=== PATIENT | male | born 1945 | race Caucasian/White ===

== ENCOUNTER 2019-11-27 10:44 | Inpatient (IN) | payer MEDICARE, OTHER, SELFPAY ==
[2019-11-27] VITALS (22 sets, daily range): BP systolic 117–153; BP diastolic 56–114; PULSE 76–102; RESP 12–23; TEMP 36.7–37.3; O2SAT 93–97; BMI 40.4; BMI 39.8
--- NOTE | 2019-11-27 11:03 | EKG12_ITS ---
Test Reason : CP Blood Pressure : / mmHG Vent. Rate : 091 BPM Atrial Rate : 300 BPM P-R Int : 000 ms QRS Dur : 100 ms QT Int : 382 ms P-R-T Axes : 000 023 031 degrees QTc Int : 469 ms Atrial fibrillation Abnormal ECG Confirmed by ORLY LUJAN ([id number]), greeting card editor ANGEL BECK ([id number] on 12/01/2019 3:42:16 PM Referred By: NAHUM Confirmed By:ORLY LUJAN
--- NOTE | 2019-11-27 11:07 | RAD_ITS ---
STUDY: X-RAY CHEST REASON FOR EXAM: Male, 74 years old. Chest pain, pressure to left side for last 3 weeks, worse at night. Increasing in SOB at rest so came to ER TECHNIQUE: Single AP portable view of the chest. COMPARISON: None. FINDINGS: EKG electrodes are seen. Mild increased linear markings at the left lung base suggestive of linear atelectasis and/or scarring. There is no demonstrated pleural abnormality. There is mild cardiac enlargement. Normal mediastinum and manuela. Normal visualized pulmonary arteries. Normal visualized aortic arch and descending thoracic aorta. There are diffuse degenerative changes of the visualized thoracic spine. Normal visualized ribs, clavicles, and shoulders. There is no demonstrated abnormality of the visualized soft tissue structures of the upper abdomen. RAD/Chest 1 View (Portable) IMPRESSION: Mild cardiomegaly. Mild increased linear markings at the left lung base suggestive of linear atelectasis and/or scarring. Electronically Signed: Haroldo Arana, at 12:16 EDT , Service support ,
--- NOTE | 2019-11-27 11:23 | ED.DCSUM_ITS ---
History of Present Illness Chief Complaint: Chest Pain Informant: Patient Onset: Days Context: Gradual Onset Timing: Continuous Current Severity: Moderate Maximum Severity: Moderate Narrative: Patient is a 74-year-old male with medical history significant for hypertension, hyperlipidemia, and atrial fibrillation that presents to the emergency department with heart racing, chest pain, and shortness of breath. Patient states that he does have a history of A. fib. He is not on anticoagulants. He does get all of his care through the [facility]. He states his been compliant with his medications and just takes baby aspirin. He states for the past few days, he is noticed that his heart rate has been as high as 140. If he tries to exert himself, he states that he feels very short of breath and will have tightness in his chest. It does not radiate. He denies any fever. He denies chills or sweats. He denies any history of coronary vascular disease. Prior similar symptoms: No Recent Illness/Hospitalization: No Past Medical History - Allergies and Home Meds Allergies/Adverse Reactions: Allergies No Known Allergies Allergy (Verified 11/27/19 10:44) Primary Care Physician: [facility] [Primary Care Provider] - Prior records reviewed: Yes Past Medical History: - - Hypertension, hyperlipidemia, atrial fibrillation Smoking Status: Former smoker Review of Systems General: Denies: Chills, Fever, Sweats Eyes: Denies: Visual changes - bilaterally, Diplopia ENT: Denies: Rhinorrhea, Sore throat Cardiovascular: Reports: Chest pain, Palpitations Respiratory: Reports: Dyspnea on exertion, Orthopnea. Denies: Dyspnea, Cough Gastrointestinal: Denies: Abdominal pain, Nausea, Vomiting, Diarrhea, Melena, Hematochezia Genitourinary: Denies: Dysuria, Hematuria, Frequency Musculoskeletal: Denies: Back pain, Extremity Pain Skin: Denies: Rash, Wounds Neurological: Denies: Headache, Weakness, Numbness Physical Exam Vital Signs/Narrative: Vital Signs Temp Pulse Resp BP Pulse Ox 11/27/19 10:47 99.2 F H 102 H 23 H 153/82 H 97 Inital Vital Signs reviewed: Yes General: Well nourished, Well developed, No Acute Distress Head: Normocephalic, Atraumatic Eyes: Perrl, EOMI ENT: Moist mucous membranes, No rhinorrhea Neck: Supple, Nontender Cardiovascular: No murmurs, Irregular, Tachycardia Respiratory: No distress, Chest nontender, Decreased Air Movement Abdomen: Soft, Nontender, Nondistended, Normal bowel sounds Back: Nontender, Normal Inspection Extremities: Nontender, No edema Skin: Normal color, No rash Neurological: Alert, Oriented x3, Cranial nerves II-XII grossly intact, Normal Strength, Normal Sensation Psychological: Normal affect, Normal Mood Diagnostic/Tx/Re-eval Chest X-Ray - ED: 1 View, Normal, Cardiomegaly, CHF Clinical Impression(s) from Imaging Studies Chest X-Ray 11/27/19 11:07 IMPRESSION: Mild cardiomegaly. Mild increased linear markings at the left lung base suggestive of linear atelectasis and/or scarring. Electronically Signed: Haroldo Arana, at 12:16 EDT , Service support , Abnormal Lab Results 11/27/19 11/27/19 11/27/19 11:05 11:05 11:05 WBC 5.7 RBC 4.67 Hgb 14.8 Hct 43.8 MCV 93.8 MCH 31.7 MCHC 33.8 RDW Std Deviation 49.9 H RDW Coeff of Eduard 14.4 Plt Count 160 MPV 9.3 Immature Gran % (Auto) 0.400 Neut % (Auto) 64.0 Lymph % (Auto) 11.5 L [place] % (Auto) 22.5 H Eos % (Auto) 1.4 Baso % (Auto) 0.2 Absolute Neuts (auto) 3.6 Absolute Lymphs (auto) 0.65 L Nucleated RBC % 0 PT 13.7 INR 1.1 APTT 34.6 Sodium 136 Potassium 3.8 Chloride 103 Carbon Dioxide 27.0 Anion Gap 6 BUN 9 Creatinine 1.03 Estim Creat Clear Calc 66.94 Est GFR (MDRD) Af Amer 91 Est GFR (MDRD) Non-Af 75 BUN/Creatinine Ratio 8.7 L Glucose 148 H Calcium 8.3 L Total Bilirubin 1.50 H AST 77 H ALT 114 H Alkaline Phosphatase 138 H Troponin I < 0.015 B-Natriuretic Peptide Total Protein 6.6 Albumin 3.0 L Globulin 3.6 Albumin/Globulin Ratio 0.8 L 11/27/19 11:05 WBC RBC Hgb Hct MCV MCH MCHC RDW Std Deviation RDW Coeff of Eduard Plt Count MPV Immature Gran % (Auto) Neut % (Auto) Lymph % (Auto) [place] % (Auto) Eos % (Auto) Baso % (Auto) Absolute Neuts (auto) Absolute Lymphs (auto) Nucleated RBC % PT INR APTT Sodium Potassium Chloride Carbon Dioxide Anion Gap BUN Creatinine Estim Creat Clear Calc Est GFR (MDRD) Af Amer Est GFR (MDRD) Non-Af BUN/Creatinine Ratio Glucose Calcium Total Bilirubin AST ALT Alkaline Phosphatase Troponin I B-Natriuretic Peptide 304.3 H Total Protein Albumin Globulin Albumin/Globulin Ratio - Rhythm Strip Rhythm Strip: A-fib Rate: 120 Ectopy: None - EKG Initial EKG Interpretation: Atrial Fibrillation, Non-Specific ST Changes Prior: No Prior - Medical Decision Making The patient is a 74-year-old male with history of atrial fibrillation and hypertension that presents to the emergency department with intermittent palpitations and left-sided chest pain. EKG was obtained on patient arrival which demonstrated atrial fibrillation at a rate of 91. The patient's rate would fluctuate into the 120s. This was consistent with RVR. He was started on the low-dose diltiazem drip with better control of his heart rate. Chest x-ray does not show significant volume overload, but there is cardiomegaly. Cardiac enzymes were negative. The patient is not anticoagulated, but is 74 years old with history of hypertension and seems to be in chronic atrial fibrillation. With his exertional dyspnea and chest tightness I do feel that he would benefit from cardiac work-up. Patient was discussed with the hospitalist. Impression 1. A. fib with RVR 2. Exertional dyspnea ED Disposition - Plan for ED Patient: [facility] [[facility]] -
[2019-11-27 11:27] LABS: Absolute Lymphocyte Count 0.65 X10^3/uL (0.83-4.51); Absolute Neutrophil Count 3.6 X10^3/uL (2.0-7.7); Basophil# 0.01 X10^3/uL; Basophil% 0.2 % (0-1); Eosinophil# 0.08 X10^3/uL; Eosinophils% 1.4 % (0-5); Hematocrit 43.8 % (40-54); Hemoglobin 14.8 g/dL (13.0-16.5); Lymphocyte # 0.65 X10^3/ul (4.0); Lymphocyte % 11.5 % (19-41); Mean Corp Hgb Conc 33.8 g/dL (32-36); Mean Corpuscular Hgb 31.7 pg (27.0-32.0); Mean Corpuscular Volume 93.8 fL (80-94); Mean Platelet Vol. 9.3 fl (6.2-12.0); Monocyte# 1.27 X10^3/uL; Monocyte% 22.5 % (0-10); NRBC Flagged by Analyzer 0 % (0-5); Neutrophil # 3.62 X10^3/uL (2.7-7.7); Platelet Count 160 K/mm3 (150-450); RBC Distribution Width CV 14.4 % (11.6-14.6); RBC Distribution Width SD 49.9 fl (35.1-43.9); Red Blood Count 4.67 M/mm3 (4.6-6.2); White Blood Count 5.7 K/mm3 (4.4-11.0)
[2019-11-27 11:39] LABS: International Normalized Ratio 1.1; Partial Thromboplast Time 34.6 Seconds (24.1-36.2); Prothrombin Time (Protime)PT. 13.7 SECONDS (11.7-14.9)
[2019-11-27 11:40] LABS: ALB/GLOB Ratio 0.8 RATIO (0.9-2.4); AST(SGOT) 77 U/L (15-37); Alanine Aminotransfer ALT/SGPT 114 U/L (16-61); Alkaline Phosphatase 138 U/L (45-117); Anion Gap 6 (5-15); BUN 9 mg/dL (7-18); BUN/Creat Ratio 8.7 RATIO (10-20); Calcium,Total 8.3 mg/dL (8.5-10.1); Chloride 103 mmol/L (98-107); Creatinine, Serum 1.03 mg/dL (0.70-1.30); EST Glomerular Filtration Rate 75 mL/min (>60); Est Glom Filt Rate - Afr Amer 91 mL/min (>60); Estimated Creatinine Clearance 66.94 ml/min; Globulin 3.6 g/dL (2.2-4.2); Glucose 148 mg/dL (74-106); Potassium 3.8 mmol/L (3.5-5.1); Protein, Total 6.6 g/dL (6.4-8.2); Sodium Level 136 mmol/L (136-145)
[2019-11-27 11:47] LABS: BNP,B-Type NATRIURETIC PEPTIDE 304.3 pg/mL (0-100)
--- NOTE | 2019-11-27 12:52 | HP.PCM_ITS ---
Problem List (1) Elevated LFTs Status: Acute (2) Atrial fibrillation with RVR Status: Acute (3) Atypical chest pain Status: Acute (4) Chronic atrial fibrillation Status: Chronic (5) GERD (gastroesophageal reflux disease) Status: Chronic (6) Depression Status: Chronic (7) Hypertension Status: Chronic History of Present Illness Date of Admission: 11/27/19 Chief Complaint: Palpitation, throat pain, shortness of breath. The patient is a 74 year old M with past medical history as mentioned above presented to the emergency room because of hypertension, throat pain and shortness of breath. His symptoms has been going on for almost 4 weeks, his main symptom is palpitation with heart rate ranging from 70s up to 120s, intermittent, associated with exertional shortness of breath and throat pain and without aggravating or relieving factors. Throat pain described as burning pain, intermittent, comes on when he has the palpitation, mild, not radiating and no associated symptoms. He reported chronic dry cough which is usual for him. He denied sore throat, fever or chills. He mentioned that the shortness of breath is more prominent during nighttime. He denied orthopnea, PND or leg edema. In the emergency department, he was found to be in A. fib with RVR, started on IV Cardizem drip and heart rate went down to 90s. He does have history of chronic atrial fibrillation. He was afebrile, blood pressure stable, pulse ox was 95% on room air. His routine blood work was unremarkable. LFT revealed elevated bilirubin and slightly elevated liver transaminases as well as alkaline phosphatase. EKG revealed atrial fibrillation, no acute acute changes. Troponin was negative. BNP was 304. Chest x-ray revealed cardiomegaly, no acute findings. He is being admitted for A. fib with RVR, atypical chest pain and elevated LFT. Past Medical History Past Medical History (Chronic Problems): Chronic Problems Chronic atrial fibrillation (Chronic) GERD (gastroesophageal reflux disease) (Chronic) Depression (Chronic) Hypertension (Chronic) Allergies No Known Allergies Allergy (Verified 11/27/19 10:44) Home Medications: Ambulatory Orders Medication Instructions Recorded Arginine 500 mg PO DAILY 05/04/13 Bupropion HCl [Bupropion HCl Sr] 100 mg PO BID 05/04/13 Co Q10 200 [Co Q-10] 50 mg PO DAILY 05/04/13 Fluticasone 0.05% [Flonase Nasal 1 spray NASAL DAILY 05/04/13 [place]] Guaifenesin [Mucinex] 400 mg PO BID 05/04/13 Lisinopril [Zestril] 40 mg PO BID 05/04/13 Multivitamins,Therapeutic 1 tab PO DAILY 05/04/13 Omeprazole [Prilosec] 40 mg PO DAILY 05/04/13 Saw Capron 80 mg PO BID 05/04/13 Sildenafil Citrate 100 gm MC PRN 05/04/13 Testosterone [Androgel] 75 gm TD 05/04/13 hydrOXYzine pamoate capsule 25 mg PO QHS 05/04/13 [Vistaril] ALPRAZolam [Xanax] 0.25 mg PO BID PRN PRN 11/27/19 Amlodipine Besylate 10 mg PO DAILY 11/27/19 Cholecalciferol (VIT D3) [Vitamin 5,000 unit PO QODAY 11/27/19 D] Sennosides/Docusate Sodium 1 ea PO BID PRN PRN 11/27/19 [Docusate Sodium-Sennosides Tab] Vitamin E 400 unit PO DAILY 11/27/19 Surgical History: - - History of left foot surgery. Psychiatric History: Depression Lives: Spouse/ Significant Other Smoking Status: Former smoker Alcohol: Occasional Drugs: None - *Family History Maternal History Items: No pertinent history Paternal History Items: No pertinent history Review of Systems Constitutional: Denies: Anorexia, Chills, Fever, Weakness Eyes: Denies: Blurred vision, Double vision, Drainage, Redness HEENT: Denies: Difficulty Hearing, Ear Pain, Eye Pain, Nasal Congestion, Sore Throat Cardiovascular: Reports: Palpitations. Denies: Chest Pain, Chest Pressure, Chest Tightness, Heaviness, Light Headedness, Syncope Respiratory: Reports: Cough, Shortness of Breath, Shortness of breath at rest, Shortness of breath upon exertion. Denies: Sputum production, Wheezing Gastrointestinal: Denies: Abdominal Pain, Constipation, Diarrhea, Nausea, Vomiting Genitourinary: Reports: Retention. Denies: Dysuria, Frequency, Hematuria Musculoskeletal: Denies: Arm Pain, Back Pain, Foot Pain Skin: Denies: Dryness, Rash Neurological: Denies: Balance problems, Double vision, Confusion, I ncoordination, Tingling Psychiatric: Reports: Depression. Denies: Anxiety Endocrine: Denies: Change in Body Habitus, Polydipsia, Polyuria VTE Information - Inpt Only VTE Present on Admission: No VTE Mechan Device Prophylaxis: None VTE Pharm Prophylaxis ordered?: No Patient Problems: Active and Suspected Problems Elevated LFTs (Acute) Atrial fibrillation with RVR (Acute) Atypical chest pain (Acute) - Physical Exam Vitals/I&O's: Vital Signs Temp Pulse Resp BP Pulse Ox 99.2 F H 90 23 H 117/70 95 11/27/19 10:47 11/27/19 12:37 11/27/19 12:37 11/27/19 12:37 11/27/19 12:37 Oxygen Delivery Method Room Air Weight: 281 lb 15.539 oz Body Mass Index (BMI) 40.4 Intake and Output for Last 24 Hours 11/25/19 11/26/19 11/27/19 23:59 23:59 23:59 Intake Total 2.5 / 2.5 Balance 2.5 / 2.5 General: Alert, Oriented x3, Cooperative, - - Mildly short of breath. HEENT: Atraumatic, PERRLA, EOMI, Normocephalic Oral: Moist Mucosa, No Gingival or Mucosal Lesions/ Ulcerations Neck: Supple, No JVD, Negative Carotid Bruits, Trachea Midline, Thyroid Normal Size and Texture Lungs: Clear to auscultation, Normal air movement, No rhonchi, No wheeze, No rales, Diminished Cardiovascular: Normal S1, Normal S2, No murmurs, PMI Normal, Irregular Rate, Tachycardic Abdomen: Bowel Sounds Present, Soft, Non Tender, Non-Distended, No Hepato- splenomegaly, Obese, - - Ventral hernia. Extremities: No clubbing, No cyanosis, No edema Skin: No rashes, No breakdown Musculoskeletal: No Tenderness to Palpation of Joints or Extremities Lymphatic: No Cervical, Supraclavicular, or Inguinal Adenopathy Neurological: Cranial nerves II-XII grossly intact, Motor Exam 5/5 strength throughout Psych/Mental Status: Normal Affect, Appropriate, Alert and oriented to time, place, person, mood and affect Laboratory Results 11/27/19 11:05: WBC 5.7, RBC 4.67, Hgb 14.8, Hct 43.8, MCV 93.8, MCH 31.7, MCHC 33.8, RDW Std Deviation 49.9 H, RDW Coeff of Eduard 14.4, Plt Count 160, MPV 9.3, Immature Gran % (Auto) 0.400, Neut % (Auto) 64.0, Lymph % (Auto) 11.5 L, [place] % (Auto) 22.5 H, Eos % (Auto) 1.4, Baso % (Auto) 0.2, Absolute Neuts (auto) 3.6, Absolute Lymphs (auto) 0.65 L, Nucleated RBC % 0 11/27/19 11:05: PT 13.7, INR 1.1, APTT 34.6 11/27/19 11:05: Sodium 136, Potassium 3.8, Chloride 103, Carbon Dioxide 27.0, Anion Gap 6, BUN 9, Creatinine 1.03, Estim Creat Clear Calc 66.94, Est GFR (MDRD) Af Amer 91, Est GFR (MDRD) Non-Af 75, BUN/Creatinine Ratio 8.7 L, Glucose 148 H, Calcium 8.3 L, Total Bilirubin 1.50 H, AST 77 H, ALT 114 H, Alkaline [place] sphatase 138 H, Troponin I < 0.015, Total Protein 6.6, Albumin 3.0 L, Globulin 3.6, Albumin/Globulin Ratio 0.8 L 11/27/19 11:05: B-Natriuretic Peptide 304.3 H Clinical Impression(s) from Imaging Studies Chest X-Ray 11/27/19 11:07 IMPRESSION: Mild cardiomegaly. Mild increased linear markings at the left lung base suggestive of linear atelectasis and/or scarring. Electronically Signed: Haroldo Arana, at 12:16 EDT , Service support , Current Medications Diltiazem HCl 125 mg/ Dextrose 125 mls @ 5 mls/hr IV .Q25H [facility]; Protocol Last Titration: 11/27/19 12:37 Dose: 5 mg/hr, 5 mls/hr Documented by: Assessment/Plan All Active Problems Elevated LFTs (Acute) Atrial fibrillation with RVR (Acute) Atypical chest pain (Acute) This is a 74 years old male patient presented to the emergency room because of palpitation, atypical chest pain with shortness of breath and he is being admitted for evaluation and treatment and also found to have elevated LFT. #1 A. fib with RVR: Started on IV Cardizem drip, heart rate is down to 90s, blood pressure stable. EKG reviewed, troponin is negative. Chest x-ray without evidence of obvious CHF. Patient does have a history of chronic atrial fibrillation, not on anticoagulation. Plan: Admit to PCU, cardiac monitoring, serial cardiac enzymes, repeat EKG tomorrow morning, check serum magnesium and TSH, continue IV Cardizem drip, 2D echocardiogram because patient will need to be started on anticoagulation, start therapeutic Lovenox twice daily, repeat CBC and BMP tomorrow morning, PT OT evaluation and treatment. #2 atypical chest pain: Mainly throat pain, intermittent. EKG without tach ischemic changes. Troponin is negative. Plan: Cardiac monitoring, serial cardiac enzymes, repeat EKG tomorrow morning, nuclear stress test tomorrow morning, nitroglycerin PRN. #3 elevated LFT: Could be due to chronic alcohol drinking. He complained of intermittent right upper quadrant abdominal pain, no tenderness, negative Abdalla sign. #4 hypertension: Blood pressure stable, continue lisinopril and Norvasc. #5 chronic atrial fibrillation: He is not on any rate controlling medicine and not on anticoagulation. His [id number] score is 2. Patient is a candidate for anticoagulation. Plan to start him on therapeutic Lovenox twice daily, continue Cardizem drip for now. #6 GERD: Continue PPI. #7 anxiety/depression: Continue Xanax and bupropion. #8 DVT prophylaxis: He will be on Lovenox twice daily for anticoagulation. This note was generated with [email or web address] dictation software. It may contain incorrect words, spelling, and punctuation that were not noted in checking the note before signing. Inpatient E&M: 69606 Init Hosp L3
--- NOTE | 2019-11-27 14:01 | US_ITS ---
STUDY: ABDOMINAL ULTRASOUND - RIGHT UPPER QUADRANT REASON FOR VISIT: Male, 74 years old ELEV LFT TECHNIQUE: Ultrasound evaluation of the right upper quadrant was performed with real-time and static antoine-scale imaging. TECHNICAL QUALITY: Limited. Examination limited by bowel gas. COMPARISON: None. FINDINGS: Liver: The liver measures 18.4 cm. There is increased echogenicity consistent with fatty infiltration. The bile ducts are within normal limits. There is hepatic color flow. The direction of portal flow is hepatopetal. There is no demonstrated mass lesion. Gallbladder: Normal distended gallbladder. The gallbladder wall measures 3 mm. There is a negative sonographic Abdalla''s sign. There is no pericholecystic fluid. There are no gallstones. Common Bile Duct (C.B.D.): The common bile duct measures 4 mm. Pancreas: The pancreas was obscured by bowel gas. Right Kidney: Normal size of the right kidney. The right kidney measures 11.2 x 4.7 x 6.0 cm. Normal renal cortex. The right cortex measures 1.6 cm. There is no demonstrated renal mass or cyst. There is no right hydronephrosis. US/Liver IMPRESSION: The pancreas was obscured by bowel gas. There is increased hepatic echogenicity suggestive of steatosis. Electronically Signed: Jovani Conner MD at 16:57 EDT , Service support ,
--- NOTE | 2019-11-27 14:01 | ECHOCS_ITS ---
Reason For Study: AFIB Procedure This was a 2D Doppler, Color Flow transthoracic echocardiogram. The study was technically difficult. Contrast injection was performed. Exam performed portable in patient room. Left Ventricle Normal LV size. Left ventricular systolic function is normal. The estimated ejection fraction is 65 %. Unable to assess diastolic dysfunction. No regional wall motion abnormalities noted. Right Ventricle Normal RV size. Normal systolic function. Atria The left atrium is moderately enlarged. Normal right atrium. No doppler evidence for ASD. Mitral Valve There is moderate mitral annular calcification. Extension of the mitral annular calcification onto the base of the posterior mitral valve leaflet. Trivial mitral valve insufficiency. Tricuspid Valve Normal tricuspid valve. Trivial tricuspid valve insufficiency. Right ventricular systolic pressure estimated to be 25 mmHg. Aortic Valve Trisinus/trileaflet aortic valve. Moderate focal aortic valve calcification. Mild aortic stenosis. Mild (1+) aortic valve insufficiency. Pulmonic Valve The pulmonic valve is not well visualized. Great Vessels Normal sized aortic root. Pericardium/Pleural No pericardial effusion. Medication Diluted definity 4.0ml given slow IV push to enhance endocardial definition. MMode/2D Measurements & Calculations LVIDd: 4.2 cm IVSd: 1.2 cm LVOT diam: 2.1 cm LVIDs: 2.4 cm LVPWd: 1.2 cm RVDd: 3.4 cm FS: 43.8 % LVOT area: 3.5 cm2 Ao root diam: 3.5 cm LAV(MOD-bp): 84.4 ml LVAd ap4: 29.6 cm2 LAV(MOD-bp) Indexed: 35.0 ml/m2 EDV(MOD-sp4): 88.3 ml LAV(MOD-sp2): 76.4 ml EDV(sp4-el): 93.2 ml LAV(MOD-sp4): 88.6 ml LVAs ap4: 16.0 cm2 ESV(MOD-sp4): 31.4 ml ESV(sp4-el): 32.3 ml EF(MOD-sp4): 64.4 % EF(sp4-el): 65.3 % SV(MOD-sp4): 56.9 ml SV(sp4-el): 60.9 ml LA A4 area: 27.2 cm2 LA dimension(2D): 5.4 cm RA A4 area: 12.3 cm2 Doppler Measurements & Calculations Ao V2 max: 242.7 cm/sec AI max cecilia: 352.6 cm/sec LV V1 max: 121.3 cm/sec Ao max P.6 mmHg AI max P.9 mmHg LV V1 max P.9 mmHg Ao V2 mean: 181.7 cm/sec AI dec slope: 181.8 cm/sec2 LV V1 mean P.9 mmHg Ao mean P.3 mmHg AI P1/2t: 568.1 msec LV V1 mean: 94.1 cm/sec Ao V2 VTI: 40.9 cm LV V1 VTI: 24.2 cm MICHEAL(I,D): 2.1 cm2 MICHEAL(V,D): 1.7 cm2 SV(LVOT): 84.1 ml TR max cecilia: 235.8 cm/sec TR max P.2 mmHg Interpretation Summary The study was technically difficult. Contrast injection was performed. Left ventricular systolic function is normal. The estimated ejection fraction is 65 %. The left atrium is moderately enlarged. There is moderate mitral annular calcification. Extension of the mitral annular calcification onto the base of the posterior mitral valve leaflet. Trivial mitral valve insufficiency. Trivial tricuspid valve insufficiency. Mild aortic stenosis. Mild (1+) aortic valve insufficiency. Right ventricular systolic pressure estimated to be 25 mmHg. Unable to assess diastolic dysfunction. Ordering Physician: Francisco Espinoza Referring Physician: [facility] Performed By: Ayde Palacios, SHIVA, RVT
--- NOTE | 2019-11-27 14:33 | EKG12_ITS ---
Test Reason : CP Blood Pressure : / mmHG Vent. Rate : 091 BPM Atrial Rate : 115 BPM P-R Int : 000 ms QRS Dur : 104 ms QT Int : 410 ms P-R-T Axes : 000 036 042 degrees QTc Int : 504 ms Atrial fibrillation Prolonged QT Abnormal ECG When compared with ECG of 27-NOV-2019 14:09, MANUAL COMPARISON REQUIRED, DATA IS UNCONFIRMED Confirmed by MARTITA ESCUDERO, EMILY ([id number]), index editor ANGEL BECK ([id number]) on 11/28/2019 11:37:23 AM Referred By: MILLIE Confirmed By:EMILY ANDERS MD
[2019-11-27 14:52] LABS: Hemoglobin A1c 5.7 % (4.2-6.3)
[2019-11-27 15:01] LABS: Magnesium 2.2 mg/dL (1.6-2.6); Thyroid Stim Hormone (TSH) 1.82 uIU/mL (0.358-3.74)
--- NOTE | 2019-11-27 15:05 | EKG12_ITS ---
Test Reason : AFIB W/RVR, CP ADMIT Blood Pressure : / mmHG Vent. Rate : 086 BPM Atrial Rate : 277 BPM P-R Int : 000 ms QRS Dur : 106 ms QT Int : 410 ms P-R-T Axes : 000 027 030 degrees QTc Int : 490 ms Atrial fibrillation Prolonged QT Abnormal ECG No previous ECGs available Confirmed by MARTITA ESCUDERO, EMILY ([id number]), restaurant expeditor ANGEL BECK ([id number]) on 11/28/2019 11:37:48 AM Referred By: MILLIE Confirmed By:EMILY ANDERS MD
[2019-11-27] MEDS: Enoxaparin 120 MG/0.8 ML Syringe SC (16:55)
[2019-11-27] MEDS: Acetaminophen 325 MG Tablet 650 MG PO (16:55)
[2019-11-27] MEDS: Pantoprazole Sodium 40 MG Tablet PO (21:00)
[2019-11-27] MEDS: guaiFENesin 600 MG Tablet PO (21:00)
[2019-11-27] MEDS: hydrOXYzine PAM 25 MG Capsule PO (21:00)
[2019-11-28] VITALS (26 sets, daily range): BP systolic 110–158; BP diastolic 54–98; PULSE 62–96; RESP 15–27; TEMP 36.8–36.9; O2SAT 93–98
--- NOTE | 2019-11-28 05:55 | EKG12_ITS ---
Test Reason : AM EKG Blood Pressure : / mmHG Vent. Rate : 073 BPM Atrial Rate : 214 BPM P-R Int : 000 ms QRS Dur : 106 ms QT Int : 438 ms P-R-T Axes : 000 028 044 degrees QTc Int : 482 ms Atrial fibrillation Prolonged QT Abnormal ECG When compared with ECG of 27-NOV-2019 15:08, MANUAL COMPARISON REQUIRED, DATA IS UNCONFIRMED Confirmed by ORLY LUJAN ([id number]), editor managing director HALLIE HOFF ([id number]) on 11/30/2019 3:22:03 PM Referred By: MILLIE Confirmed By:ORLY LUJAN
[2019-11-28 06:23] LABS: Absolute Lymphocyte Count 0.75 X10^3/uL (0.83-4.51); Absolute Neutrophil Count 2.6 X10^3/uL (2.0-7.7); Basophil# 0.02 X10^3/uL; Basophil% 0.4 % (0-1); Eosinophil# 0.17 X10^3/uL; Eosinophils% 3.7 % (0-5); Hematocrit 42.5 % (40-54); Hemoglobin 14.2 g/dL (13.0-16.5); Lymphocyte # 0.75 X10^3/ul (4.0); Lymphocyte % 16.4 % (19-41); Mean Corp Hgb Conc 33.4 g/dL (32-36); Mean Corpuscular Hgb 31.8 pg (27.0-32.0); Mean Corpuscular Volume 95.3 fL (80-94); Mean Platelet Vol. 9.2 fl (6.2-12.0); Monocyte# 1.02 X10^3/uL; Monocyte% 22.3 % (0-10); NRBC Flagged by Analyzer 0 % (0-5); Neutrophil # 2.59 X10^3/uL (2.7-7.7); Neutrophil % 56.8 % (47-70); Platelet Count 147 K/mm3 (150-450); RBC Distribution Width CV 14.4 % (11.6-14.6); RBC Distribution Width SD 50.7 fl (35.1-43.9); Red Blood Count 4.46 M/mm3 (4.6-6.2); White Blood Count 4.6 K/mm3 (4.4-11.0)
[2019-11-28 06:41] LABS: ALB/GLOB Ratio 0.8 RATIO (0.9-2.4); AST(SGOT) 71 U/L (15-37); Alanine Aminotransfer ALT/SGPT 101 U/L (16-61); Albumin, Serum 2.7 g/dL (3.2-5.0); Alkaline Phosphatase 124 U/L (45-117); Anion Gap 6 (5-15); BUN 11 mg/dL (7-18); BUN/Creat Ratio 10.9 RATIO (10-20); Calcium,Total 8.2 mg/dL (8.5-10.1); Chloride 105 mmol/L (98-107); Cholesterol 156 mg/dL (200); Creatinine, Serum 1.01 mg/dL (0.70-1.30); EST Glomerular Filtration Rate 77 mL/min (>60); Est Glom Filt Rate - Afr Amer 93 mL/min (>60); Estimated Creatinine Clearance 68.26 ml/min; Globulin 3.6 g/dL (2.2-4.2); Glucose 128 mg/dL (74-106); High Density Lipoprotein 77 mg/dL; Potassium 3.6 mmol/L (3.5-5.1); Protein, Total 6.3 g/dL (6.4-8.2); Sodium Level 137 mmol/L (136-145); Triglycerides 124 mg/dL; Very Low Density Lipoprotein 25 mg/dL (5-40)
--- NOTE | 2019-11-28 09:23 | CON.PCM_ITS ---
<Torito Galdamez - Last Filed: 11/28/19 11:45> Problem List (1) Atrial fibrillation with RVR Status: Acute (2) Atypical chest pain Status: Acute (3) Hypertension Status: Chronic Reason for Consult Date of Consultation: 11/28/19 Reason for Consultation: Atrial fibrillation, chest pain History of Present Illness: The patient is a 74 year old M who presented to the emergency department on 11/27/2019 with chest pain, heart racing, and shortness of breath. He has a past medical history of atrial fibrillation, hypertension, and hyperlipidemia. [facility] E[facility] in the emerge department showed atrial fibrillation and elevated rate of 140 bpm without any acute ST or T wave changes. His blood pressure was noted be 153/82. His chest x-ray revealed mild cardiomegaly. His WBC, hemoglobin, platelet count, sodium, potassium, BUN, creatinine, and troponin were negative. His liver function tests were noted to be elevated. His BNP was noted be 309. He was started on IV Cardizem for his atrial fibrillation with RVR and admitted for further evaluation. His cardiac enzymes were trended, echocardiogram was ordered, and stress test was ordered. He underwent further laboratory evaluation with magnesium and TSH, which were within normal limits. Cardiology was consulted for further input. Past Medical History Allergies/Adverse Reactions: Allergies No Known Allergies Allergy (Verified 11/27/19 10:44) Home Medications: Ambulatory Orders Medication Instructions Recorded Arginine 500 mg PO DAILY 05/04/13 Bupropion HCl [Bupropion HCl Sr] 300 mg PO DAILY 05/04/13 Co Q10 200 [Co Q-10] 50 mg PO DAILY 05/04/13 Fluticasone 0.05% [Flonase Nasal 1 spray NASAL DAILY 05/04/13 [place]] Guaifenesin [Mucinex] 400 mg PO BID 05/04/13 Lisinopril [Zestril] 40 mg PO BID 05/04/13 Multivitamins,Therapeutic 1 tab PO DAILY 05/04/13 Omeprazole [Prilosec] 40 mg PO BID 05/04/13 [place] 80 mg PO BID 05/04/13 Sildenafil Citrate 100 gm MC PRN 05/04/13 Testosterone [Androgel] 75 gm TD 05/04/13 hydrOXYzine pamoate capsule 25 mg PO QHS 05/04/13 [Vistaril] ALPRAZolam [Xanax] 0.25 mg PO BID PRN PRN 11/27/19 Amlodipine Besylate 10 mg PO DAILY 11/27/19 Cholecalciferol (VIT D3) [Vitamin 5,000 unit PO QODAY 11/27/19 D] Sennosides/Docusate Sodium 1 ea PO BID PRN PRN 11/27/19 [Docusate Sodium-Sennosides Tab] Vitamin E 400 unit PO DAILY 11/27/19 Past Medical History (Chronic Problems): Chronic Problems Chronic atrial fibrillation (Chronic) GERD (gastroesophageal reflux disease) (Chronic) Depression (Chronic) Hypertension (Chronic) Surgical History: - - History of left foot surgery. Psychiatric History: Depression - *Family History Maternal History Items: No pertinent history Paternal History Items: No pertinent history Lives: Spouse/ Significant Other Smoking Status: Former smoker Alcohol: Occasional Drugs: None Subjectve: Patient states over the last 3 weeks he has not felt well. Over the last 4-5 days he noticed change in symptoms that include palpitations, chest/throat discomfort, and shortness of breath. He also noted intermittent orthopnea and PND. He denied any lower extremity edema at home. Due to worsening symptoms, he [facility] was asked to present to the [facility] Department. Objective: Vital Signs Temp Pulse Resp BP Pulse Ox 98.2 F 62 18 154/63 H 93 11/28/19 04:00 11/28/19 09:00 11/28/19 09:00 11/28/19 09:00 11/28/19 09:00 Oxygen Delivery Method Room Air Weight: 277 lb 5.464 oz Body Mass Index (BMI) 39.8 Intake and Output for Last 24 Hours 11/26/19 11/27/19 11/28/19 23:59 23:59 23:59 Intake Total 274.42 / 519.42 350.0 / 350.0 Balance 274.42 / 519.42 350.0 / 350.0 General: Healthy Appearing, Awake, Alert, Oriented x 3, Cooperative, No Acute Distress Oral: Moist Mucosa Neck: Supple, No JVD Lungs: Clear to auscultation Cardiovascular: Irregular Rhythm, Normal S1, Normal S2, No Murmurs, No Rubs, No Gallops Vascular: No Carotid Bruits Abdomen: Bowel Sounds Present, Soft Extremities: No Cyanosis, No Clubbing, No edema, Normal Capillary Refill Skin: No Rashes Neurological: No Focal Motor or Sensory Deficit Psych/Mental Status: Appropriate, Normal Affect 11/27/19 11:05: WBC 5.7, RBC 4.67, Hgb 14.8, Hct 43.8, MCV 93.8, MCH 31.7, MCHC 33.8, Plt Count 160, MPV 9.3, Immature Gran % (Auto) 0.400, Neut % (Auto) 64.0, Lymph % (Auto) 11.5 L, Jerome % (Auto) 22.5 H, Eos % (Auto) 1.4, Baso % (Auto) 0.2, Absolute Neuts (auto) 3.6, Nucleated RBC % 0 11/27/19 11:05: PT 13.7, INR 1.1, APTT 34.6 11/27/19 11:05: Sodium 136, Potassium 3.8, Chloride 103, Carbon Dioxide 27.0, Anion Gap 6, BUN 9, Creatinine 1.03, Est GFR (MDRD) Af Amer 91, Est GFR (MDRD) Non-Af 75, BUN/Creatinine Ratio 8.7 L, Glucose 148 H, Calcium 8.3 L, Total Bilirubin 1.50 H, Troponin I < 0.015 11/27/19 11:05: B-Natriuretic Peptide 304.3 H 11/27/19 14:15: Magnesium 2.2 11/27/19 14:15: Hemoglobin A1c 5.7 11/27/19 14:15: Troponin I < 0.015 11/27/19 17:03: Troponin I < 0.015 11/28/19 06:04: WBC 4.6, RBC 4.46 L, Hgb 14.2, Hct 42.5, MCV 95.3 H, MCH 31.8, MCHC 33.4, Plt Count 147 L, MPV 9.2, Immature Gran % (Auto) 0.400, Neut % (Auto) 56.8, Lymph % (Auto) 16.4 L, Jerome % (Auto) 22.3 H, Eos % (Auto) 3.7, Baso % (Auto) 0.4, Absolute Neuts (auto) 2.6, Nucleated RBC % 0 05/05/20 06:04: Sodium 137, Potassium 3.6, Chloride 105, Carbon Dioxide 26.0, Anion Gap 6, BUN 11, Creatinine 1.01, Est GFR (MDRD) Af Amer 93, Est GFR (MDRD) Non-Af 77, BUN/Creatinine Ratio 10.9, Glucose 128 H, Calcium 8.2 L, Total Bilirubin 1.50 H, Triglycerides 124, Cholesterol 156, LDL Cholesterol 54, VLDL Cholesterol 25, HDL Cholesterol 77 Rhythm: EKG: ECHO: Stress Test: Cardiac Cath: PCI: CT Surgery: Holter monitor: EPS: PPM: CXR: Chest CT Scan: Assessment/Plan 1. Atrial fibrillation with RVR * Patient states that this is he has a history of atrial fibrillation; however, he states this is the first time that he had an elevated heart rate. He is not on rate limiting medications or oral anticoagulation on an outpatient basis. He states typically taking aspirin. His outpatient records from the [facility] do not appear to make mention of chronic atrial fibrillation and thus this appears to be a new diagnosis. * His TSH was within normal limits. His troponin has been negative x3. His electrolytes were also noted to be stable. Patient's WBC, hemoglobin, and platelet count are within normal limits. The exact etiology of his atrial fibrillation with RVR is unclear at this time. * He will proceed with echocardiogram and stress test to evaluate structural changes and ischemic component. Based on results, further recommendation be made. * With IV Cardizem, his rate is improved, but appears to be in atrial fibrillation. He will be transitioned to rate limiting medication based on results of his echocardiogram and stress test. * One such option is to discontinue amlodipine and transition to p.o. Cardizem. A second option is to continue with amlodipine and add beta-alice therapy. * Anticoagulation will be discussed with him further after stress test and further consider based on results. His QNA2IE3-FUDp score is 2 (age, hypertension). His liver function will challenge such decision. * Assuming, his rate remains controlled and can safely begin anticoagulation, on an outpatient basis, he can be considered for antiarrhythmic medication, cardioversion, or EPS evaluation. 2. Chest pain * Patient's troponin has been negative x3. He will proceed with stress test to further rule out coronary artery disease component. Based on results, further recommendation will be made. 3. Hypertension * His blood pressure has fluctuated throughout his hospital stay. Hopefully, with additional heart rate medications for atrial fibrillation, there will also control his blood pressure. This will need to be followed on an outpatient basis. 4. Elevated liver function tests * Because of this, we will avoid amiodarone therapy at this time and as noted above, this challenges anticoagulation therapy. This will need to be addressed with primary care team or on an outpatient basis. 5. Outside Records Cardiology consult sheet with the [facility] was received. It appears that patient was undergoing hernia surgery and need to be evaluated by cardiology department. Per report, it was noted that patient has diastolic dysfunction and aortic stenosis regurgitation. Further detail report signed on 07/27/2013 makes mention of thickened aortic valve cuffs but that opened fairly well (MICHEAL around 1.6). Due to the calcification of the cusps they do not close well either, and as such he has mild to moderate AI, with a P1/2T around 530 (severe AI is less than 200) and a slope around 240. He also has estimated PASP of 45-50 consistent with moderate pulmonary hypertension. EKG dated 07/21/2013 showed sinus bradycardia at a rate 53 bpm QTC of 433. EKG dated 11/15/2012 showed sinus bradycardia at a rate of 52 bpm and a QTC of 429. Virtual office visit from 11/07/2019 was also reviewed. It appears that main diagnosis reviewed included hypertension, hyperlipidemia, COPD, BPH, and chronic stress disorder. No changes or testing was recommended. Office visit dated 05/09/2019 was also reviewed. Pertinent cardiac medications include amlodipine 10 mg p.o. daily and lisinopril 40 mg p.o. twice daily. The main diagnosis reviewed at that time included hypertension, sleep apnea, hyp erlipidemia, obesity, and . There is no mention of regularity in regards to heart rhythm during physical exam. There is mention of abnormal LFTs with recommend repeat laboratory testing. Echocardiogram from 05/19/2013: Interpretation summary Left ventricular size and systolic function is normal. Ejection fraction estimated is 60-65%. The right ventricle is mildly dilated. The right ventricular systolic function is normal. There is mild mitral regurgitation. There is moderate tricuspid regurgitation. There is moderate pulmonary hypertension. There is moderate aortic stenosis. The mean pressure gradient is 31 mmHg. Moderate aortic regurgitation. The aortic valve area is calculated at approximately 1.6 cm? by planimetry by the continuity equation. Mild aortic root dilation. Technically difficult study. Patient's case was reviewed with Dr. Lord, who will also personally evaluate patient. Please see his dictation for further input and details. Thank you for allowing us to participate in the patients plan of care, if you have any questions please do not hesitate to call. This note was generated using a voice recognition system and there may be incorrect words, spelling or punctuation that were not noted when reviewing the office note prior to saving. <Solomon Lord - Last Filed: 11/28/19 15:55> Reason for Consult History of Present Illness: The patient is a 74 year old M [] Objective: Vital Signs Temp Pulse Resp BP Pulse Ox 98.3 F 80 21 H 110/60 94 11/28/19 15:00 11/28/19 15:00 11/28/19 15:00 11/28/19 15:00 11/28/19 15:00 Oxygen Delivery Method Room Air Weight: 277 lb 5.464 oz Body Mass Index (BMI) 39.8 Intake and Output for Last 24 Hours 11/26/19 11/27/19 11/28/19 23:59 23:59 23:59 Intake Total 274.42 / 519.42 600.00 / 600.00 Output Total Balance 274.42 / 519.42 599.00 / 599.00 11/27/19 17:03: Troponin I < 0.015 11/28/19 06:04: WBC 4.6, RBC 4.46 L, Hgb 14.2, Hct 42.5, MCV 95.3 H, MCH 31.8, MCHC 33.4, Plt Count 147 L, MPV 9.2, Immature Gran % (Auto) 0.400, Neut % (Auto) 56.8, Lymph % (Auto) 16.4 L, Jerome % (Auto) 22.3 H, Eos % (Auto) 3.7, Baso % (Auto) 0.4, Absolute Neuts (auto) 2.6, Nucleated RBC % 0 11/28/19 06:04: Sodium 137, Potassium 3.6, Chloride 105, Carbon Dioxide 26.0, Anion Gap 6, BUN 11, Creatinine 1.01, Est GFR (MDRD) Af Amer 93, Est GFR (MDRD) Non-Af 77, BUN/Creatinine Ratio 10.9, Glucose 128 H, Calcium 8.2 L, Total Bilirubin 1.50 H, Triglycerides 124, Cholesterol 156, LDL Cholesterol 54, VLDL Cholesterol 25, HDL Cholesterol 77 Rhythm: EKG: ECHO: Stress Test: Cardiac Cath: PCI: CT Surgery: Holter monitor: EPS: PPM: CXR: Chest CT Scan: Assessment/Plan Addendum: Date: 11-28-2019 The patient was independently evaluated/examined The patient appears to have a longstanding history of aortic valve disorder with aortic valve stenosis/insufficiency superimposed upon hypertension and chronically elevated hepatic transaminase levels. He is now been found to have concerns of atrial fibrillation. On examination his lungs are clear at this time. His cardiovascular exam demonstrates an irregularly irregular rhythm with a normal S1 and S2 with a grade 2/6 to 3/6 harsh systolic murmur at the lower left sternal border radiating toward the LV outflow tract and sternal notch area. His ECG demonstrated atrial fibrillation with no acute ECG changes. His transthoracic echocardiogram is as noted: Interpretation Summary The study was technically difficult. Contrast injection was performed. Left ventricular systolic function is normal. The estimated ejection fraction is 65 %. The left atrium is moderately enlarged. There is moderate mitral annular calcification. Extension of the mitral annular calcification onto the base of the posterior mitral valve leaflet. Trivial mitral valve insufficiency. Trivial tricuspid valve insufficiency. Mild aortic stenosis. Mild (1+) aortic valve insufficiency. Right ventricular systolic pressure estimated to be 25 mmHg. Unable to assess diastolic dysfunction. His stress test is as noted: Stress Test Report Date: 11-28-2019 Procedure: Pharmacologic stress nuclear imaging study Indications: Atrial fibrillation Consent: Per the patient Procedure: The patient underwent pharmacologic (Regadenoson) evaluation with a peak heart rate of 110 beats per minute (74 %predicted maximal heart rate) and a peak blood pressure of 128/70 mmHg. The baseline ECG demonstrated atrial fibrillation. The peak pharmacologic ECG demonstrated no obvious ECG changes. There were no cardiac dysrhythmias pretest, during pharmacologic infusion, or recovery. There was no complaint of chest discomfort during pharmacologic infusion or recovery. The examination was discontinued secondary to completion of protocol. Impression: 1. Pharmacologic (Regadenoson) evaluation 2. Peak pharmacologic ECG with no obvious ECG changes. 3. There were no cardiac dysrhythmias pretest, during pharmacologic infusion, or recovery. 4. Nuclear images pending Myocardial perfusion imaging study: Technique: The patient was injected with 13.9 millicuries of technetium 99m Cardiolite and subsequently rest SPECT Cardiolite nuclear imaging was obtained in the horizontal long, vertical long, and short axis views. The patient underwent pharmacologic (Regadenoson) evaluation with a peak heart rate of 110 beats per minute (74 % percent predicted maximal heart rate) and a peak blood pressure of 128/70 mmHg. The patient was injected with 44.8 millicuries of technetium 99m Cardiolite and subsequently stress SPECT Cardiolite nuclear imaging was obtained in the horizontal long, vertical long, and short axis views. A gated Cardiolite study at peak stress was obtained. Interpretation: Rest and stress SPECT Cardiolite nuclear imaging status post realignment, normalization, and attenuation correction demonstrate relative uniform tracer uptake and myocardial perfusion appearing within normal limits. There is end systolic thickening and brightening. The gated Cardiolite study demonstrates myocardial thickening and inward wall motion. The reported LVEF is 73 %. Impression: 1. Rest and stress SPECT Cardiolite nuclear imaging demonstrate relative uniform tracer uptake and myocardial perfusion appearing within normal limits. 2. The gated Cardiolite study reports an LVEF of 73 %. At the present time he does have an underlying atrial fibrillation superimposed upon an element of aortic valve stenosis/insufficiency and hypertension as well as his chronically elevated hepatic transaminase levels. He has been treated medically. An attempt will be made to alter his IV diltiazem to an oral beta-alice for rate control. Ideally he should also be on long-term oral systemic anticoagulant therapy. He states he is willing to do so as long as it is not warfarin/Coumadin. However he wants to know that anticoagulation therapy is acceptable with his chronically elevated hepatic studies. Thus a request has been placed to clinical pharmacology regarding this issue of anticoagulation with agent such as Eliquis and his chronically elevated hepatic transaminase levels. If there is no contraindication then he would be willing to take such an agent. He would then need continued outpatient follow-up, which he has had through the [facility], for period of time with the hopes of future attempt at synchronized biphasic DC cardioversion to regain sinus rhythm. The patient's case has been discussed and reviewed with the patient as well as Torito Galdamez CNP. This note was generated using a voice recognition system and there may be incorrect words, spelling or punctuation that were not noted when reviewing the office note prior to saving.
[2019-11-28] MEDS: guaiFENesin 600 MG Tablet PO ×2 (11:45→21:31)
[2019-11-28] MEDS: amLODIPine 10 MG Tablet PO (11:45)
[2019-11-28] MEDS: Pantoprazole Sodium 40 MG Tablet PO ×2 (11:45→21:31)
[2019-11-28] MEDS: buPROPion (SR) 100 MG TABLET.SA 300 MG PO (11:50)
--- NOTE | 2019-11-28 12:33 | PN_ITS ---
Patient Problems: Active and Suspected Problems Elevated LFTs (Acute) Atrial fibrillation with RVR (Acute) Atypical chest pain (Acute) Subjective: Patient seen and examined. He was admitted with a complaint of palpitations and found to be in A. fib with RVR. He was started on Cardizem drip. Patient does not have a history of A. fib from what he told me though H&P, he does have a history of chronic A. fib. He tells me he has never seen a potato loader before. He had no complaints this morning. Palpitations and throat pain had resolved and he had no chest pain, fever or chills, nausea vomiting or diarrhea. Review of symptoms otherwise negative. Labs and vitals reviewed. Home medication reviewed and reconciled. Vitals/I&O's: Vital Signs Temp Pulse Resp BP Pulse Ox 98.3 F 89 27 H 137/83 H 96 11/28/19 09:00 11/28/19 12:00 11/28/19 12:00 11/28/19 12:00 11/28/19 12:00 Oxygen Delivery Method Room Air Weight: 277 lb 5.464 oz Body Mass Index (BMI) 39.8 Intake and Output for Last 24 Hours 11/26/19 11/27/19 11/28/19 23:59 23:59 23:59 Intake Total 274.42 / 519.42 585.00 / 585.00 Output Total Balance 274.42 / 519.42 584.00 / 584.00 General: Alert, Oriented x3, Cooperative, No apparent distress HEENT: Atraumatic, PERRLA, EOMI, Normocephalic Oral: Moist Mucosa Neck: Supple, No JVD, Negative Carotid Bruits, Negative Hepatojugular Reflux, No Nodes Lungs: Clear to auscultation, Normal air movement, No rhonchi, No wheeze, No rales Cardiovascular: Regular rate, Regular Rhythm, Normal S1, Normal S2, No murmurs Abdomen: Bowel Sounds Present, Soft, Non Tender, Non-Distended, No Hepato- splenomegaly Extremities: No clubbing, No cyanosis, No edema, Capillary Refill Less than 3 Seconds Skin: No rashes, No breakdown Musculoskeletal: No Tenderness to Palpation of Joints or Extremities Lymphatic: No Cervical, Supraclavicular, or Inguinal Adenopathy Neurological: Cranial nerves II-XII grossly intact, Neuro grossly intact, Motor Exam 5/5 strength throughout Psych/Mental Status: Normal Affect, Appropriate, Alert and oriented to time, place, person, mood and affect Laboratory Results 11/27/19 14:15: Magnesium 2.2, TSH 1.82 11/27/19 14:15: Hemoglobin A1c 5.7 11/27/19 14:15: Troponin I < 0.015 11/27/19 17:03: Troponin I < 0.015 11/28/19 06:04: WBC 4.6, RBC 4.46 L, Hgb 14.2, Hct 42.5, MCV 95.3 H, MCH 31.8, MCHC 33.4, RDW Std Deviation 50.7 H, RDW Coeff of Eduard 14.4, Plt Count 147 L, MPV 9.2, Immature Gran % (Auto) 0.400, Neut % (Auto) 56.8, Lymph % (Auto) 16.4 L, [place] % (Auto) 22.3 H, Eos % (Auto) 3.7, Baso % (Auto) 0.4, Absolute Neuts (auto) 2.6, Absolute Lymphs (auto) 0.75 L, Nucleated RBC % 0 11/28/19 06:04: Sodium 137, Potassium 3.6, Chloride 105, Carbon Dioxide 26.0, Anion Gap 6, BUN 11, Creatinine 1.01, Estim Creat Clear Calc 68.26, Est GFR (MDRD) Af Amer 93, Est GFR (MDRD) Non-Af 77, BUN/Creatinine Ratio 10.9, Glucose 128 H, Calcium 8.2 L, Total Bilirubin 1.50 H, AST 71 H, ALT 101 H, Alkaline Phosphatase 124 H, Total Protein 6.3 L, Albumin 2.7 L, Globulin 3.6, Albumin/Globulin Ratio 0.8 L, Triglycerides 124, Cholesterol 156, LDL Cholesterol 54, VLDL Cholesterol 25, HDL Cholesterol 77 Diagnostic Data Chest X-Ray 11/27/19 11:07 IMPRESSION: Mild cardiomegaly. Mild increased linear markings at the left lung base suggestive of linear atelectasis and/or scarring. Electronically Signed: Haroldo Arana, at 12:16 EDT , Service support , Liver Ultrasound 11/27/19 14:01 IMPRESSION: The pancreas was obscured by bowel gas. There is increased hepatic echogenicity suggestive of steatosis. Electronically Signed: Jovani Conner MD at 16:57 EDT , Service support , Current Medications Acetaminophen (Tylenol) 650 mg PO Q6H PRN PRN PRN Reason: Pain Score 1-10/Temp > 100.7 F Last Admin: 11/27/19 16:55 Dose: 650 mg Documented by: Alprazolam (Xanax) 0.25 mg PO BID PRN PRN PRN Reason: ANXIETY Amlodipine Besylate (Norvasc) 10 mg PO DAILY [facility] Last Admin: 11/28/19 11:45 Dose: 10 mg Documented by: Bupropion HCl (Wellbutrin Sr (100mg Tablets)) 300 mg PO DAILY [facility] Last Admin: 11/28/19 11:50 Dose: 300 mg Documented by: Enoxaparin Sodium (Lovenox) 120 mg SC Q12@0600,1800 [facility] Last Admin: 11/28/19 01:09 Dose: Not Given Documented by: Fluticasone Propionate (Flonase Nasal [place]) 1 spray NASAL DAILY@2200 [facility] Guaifenesin (Mucinex) 600 mg PO BID [facility] Last Admin: 11/28/19 11:45 Dose: 600 mg Documented by: Hydroxyzine Pamoate (Vistaril Pamoate Capsule) 25 mg PO QHS [facility] Last Admin: 11/27/19 21:00 Dose: 25 mg Documented by: Diltiazem HCl 125 mg/ Dextrose 125 mls @ 5 mls/hr IV .Q25H [facility]; Protocol Last Titration: 11/28/19 12:00 Dose: 5 mg/hr, 5 mls/hr Documented by: Sodium Chloride () 500 mls @ 15 mls/hr IV PRN PRN PRN Reason: Blood Transfusion Sodium Chloride () 250 mls @ 15 mls/hr IV .[id number] PRN PRN Reason: Saline Flush Sodium Chloride () 250 mls @ 15 mls/hr IV .[id number] PRN PRN Reason: Additional IVPB Infusion Nitroglycerin (Nitrostat) 0.4 mg SUBLINGUAL Q5M PRN PRN Reason: CHEST PAIN Nutritional Formula (Lactose Free) (Ensure Enlive) 120 ml PO 4X/DAY [facility] Last Admin: 11/28/19 11:30 Dose: Not Given Documented by: Ondansetron HCl (Zofran) 4 mg IV Q8H PRN PRN PRN Reason: NAUSEA/VOMITING Pantoprazole Sodium (Protonix) 40 mg PO BID [facility] Last Admin: 11/28/19 11:45 Dose: 40 mg Documented by: Sodium Chloride () 10 - 40 ml IV UD PRN PRN Reason: SALINE FLUSH STROKE Vital Signs/Narrative: Vital Signs Temp Pulse Resp BP Pulse Ox 11/28/19 12:00 89 27 H 137/83 H 96 11/28/19 11:00 90 20 H 130/66 H 94 11/28/19 09:40 74 11/28/19 09:00 98.3 F 62 18 154/63 H 93 Medical Necessity - Tobacco Use Smoking Status: Former smoker Assessment/Plan All Active Problems Elevated LFTs (Acute) Atrial fibrillation with RVR (Acute) Atypical chest pain (Acute) 1. Afib with RVR * He appears to have converted to sinus rhythm. On Cardizem drip. * patient tells me he has never been told he has Afib, though H&P documents history of chronic afib, but not on anticoagulation * 2D echo pending * on therapeutic lovenox. CHADVASC score is 2. * will consult cardiology, in light this being a new onset afib * TSH, K and magnesium were WNL * 2. Atypical chest pain * He complained of throat pain which was considered to be a possible angina equivalent. * Troponins x3 were negative. * Cardiology on board. * 3. Elevated LFTs * Thought to be due to chronic alcohol abuse. Total bilirubin was 1.5 with AST of 71 and ALT of 101 with ALP of 124. They seem to have trended down a bit from the numbers on admission. * Liver ultrasound done showed increased hepatic echogenicity suggestive of steatosis with liver being 18.4 cm. * Blood panel was within normal limits. To follow-up with primary care doctor and deputy director of nursing as deemed appropriate. * 3. Hypertension: Stable. On lisinopril and amlodipine. * 4. GERD: On PPI 5. anxiety and depression: On Xanax and bupropion DVT prophylaxis: Currently therapeutic anticoagulation with Lovenox. Inpatient E&M: 13313 Subs Hosp L2
--- NOTE | 2019-11-28 12:52 | CASEMGMT ---
SAUL VARGAS assessment: Phone interview with patient for initial transition planning/care coordination assessment. SAUL VARGAS introduced self and role at [facility], pt voices understanding and consents to assessment at this time. Pt is A/Ox4 at this time and answers all questions appropriately at this time. Care providers, pharmacy, and demographics verified at this time. Presentation: Chest pain/pressure to left side for last 3 weeks, worse at night. increased SOB at rest Admitting dx: Afib RVR, Atypical CP PCP[facility] Specialists: [facility] Insurance: [facility] A/B Prescription Benefit: [place] only Living Will/HPOA: Pt states has LW/HPOA and is aware that they are not on file at [facility] at this time. Pt states his son, Zeyad Coles, is current HPOA. LNOK: Zeyad Coles, son/HPOA Living Arrangements: Pt states lives alone in 1 story home and states no concerns at home at this time. Pt states is independent with ADL's. Transportation: Pt states drives self and states no transportation concerns at this time. DME/HHC: Pt states has the following DME but does not use: grab bars, cane, and walker. Pt states no need for any further DME at this time. Pt states no hx of HHC or SNF in the past for himself. Pt states no concerns with going home at time of discharge. Pt states is retired. Pt states quit smoking cigarettes 17yrs ago and states drinks ETOH occasionally. Pt states no further concerns/needs at this time. CM to follow for any further discharge planning/needs. Advised pt to ask for CM if any further questions/concerns/needs arise, voices understanding. Pt Goal: Home Plan: [place] SAUL VARGAS
--- NOTE | 2019-11-28 12:58 | STRESSREP_ITS ---
Stress Test Report Date: 11-28-2019 Procedure: Pharmacologic stress nuclear imaging study Indications: Atrial fibrillation Consent: Per the patient Procedure: The patient underwent pharmacologic (Regadenoson) evaluation with a peak heart rate of 110 beats per minute (74 %predicted maximal heart rate) and a peak blood pressure of 128/70 mmHg. The baseline ECG demonstrated atrial fibrillation. The peak pharmacologic ECG demonstrated no obvious ECG changes. There were no cardiac dysrhythmias pretest, during pharmacologic infusion, or recovery. There was no complaint of chest discomfort during pharmacologic infusion or recovery. The examination was discontinued secondary to completion of protocol. Impression: 1. Pharmacologic (Regadenoson) evaluation 2. Peak pharmacologic ECG with no obvious ECG changes. 3. There were no cardiac dysrhythmias pretest, during pharmacologic infusion, or recovery. 4. Nuclear images pending Myocardial perfusion imaging study: Technique: The patient was injected with 13.9 millicuries of technetium 99m Cardiolite and subsequently rest SPECT Cardiolite nuclear imaging was obtained in the horizontal long, vertical long, and short axis views. The patient underwent pharmacologic (Regadenoson) evaluation with a peak heart rate of 110 beats per minute (74 % percent predicted maximal heart rate) and a peak blood pressure of 128/70 mmHg. The patient was injected with 44.8 millicuries of technetium 99m Cardiolite and subsequently stress SPECT Cardiolite nuclear imaging was obtained in the horizontal long, vertical long, and short axis views. A gated Cardiolite study at peak stress was obtained. Interpretation: Rest and stress SPECT Cardiolite nuclear imaging status post realignment, normalization, and attenuation correction demonstrate relative uniform tracer uptake and myocardial perfusion appearing within normal limits. There is end systolic thickening and brightening. The gated Cardiolite study demonstrates myocardial thickening and inward wall motion. The reported LVEF is 73 %. Impression: 1. Rest and stress SPECT Cardiolite nuclear imaging demonstrate relative uniform tracer uptake and myocardial perfusion appearing within normal limits. 2. The gated Cardiolite study reports an LVEF of 73 %. This note was generated with [employer] software. It may contain incorrect words, spelling, and punctuation that were not noted in checking the note before signing.
[2019-11-28] MEDS: Metoprolol Tartrate 25 MG Tablet PO ×2 (16:09→21:31)
[2019-11-28] MEDS: Enoxaparin 120 MG/0.8 ML Syringe SC (16:11)
[2019-11-28] MEDS: Fluticasone 0.05% 1 SPRAY NASAL.SRY NASAL (21:32)
[2019-11-28] MEDS: Temazepam 15 MG Capsule PO (21:34)
[2019-11-29] VITALS (9 sets, daily range): BP systolic 118–142; BP diastolic 61–76; PULSE 65–77; RESP 16–18; TEMP 36.6–37.3; O2SAT 93–96
[2019-11-29] MEDS: APIXABAN 5 MG TABLET PO (06:02)
[2019-11-29 06:56] LABS: Absolute Lymphocyte Count 0.75 X10^3/uL (0.83-4.51); Absolute Neutrophil Count 2.5 X10^3/uL (2.0-7.7); Basophil# 0.03 X10^3/uL; Basophil% 0.7 % (0-1); Eosinophil# 0.22 X10^3/uL; Eosinophils% 4.8 % (0-5); Hematocrit 42.5 % (40-54); Lymphocyte # 0.75 X10^3/ul (4.0); Lymphocyte % 16.4 % (19-41); Mean Corp Hgb Conc 32.9 g/dL (32-36); Mean Corpuscular Hgb 32.4 pg (27.0-32.0); Mean Corpuscular Volume 98.4 fL (80-94); Monocyte# 1.02 X10^3/uL; Monocyte% 22.3 % (0-10); NRBC Flagged by Analyzer 0 % (0-5); Neutrophil # 2.52 X10^3/uL (2.7-7.7); Neutrophil % 55.1 % (47-70); Platelet Count 164 K/mm3 (150-450); RBC Distribution Width CV 14.3 % (11.6-14.6); RBC Distribution Width SD 51.8 fl (35.1-43.9); Red Blood Count 4.32 M/mm3 (4.6-6.2); White Blood Count 4.6 K/mm3 (4.4-11.0)
[2019-11-29 07:13] LABS: Anion Gap 8 (5-15); BUN 13 mg/dL (7-18); BUN/Creat Ratio 12.3 RATIO (10-20); Calcium,Total 8.2 mg/dL (8.5-10.1); Chloride 108 mmol/L (98-107); Creatinine, Serum 1.06 mg/dL (0.70-1.30); EST Glomerular Filtration Rate 73 mL/min (>60); Est Glom Filt Rate - Afr Amer 88 mL/min (>60); Estimated Creatinine Clearance 65.04 ml/min; Glucose 125 mg/dL (74-106); Potassium 4.2 mmol/L (3.5-5.1); Sodium Level 141 mmol/L (136-145)
--- NOTE | 2019-11-29 09:09 | PN.CARD_ITS ---
Subjectve: The patient is awake and alert. He states he feels well overall. He denies any ongoing issues of chest discomfort, difficulty breathing, or palpitations/rapid heart rate. Objective: Vital Signs Temp Pulse Resp BP Pulse Ox 98.2 F 70 16 142/76 H 93 11/29/19 03:25 11/29/19 03:25 11/29/19 03:25 11/29/19 03:25 11/29/19 07:30 Oxygen Delivery Method Room Air Weight: 277 lb 5.464 oz Body Mass Index (BMI) 39.8 Intake and Output for Last 24 Hours 11/27/19 11/28/19 11/29/19 23:59 23:59 23:59 Intake Total 274.42 / 519.42 1132.50 / 1132.50 120 / 120 Output Total Balance 274.42 / 519.42 1131.50 / 1131.50 120 / 120 General: Awake, Alert, Oriented x 3, Cooperative, No Acute Distress HEENT: Atraumatic, Normocephalic, PERRL, EOMI, Sclera Non Icteric Oral: Moist Mucosa Neck: Supple, Good ROM, No JVD Lungs: Clear to auscultation Cardiovascular: Irregular Rhythm, Normal S1, Normal S2 Abdomen: Bowel Sounds Present, Soft, Non Tender Extremities: No edema Neurological: No Focal Motor or Sensory Deficit Psych/Mental Status: Appropriate 11/29/19 06:40: Sodium 141, Potassium 4.2, Chloride 108 H, Carbon Dioxide 25.0, Anion Gap 8, BUN 13, Creatinine 1.06, Est GFR (MDRD) Af Amer 88, Est GFR (MDRD) Non-Af 73, BUN/Creatinine Ratio 12.3, Glucose 125 H, Calcium 8.2 L 11/29/19 06:40: WBC 4.6, RBC 4.32 L, Hgb 14.0, Hct 42.5, MCV 98.4 H, MCH 32.4 H, MCHC 32.9, Plt Count 164, MPV 9.0, Immature Gran % (Auto) 0.700, Neut % (Auto) 55.1, Lymph % (Auto) 16.4 L, [place] % (Auto) 22.3 H, Eos % (Auto) 4.8, Baso % (Auto) 0.7, Absolute Neuts (auto) 2.5, Nucleated RBC % 0 Rhythm: Atrial fibrillation Medical Necessity - Tobacco Use Smoking Status: Former smoker Assessment/Plan 1. Atrial fibrillation The patient does have atrial fibrillation. He has been on rate control therapy. He is now on oral anticoagulant therapy. His oral anticoagulant agents were discussed with [facility] clinical pharmacology. There did not appear to be any definitive contraindication to using the chosen oral anticoagulant in this patient based upon his history of abnormal hepatic studies. He will need to follow as an outpatient. He states at this time he is going to follow with the [facility]. He states he has been evaluated by cardiology through the [facility] in the past. He can be established for future outpatient follow-up which may include synchronized biphasic DC cardioversion. 2. Aortic valve disorder/stenosis/insufficiency He has been evaluated by the [facility] for this in the past. He is undergone echocardiogram here with the results as previously noted. He should continue outpatient follow-up as deemed appropriate. 3. Hypertension He will continue antihypertensive therapy with adjustment as deemed appropriate. 4. Abnormal hepatic studies He does have a history of abnormal hepatic studies. He will continue to follow with his [facility] physicians for this. The patient's case has been discussed and reviewed with the patient as well as Dr. Vila. This note was generated using a voice recognition system and there may be incorrect words, spelling or punctuation that were not noted when reviewing the office note prior to saving.
[2019-11-29] MEDS: Metoprolol Tartrate 25 MG Tablet PO (11:01)
[2019-11-29] MEDS: guaiFENesin 600 MG Tablet PO (11:01)
[2019-11-29] MEDS: amLODIPine 10 MG Tablet PO (11:01)
[2019-11-29] MEDS: Pantoprazole Sodium 40 MG Tablet PO (11:02)
[2019-11-29] MEDS: buPROPion (SR) 100 MG TABLET.SA 300 MG PO (11:02)
--- NOTE | 2019-11-29 11:14 | PCM.DC ---
- Discharge Diagnoses Current Active Problems: Current Active and Chronic Problems Elevated LFTs (Acute) Atrial fibrillation with RVR (Acute) Atypical chest pain (Acute) Chronic atrial fibrillation (Chronic) GERD (gastroesophageal reflux disease) (Chronic) Depression (Chronic) Hypertension (Chronic) You will use the following diet at home:: Cardiac Your food should be the consistency of: Regular Your liquids should be the consistency of: Regular/Thin Discharge Activity: Return to Normal Activity Weight Bearing Status: Weight bearing as tolerated Call your doctor if you observe: Shortness of breath, Dizziness, Increased palpitations (irregular heartbeat) Instructions: ED Heart Disease Risk Factors, What Is Atrial Flutter/Atrial Fibrillation?, Atrial Fibrillation Additional Instructions: Amlodipine stopped To be on lisinopril and metoprolol Allergies/Adverse Reactions: Allergies No Known Allergies Allergy (Verified 11/27/19 10:44) Medications to take at Discharge Arginine 500 mg PO DAILY 05/04/13 Bupropion HCl [Bupropion HCl Sr] 300 mg PO DAILY 05/04/13 Co Q10 200 [Co Q-10] 50 mg PO DAILY 05/04/13 Fluticasone 0.05% [Flonase Nasal [place]] 1 spray NASAL DAILY 05/04/13 Guaifenesin [Mucinex] 400 mg PO BID 05/04/13 Lisinopril [Zestril] 40 mg PO BID 05/04/13 Multivitamins,Therapeutic 1 tab PO DAILY 05/04/13 Omeprazole [Prilosec] 40 mg PO BID 05/04/13 [place] 80 mg PO BID 05/04/13 Testosterone [Androgel] 75 gm TD 05/04/13 hydrOXYzine pamoate capsule [Vistaril pamoate capsule] 25 mg PO QHS 05/04/13 ALPRAZolam [Xanax] 0.25 mg PO BID PRN PRN 11/27/19 Cholecalciferol (VIT D3) [Vitamin D3] 5,000 unit PO QODAY 11/27/19 Sennosides/Docusate Sodium [Docusate Sodium-Sennosides Tab] 1 ea PO BID PRN PRN 11/27/19 Vitamin E 400 unit PO DAILY 11/27/19 Apixaban [Eliquis] 5 mg PO BID #60 tablet 11/29/19 Metoprolol Tartrate [Lopressor (beta alice)] 25 mg PO BID #60 tablet 11/29/19 The following prescriptions were given: Apixaban [Eliquis] 5 mg PO BID #60 tablet Metoprolol Tartrate [Lopressor (beta alice)] 25 mg PO BID #60 tablet Primary Care Physician: [facility] [Primary Care Provider] - Please follow up with your Primary Care Physician in: 1-2 weeks Test Results: Test results from this visit will be discussed in further detail at your follow-up appointment, if applicable. Please Follow Up With: Solomon Lord MD When: 1-2 weeks Proposed Discharge Date: 11/29/19
--- NOTE | 2019-11-29 11:19 | DS.PCM_ITS ---
Discharge Date and Diagnosis Date of Admission: 11/27/19 Date of Discharge: 11/29/19 - Primary Discharge Diagnosis Active and Suspected Problems Elevated LFTs (Acute) Atrial fibrillation with RVR (Acute) Atypical chest pain (Acute) - Secondary Discharge Diagnosis Chronic Problems Chronic atrial fibrillation (Chronic) GERD (gastroesophageal reflux disease) (Chronic) Depression (Chronic) Hypertension (Chronic) Hospital Course and Treatment Imaging Results: Diagnostic Data Chest X-Ray 11/27/19 11:07 IMPRESSION: Mild cardiomegaly. Mild increased linear markings at the left lung base suggestive of linear atelectasis and/or scarring. Electronically Signed: Haroldo Arana, at 12:16 EDT , Service support , Liver Ultrasound 11/27/19 14:01 IMPRESSION: The pancreas was obscured by bowel gas. There is increased hepatic echogenicity suggestive of steatosis. Electronically Signed: Jovani Conner MD at 16:57 EDT , Service support , cardiology- Dr Lord Operations: None Procedures: 2-D Echocardiogram, Nuclear stress test Summary of Care Provided: The patient is a 74 year old M admitted through the ED on 11/27/2019 with a complaint of shortness of breath, palpitations and throat pain. Symptoms have been going on for about 4 weeks with palpitations with an elevation in his heart rate with heart rate between 70s to 120 and assisted with shortness of breath and the throat pain. Will no aggravating or relieving factors. He denied any history of orthopnea PND or leg edema. In the ED, he was found to be in A. fib with RVR and was started on Cardizem drip. Heart rate slowed down and he converted to sinus rhythm. Cardiology was consulted and he was started on therapeutic Lovenox. LFTs showed elevated bilirubin which he said was chronic. There was noted on his charts that he had chronic A. fib, patient denied ever being told that he had A. fib. TSH was normal and troponins x3 were negative. EKG showed no acute ST changes and BNP was 304. Chest x-ray revealed cardiomegaly. He was admitted and managed for A. fib with RVR in his car chest pain. Cardiology was consulted. He was started on metoprolol and wean off of Cardizem drip successfully. Lovenox was also transitioned to Eliquis. 2D echo showed EF of 65% with normal left ventricular systolic function and unable to assess diastolic function. RVSP was 25 mmHg. He had moderate mitral annular calcification and left atrium was moderately enlarged and he also had mild aortic stenosis. He had a stress test which showed no evidence of ischemia and showed myocardial thickening and EF of the left ventricle. Stress test was 73%. Patient remained stable and shortness of breath resolved. He was discharged home on 11/29/2019 with a prescription for p.o. metoprolol 25 mg twice daily as well as Eliquis 5 mg twice daily. Of note liver ultrasound was also done which was also suggestive of steatosis. He is to follow-up with his primary care doctor within 1 to 2 weeks. Primary care doctor to refer him on to gastroenterology as needed for his elevated liver enzymes. He is also to follow-up with cardiology in 1 to 2 weeks. Patient seen and examined prior to discharge. He had no complaints. He was eager to be discharged. Review of systems otherwise negative. Labs and vitals reviewed. Home medication reviewed and reconciled. o/e: Vital Signs Temp Pulse Resp BP Pulse Ox 98.1 F 74 18 121/61 H 96 11/29/19 13:53 11/29/19 13:53 11/29/19 13:53 11/29/19 13:53 11/29/19 13:53 [] General: Alert, Oriented x3, Cooperative, No apparent distress HEENT: Atraumatic, PERRLA, EOMI, Normocephalic Oral: Moist Mucosa Neck: Supple, No JVD, Negative Carotid Bruits, Negative Hepatojugular Reflux, No Nodes Lungs: Clear to auscultation, Normal air movement, No rhonchi, No wheeze, No rales Cardiovascular: Regular rate, Regular Rhythm, Normal S1, Normal S2, No murmurs Abdomen: Bowel Sounds Present, Soft, Non Tender, Non-Distended, No Hepato- splenomegaly Extremities: No clubbing, No cyanosis, No edema, Capillary Refill Less than 3 Seconds Skin: No rashes, No breakdown Musculoskeletal: No Tenderness to Palpation of Joints or Extremities Lymphatic: No Cervical, Supraclavicular, or Inguinal Adenopathy Neurological: Cranial nerves II-XII grossly intact, Neuro grossly intact, Motor Exam 5/5 strength throughout Psych/Mental Status: Normal Affect, Appropriate, Alert and oriented to time, place, person, mood and affect Plan as above. - Physical Exam Vitals/I&O's: Vital Signs Temp Pulse Resp BP Pulse Ox 99.1 F 77 16 118/76 96 11/29/19 09:22 11/29/19 11:01 11/29/19 09:22 11/29/19 11:01 11/29/19 09:22 Oxygen Delivery Method Room Air Weight: 277 lb 5.464 oz Body Mass Index (BMI) 39.8 Intake and Output for Last 24 Hours 11/27/19 11/28/19 11/29/19 23:59 23:59 23:59 Intake Total 274.42 / 519.42 1132.50 / 1132.50 120 / 120 Output Total Balance 274.42 / 519.42 1131.50 / 1131.50 120 / 120 Laboratory Results 11/29/19 06:40: Sodium 141, Potassium 4.2, Chloride 108 H, Carbon Dioxide 25.0, Anion Gap 8, BUN 13, Creatinine 1.06, Estim Creat Clear Calc 65.04, Est GFR (MDRD) Af Amer 88, Est GFR (MDRD) Non-Af 73, BUN/Creatinine Ratio 12.3, Glucose 125 H, Calcium 8.2 L 11/29/19 06:40: WBC 4.6, RBC 4.32 L, Hgb 14.0, Hct 42.5, MCV 98.4 H, MCH 32.4 H, MCHC 32.9, RDW Std Deviation 51.8 H, RDW Coeff of Eduard 14.3, Plt Count 164, MPV 9.0, Immature Gran % (Auto) 0.700, Neut % (Auto) 55.1, Lymph % (Auto) 16.4 L, [place] % (Auto) 22.3 H, Eos % (Auto) 4.8, Baso % (Auto) 0.7, Absolute Neuts (auto) 2.5, Absolute Lymphs (auto) 0.75 L, Nucleated RBC % 0 Current Medications Acetaminophen (Tylenol) 650 mg PO Q6H PRN PRN PRN Reason: Pain Score 1-10/Temp > 100.7 F Last Admin: 11/27/19 16:55 Dose: 650 mg Documented by: Alprazolam (Xanax) 0.25 mg PO BID PRN PRN PRN Reason: ANXIETY Amlodipine Besylate (Norvasc) 10 mg PO DAILY [facility] Last Admin: 11/29/19 11:01 Dose: 10 mg Documented by: Apixaban (Eliquis) 5 mg PO BID [facility] Last Admin: 11/29/19 06:02 Dose: 5 mg Documented by: Bupropion HCl (Wellbutrin Sr (100mg Tablets)) 300 mg PO DAILY [facility] Last Admin: 11/29/19 11:02 Dose: 300 mg Documented by: Fluticasone Propionate (Flonase Nasal [place]) 1 spray NASAL DAILY@2200 [facility] Last Admin: 11/28/19 21:32 Dose: 1 spray Documented by: Guaifenesin (Mucinex) 600 mg PO BID [facility] Last Admin: 11/29/19 11:01 Dose: 600 mg Documented by: Sodium Chloride () 500 mls @ 15 mls/hr IV PRN PRN PRN Reason: Blood Transfusion Sodium Chloride () 250 mls @ 15 mls/hr IV .[id number] PRN PRN Reason: Saline Flush Sodium Chloride () 250 mls @ 15 mls/hr IV .[id number] PRN PRN Reason: Additional IVPB Infusion Metoprolol Tartrate (Lopressor (Beta Deidre)) 25 mg PO BID [facility] Last Admin: 11/29/19 11:01 Dose: 25 mg Documented by: Nitroglycerin (Nitrostat) 0.4 mg SUBLINGUAL Q5M PRN PRN Reason: CHEST PAIN Ondansetron HCl (Zofran) 4 mg IV Q8H PRN PRN PRN Reason: NAUSEA/VOMITING Pantoprazole Sodium (Protonix) 40 mg PO BID [facility] Last Admin: 11/29/19 11:02 Dose: 40 mg Documented by: Sodium Chloride () 10 - 40 ml IV UD PRN PRN Reason: SALINE FLUSH Temazepam (Restoril) 15 mg PO QHS [facility] Last Admin: 11/28/19 21:34 Dose: 15 mg Documented by: Discharge Diet: Low fat/ Low Cholesterol Discharge Activity: Return to Normal Activity Weight Bearing Status: Weight bearing as tolerated Call your doctor if you observe: Shortness of breath, Dizziness, Increased palpitations (irregular heartbeat) Home Medications: Medications to take at Discharge Arginine 500 mg PO DAILY 05/04/13 Bupropion HCl [Bupropion HCl Sr] 300 mg PO DAILY 05/04/13 Co Q10 200 [Co Q-10] 50 mg PO DAILY 05/04/13 Fluticasone 0.05% [Flonase Nasal [place]] 1 spray NASAL DAILY 05/04/13 Guaifenesin [Mucinex] 400 mg PO BID 05/04/13 Lisinopril [Zestril] 40 mg PO BID 05/04/13 Multivitamins,Therapeutic 1 tab PO DAILY 05/04/13 Omeprazole [Prilosec] 40 mg PO BID 05/04/13 [place] 80 mg PO BID 05/04/13 Testosterone [Androgel] 75 gm TD 05/04/13 hydrOXYzine pamoate capsule [Vistaril pamoate capsule] 25 mg PO QHS 05/04/13 ALPRAZolam [Xanax] 0.25 mg PO BID PRN PRN 11/27/19 Cholecalciferol (VIT D3) [Vitamin D3] 5,000 unit PO QODAY 11/27/19 Sennosides/Docusate Sodium [Docusate Sodium-Sennosides Tab] 1 ea PO BID PRN PRN 11/27/19 Vitamin E 400 unit PO DAILY 11/27/19 Apixaban [Eliquis] 5 mg PO BID #60 tab 11/29/19 Metoprolol Tartrate [Lopressor (beta deidre)] 25 mg PO BID #60 tab 11/29/19 Following Prescrptions Were Given to Patient: Apixaban [Eliquis] 5 mg PO BID #60 tab Transmission Status: Received by [facility] Metoprolol Tartrate [Lopressor (beta deidre)] 25 mg PO BID #60 tab Transmission Status: Received by [facility] [[facility]] - Please follow up with your Primary Care Physician in: 1-2 weeks Please Follow Up With: Solomon Lord MD When: 1-2 weeks Patient Instructions: What Is Atrial Flutter/Atrial Fibrillation?, Atrial Fibrillation, ED Heart Disease Risk Factors Disposition: Home Minutes spent on discharge:: 45 Patient Condition:: Stable Medical Necessity - Tobacco Use Smoking Status: Former smoker Meaningful Use Info Meaningful Use Diagnoses (Choose all that apply): None applicable Inpatient E&M: 65997 Disch Hosp
--- NOTE | 2019-11-29 11:56 | CASEMGMT ---
Patient has a Healthcare POA and Healthcare LW. He is aware they are not on file at [facility]. His son Zeyad is his POA. Kia CLAIRE MSW
--- NOTE | 2019-11-29 13:34 | CASEMGMT ---
Pt to be sent home on Eliquis at discharge and med e-scribed to [facility] pharmacy as [place] only has [place]. Eliquis 30day free trial card to be applied. This RN CM to room to update pt and make sure that pt gets f/u at [facility]. Pt voices understanding but states concerns regarding PCP at [facility] getting all information. After ok from pt, this RN CM left a message with Dr. West's nurse at [facility] to call this RN CM back d/t pt concerns and new Eliquis and Metoprolol scripts. This RN CM then recieved a call back from Court, nurse with Dr. West, and she requests that clinicals be faxed to her at [phone] at this time and she is updated on the new Eliquis and Metoprolol at this time, voices understanding. Clinicals faxed to [facility] at this time. Call back from Court stating that Dr. West will review all and then they will give pt a call to discuss and set up appt. Pt updated on all at this time, voices understanding. Pt voices no further questions/concerns/needs at this time. SStosvaldo HUGHES CM
== END 2019-11-29 14:10 | disposition home or self-care (01) | DRG 310 ==
LOC: ED 12:48 → PCU 13:27
PROVIDERS: Internal Medicine Cardiovascular Disease; Admitting Provider Hospitalist; Emergency Provider Emergency Medicine; Visit Provider Student in an Organized Health Care Education/Training Program
DX: I48.20 Chronic atrial fibrillation, unspecified (principal); R79.89 Other specified abnormal findings of blood chemistry; R07.89 Other chest pain; I10 Essential (primary) hypertension; I35.1 Nonrheumatic aortic (valve) insufficiency; I35.0 Nonrheumatic aortic (valve) stenosis; K21.9 Gastro-esophageal reflux disease without esophagitis; F32.9 Major depressive disorder, single episode, unspecified; F41.9 Anxiety disorder, unspecified; Z79.01 Long term (current) use of anticoagulants; Z79.899 Other long term (current) drug therapy; Z87.891 Personal history of nicotine dependence
CPT/HCPCS: 36415; 71045; 76705; 78452; 80048; 80053; 80061; 83036; 83735; 83880; 84443; 84484; 85025; 85610; 85730; 93005; 93017; 93306; 97161; 97166; 97535; 97802; 99251; 99285; A9500; Q9957; A4216; C8929; G0463; J2785

== ENCOUNTER 2020-01-24 11:41 | Inpatient (IN) | payer OTHER, MEDICARE, SELFPAY ==
[2019-11-27 14:20] VITALS: BMI 39.8
[2020-01-24] VITALS (13 sets, daily range): BP systolic 133–173; BP diastolic 76–110; PULSE 70–137; RESP 16–21; TEMP 36.3–37; O2SAT 96–98; BMI 41.1; BMI 40.2
--- NOTE | 2020-01-24 11:55 | RAD_ITS ---
STUDY: X-RAY CHEST REASON FOR EXAM: Male, 74 years old. CHEST PAIN TECHNIQUE: Single AP portable view of the chest. COMPARISON: Comparison is made with prior study dated November 27, 2019. FINDINGS: EKG electrodes are seen. Minimal increased markings are seen at the lung bases with blunting of the right costophrenic angle. Minimal increased markings are also seen in the right upper lobe. Follow-up is recommended. Calcification of the mitral valve annulus. Normal mediastinum and manuela. Normal visualized pulmonary arteries. There is atherosclerotic tortuosity of the aortic arch and descending thoracic aorta. Normal visualized thoracic spine. Normal visualized ribs, clavicles, and shoulders. There is no demonstrated abnormality of the visualized soft tissue structures of the upper abdomen. RAD/Chest 1 View (Portable) IMPRESSION: Mild increased markings at the lung bases as well as in the right upper lobe. There has been progression as compared to prior study. Follow-up is recommended. Electronically Signed: Haroldo Arana, at 12:36 EDT , Service support ,
--- NOTE | 2020-01-24 11:55 | EKG12_ITS ---
Test Reason : CP Blood Pressure : / mmHG Vent. Rate : 084 BPM Atrial Rate : 076 BPM P-R Int : 000 ms QRS Dur : 094 ms QT Int : 404 ms P-R-T Axes : 000 046 040 degrees QTc Int : 477 ms Atrial fibrillation Abnormal ECG Confirmed by ORLY LUJAN [id number]), state editor HALLIE HOFF ([id number]) on 01/29/2020 2:14:28 PM Referred By: JENNIFER Confirmed By:ORLY LUJAN
[2020-01-24 12:07] LABS: Absolute Lymphocyte Count 0.57 X10^3/uL (0.83-4.51); Absolute Neutrophil Count 3.8 X10^3/uL (2.0-7.7); Basophil# 0.02 X10^3/uL; Basophil% 0.4 % (0-1); Eosinophil# 0.07 X10^3/uL; Eosinophils% 1.3 % (0-5); Hematocrit 45.1 % (40-54); Hemoglobin 14.7 g/dL (13.0-16.5); Lymphocyte # 0.57 X10^3/ul (4.0); Lymphocyte % 10.9 % (19-41); Mean Corp Hgb Conc 32.6 g/dL (32-36); Mean Corpuscular Hgb 32.2 pg (27.0-32.0); Mean Corpuscular Volume 98.9 fL (80-94); Mean Platelet Vol. 9.4 fl (6.2-12.0); Monocyte# 0.74 X10^3/uL; Monocyte% 14.1 % (0-10); NRBC Flagged by Analyzer 0 % (0-5); Neutrophil # 3.81 X10^3/uL (2.7-7.7); Neutrophil % 72.7 % (47-70); POSITIVE DIFFERENTIAL YES; Platelet Count 142 K/mm3 (150-450); RBC Distribution Width CV 15.4 % (11.6-14.6); RBC Distribution Width SD 55.4 fl (35.1-43.9); Red Blood Count 4.56 M/mm3 (4.6-6.2); White Blood Count 5.2 K/mm3 (4.4-11.0)
[2020-01-24 12:11] LABS: Differential Indicated SCAN CRITERIA MET
[2020-01-24 12:21] LABS: Anion Gap 5 (5-15); BUN 9 mg/dL (7-18); BUN/Creat Ratio 8.9 RATIO (10-20); Calcium,Total 8.4 mg/dL (8.5-10.1); Chloride 103 mmol/L (98-107); Creatinine, Serum 1.01 mg/dL (0.70-1.30); EST Glomerular Filtration Rate 77 mL/min (>60); Est Glom Filt Rate - Afr Amer 93 mL/min (>60); Estimated Creatinine Clearance 68.26 ml/min; Glucose 138 mg/dL (74-106); Potassium 3.9 mmol/L (3.5-5.1); Sodium Level 137 mmol/L (136-145)
[2020-01-24 12:35] LABS: Differential Comment SCANNED
--- NOTE | 2020-01-24 12:38 | NURSING ---
[facility] CALLED. A FOLLOW UP
--- NOTE | 2020-01-24 13:17 | ED.VISSUMM ---
- ER Visit Summary Date of Service: 01/24/20 Chief Complaint: Shortness of breath and chest pain History of Present Illness: The patient is a 74 M who presents with shortness of breath and chest pain that is been getting worse over the past 10 days. Patient states his breathing is worse whenever he tries to lay flat. Patient states he has not slept well in the past 2 days. Patient states his chest pain is over the substernal area. Patient describes as a tightness. Patient admits to some nausea but denies any vomiting. Patient admits to some diaphoresis. Patient also admits to a cough but denies any sputum production. Patient denies any fevers or chills. Patient does admit to some lightheadedness and dizziness. Physical Examination: Vital signs are stable. Patient is afebrile. Patient is in no acute distress. Oral mucosa is pink and moist. Neck is supple. Trachea is midline. There is no JVD. Heart was irregularly irregular. Lungs are diminished in the bases bilaterally. There is good respiratory effort noted. Abdomen is soft. Bowel sounds are normal. There is no tenderness. Cranial nerves II through XII are intact. There are no focal motor or sensory deficits noted. Extremities are intact. There is 1+ edema of the lower extremities bilaterally. There is no calf tenderness. Test Results: EKG shows atrial fibrillation with a rate of 84. There are no acute ST or T wave changes. CBC and basic metabolic profile were within normal limits. Troponin was normal. Chest x-ray shows mild increased markings at the lung bases as well as in the right upper lobe. This was interpreted by the radiologist and reviewed by myself. CBC and basic metabolic profile were within normal limits. Troponin was normal. BNP was elevated at 396.6. Emergency Department Course and Treatment: Patient was given a dose of Lasix here. Patient was given nitroglycerin paste. Patient was feeling better on reevaluation. Case was discussed with the hospitalist. She will admit the patient to her service. Patient understood and was agreeable with the plan. All questions were answered. Disposition: Admit to hospital Impression: 1. Congestive heart failure This note was generated with [employer] software. It may contain incorrect words, spelling, and punctuation that were not noted in review of the chart prior to signing ED Disposition - Plan for ED Patient: Disposition: Acute Care Hospital [facility] Diagnosis: Congestive heart failure [facility] [Primary Care Provider] -
[2020-01-24 13:33] LABS: BNP,B-Type NATRIURETIC PEPTIDE 396.6 pg/mL (0-100)
[2020-01-24] MEDS: Aspirin 81 MG TAB.CHEW 324 MG PO (13:39)
[2020-01-24] MEDS: Nitroglycerin Oint 1 INCH PACKET TRANSDERM. (13:39)
[2020-01-24] MEDS: Furosemide 20 MG/2 ML VIAL IV (13:40)
--- NOTE | 2020-01-24 17:17 | NURSING ---
CALLED [facility], TALKED TO EDUARDO IN BED CONTROL. SHE IS AWARE PATIENT WAS ADMIT HERE. HE ALSO HAS MEDICARE A AND B
--- NOTE | 2020-01-24 20:08 | PCM.HP.STD ---
Problem List (1) Hepatic steatosis Status: Acute (2) Mild aortic stenosis Status: Acute History of Present Illness Date of Admission: 01/24/20 Chief Complaint: SOB The patient is a 74 year old M who presented to the ED today with the complaint of SOB that started about 10 days ago. He states that he has been unable to lie flat and is sleeping on at least 3 pillows or in a recliner so he can breathe. He has had no associated CP, no N/V/D, no fever or chills and has a cough but no sputum production. Per ED documentation he c/o CP but denied CP to me. He states that his legs have been much more swollen that they usually are and that they have felt weak since his last admission. His EKG show chronic A-fib but no s/o ischemia and rate is controlled. He has mild thrombocytopenia. BNP is elevated but only slightly higher than his admission in November for similar complaints. At that time he was seen by cardiology and and ECHO was done which showed EF of 65%/LAE/Mild and RVSP 25. Of note he had elevated LFT's at that time. VS are stable but the pt is on 2 L of O2 which is not his baseline. CXR shows some possible mild volume overload. Past Medical History Past Medical History (Chronic Problems): Chronic Problems Chronic atrial fibrillation (Chronic) GERD (gastroesophageal reflux disease) (Chronic) Depression (Chronic) Hypertension (Chronic) Allergies No Known Allergies Allergy (Verified 11/27/19 10:44) Home Medications: Ambulatory Orders Medication Instructions Recorded Arginine 500 mg PO DAILY 05/04/13 Bupropion HCl [Bupropion HCl Sr] 300 mg PO DAILY 05/04/13 Co Q10 200 [Co Q-10] 50 mg PO DAILY 05/04/13 Fluticasone 0.05% [Flonase Nasal 1 spray NASAL DAILY 05/04/13 [place]] Guaifenesin [Mucinex] 400 mg PO BID 05/04/13 Lisinopril [Zestril] 40 mg PO BID 05/04/13 Multivitamins,Therapeutic 1 tab PO DAILY 05/04/13 Omeprazole [Prilosec] 40 mg PO BID 05/04/13 Testosterone [Androgel] 75 gm TD DAILY 05/04/13 hydrOXYzine pamoate capsule 25 mg PO QHS 10/10/13 [Vistaril pamoate capsule] ALPRAZolam [Xanax] 0.25 mg PO BID PRN PRN 11/27/19 Cholecalciferol (VIT D3) [Vitamin 5,000 unit PO DAILY 11/27/19 D3] Sennosides/Docusate Sodium 1 ea PO BID 11/27/19 [Docusate Sodium-Sennosides Tab] Vitamin E 400 unit PO DAILY 11/27/19 Apixaban [Eliquis] 5 mg PO BID 01/24/20 Ascorbic Acid [Vitamin C] 1,000 mg PO DAILY 01/24/20 Metoprolol Tartrate [Lopressor 25 mg PO BID 01/24/20 (beta deidre)] Potassium 99 mg PO DAILY 01/24/20 Surgical History: - - History of left foot surgery. Psychiatric History: Depression Smoking Status: Former smoker Tobacco Use: Cigarettes Alcohol: None Drugs: None - *Family History Maternal History Items: No pertinent history Paternal History Items: No pertinent history Review of Systems Constitutional: Reports: Weight Change. Denies: Anorexia, Chills, Fever, Night Sweats, Malaise, Weakness, Fatigue Eyes: Denies: Blurred vision, Double vision, Drainage, Pain, Redness HEENT: Denies: Difficulty Hearing, Dysphasia, Ear Pain, Head Aches, Nasal bleeding, Nasal Congestion, Post Nasal Drip, Sinus Congestion, Sinus Drainage, Sore Throat Cardiovascular: Reports: Edema, Orthopnea - 3 pillow. Denies: Chest Pain, Claudication, Chest Pressure, Chest Tightness, Heaviness, Light Headedness, Palpitations, Paroxysmal Noc. Dyspnea, Syncope Respiratory: Reports: Cough - non productive. Denies: Hemoptysis, Pleuritic Pain, Shortness of Breath, Shortness of breath at rest, Shortness of breath upon exertion, Sputum production, Wheezing Gastrointestinal: Denies: Abdominal Pain, Constipation, Diarrhea, Dyspepsia, Hematemesis, Hematochezia, Nausea, Melena, Vomiting Genitourinary: Reports: Nocturia. Denies: Dysuria, Frequency, Hematuria, Hesitancy, Incontinence, Retention, Urgency Musculoskeletal: Denies: Back Pain, Joint stiffness, Joint swelling, Joint Tenderness, Neck Pain Skin: Denies: Dryness, Jaundice, Lesions, Pruritis, Rash, Skin Changes, Wounds Neurological: Denies: Balance problems, Blurred vision, Double vision, Change in Speech, Slurred speech, Confusion, Difficulty swallowing, Focal weakness, Headaches, Incoordination, Numbness, Tingling, Tremor, Seizures Psychiatric: Denies: Anxiety, Depression Endocrine: Denies: Change in Body Habitus, Heat/ Cold Intolerance, Polydipsia, Polyuria Hematologic/ Lymphatic: Denies: Adenopathy, Anemia, Easy Bruising, Easy Bleeding, Petechiae, Purpura VTE Information - Inpt Only VTE Present on Admission: No VTE Mechan Device Prophylaxis: None VTE Pharm Prophylaxis ordered?: No Patient Problems: Active and Suspected Problems Congestive heart failure (Acute) Hepatic steatosis (Acute) Mild aortic stenosis (Acute) - Physical Exam Vitals/I&O's: Vital Signs Temp Pulse Resp BP Pulse Ox 97.3 F L 79 20 H 142/79 H 98 01/24/20 17:25 01/24/20 19:01 01/24/20 17:25 01/24/20 17:25 01/24/20 17:25 Oxygen Flow Rate (L/min) 2 Oxygen Delivery Method Nasal Cannula Weight: 127.2 kg Body Mass Index (BMI) 40.2 Intake and Output for Last 24 Hours 01/22/20 01/23/20 01/24/20 23:59 23:59 23:59 Output Total 500 / 500 Balance -500 / -500 General: Alert, Oriented x3, Cooperative, No apparent distress, Well developed, Well nourished, - - Older WM sitting up in bed watching TV appears comfortable HEENT: Atraumatic, PERRLA, EOMI, Normocephalic, EAC Clear Oral: Moist Mucosa, No Gingival or Mucosal Lesions/ Ulcerations, - - poor dentition, mallampati 2 Neck: Supple, No JVD, Negative Carotid Bruits, Negative Hepatojugular Reflux, No Nodes, No Nuchal Rigidity, Trachea Midline, Thyroid Normal Size and Texture Lungs: No rhonchi, No rales, Wheezes - few scattered end expiratory Cardiovascular: Regular rate, Normal S1, Normal S2, No Ectopic Activity, Murmur - 2/6 SM, - - irreg rhythm Abdomen: Bowel Sounds Present, Soft, Non Tender, Non-Distended, No Hepato-splenomegaly, Obese, No hernias noted Extremities: No clubbing, No cyanosis, Capillary Refill Less than 3 Seconds, Edema - 2+ B LE, Peripheral Pulses Normal Skin: No rashes, No breakdown Musculoskeletal: No Tenderness to Palpation of Joints or Extremities, No Muscle Wasting, Arthritic Changes Lymphatic: No Cervical, Supraclavicular, or Inguinal Adenopathy Neurological: Cranial nerves II-XII grossly intact, Deep Tendon Reflexes 2+/4 and Symmetrical, Neuro grossly intact, Motor Exam 5/5 strength throughout, Muscle tone normal, Sensory exam intact to light touch and pain, Coordination normal Psych/Mental Status: Normal Affect, Anxious - mild, Alert and oriented to time, place, person, mood and affect Laboratory Results 01/24/20 11:50: WBC 5.2, RBC 4.56 L, Hgb 14.7, Hct 45.1, MCV 98.9 H, MCH 32.2 H, MCHC 32.6, RDW Std Deviation 55.4 H, RDW Coeff of Eduard 15.4 H, Plt Count 142 L, MPV 9.4, Immature Gran % (Auto) 0.600, Neut % (Auto) 72.7 H, Lymph % (Auto) 10.9 L, [place] % (Auto) 14.1 H, Eos % (Auto) 1.3, Baso % (Auto) 0.4, Absolute Neuts (auto) 3.8, Absolute Lymphs (auto) 0.57 L, Nucleated RBC % 0, Differential Comment SCANNED 01/24/20 11:50: Sodium 137, Potassium 3.9, Chloride 103, Carbon Dioxide 29.0, Anion Gap 5, BUN 9, Creatinine 1.01, Estim Creat Clear Calc 68.26, Est GFR (MDRD) Af Amer 93, Est GFR (MDRD) Non-Af 77, BUN/Creatinine Ratio 8.9 L, Glucose 138 H, Calcium 8.4 L, Troponin I < 0.015 01/24/20 11:50: B-Natriuretic Peptide 396.6 H Current Medications Alprazolam (Xanax) 0.25 mg PO BID PRN PRN PRN Reason: ANXIETY Apixaban (Eliquis) 5 mg PO BID [facility] Bupropion HCl (Wellbutrin Sr (100mg Tablets)) 300 mg PO DAILY [facility] Cholecalciferol (Vitamin D (25mcg)) 5,000 unit PO DAILY [facility] Dextrose (D50w Syringe) 0 gm IV X1 PRN; Protocol PRN Reason: Hypoglycemia Fluticasone Propionate (Flonase Nasal [place]) 1 spray NASAL DAILY [facility] Furosemide (Lasix) 40 mg IV BID@1000,1800 [facility] Furosemide (Lasix) 40 mg IV DAILY [facility] Glucagon () 1 mg IM .X1 PRN PRN Reason: Hypoglycemia Guaifenesin (Mucinex) 400 mg PO BID [facility] Hydroxyzine Pamoate (Vistaril Pamoate Capsule) 25 mg PO QHS [facility] Lisinopril (Zestril) 40 mg PO BID [facility] Metoprolol Tartrate (Lopressor (Beta Deidre)) 25 mg PO BID [facility] Non-Formulary Medication (Arginine) 500 mg PO DAILY [facility] Non-Formulary Medication (Ascorbic Acid [Vitamin C]) 1,000 mg PO DAILY [facility] Non-Formulary Medication (Co Q10 200) 50 mg PO DAILY [facility] Non-Formulary Medication (Omeprazole [Prilosec]) 40 mg PO BID [facility] Non-Formulary Medication (Testosterone [Androgel]) 75 gm TD DAILY [facility] Non-Formulary Medication (Vitamin E) 400 unit PO DAILY [facility] Senna/Docusate Sodium (Senokot-S, Shantal-Colace) 1 tablet PO BID [facility] Sodium Chloride () 10 - 40 ml IV UD PRN PRN Reason: SALINE FLUSH Assessment/Plan All Active Problems Congestive heart failure (Acute) Hepatic steatosis (Acute) Mild aortic stenosis (Acute) Elevated LFTs (Acute) Atrial fibrillation with RVR (Acute) Atypical chest pain (Acute) HFpEF -suspected -ECHO done 11/2019 with nml EF at 65%/LAE/Mild /RVSP 25 mmHg -Lasix 40 mg BID for now -daily wgts -I&0's -am lab -wean O2 as able -cycle troponin -pt had a stress test and showed normal myocardial perfusion (Cardiolyte)--> 11/28/2019 -BNP elevated but not all that much higher than previously -consider cardiology consult if not responding Hepatic Steatosis -pt was evaluated with US at last admission -CMP in am -check coags Thrombocytopenia -stable -suspect related to liver disease Mild -monitor per cards Permanent A-fib -continue BB and NOAC -Tele HTN -continue lisinopril and BB Low testosterone -conitnue Androgel GERD -continue PPI Anxiety and Depression -continue home meds DVT prophylaxis -NOAC Code Status -DNR-CCA Inpatient E&M: 84189 Init Hosp L3
[2020-01-24] MEDS: 0.9% Saline Lock 10 ML Syringe IV (20:24)
[2020-01-24] MEDS: Furosemide 40 MG/4 ML Vial IV (20:24)
[2020-01-24] MEDS: APIXABAN 5 MG TABLET PO (21:07)
[2020-01-24] MEDS: Pantoprazole Sodium 40 MG Tablet PO (21:08)
[2020-01-24] MEDS: hydrOXYzine PAM 25 MG Capsule PO (21:08)
[2020-01-24] MEDS: Metoprolol Tartrate 25 MG Tablet PO (21:08)
[2020-01-24] MEDS: Lisinopril 40 MG Tablet PO (21:09)
[2020-01-25] VITALS (8 sets, daily range): BP systolic 125–145; BP diastolic 74–75; PULSE 61–86; RESP 16–18; TEMP 36.3–36.6; O2SAT 93–96
[2020-01-25 03:00] LABS: Absolute Lymphocyte Count 0.69 X10^3/uL (0.83-4.51); Absolute Neutrophil Count 3.1 X10^3/uL (2.0-7.7); Basophil# 0.01 X10^3/uL; Basophil% 0.2 % (0-1); Eosinophil# 0.18 X10^3/uL; Eosinophils% 3.6 % (0-5); Hematocrit 43.4 % (40-54); Hemoglobin 14.1 g/dL (13.0-16.5); Lymphocyte # 0.69 X10^3/ul (4.0); Lymphocyte % 13.7 % (19-41); Mean Corp Hgb Conc 32.5 g/dL (32-36); Mean Corpuscular Hgb 32.5 pg (27.0-32.0); Mean Platelet Vol. 9.4 fl (6.2-12.0); Monocyte# 1.05 X10^3/uL; Monocyte% 20.8 % (0-10); NRBC Flagged by Analyzer 0 % (0-5); Neutrophil # 3.09 X10^3/uL (2.7-7.7); Neutrophil % 61.1 % (47-70); Platelet Count 149 K/mm3 (150-450); RBC Distribution Width CV 15.4 % (11.6-14.6); RBC Distribution Width SD 56.1 fl (35.1-43.9); Red Blood Count 4.34 M/mm3 (4.6-6.2); White Blood Count 5.1 K/mm3 (4.4-11.0)
[2020-01-25 03:56] LABS: ALB/GLOB Ratio 0.9 RATIO (0.9-2.4); AST(SGOT) 62 U/L (15-37); Alanine Aminotransfer ALT/SGPT 109 U/L (16-61); Alkaline Phosphatase 115 U/L (45-117); Anion Gap 10 (5-15); BUN 12 mg/dL (7-18); BUN/Creat Ratio 10.2 RATIO (10-20); Calcium,Total 8.2 mg/dL (8.5-10.1); Chloride 101 mmol/L (98-107); Creatinine, Serum 1.18 mg/dL (0.70-1.30); EST Glomerular Filtration Rate 64 mL/min (>60); Est Glom Filt Rate - Afr Amer 78 mL/min (>60); Estimated Creatinine Clearance 58.43 ml/min; Globulin 3.5 g/dL (2.2-4.2); Glucose 121 mg/dL (74-106); Phosphorus 4.2 mg/dL (2.5-4.9); Potassium 3.5 mmol/L (3.5-5.1); Protein, Total 6.5 g/dL (6.4-8.2); Sodium Level 139 mmol/L (136-145)
[2020-01-25] MEDS: Acetaminophen 325 MG Tablet 650 MG PO (05:59)
[2020-01-25] MEDS: APIXABAN 5 MG TABLET PO (10:28)
[2020-01-25] MEDS: Metoprolol Tartrate 25 MG Tablet PO (10:28)
[2020-01-25] MEDS: Pantoprazole Sodium 40 MG Tablet PO (10:28)
[2020-01-25] MEDS: Lisinopril 40 MG Tablet PO (10:28)
[2020-01-25] MEDS: buPROPion (SR) 100 MG TABLET.SA 300 MG PO (10:28)
[2020-01-25] MEDS: Furosemide 40 MG/4 ML Vial IV (10:29)
[2020-01-25] MEDS: 0.9% Saline Lock 10 ML Syringe IV (10:29)
--- NOTE | 2020-01-25 10:40 | CASEMGMT ---
RN SAM Face to Face with patient for initial transition planning/care coordination assessment. RN CM introduced self and role at [facility]. Patient lying in bed, alert and oriented. Patient willing to participate in assessment and is able to answer all questions appropriately. Care providers, pharmacy, and demographics verified. Patient wishes to discharge home, denies need for home health at this time. Patient states he has no further needs or concerns at this time. CM to follow for discharge planning needs that may arise. PCP: Dr West at [facility] Specialists: at [facility] [employer] [facility] Prescription Benefit: [place] Living Will/HPOA: yes, thinks it is Torito Coles Jr son LNOK: sons Living Arrangements: Patient lives alone in 1 story home with 1 step to enter the home. Patient states he is independent at home. Transportation: self/friend DME/HHC: Patient denies any DME or previous HHC. Disposition Plan: Patient to discharge home with follow-up plans in place. Camilla SCHULTZ, RN, CM
--- NOTE | 2020-01-25 14:43 | DCINST_ITS ---
- Discharge Diagnoses Current Active Problems: Current Active and Chronic Problems Congestive heart failure (Acute) Hepatic steatosis (Acute) Mild aortic stenosis (Acute) You will use the following diet at home:: No restrictions Your food should be the consistency of: Regular Your liquids should be the consistency of: Regular/Thin Discharge Activity: Return to Normal Activity Weight Bearing Status: Full weight bearing Allergies/Adverse Reactions: Allergies No Known Allergies Allergy (Verified 11/27/19 10:44) Medications to take at Discharge Arginine 500 mg PO DAILY 05/04/13 Bupropion HCl [Bupropion HCl Sr] 300 mg PO DAILY 05/04/13 Co Q10 200 [Co Q-10] 50 mg PO DAILY 05/04/13 Fluticasone 0.05% [Flonase Nasal [place]] 1 spray NASAL DAILY 05/04/13 Guaifenesin [Mucinex] 400 mg PO BID 05/04/13 Lisinopril [Zestril] 40 mg PO BID 05/04/13 Multivitamins,Therapeutic 1 tab PO DAILY 05/04/13 Omeprazole [Prilosec] 40 mg PO BID 05/04/13 Testosterone [Androgel] 75 gm TD DAILY 05/04/13 hydrOXYzine pamoate capsule [Vistaril pamoate capsule] 25 mg PO QHS 05/04/13 ALPRAZolam [Xanax] 0.25 mg PO BID PRN PRN 11/27/19 Cholecalciferol (VIT D3) [Vitamin D3] 5,000 unit PO DAILY 11/27/19 Sennosides/Docusate Sodium [Docusate Sodium-Sennosides Tab] 1 ea PO BID 11/27/19 Vitamin E 400 unit PO DAILY 11/27/19 Apixaban [Eliquis] 5 mg PO BID 01/24/20 Ascorbic Acid [Vitamin C] 1,000 mg PO DAILY 01/24/20 Metoprolol Tartrate [Lopressor (beta alice)] 25 mg PO BID 01/24/20 Furosemide [Lasix] 40 mg PO DAILY #30 tab 01/25/20 The following prescriptions were given: Furosemide [Lasix] 40 mg PO DAILY #30 tab Transmission Status: Pending to [facility] [[facility] - Please follow up with your Primary Care Physician in: in 1-2 weeks Test Results: Test results from this visit will be discussed in further detail at your follow- up appointment, if applicable.
--- NOTE | 2020-01-25 15:08 | CASEMGMT ---
Pt to be sent home on Lasix and [facility] but will not be able to get it filled until next week d/t the holiday, so Lasix sent to [facility] retail pharmacy and per pharmacy, pt's co-pay is $12.81 and pt is updated and states has debit card to use. Meds to bed to be utilized. Pt voices no further questions/concerns/needs at this time. SStosvaldo HUGHES CM
--- NOTE | 2020-01-25 17:06 | CHAPLAIN ---
Type of Pastoral Visit _x__ Initial Visit ___ Follow-up Visit ___ On-call Visit ___ General Patient Visit ___ Spiritual Assessment ___ Family Conference ___ Bereavement ___ Rapid Response ___ Code Blue ___ Other (describe below) Pastoral Care Referral From _x__ Patient ___ Family ___ Nurse ___ Physician ___ Hoop Rolls Operator ___ Bonded Structures Repairer ___ Other (describe below) Sacrament/Intervention _x__ Active listening ___ Anointing ___ Zoroastrianism ___ Bereavement ___ Communion ___ Bozena exploration ___ _x__ Life review _x__ Prayer ___ Reconciliation ___ Sacrament of Sick _x__ Supportive presence ___ Wedding ___ Other (describe below) Pastoral Comments
--- NOTE | 2020-02-06 08:28 | PCM.DC.SUM ---
Discharge Date and Diagnosis Date of Admission: 01/24/20 Date of Discharge: 01/25/20 - Primary Discharge Diagnosis Acute Problems: #1 acute diastolic congestive heart failure #2 Chronic atrial fibrillation #3 essential hypertension #4 musculoskeletal chest pain #5 class II obesity - Secondary Discharge Diagnosis Chronic Problems: Chronic Problems Chronic atrial fibrillation (Chronic) GERD (gastroesophageal reflux disease) (Chronic) Depression (Chronic) Hypertension (Chronic) Hospital Course and Treatment Operations: None Procedures: None Summary of Care Provided: The patient is a 74 year old M and in the emergency room at [facility] with a chief complaint of shortness of breath and chest discomfort over a period of 10 days. He stated that his breathing was worse when he was laying flat. Work-up in the emergency room included a chest x-ray which showed a mild increased markings at the lung bases as well as the right upper lobe, beta natruretic peptide was elevated, troponin was normal. EKG showed atrial fibrillation with a rate of 84, there is no acute ST or T wave changes noted. Patient was admitted to PCU for congestive heart failure, he had had an echocardiogram done in November 2019 which showed a preserved ejection fraction and therefore his echocardiogram was not repeated. Patient was given IV diuretics and he improved during his hospital stay. On 01/25/2020, patient was seen and examined: On examination he appeared in good health and spirits. Vital signs as documented. Skin warm and dry and without overt rashes. Neck without JVD, neck was supple, trachea midline, thyroid was normal. Lungs clear bilaterally, normal air movement was noted. Heart exam notable for irregular rhythm, normal sounds and absence of murmurs, rubs or gallops. Abdomen unremarkable and without evidence of organomegaly, masses, or abdominal aortic enlargement. Bowel sounds are present, abdomen is not distended. Extremities nonedematous, no cyanosis was noted, no clubbing was noted. Neuro: Cranial nerves II through XII are grossly intact, no focal motor deficits were noted, sensation to light touch and pinprick intact, motor exam 5/5 throughout. Psych: Patient is alert and oriented x3, he does not appear anxious or depressed, he does not appear agitated. On 01/25/2020, patient was seen and examined and felt to be stable for discharge home - Physical Exam Vitals/I&O's: Vital Signs Temp Pulse Resp BP Pulse Ox 97.9 F 78 16 125/74 H 96 01/25/20 15:33 01/25/20 15:33 01/25/20 15:33 01/25/20 15:33 01/25/20 15:33 Oxygen Flow Rate (L/min) 2 Oxygen Delivery Method Room Air Weight: 122.9 kg Body Mass Index (BMI) 40.2 Discharge Activity: Return to Normal Activity Weight Bearing Status: Full weight bearing Home Medications: Medications to take at Discharge Arginine 500 mg PO DAILY 05/04/13 Bupropion HCl [Bupropion HCl Sr] 300 mg PO DAILY 05/04/13 Co Q10 200 [Co Q-10] 50 mg PO DAILY 05/04/13 Fluticasone 0.05% [Flonase Nasal [place]] 1 spray NASAL DAILY 05/04/13 Guaifenesin [Mucinex] 400 mg PO BID 05/04/13 Lisinopril [Zestril] 40 mg PO BID 05/04/13 Multivitamins,Therapeutic 1 tab PO DAILY 05/04/13 Omeprazole [Prilosec] 40 mg PO BID 05/04/13 Testosterone [Androgel] 75 gm TD DAILY 05/04/13 hydrOXYzine pamoate capsule [Vistaril pamoate capsule] 25 mg PO QHS 05/04/13 ALPRAZolam [Xanax] 0.25 mg PO BID PRN PRN 11/27/19 Cholecalciferol (VIT D3) [Vitamin D3] 5,000 unit PO DAILY 11/27/19 Sennosides/Docusate Sodium [Docusate Sodium-Sennosides Tab] 1 ea PO BID 11/27/19 Vitamin E 400 unit PO DAILY 11/27/19 Apixaban [Eliquis] 5 mg PO BID 01/24/20 Ascorbic Acid [Vitamin C] 1,000 mg PO DAILY 01/24/20 Metoprolol Tartrate [Lopressor (beta alice)] 25 mg PO BID 01/24/20 Furosemide [Lasix] 40 mg PO DAILY #30 tab 01/25/20 Following Prescrptions Were Given to Patient: Furosemide [Lasix] 40 mg PO DAILY #30 tab Transmission Status: Received by [facility] [[facility]] - Please follow up with your Primary Care Physician in: in 1-2 weeks Disposition: Home Minutes spent on discharge:: 31 Patient Condition:: Stable Medical Necessity - Tobacco Use Smoking Status: Former smoker Tobacco Use: Cigarettes Meaningful Use Info Meaningful Use Diagnoses (Choose all that apply): CHF - CHF ANAY/ARB ordered at discharge?: Yes Documented LVEF (%): 65 Inpatient E&M: 98375 Disch Hosp
== END 2020-01-25 17:35 | disposition home or self-care (01) | DRG 291 ==
LOC: ED 16:26 → PCU 17:52
PROVIDERS: Admitting Provider Internal Medicine; Emergency Provider Emergency Medicine; Visit Provider Internal Medicine
DX: I11.0 Hypertensive heart disease with heart failure (principal); I50.31 Acute diastolic (congestive) heart failure; I48.21 Permanent atrial fibrillation; Z68.41 Body mass index [BMI] 40.0-44.9, adult; I35.0 Nonrheumatic aortic (valve) stenosis; Z66 Do not resuscitate; R07.89 Other chest pain; E66.9 Obesity, unspecified; K21.9 Gastro-esophageal reflux disease without esophagitis; F32.9 Major depressive disorder, single episode, unspecified; F41.9 Anxiety disorder, unspecified; K76.0 Fatty (change of) liver, not elsewhere classified; D69.6 Thrombocytopenia, unspecified; Z79.01 Long term (current) use of anticoagulants; Z79.899 Other long term (current) drug therapy; Z87.891 Personal history of nicotine dependence
CPT/HCPCS: 36415; 71045; 80048; 80053; 83735; 83880; 84100; 84484; 85025; 93005; 97802; 99251; 99285; A4216; G0463; J1940

== ENCOUNTER 2020-03-14 12:47 | Emergency (ER) | payer OTHER, MEDICARE, SELFPAY ==
[2020-01-24 17:18] VITALS: BMI 40.2
[2020-03-14 12:48] VITALS: BP 130/89; PULSE 104; PULSE 106; RESP 20; TEMP 36.6; O2SAT 95; O2SAT 96; BMI 38.7
--- NOTE | 2020-03-14 12:53 | EKG12_ITS ---
Test Reason : Blood Pressure : / mmHG Vent. Rate : 099 BPM Atrial Rate : 096 BPM P-R Int : 000 ms QRS Dur : 106 ms QT Int : 396 ms P-R-T Axes : 000 047 056 degrees QTc Int : 508 ms Atrial fibrillation Prolonged QT Abnormal ECG Confirmed by ADAM ESCUDERO, RUDY ([id number]), sound editor DAT MCKINLEY ([id number]) on 03/22/2020 11:11:16 A M Referred By: HELEN Confirmed By:ELIZ MEDINA MD
--- NOTE | 2020-03-14 12:53 | RAD_ITS ---
STUDY: X-RAY CHEST REASON FOR EXAM: Male, 74 years old. C/O CHEST PAIN, SOB, CHILLS, N/V/D, AND ELEVATED HEART RATE. STATES SYMPTOMS STARTING 5 DAYS AGO -- HX AFIB, COPD, CHF TECHNIQUE: Single AP portable view of the chest. COMPARISON: 01/24/2020 FINDINGS: The lungs are clear and expanded. There is no demonstrated pleural abnormality. There is moderate cardiac enlargement. Normal mediastinum and manuela. Normal visualized pulmonary arteries. Normal visualized aortic arch and descending thoracic aorta. Normal visualized thoracic spine. Normal visualized ribs, clavicles, and shoulders. There is no demonstrated abnormality of the visualized soft tissue structures of the upper abdomen. RAD/Chest 1 View (Portable) IMPRESSION: No active disease. Electronically Signed: Shaka Laurent MD at 14:06 EDT Tel , Service support ,
[2020-03-14 13:47] VITALS: BP 146/80; PULSE 90; RESP 20; O2SAT 96
[2020-03-14 13:57] LABS: Absolute Lymphocyte Count 0.39 X10^3/uL (0.83-4.51); Absolute Neutrophil Count 3.3 X10^3/uL (2.0-7.7); Basophil# 0.01 X10^3/uL; Basophil% 0.2 % (0-1); Eosinophil# 0.05 X10^3/uL; Hematocrit 43.2 % (40-54); Hemoglobin 14.5 g/dL (13.0-16.5); Lymphocyte # 0.39 X10^3/ul (4.0); Mean Corp Hgb Conc 33.6 g/dL (32-36); Mean Corpuscular Hgb 32.2 pg (27.0-32.0); Mean Corpuscular Volume 95.8 fL (80-94); Mean Platelet Vol. 9.7 fl (6.2-12.0); Monocyte# 1.11 X10^3/uL; Monocyte% 22.7 % (0-10); NRBC Flagged by Analyzer 0 % (0-5); Neutrophil % 67.7 % (47-70); POSITIVE DIFFERENTIAL YES; Platelet Count 130 K/mm3 (150-450); RBC Distribution Width CV 15.5 % (11.6-14.6); RBC Distribution Width SD 54.7 fl (35.1-43.9); Red Blood Count 4.51 M/mm3 (4.6-6.2); White Blood Count 4.9 K/mm3 (4.4-11.0)
[2020-03-14 14:00] LABS: Differential Indicated SCAN CRITERIA MET
[2020-03-14 14:11] LABS: Anion Gap 6 (5-15); BUN 9 mg/dL (7-18); BUN/Creat Ratio 9.7 RATIO (10-20); Calcium,Total 8.8 mg/dL (8.5-10.1); Chloride 102 mmol/L (98-107); Creatinine, Serum 0.93 mg/dL (0.70-1.30); EST Glomerular Filtration Rate 85 mL/min (>60); Est Glom Filt Rate - Afr Amer 103 mL/min (>60); Estimated Creatinine Clearance 74.13 ml/min; Glucose 136 mg/dL (74-106); Potassium 3.5 mmol/L (3.5-5.1); Sodium Level 139 mmol/L (136-145)
--- NOTE | 2020-03-14 14:17 | ED.VIS.GEN ---
History of Present Illness Chief Complaint: Chest Pain Informant: Patient Narrative: Patient is a 74-year-old male who presents to the emergency department for dyspnea. He is also having some chest tightness. His symptoms do seem to be worse whenever he is exerting himself. He has had this going on for multiple months but recently flared up over the past week. Dates that he does check his heart rate after sitting down from walking short distances and it does get into the 130s. Does have a history of atrial fibrillation. He denies any palpitations. Denies any leg swelling or calf pain. He did develop nausea and vomiting yesterday. He has been having 2-3 episodes of diarrhea over the past week. No known sick contacts. Denies any significant abdominal pain. Feeling his abdomen is slightly distended. He denies any fevers or chills. He denies any history of heart attacks but does have a history of heart failure. No DVT/PEs. Past Medical History - Allergies and Home Meds Allergies/Adverse Reactions: Allergies No Known Allergies Allergy (Verified 03/14/20 12:47) Primary Care Physician: [place] [Primary Care Provider[facility] - 2 Days Past Medical History: - - CHF, A. fib, hypertension Surgical History: - - History of left foot surgery. Smoking Status: Former smoker - Family History Maternal Family History: Reports: No pertinent history Paternal Family History: Reports: No pertinent history Review of Systems All systems negative except as indicated General: Denies: Chills, Fever, Sweats Eyes: Denies: Visual changes - bilaterally, Diplopia ENT: Denies: Rhinorrhea, Sore throat Cardiovascular: Reports: Chest pain, Heart racing. Denies: Palpitations Respiratory: Reports: Dyspnea, Cough, Sputum, Dyspnea on exertion Gastrointestinal: Reports: Nausea, Vomiting, Diarrhea. Denies: Abdominal pain, Melena, Hematochezia Genitourinary: Denies: Dysuria, Hematuria, Frequency Musculoskeletal: Denies: Back pain, Extremity Pain Skin: Denies: Rash, Wounds Neurological: Denies: Headache, Weakness, Numbness Physical Exam Vital Signs/Narrative: Vital Signs Temp Pulse Resp BP Pulse Ox 03/14/20 12:48 97.8 F 106 H 20 H 130/89 H 95 Inital Vital Signs reviewed: Yes General: Well nourished, Well developed, No Acute Distress Head: Normocephalic, Atraumatic Eyes: Perrl, EOMI ENT: Moist mucous membranes, No rhinorrhea Neck: Supple, Nontender Cardiovascular: Regular rhythm, No murmurs, Irregular Respiratory: No distress, CTA bilaterally, Chest nontender Abdomen: Soft, Nontender, Nondistended, Normal bowel sounds Back: Nontender, Normal Inspection Extremities: Nontender, Edema - Trace bilaterally. Negative for: Calf Tenderness Skin: Normal color, No rash Neurological: Alert, Oriented x3, Cranial nerves II-XII grossly intact, Normal Strength, Normal Sensation Psychological: Normal affect, Normal Mood Diagnostic/Tx/Re-eval - EKG Initial EKG Interpretation: - - Rate of 99 bpm in irregularly irregular rhythm. QTC of 508. No ST elevations or depressions appreciated. No T wave abnormalities. Prior EKG for comparison was performed on January 232019 which is similar in appearance. - Medical Decision Making Patient presents to the ED for shortness of breath with exertion. Has some mild chest tightness. He does have a cough that has been productive of sputum occasionally. He did have episode of vomiting yesterday and today. He has been having some diarrhea. Denies any known sick contacts. Upon arrival to the ED vital signs within normal limits except for mild tachycardia. He is afebrile. Physical exam is benign. Will check basic lab work. Lab work did not reveal any significant acute abnormality. Initial troponin within normal limits. X-ray did not show any evidence of pneumonia. Given his tachycardia, dyspnea we did obtain a CTA which did not show any evidence of pulmonary embolism. There is a aortic thoracic aneurysm. No evidence of dissection. Patient was made aware of this and needs to follow-up with this. I discussed the case with the hospitalist who said that he had a stress test done in November. He did recommend I talk to cardiology. I did discuss the case with the on-call english lecturer. They recommended some IV fluids given the fact he had some diarrhea. No recommended addition for adjusting his metoprolol as his resting heart rate is within normal limits. This was all discussed with the patient. We will give a small bolus of the normal saline and reassess and plan for disposition [facility]. If he develops any worsening symptoms he can return to the emergency department at any time. He understands and is agreeable with this plan. ED Disposition - Plan for ED Patient: Disposition: Home or Assisted Living Diagnosis: Aortic aneurysm, Dyspnea Instructions: ED Dyspnea [facility] [[facility] - 2 Days
[2020-03-14 14:47] VITALS: BP 139/65; PULSE 85; RESP 18; O2SAT 96
--- NOTE | 2020-03-14 15:17 | CT_ITS ---
STUDY: CTA CHEST REASON FOR EXAM: Male, 74 years old. DYSPNEA,TACHYCARDIA RADIATION DOSAGE (If Supplied By Facility): CTDIvol = ( 15.04 ) mGy, DLP = ( 523.52 ) mGycm TECHNIQUE: The examination was performed with the intravenous administration of 100 CC ISOVUE 370. Post-processing of the angiographic images was performed, with multiplanar reformation and 3D reconstruction. Individualized dose optimization techniques were used for this CT. COMPARISON: 05/04/2013 FINDINGS: Normal enhancement of the main pulmonary artery and right and left pulmonary arteries. Normal enhancement of the bilateral peripheral pulmonary arteries. There is no demonstrated pulmonary embolism. Atherosclerotic changes of the aorta with aneurysmal dilatation of the ascending aorta measuring approximately 4.3 x 4.55 cm. There is no demonstrated aortic dissection. Heart is enlarged and there is multivessel coronary artery calcification Normal mediastinum. Normal hilar regions. Normal visualized trachea and bronchi. The lungs are well expanded. There is mild diffuse interstitial thickening most pronounced in the lower lobes. There is no focal infiltration or pulmonary nodule. There is minor atelectasis within the dependent portion of the lungs Normal pleura. Normal chest wall structures. Dorsal spine demonstrates advanced arthritic changes Normal visualized upper abdomen. CT/CTA Chest W/WO Contrast IMPRESSION: ASHD and aneurysmal dilatation of the proximal ascending aorta without evidence for periaortic leak or dissection. Chronic interstitial changes in the lower lobes and minor atelectasis within the dependent portion lungs. No evidence for pulmonary embolus Electronically Signed: Matt Russell MD at 16:07 EDT , Service support ,
[2020-03-14 15:47] VITALS: BP 146/68; PULSE 83; RESP 17; O2SAT 96
[2020-03-14 16:04] VITALS: O2SAT 97
[2020-03-14] MEDS: 0.9% Normal Saline 1,000 ML 999 ML IV (17:30)
[2020-03-14 18:25] VITALS: BP 144/93; PULSE 87; RESP 16; O2SAT 95
== END 2020-03-14 18:27 | disposition home or self-care (01) ==
PROVIDERS: Emergency Provider Emergency Medicine
DX: I71.9 Aortic aneurysm of unspecified site, without rupture (principal); R06.00 Dyspnea, unspecified; I50.9 Heart failure, unspecified; I48.91 Unspecified atrial fibrillation; Z79.899 Other long term (current) drug therapy
CPT/HCPCS: 71045; 71275; 80048; 84484; 85025; 87635; 93005; 94799; 96360; 96361; 99283; J7030; J7040; Q9967; A4216; U0003

== ENCOUNTER 2020-09-09 13:53 | Inpatient (IN) | payer OTHER, MEDICARE, SELFPAY ==
[2020-09-09] VITALS (10 sets, daily range): BP systolic 138–157; BP diastolic 74–91; PULSE 78–89; RESP 15–25; TEMP 36.1–36.9; O2SAT 90–98; BMI 39.4; BMI 38.5
--- NOTE | 2020-09-09 14:30 | RAD_ITS ---
STUDY: X-RAY CHEST REASON FOR EXAM: Male, 75 years old. Chest pain that has been getting worse for the last few weeks TECHNIQUE: Single AP portable view of the chest. COMPARISON: Comparison is made with prior examination 03/14/2020. FINDINGS: EKG electrodes are seen. There is evidence of vascular congestion and mild CHF. Small right pleural effusion with bibasilar atelectasis. Blunting of the left costophrenic angle. Normal size heart. Normal mediastinum and manuela. Normal visualized pulmonary arteries. There is atherosclerotic calcification of the aortic arch with tortuosity. Normal visualized thoracic spine. Normal visualized ribs, clavicles, and shoulders. There is no demonstrated abnormality of the visualized soft tissue structures of the upper abdomen. RAD/Chest 1 View (Portable) IMPRESSION: Mild degree of CHF with small right pleural effusion and bibasilar atelectasis. Blunting of the left costophrenic angle. Electronically Signed: Haroldo Arana MD at 15:01 EST , Service support ,
--- NOTE | 2020-09-09 14:30 | EKG12_ITS ---
Test Reason : SOB CP Blood Pressure : / mmHG Vent. Rate : 074 BPM Atrial Rate : 277 BPM P-R Int : 000 ms QRS Dur : 106 ms QT Int : 428 ms P-R-T Axes : 000 028 025 degrees QTc Int : 475 ms Atrial fibrillation Nonspecific ST abnormality Abnormal ECG Confirmed by NAGA ESCUDERO, PALAK ([id number]), video effects editor ANGEL BECK ([id number] on 09/13/2020 11:40:56 AM Referred By: JOSE Confirmed By:PALAK NIELSON MD
--- NOTE | 2020-09-09 14:32 | ED.VIS.GEN ---
History of Present Illness Chief Complaint: Chest Pain Detail of Chief Complaint: Chest pain, shortness of breath, cough Informant: Patient Onset: Weeks - Going on 3 weeks Context: Gradual Onset Timing: Waxes and wanes Current Severity: Moderate Maximum Severity: Moderate Narrative: Patient presents secondary to increasing chest pain and shortness of breath for the past nearly 3 weeks. Patient reports a tightness in the center of his chest and feeling like he cannot get enough air in. He has had a cough. Family states that the onset of his illness he did have a fever. He denies known history of COPD or asthma. He is not on home oxygen. He states that last evening while walking his oxygen level dropped to 82%. Family does admit it was fluctuating quite a bit at that time. - Past Medical History (1) High cholesterol Status: Chronic (2) Congestive heart failure Status: Chronic (3) Mild aortic stenosis Status: Chronic (4) Chronic atrial fibrillation Status: Chronic (5) Depression Status: Chronic (6) GERD (gastroesophageal reflux disease) Status: Chronic (7) Hypertension Status: Chronic Past Medical History - Allergies and Home Meds Allergies/Adverse Reactions: Allergies No Known Allergies Allergy (Verified 09/09/20 13:59) Primary Care Physician: [place] [Primary [facility]] - Surgical History: - - History of left foot surgery. Smoking Status: Former smoker - Family History Maternal Family History: Reports: No pertinent history Paternal Family History: Reports: No pertinent history Review of Systems General: Reports: Fever - Fever at onset of illness Eyes: Denies: Visual changes - bilaterally ENT: Denies: Bilateral ear pain Cardiovascular: Reports: Chest pain Respiratory: Reports: Dyspnea, Cough. Denies: Sputum Gastrointestinal: Denies: Vomiting, Diarrhea Genitourinary: Denies: Dysuria Musculoskeletal: Denies: Swelling, Extremity Pain Skin: Denies: Rash Neurological: Denies: Headache Hematologic: Denies: Easy bruising, Easy bleeding Allergy: Denies: Uticaria Physical Exam Vital Signs/Narrative: Vital Signs Temp Pulse Resp Pulse Ox 09/09/20 13:54 97.0 F L 78 25 H 90 Inital Vital Signs reviewed: Yes General: Well nourished, Well developed Head: Normocephalic Neck: Supple Cardiovascular: Irregular Respiratory: Diminished, Decreased Air Movement Abdomen: Soft, Nontender, Hypoactive bowel sounds Extremities: Edema - 1+ bilateral lower extremity edema, symmetric Skin: Normal color Neurological: Alert, Oriented x3 Psychological: Normal affect Diagnostic/Tx/Re-eval Chest X-Ray - ED: 1 View, Read by ED Physician, Chronic Changes, CHF - Mild CHF Impressions Chest X-Ray 09/09/20 14:30 IMPRESSION: Mild degree of CHF with small right pleural effusion and bibasilar atelectasis. Blunting of the left costophrenic angle. Electronically Signed: Haroldo Araan MD at 15:01 EST , Service support , 09/09/20 14:30 Chest 1 View (Portable) [RAD] Stat Laboratory Results 09/09/20 09/09/20 09/09/20 14:05 14:05 14:05 WBC 6.1 RBC 4.76 Hgb 15.4 Hct 46.7 MCV 98.1 H MCH 32.4 H MCHC 33.0 RDW Std Deviation 54.9 H RDW Coeff of Eduard 15.1 H Plt Count 133 L MPV 9.8 Immature Gran % (Auto) 0.300 Neut % (Auto) 69.0 Lymph % (Auto) 7.2 L [place]win % (Auto) 22.7 H Eos % (Auto) 0.5 Baso % (Auto) 0.3 Absolute Neuts (auto) 4.2 Absolute Lymphs (auto) 0.44 L Nucleated RBC % 0 Differential Comment SCANNED Sodium 137 Potassium 3.6 Chloride 102 Carbon Dioxide 30.0 Anion Gap 5 BUN 9 Creatinine 0.91 Estim Creat Clear Calc 74.65 Est GFR (MDRD) Af Amer 105 Est GFR (MDRD) Non-Af 87 BUN/Creatinine Ratio 9.9 L Glucose 128 H Calcium 8.8 Troponin I < 0.015 B-Natriuretic Peptide 510.1 H COVID-19 (MELANY) 09/09/20 14:50 WBC RBC Hgb Hct MCV MCH MCHC RDW Std Deviation RDW Coeff of Eduard Plt Count MPV Immature Gran % (Auto) Neut % (Auto) Lymph % (Auto) [place] % (Auto) Eos % (Auto) Baso % (Auto) Absolute Neuts (auto) Absolute Lymphs (auto) Nucleated RBC % Differential Comment Sodium Potassium Chloride Carbon Dioxide Anion Gap BUN Creatinine Estim Creat Clear Calc Est GFR (MDRD) Af Amer Est GFR (MDRD) Non-Af BUN/Creatinine Ratio Glucose Calcium Troponin I B-Natriuretic Peptide COVID-19 (MELANY) Not Detected - EKG Initial EKG Interpretation: Atrial Fibrillation - A. fib at 76. No acute ischemia. - Medical Decision Making Patient expiratory wheezes and decreased air movement on initial auscultation. He was given dose of Solu-Medrol along with aerosols. Repeat evaluation he reports his breathing is much improved. He does have evidence of CHF with an elevated BNP and vascular congestion on chest x-ray. He is given a dose of Lasix and has been diuresing. Because the patient describes symptoms consistent with Covid a PCR Covid test was obtained and does return negative. Patient does report oxygen saturations dropping into the low 80s last evening. He does not have home oxygen. I recommended observation overnight for diuresis and reeval to determine if patient needs home oxygen. ED Disposition - Plan for ED Patient: Disposition: Acute Care Hospital [facility] Diagnosis: CHF (congestive heart failure) [facility] [[facility] -
[2020-09-09] MEDS: MethylPREDNISolone 125 MG/2 ML Vial IV (14:47)
[2020-09-09] MEDS: Ipratropium/Albuterol Sulfate 3 ML AMPUL.NEB INHALATION (14:50)
[2020-09-09 15:01] LABS: Absolute Lymphocyte Count 0.44 X10^3/uL (0.83-4.51); Absolute Neutrophil Count 4.2 X10^3/uL (2.0-7.7); Basophil# 0.02 X10^3/uL; Basophil% 0.3 % (0-1); Eosinophil# 0.03 X10^3/uL; Eosinophils% 0.5 % (0-5); Hematocrit 46.7 % (40-54); Hemoglobin 15.4 g/dL (13.0-16.5); Lymphocyte # 0.44 X10^3/ul (4.0); Lymphocyte % 7.2 % (19-41); Mean Corpuscular Hgb 32.4 pg (27.0-32.0); Mean Corpuscular Volume 98.1 fL (80-94); Mean Platelet Vol. 9.8 fl (6.2-12.0); Monocyte# 1.39 X10^3/uL; Monocyte% 22.7 % (0-10); NRBC Flagged by Analyzer 0 % (0-5); Neutrophil # 4.21 X10^3/uL (2.7-7.7); POSITIVE DIFFERENTIAL YES; Platelet Count 133 K/mm3 (150-450); RBC Distribution Width CV 15.1 % (11.6-14.6); RBC Distribution Width SD 54.9 fl (35.1-43.9); Red Blood Count 4.76 M/mm3 (4.6-6.2); White Blood Count 6.1 K/mm3 (4.4-11.0)
[2020-09-09 15:12] LABS: Anion Gap 5 (5-15); BUN 9 mg/dL (7-18); BUN/Creat Ratio 9.9 RATIO (10-20); Calcium,Total 8.8 mg/dL (8.5-10.1); Chloride 102 mmol/L (98-107); Creatinine, Serum 0.91 mg/dL (0.70-1.30); Differential Indicated SCAN CRITERIA MET; EST Glomerular Filtration Rate 87 mL/min (>60); Est Glom Filt Rate - Afr Amer 105 mL/min (>60); Estimated Creatinine Clearance 74.65 ml/min; Glucose 128 mg/dL (74-106); Potassium 3.6 mmol/L (3.5-5.1); Sodium Level 137 mmol/L (136-145)
[2020-09-09] MEDS: Albuterol 2.5 MG/3 ML VIAL.NEB. INHALATION ×3 (15:18)
[2020-09-09 15:26] LABS: BNP,B-Type NATRIURETIC PEPTIDE 510.1 pg/mL (0-100)
[2020-09-09 15:32] LABS: Differential Comment SCANNED
[2020-09-09] MEDS: Furosemide 40 MG/4 ML Vial IV (16:43)
--- NOTE | 2020-09-09 18:10 | HP.PCM_ITS ---
<Darcie Vidal SPARKER AND PATCHER - Last Filed: 09/09/20 18:28> Problem List (1) Congestive heart failure Status: Chronic Qualifiers: Heart failure chronicity: acute on chronic (2) Hepatic steatosis Status: Chronic (3) Mild aortic stenosis Status: Chronic (4) High cholesterol Status: Chronic (5) Elevated LFTs Status: Chronic (6) Atrial fibrillation with RVR Status: Chronic (7) Chronic atrial fibrillation Status: Chronic (8) GERD (gastroesophageal reflux disease) Status: Chronic (9) Depression Status: Chronic (10) Hypertension Status: Chronic History of Present Illness Date of Admission: 09/09/20 Chief Complaint: Shortness of breath, chest pain. The patient is a 75 year old M who presents the emergency room due to shortness of breath and chest pain. Patient states this has been ongoing for the past 3 weeks. Shortness of breath has become increasingly worse. Patient states he is having difficulty sleeping at night due to increased shortness of breath. Patient reports chest pain in the center of his chest which comes and goes. Does not seem to be associated with exertion. He denies cough, fever, chills. He reports increased lower extremity swelling. He denies known weight gain however he states he does not weigh himself routinely. He denies other associated symptoms or complaints. Patient states he would like to have oxygen at home as this seems to help his breathing however in the past he has not qualified for home oxygen. He has a past medical history of chronic diastolic CHF, chronic atrial fibrillation, hypertension, obesity, mild aortic stenosis, hepatic steatosis, GERD Past Medical History Past Medical History (Chronic Problems): Chronic Problems Congestive heart failure (Chronic) Hepatic steatosis (Chronic) Mild aortic stenosis (Chronic) High cholesterol (Chronic) Elevated LFTs (Chronic) Atrial fibrillation with RVR (Chronic) Chronic atrial fibrillation (Chronic) GERD (gastroesophageal reflux disease) (Chronic) Depression (Chronic) Hypertension (Chronic) Allergies No Known Allergies Allergy (Verified 09/09/20 13:59) Home Medications: Ambulatory Orders Medication Instructions Recorded Arginine 500 mg PO DAILY 05/04/13 Fluticasone 0.05% [Flonase Nasal 1 spray NASAL DAILY 05/04/13 [place]] Guaifenesin [Mucinex] 400 mg PO BID 05/04/13 Lisinopril [Zestril] 40 mg PO BID 05/04/13 Omeprazole [Prilosec] 40 mg PO BID 05/04/13 Testosterone [Androgel] 75 gm TD DAILY 05/04/13 hydrOXYzine pamoate capsule 25 mg PO QHS PRN PRN 05/04/13 [Vistaril pamoate capsule] ALPRAZolam [Xanax] 0.25 mg PO BID PRN PRN 11/27/19 Sennosides/Docusate Sodium 1 ea PO BID 11/27/19 [Docusate Sodium-Sennosides Tab] Vitamin E 400 unit PO DAILY 11/27/19 Apixaban [Eliquis] 5 mg PO BID 01/24/20 Metoprolol Tartrate [Lopressor 25 mg PO BID 01/24/20 (beta alice)] Ascorbic Acid [C-1000] 1,000 mg PO DAILY@1200 03/14/20 Bupropion HCl [Wellbutrin Xl] 300 mg PO DAILY 03/14/20 Cholecalciferol (Vitamin D3) 5,000 unit PO DAILY 03/14/20 [Vitamin D3] Furosemide [Lasix] 40 mg PO DAILY 03/14/20 Multivitamin with Minerals 1 tab PO DAILY 03/14/20 [Multiple Vitamin] Ubidecarenone [Co Q10] 200 mg PO DAILY 03/14/20 Surgical History: - - History of left foot surgery. Psychiatric History: Depression Lives: Alone Smoking Status: Former smoker Alcohol: None Drugs: None - *Family History Maternal History Items: - - Denies known maternal medical history including cardiac history. Paternal History Items: - - Denies known paternal medical history including cardiac history. Review of Systems Constitutional: Denies: Chills, Fever, Weight Change HEENT: Denies: Head Aches, Sinus Congestion, Sinus Drainage Cardiovascular: Reports: Chest Pain, Edema. Denies: Palpitations, Syncope Respiratory: Reports: Shortness of Breath. Denies: Cough, Sputum production, Wheezing Gastrointestinal: Denies: Abdominal Pain, Nausea, Vomiting Genitourinary: Denies: Dysuria Musculoskeletal: Denies: Joint Pain, Joint Tenderness Skin: Denies: Rash, Wounds Neurological: Denies: Numbness, Tingling, Focal weakness Psychiatric: Denies: Anxiety, Depression, Homicidal Ideations, Suicidal Ideations Hematologic/ Lymphatic: Denies: Easy Bruising, Easy Bleeding VTE Information - Inpt Only VTE Present on Admission: No VTE Mechan Device Prophylaxis: None VTE Pharm Prophylaxis ordered?: No Reason prophylaxis not ordered:: Treatment Not Indicated - Already on anticoagulation with Eliquis - Physical Exam Vitals/I&O's: Vital Signs Temp Pulse Resp BP Pulse Ox 98.2 F 86 20 H 138/89 H 98 09/09/20 18:05 09/09/20 18:05 09/09/20 18:05 09/09/20 18:05 09/09/20 16:17 Oxygen Flow Rate (L/min) 2 Oxygen Delivery Method Nasal Cannula Weight: 274 lb 7.608 oz Body Mass Index (BMI) 39.4 General: Alert, Oriented x3, Cooperative HEENT: Atraumatic, PERRLA, EOMI, Normocephalic Neck: Supple, No JVD, Negative Carotid Bruits Lungs: Clear to auscultation, Diminished Cardiovascular: - - Atrial fibrillation, rate controlled Abdomen: Bowel Sounds Present, Soft, Non Tender, Non-Distended Extremities: No clubbing, No cyanosis, Edema - Bilateral lower extremity edema Skin: No rashes, No breakdown Musculoskeletal: No Tenderness to Palpation of Joints or Extremities Neurological: Cranial nerves II-XII grossly intact, Neuro grossly intact Psych/Mental Status: Normal Affect, Appropriate Laboratory Results 09/09/20 14:05: WBC 6.1, RBC 4.76, Hgb 15.4, Hct 46.7, MCV 98.1 H, MCH 32.4 H, MCHC 33.0, RDW Std Deviation 54.9 H, RDW Coeff of Eduard 15.1 H, Plt Count 133 L, MPV 9.8, Immature Gran % (Auto) 0.300, Neut % (Auto) 69.0, Lymph % (Auto) 7.2 L, [place] % (Auto) 22.7 H, Eos % (Auto) 0.5, Baso % (Auto) 0.3, Absolute Neuts (auto) 4.2, Absolute Lymphs (auto) 0.44 L, Nucleated RBC % 0, Differential Comment SCANNED 09/09/20 14:05: Sodium 137, Potassium 3.6, Chloride 102, Carbon Dioxide 30.0, Anion Gap 5, BUN 9, Creatinine 0.91, Estim Creat Clear Calc 74.65, Est GFR (M DRD) Af Amer 105, Est GFR (MDRD) Non-Af 87, BUN/Creatinine Ratio 9.9 L, Glucose 128 H, Calcium 8.8, Troponin I < 0.015 09/09/20 14:05: B-Natriuretic Peptide 510.1 H 09/09/20 14:50: COVID-19 (MELANY) Not Detected Assessment/Plan 1. Acute on chronic heart failure with preserved ejection fraction-BNP 510. Chest x-ray consistent with CHF. IV Lasix. Strict I&O. Daily weight. Gregg wraps bilateral lower extremities. Echocardiogram November 2019 demonstrated an EF of 65%, mild aortic stenosis. Will repeat echo. Patient is on supplemental oxygen however not documented to be hypoxic. Walking pulse ox prior to discharge. 2. Chest pain-suspect secondary to #1. Trend enzymes. Stress test November 2019 negative for ischemia. 3. Permanent atrial fibrillation-continue Eliquis, metoprolol. 4. Hypertension-stable, continue lisinopril, metoprolol. 5. Anxiety/depression-continue bupropion, as needed Xanax. 6. GERD-continue PPI. 7. Hepatic steatosis-outpatient follow-up. DVT prophylaxis-Eliquis CODE STATUS: DNR CCA This patient was seen by OSCAR Hughes under the supervision of Dr. Lea. <Jaleel Lea - Last Filed: 09/09/20 18:52> History of Present Illness The patient is a 75 year old M [] Past Medical History Allergies No Known Allergies Allergy (Verified 09/09/20 13:59) - Physical Exam Vitals/I&O's: Vital Signs Temp Pulse Resp BP Pulse Ox 98.2 F 86 20 H 138/89 H 98 09/09/20 18:05 09/09/20 18:05 09/09/20 18:05 09/09/20 18:05 09/09/20 16:17 Oxygen Flow Rate (L/min) 2 Oxygen Delivery Method Nasal Cannula Weight: 274 lb 7.608 oz Body Mass Index (BMI) 39.4 Laboratory Results 09/09/20 14:05: WBC 6.1, RBC 4.76, Hgb 15.4, Hct 46.7, MCV 98.1 H, MCH 32.4 H, MCHC 33.0, RDW Std Deviation 54.9 H, RDW Coeff of Eduard 15.1 H, Plt Count 133 L, MPV 9.8, Immature Gran % (Auto) 0.300, Neut % (Auto) 69.0, Lymph % (Auto) 7.2 L, [place] % (Auto) 22.7 H, Eos % (Auto) 0.5, Baso % (Auto) 0.3, Absolute Neuts (au to) 4.2, Absolute Lymphs (auto) 0.44 L, Nucleated RBC % 0, Differential Comment SCANNED 09/09/20 14:05: Sodium 137, Potassium 3.6, Chloride 102, Carbon Dioxide 30.0, Anion Gap 5, BUN 9, Creatinine 0.91, Estim Creat Clear Calc 74.65, Est GFR (MDRD) Af Amer 105, Est GFR (MDRD) Non-Af 87, BUN/Creatinine Ratio 9.9 L, Glucose 128 H, Calcium 8.8, Troponin I < 0.015 09/09/20 14:05: B-Natriuretic Peptide 510.1 H 09/09/20 14:50: COVID-19 (MELANY) Not Detected Addendum: Dr. Lea I personally examined the patient and reviewed the chart. I agree with the above. 75-year-old male with history of A. fib and he states heart failure presents to the hospital with increasing shortness of breath over the last 3 weeks. He has now since developed some orthopnea and states that he is also been gaining some weight. He states he does not eat high salt diet but yesterday did have a hamburger. BNP was elevated with normal creatinine, therefore will place him on twice daily dosing of his Lasix, he does have mild aortic stenosis with 2 out of 6 KAI. We will track his I's and O's as well as daily weights and fluid restrict him to 1500 cc daily. In the ER they felt that he had some wheezing on exam because he does have a nebulizer without any medications at home and he thinks he might have COPD though he does not have any prescribed inhalers. He was given a dose of Solu-Medrol and a DuoNeb and his wheezing has completely resolved. Inpatient E&M: 12392 Init Hosp L3
--- NOTE | 2020-09-09 19:35 | ECHOCS_ITS ---
Reason For Study: SOB Procedure This was a 2D Doppler, Color Flow transthoracic echocardiogram. The study was technically difficult. Due to body habitus. Contrast injection was performed. Exam performed portable in patient room. Left Ventricle Normal LV size. Left ventricular systolic function is normal. The estimated ejection fraction is 65 %. Unable to assess diastolic dysfunction. No regional wall motion abnormalities noted. Right Ventricle Normal RV size. Normal systolic function. Atria The left atrium is moderately enlarged. The right atrium is mildly enlarged. No doppler evidence for ASD. Mitral Valve There is moderate mitral annular calcification. Extension of the mitral annular calcification onto the base of the posterior mitral valve leaflet. Trivial mitral valve insufficiency. Tricuspid Valve Normal tricuspid valve. Trivial tricuspid valve insufficiency. Right ventricular systolic pressure estimated to be 48 mmHg. Aortic Valve Trisinus/trileaflet aortic valve. Moderate focal aortic valve calcification. Aortic sclerosis/mild aortic valve stenosis. Pulmonic Valve The pulmonic valve is not well visualized. Great Vessels Normal sized aortic root. Pericardium/Pleural No pericardial effusion. Medication Diluted definity 2.5ml given slow IV push to enhance endocardial definition. MMode/2D Measurements & Calculations LVIDd: 4.6 cm IVSd: 1.2 cm LVOT diam: 2.1 cm LVIDs: 2.7 cm LVPWd: 1.2 cm RVDd: 3.8 cm FS: 40.9 % LVOT area: 3.6 cm2 Ao root diam: 3.8 cm LAV(MOD-bp): 114.5 ml LVAd ap4: 29.4 cm2 LAV(MOD-bp) Indexed: 48.5 ml/m2 EDV(MOD-sp4): 84.7 ml LAV(MOD-sp2): 111.0 ml EDV(sp4-el): 88.0 ml LAV(MOD-sp4): 110.6 ml LVAs ap4: 12.5 cm2 ESV(MOD-sp4): 20.3 ml ESV(sp4-el): 20.4 ml EF(MOD-sp4): 76.0 % EF(sp4-el): 76.8 % SV(MOD-sp4): 64.3 ml SV(sp4-el): 67.6 ml LA A4 area: 30.5 cm2 LA dimension(2D): 4.8 cm Doppler Measurements & Calculations MV E max cecilia: 134.4 cm/sec Ao V2 max: 243.2 cm/sec LV V1 max: 150.8 cm/sec Ao max P.7 mmHg LV V1 max P.1 mmHg Ao V2 mean: 151.2 cm/sec LV V1 mean P.0 mmHg Ao mean P.5 mmHg LV V1 mean: 106.1 cm/sec Ao V2 VTI: 41.6 cm LV V1 VTI: 29.8 cm MICHEAL(I,D): 2.6 cm2 MICHEAL(V,D): 2.2 cm2 SV(LVOT): 106.6 ml PA V2 max: 113.1 cm/sec TR max cecilia: 317.6 cm/sec TR max P.4 mmHg Interpretation Summary The study was technically difficult. Contrast injection was performed. Left ventricular systolic function is normal. The estimated ejection fraction is 65 %. The left atrium is moderately enlarged. The right atrium is mildly enlarged. There is moderate mitral annular calcification. Extension of the mitral annular calcification onto the base of the posterior mitral valve leaflet. Trivial mitral valve insufficiency. Trivial tricuspid valve insufficiency. Aortic sclerosis/mild aortic valve stenosis. Right ventricular systolic pressure estimated to be 48 mmHg. Unable to assess diastolic dysfunction. Ordering Physician: Jaleel Lea Referring Physician: [facility] Performed By: Divina Deng, SHIVA, RVT
[2020-09-09] MEDS: APIXABAN 5 MG TABLET PO (22:15)
[2020-09-09] MEDS: Metoprolol Tartrate 25 MG Tablet PO (22:15)
[2020-09-09] MEDS: guaiFENesin 10 ML UDC (200MG/10ML) 20 ML PO (22:18)
[2020-09-09] MEDS: Lisinopril 40 MG Tablet PO (22:18)
[2020-09-09] MEDS: MELATONIN 3 MG TABLET PO (22:18)
[2020-09-09] MEDS: Pantoprazole Sodium 40 MG Tablet PO (22:18)
[2020-09-10] VITALS (14 sets, daily range): BP systolic 110–143; BP diastolic 54–72; PULSE 72–95; RESP 18–20; TEMP 36.2–36.6; O2SAT 94–98
[2020-09-10 06:08] LABS: Absolute Lymphocyte Count 0.39 X10^3/uL (0.83-4.51); Absolute Neutrophil Count 4.2 X10^3/uL (2.0-7.7); Basophil# 0.01 X10^3/uL; Basophil% 0.2 % (0-1); Hematocrit 44.4 % (40-54); Hemoglobin 14.4 g/dL (13.0-16.5); Lymphocyte # 0.39 X10^3/ul (4.0); Lymphocyte % 7.2 % (19-41); Mean Corp Hgb Conc 32.4 g/dL (32-36); Mean Corpuscular Hgb 31.7 pg (27.0-32.0); Mean Corpuscular Volume 97.8 fL (80-94); Mean Platelet Vol. 9.3 fl (6.2-12.0); Monocyte# 0.86 X10^3/uL; Monocyte% 15.8 % (0-10); NRBC Flagged by Analyzer 0 % (0-5); Neutrophil # 4.15 X10^3/uL (2.7-7.7); Neutrophil % 76.4 % (47-70); POSITIVE DIFFERENTIAL YES; Platelet Count 147 K/mm3 (150-450); RBC Distribution Width CV 14.8 % (11.6-14.6); RBC Distribution Width SD 54.1 fl (35.1-43.9); Red Blood Count 4.54 M/mm3 (4.6-6.2); White Blood Count 5.4 K/mm3 (4.4-11.0)
[2020-09-10 06:12] LABS: Differential Indicated SCAN CRITERIA MET
[2020-09-10 06:29] LABS: Anion Gap 6 (5-15); BUN 10 mg/dL (7-18); BUN/Creat Ratio 12.6 RATIO (10-20); Calcium,Total 8.6 mg/dL (8.5-10.1); Chloride 100 mmol/L (98-107); Creatinine, Serum 0.79 mg/dL (0.70-1.30); EST Glomerular Filtration Rate 102 mL/min (>60); Est Glom Filt Rate - Afr Amer 123 mL/min (>60); Estimated Creatinine Clearance 67.93 ml/min; Glucose 144 mg/dL (74-106); Potassium 3.8 mmol/L (3.5-5.1); Sodium Level 135 mmol/L (136-145)
--- NOTE | 2020-09-10 08:31 | PCM.PROGNOTE ---
Subjective: Chief complaint: Follow-up after admission for acute on chronic diastolic CHF, hypoxia and chest pain. Patient seen and examined. No acute events overnight. Today, patient is feeling better, shortness of breath started to improve. Still having intermittent chest pain but improved as well. He has been afebrile, blood pressure and heart rate are stable, pulse ox is 97% on 2 L. - Physical Exam Vitals/I&O's: Vital Signs Temp Pulse Resp BP Pulse Ox 97.7 F L 73 20 H 143/72 H 97 09/10/20 01:50 09/10/20 03:00 09/10/20 01:50 09/10/20 01:50 09/10/20 01:50 Oxygen Flow Rate (L/min) 2 Oxygen Delivery Method Nasal Cannula Weight: 267 lb 10.259 oz Body Mass Index (BMI) 38.5 Intake and Output for Last 24 Hours 09/08/20 09/09/20 09/10/20 23:59 23:59 23:59 Intake Total 230 / 230 Output Total 200 / 450 350 / 350 Balance -200 / -220 -120 / -120 General: Alert, Oriented x3, Cooperative, - - Minimally short of breath. HEENT: Atraumatic, PERRLA, EOMI, Normocephalic Oral: Moist Mucosa, No Gingival or Mucosal Lesions/ Ulcerations Neck: Supple, No JVD, Negative Carotid Bruits, Trachea Midline, Thyroid Normal Size and Texture Lungs: Diminished, Rales, - - Decreased breath sounds bilateral, more prominent on the left base, faint Rales.. Cardiovascular: Normal S1, Normal S2, PMI Normal, Irregular Rate Abdomen: Bowel Sounds Present, Soft, Non Tender, Non-Distended, No Hepato-splenomegaly, Obese Extremities: No clubbing, No cyanosis, Edema - + Edema. Skin: No rashes, No breakdown Lymphatic: No Cervical, Supraclavicular, or Inguinal Adenopathy Neurological: Cranial nerves II-XII grossly intact, Motor Exam 5/5 strength throughout Psych/Mental Status: Normal Affect, Appropriate, Alert and oriented to time, place, person, mood and affect Laboratory Results 09/09/20 14:05: WBC 6.1, RBC 4.76, Hgb 15.4, Hct 46.7, MCV 98.1 H, MCH 32.4 H, MCHC 33.0, RDW Std Deviation 54.9 H, RDW Coeff of Eduard 15.1 H, Plt Count 133 L, MPV 9.8, Immature Gran % (Auto) 0.300, Neut % (Auto) 69.0, Lymph % (Auto) 7.2 L, Josephine % (Auto) 22.7 H, Eos % (Auto) 0.5, Baso % (Auto) 0.3, Absolute Neuts (auto) 4.2, Absolute Lymphs (auto) 0.44 L, Nucleated RBC % 0, Differential Comment SCANNED 09/09/20 14:05: Sodium 137, Potassium 3.6, Chloride 102, Carbon Dioxide 30.0, Anion Gap 5, BUN 9, Creatinine 0.91, Estim Creat Clear Calc 74.65, Est GFR (MDRD) Af Amer 105, Est GFR (MDRD) Non-Af 87, BUN/Creatinine Ratio 9.9 L, Glucose 128 H, Calcium 8.8, Troponin I < 0.015 09/09/20 14:05: B-Natriuretic Peptide 510.1 H 09/09/20 14:50: COVID-19 (MELANY) Not Detected 09/10/20 05:28: WBC 5.4, RBC 4.54 L, Hgb 14.4, Hct 44.4, MCV 97.8 H, MCH 31.7, MCHC 32.4, RDW Std Deviation 54.1 H, RDW Coeff of Eduard 14.8 H, Plt Count 147 L, MPV 9.3, Immature Gran % (Auto) 0.400, Neut % (Auto) 76.4 H, Lymph % (Auto) 7.2 L, Josephine % (Auto) 15.8 H, Eos % (Auto) 0.0, Baso % (Auto) 0.2, Absolute Neuts (auto) 4.2, Absolute Lymphs (auto) 0.39 L, Nucleated RBC % 0 09/10/20 05:28: Sodium 135 L, Potassium 3.8, Chloride 100, Carbon Dioxide 29.0, Anion Gap 6, BUN 10, Creatinine 0.79, Estim Creat Clear Calc 67.93, Est GFR (MDRD) Af Amer 123, Est GFR (MDRD) Non-Af 102, BUN/Creatinine Ratio 12.6, Glucose 144 H, Calcium 8.6 Clinical Impression(s) from Imaging Studies Chest X-Ray 09/09/20 14:30 IMPRESSION: Mild degree of CHF with small right pleural effusion and bibasilar atelectasis. Blunting of the left costophrenic angle. Electronically Signed: Haroldo Arana MD at 15:01 EST , Service support , Current Medications Acetaminophen (Acetaminophen 325 Mg Tablet) 650 mg PO Q6H PRN PRN PRN Reason: Pain Score 1-10/Temp > 100.7 F Alprazolam (Alprazolam 0.25 Mg Tablet) 0.25 mg PO BID PRN PRN PRN Reason: ANXIETY Apixaban (Apixaban 5 Mg Tablet) 5 mg PO BID [facility] Last Admin: 09/09/20 22:15 Dose: 5 mg Documented by: Bupropion HCl (Bupropion (Xl) 300 Mg Tablet.Xl) 300 mg PO DAILY [facility] Fluticasone Propionate (Fluticasone 0.05% 1 [place] Nasal.Sry) 1 spray NASAL DAILY [facility] Guaifenesin (Guaifenesin 10 Ml Udc (200mg/10ml)) 20 ml PO BID [facility] Last Admin: 09/09/20 22:18 Dose: 20 ml Documented by: Hydroxyzine Pamoate (Hydroxyzine [place] 25 Mg Capsule) 25 mg PO QHS PRN PRN PRN Reason: SLEEP Influenza Virus Vaccine Quadrival (Influenza Vaccine (6mos+)/Pf 0.5 Ml Syringe) 0.5 ml IM .ONCE ONE Stop: 09/10/20 10:01 Lisinopril (Lisinopril 40 Mg Tablet) 40 mg PO BID [facility] Last Admin: 09/09/20 22:18 Dose: 40 mg Documented by: Melatonin (Melatonin 3 Mg Tablet) 3 mg PO QHS PRN PRN PRN Reason: INSOMNIA Last Admin: 09/09/20 22:18 Dose: 3 mg Documented by: Metoprolol Tartrate (Metoprolol Tartrate 25 Mg Tablet) 25 mg PO BID [facility] Last Admin: 09/09/20 22:15 Dose: 25 mg Documented by: Nutritional Formula (Lactose Free) (Ensure Enlive 120 Ml Liquid) 120 ml PO 4X/DAY [facility] Last Admin: 09/09/20 22:24 Dose: Not Given Documented by: Ondansetron HCl (Ondansetron 4 Mg/2 Ml Vial) 4 mg IV Q8H PRN PRN PRN Reason: NAUSEA/VOMITING Pantoprazole Sodium (Pantoprazole Sodium 40 Mg Tablet) 40 mg PO BID [facility] Last Admin: 09/09/20 22:18 Dose: 40 mg Documented by: Sodium Chloride (0.9% Saline Lock 10 Ml Syringe) 10 - 40 ml IV UD PRN PRN Reason: SALINE FLUSH Medical Necessity - Tobacco Use Smoking Status: Former smoker Tobacco Use: Cigarettes Assessment/Plan This is a 75 years old male patient presented to the emergency room because of shortness of breath, chest pain and orthopnea, admitted for acute on chronic diastolic CHF. #1 acute on chronic diastolic CHF: He is on IV Lasix, on lisinopril and metoprolol. Chest x-ray reviewed. EKG revealed atrial fibrillation, no acute ischemic changes. Troponin was negative x1. COVID-19 PCR was negative. Today, patient reported improvement of his symptoms. Remained on oxygen, other vital signs are stable. 2D echocardiogram ordered. Plan: Increase Lasix to 40 mg IV every 8 hours, incentive spirometer, repeat CBC and BMP tomorrow morning, ambulate, PT OT evaluation and treatment. #2 hypoxia: Secondary to #1. Currently, on 2 L of oxygen. He does not use oxygen at home. Plan for diuresis as above, wean off oxygen as tolerated, ambulatory pulse oximeter before discharge. #3 chest pain: EKG without acute ischemic changes. Troponin was negative. Likely due to CHF. #4 chronic atrial fibrillation: Heart rate has been controlled, blood pressure stable. Continue metoprolol for rate control and Eliquis for anticoagulation. #5 hypertension: Blood pressure stable, continue lisinopril and metoprolol. #6 anxiety and depression: Stable, continue Xanax and Wellbutrin. #7 DVT prophylaxis: Continue Eliquis. This note was generated with DocLogix dictation software. It may contain incorrect words, spelling, and punctuation that were not noted in checking the note before signing. Inpatient E&M: 13170 Subs Hosp L2
[2020-09-10] MEDS: guaiFENesin 10 ML UDC (200MG/10ML) 20 ML PO ×2 (09:52→20:22)
[2020-09-10] MEDS: Lisinopril 40 MG Tablet PO ×2 (09:52→20:22)
[2020-09-10] MEDS: buPROPion (XL) 300 MG TABLET.XL PO (09:52)
[2020-09-10] MEDS: Pantoprazole Sodium 40 MG Tablet PO ×2 (09:52→20:23)
[2020-09-10] MEDS: Metoprolol Tartrate 25 MG Tablet PO ×2 (09:52→20:21)
[2020-09-10] MEDS: Fluticasone 0.05% 1 SPRAY NASAL.SRY NASAL (09:54)
[2020-09-10] MEDS: APIXABAN 5 MG TABLET PO ×2 (09:58→20:21)
--- NOTE | 2020-09-10 11:09 | CASEMGMT ---
RN CM Assessment Note Introduced role of CM to patient in room. Patient was sleepy, but able to participate in assessment. Demographics, PCP verified. Discussed transfer to [facility] or staying @ [facility] under his [facility] benefits. The patient requests to stay @ [facility] under [facility] benefits. Permission given to notify [facility]. Declination to transfer form signed and faxed with clinicals to [place]. Presentation: shortness of breath and chest pain Diagnosis: CHF [facility] [place] Specialists: none Insurance: [facility] Preferred Pharmacy: [facility] Prescription Benefit: yes LNOK: celi Coles and Torito Coles . Living Arrangements: states he lives in one story home with 1 step into home. States he is independent in ADL and cares for home himself. States he has a cane and walker, but does not use regularly. Tranportation: drives DME: walker, cane (no oxygen or cpap per pt) HHC: none SNF: none Patient DC Goals: Home DC Plan: anticipate home on discharge. Pt states he will f/u with [facility] on dc. PT/OT evaluations pending. CM available for discharge planning coordination. Contact CM for any concerns/needs that may arise. Katy SCHULTZ RN ACM
[2020-09-10] MEDS: 0.9% Saline Lock 10 ML Syringe IV (13:05)
[2020-09-10] MEDS: Furosemide 40 MG/4 ML Vial IV (13:05)
--- NOTE | 2020-09-10 16:56 | CHAPLAIN ---
Type of Pastoral Visit _x__ Initial Visit ___ Follow-up Visit ___ On-call Visit ___ General Patient Visit ___ Spiritual Assessment ___ Family Conference ___ Bereavement ___ Rapid Response ___ Code Blue ___ Other (describe below) Pastoral Care Referral From _x__ Patient ___ Family ___ Nurse ___ Physician ___ Child Care Attendant ___ [employer] Production Manager ___ Other (describe below) Sacrament/Intervention _x__ Active listening ___ Anointing ___ Orthodoxy ___ Bereavement ___ Communion ___ Bozena exploration ___ _x__ Life review _x__ Prayer ___ Reconciliation ___ Sacrament of Sick _x__ Supportive presence ___ Wedding ___ Other (describe below) Pastoral Comments
--- NOTE | 2020-09-10 18:27 | NURSING ---
reviewed and agree with documentation by KAYLEY Beebe
[2020-09-10] MEDS: MELATONIN 3 MG TABLET PO (20:36)
[2020-09-10] MEDS: hydrOXYzine PAM 25 MG Capsule PO (20:36)
[2020-09-11] VITALS (15 sets, daily range): BP systolic 131–152; BP diastolic 68–71; PULSE 69–83; RESP 18; TEMP 36.6–36.8; O2SAT 92–96
[2020-09-11 05:36] LABS: Absolute Lymphocyte Count 0.83 X10^3/uL (0.83-4.51); Absolute Neutrophil Count 3.5 X10^3/uL (2.0-7.7); Basophil# 0.02 X10^3/uL; Basophil% 0.3 % (0-1); Eosinophil# 0.09 X10^3/uL; Eosinophils% 1.5 % (0-5); Hematocrit 43.8 % (40-54); Hemoglobin 14.3 g/dL (13.0-16.5); Lymphocyte # 0.83 X10^3/ul (4.0); Lymphocyte % 13.8 % (19-41); Mean Corp Hgb Conc 32.6 g/dL (32-36); Mean Platelet Vol. 9.3 fl (6.2-12.0); Monocyte# 1.53 X10^3/uL; Monocyte% 25.4 % (0-10); NRBC Flagged by Analyzer 0 % (0-5); Neutrophil # 3.52 X10^3/uL (2.7-7.7); Neutrophil % 58.5 % (47-70); POSITIVE DIFFERENTIAL YES; Platelet Count 142 K/mm3 (150-450); RBC Distribution Width CV 15.1 % (11.6-14.6); Red Blood Count 4.47 M/mm3 (4.6-6.2)
[2020-09-11 05:46] LABS: Differential Indicated SCAN CRITERIA MET
[2020-09-11 05:53] LABS: Anion Gap 6 (5-15); BUN 15 mg/dL (7-18); BUN/Creat Ratio 19.1 RATIO (10-20); Calcium,Total 8.4 mg/dL (8.5-10.1); Chloride 101 mmol/L (98-107); Creatinine, Serum 0.78 mg/dL (0.70-1.30); EST Glomerular Filtration Rate 103 mL/min (>60); Est Glom Filt Rate - Afr Amer 125 mL/min (>60); Estimated Creatinine Clearance 67.93 ml/min; Glucose 109 mg/dL (74-106); Potassium 3.3 mmol/L (3.5-5.1); Sodium Level 136 mmol/L (136-145)
[2020-09-11 06:15] LABS: Differential Comment SCANNED
[2020-09-11] MEDS: Furosemide 40 MG/4 ML Vial IV ×2 (07:06→13:30)
[2020-09-11] MEDS: Potassium Chloride Oral Tablet 20 MEQ 60 MEQ PO (07:35)
[2020-09-11] MEDS: Metoprolol Tartrate 25 MG Tablet PO ×2 (09:03→21:29)
[2020-09-11] MEDS: Pantoprazole Sodium 40 MG Tablet PO ×2 (09:03→21:29)
[2020-09-11] MEDS: APIXABAN 5 MG TABLET PO ×2 (09:03→21:30)
[2020-09-11] MEDS: guaiFENesin 10 ML UDC (200MG/10ML) 20 ML PO ×2 (09:03→21:30)
[2020-09-11] MEDS: Fluticasone 0.05% 1 SPRAY NASAL.SRY NASAL (09:04)
[2020-09-11] MEDS: buPROPion (XL) 300 MG TABLET.XL PO (09:04)
[2020-09-11] MEDS: Lisinopril 40 MG Tablet PO ×2 (09:04→21:30)
--- NOTE | 2020-09-11 10:34 | PCM.PROGNOTE ---
Subjective: Chief complaint: Follow-up after admission for acute on chronic diastolic CHF and hypoxia. Patient seen and examined. No acute events overnight. Today, he is feeling better in terms of shortness of breath, has been off oxygen. He complained of shortness of breath upon ambulation to the bathroom and he mentioned he was slightly dizzy. He denied chest pain. He has been afebrile, blood pressure and heart rate are stable, pulse ox is 94% on room air. - Physical Exam Vitals/I&O's: Vital Signs Temp Pulse Resp BP Pulse Ox 98.2 F 79 18 133/71 H 94 09/11/20 09:01 09/11/20 09:03 09/11/20 09:01 09/11/20 09:03 09/11/20 09:01 Oxygen Flow Rate (L/min) 2 Oxygen Delivery Method Room Air Weight: 269 lb 13.533 oz Body Mass Index (BMI) 38.5 Intake and Output for Last 24 Hours 09/09/20 09/10/20 09/11/20 23:59 23:59 23:59 Intake Total 950 / 1130 180 / 180 Output Total 200 / 450 1280 / 1580 300 / 300 Balance -200 / -220 -330 / -450 -120 / -120 General: Alert, Oriented x3, Cooperative, No apparent distress HEENT: Atraumatic, PERRLA, EOMI, Normocephalic Oral: Moist Mucosa, No Gingival or Mucosal Lesions/ Ulcerations Neck: Supple, No JVD, Negative Carotid Bruits, Trachea Midline, Thyroid Normal Size and Texture Lungs: No rhonchi, No wheeze, No rales, Diminished, - - Decreased breath sounds bilateral, more at the bases, otherwise clear. Cardiovascular: Regular rate, Regular Rhythm, Normal S1, Normal S2, PMI Normal Abdomen: Bowel Sounds Present, Soft, Non Tender, Non-Distended, No Hepato-splenomegaly, Obese Extremities: No clubbing, No cyanosis, Edema Skin: No rashes, No breakdown Lymphatic: No Cervical, Supraclavicular, or Inguinal Adenopathy Neurological: Cranial nerves II-XII grossly intact, Neuro grossly intact Psych/Mental Status: Normal Affect, Appropriate, Alert and oriented to time, place, person, mood and affect Laboratory Results 09/11/20 05:00: WBC 6.0, RBC 4.47 L, Hgb 14.3, Hct 43.8, MCV 98.0 H, MCH 32.0, MCHC 32.6, RDW Std Deviation 55.0 H, RDW Coeff of Eduard 15.1 H, Plt Count 142 L, MPV 9.3, Immature Gran % (Auto) 0.500, Neut % (Auto) 58.5, Lymph % (Auto) 13.8 L, Bullock % (Auto) 25.4 H, Eos % (Auto) 1.5, Baso % (Auto) 0.3, Absolute Neuts (auto) 3.5, Absolute Lymphs (auto) 0.83, Nucleated RBC % 0, Differential Comment SCANNED 09/11/20 05:00: Sodium 136, Potassium 3.3 L, Chloride 101, Carbon Dioxide 29.0, Anion Gap 6, BUN 15, Creatinine 0.78, Estim Creat Clear Calc 67.93, Est GFR (MDRD) Af Amer 125, Est GFR (MDRD) Non-Af 103, BUN/Creatinine Ratio 19.1, Glucose 109 H, Calcium 8.4 L Current Medications Acetaminophen (Acetaminophen 325 Mg Tablet) 650 mg PO Q6H PRN PRN PRN Reason: Pain Score 1-10/Temp > 100.7 F Alprazolam (Alprazolam 0.25 Mg Tablet) 0.25 mg PO BID PRN PRN PRN Reason: ANXIETY Apixaban (Apixaban 5 Mg Tablet) 5 mg PO BID [facility] Last Admin: 09/11/20 09:03 Dose: 5 mg Documented by: Bupropion HCl (Bupropion (Xl) 300 Mg Tablet.Xl) 300 mg PO DAILY [facility] Last Admin: 09/11/20 09:04 Dose: 300 mg Documented by: Fluticasone Propionate (Fluticasone 0.05% 1 [place] Nasal.Sry) 1 spray NASAL DAILY [facility] Last Admin: 09/11/20 09:04 Dose: 1 spray Documented by: Furosemide (Furosemide 40 Mg/4 Ml Vial) 40 mg IV Q8 [facility] Last Admin: 09/11/20 07:06 Dose: 40 mg Documented by: Guaifenesin (Guaifenesin 10 Ml Udc (200mg/10ml)) 20 ml PO BID [facility] Last Admin: 09/11/20 09:03 Dose: 20 ml Documented by: Hydroxyzine Pamoate (Hydroxyzine [place] 25 Mg Capsule) 25 mg PO QHS PRN PRN PRN Reason: SLEEP Last Admin: 09/10/20 20:36 Dose: 25 mg Documented by: Lisinopril (Lisinopril 40 Mg Tablet) 40 mg PO BID [facility] Last Admin: 09/11/20 09:04 Dose: 40 mg Documented by: Melatonin (Melatonin 3 Mg Tablet) 3 mg PO QHS PRN PRN PRN Reason: INSOMNIA Last Admin: 09/10/20 20:36 Dose: 3 mg Documented by: Metoprolol Tartrate (Metoprolol Tartrate 25 Mg Tablet) 25 mg PO BID [facility] Last Admin: 09/11/20 09:03 Dose: 25 mg Documented by: Ondansetron HCl (Ondansetron 4 Mg/2 Ml Vial) 4 mg IV Q8H PRN PRN PRN Reason: NAUSEA/VOMITING Pantoprazole Sodium (Pantoprazole Sodium 40 Mg Tablet) 40 mg PO BID [facility] Last Admin: 09/11/20 09:03 Dose: 40 mg Documented by: Sodium Chloride (0.9% Saline Lock 10 Ml Syringe) 10 - 40 ml IV UD PRN PRN Reason: SALINE FLUSH Last Admin: 09/10/20 13:05 Dose: 10 ml Documented by: Medical Necessity - Tobacco Use Smoking Status: Former smoker Tobacco Use: Cigarettes Assessment/Plan This is a 75 years old male patient presented to the emergency room because of shortness of breath, chest pain and orthopnea, admitted for acute on chronic diastolic CHF. #1 acute on chronic diastolic CHF: Remained on IV Lasix, on lisinopril and metoprolol. Symptoms started to improve, has been off oxygen this morning. Vital signs are stable. 2D echocardiogram revealed ejection fraction of 65%, moderately enlarged left atrium, mildly enlarged right atrium, RVSP of 48. Troponin was negative x1. COVID-19 PCR was negative. Plan: Ambulate, continue IV Lasix, repeat BMP tomorrow morning, ambulatory pulse oximeter, anticipate discharge home tomorrow. #2 hypoxia: Secondary to #1. Currently, he is on room air and pulse ox is 94%. Patient is feeling better although still having some shortness of breath upon ambulation. He does not use oxygen at home. Plan as above. #3 chest pain: EKG without acute ischemic changes. Troponin was negative. Echocardiogram reviewed as above. Likely due to CHF. #4 chronic atrial fibrillation: Heart rate has been controlled, blood pressure stable. Continue metoprolol for rate control and Eliquis for anticoagulation. #5 hypertension: Blood pressure stable, continue lisinopril and metoprolol. #6 anxiety and depression: Stable, continue Xanax and Wellbutrin. #7 DVT prophylaxis: Continue Eliquis. This note was generated with Droplet dictation software. It may contain incorrect words, spelling, and punctuation that were not noted in checking the note before signing. Inpatient E&M: 59236 Subs Hosp L2
[2020-09-11] MEDS: 0.9% Saline Lock 10 ML Syringe IV (13:30)
[2020-09-11] MEDS: hydrOXYzine PAM 25 MG Capsule PO (21:29)
[2020-09-11] MEDS: ALPRAZolam 0.25 MG Tablet PO (21:29)
[2020-09-11] MEDS: MELATONIN 3 MG TABLET PO (21:29)
[2020-09-12 03:00] VITALS: PULSE 72
[2020-09-12 05:10] VITALS: BP 112/64; PULSE 72; RESP 18; TEMP 36.6; O2SAT 95
[2020-09-12] MEDS: Furosemide 40 MG/4 ML Vial IV (05:44)
[2020-09-12 06:46] LABS: Anion Gap 5 (5-15); BUN 13 mg/dL (7-18); BUN/Creat Ratio 14.9 RATIO (10-20); Calcium,Total 8.7 mg/dL (8.5-10.1); Chloride 98 mmol/L (98-107); Creatinine, Serum 0.87 mg/dL (0.70-1.30); EST Glomerular Filtration Rate 91 mL/min (>60); Est Glom Filt Rate - Afr Amer 110 mL/min (>60); Estimated Creatinine Clearance 78.08 ml/min; Glucose 104 mg/dL (74-106); Potassium 3.5 mmol/L (3.5-5.1); Sodium Level 136 mmol/L (136-145)
[2020-09-12 07:00] VITALS: PULSE 73
--- NOTE | 2020-09-12 08:30 | DCINST_ITS ---
- Discharge Diagnoses Current Active Problems: Current Active and Chronic Problems Congestive heart failure (Chronic) Hepatic steatosis (Chronic) Mild aortic stenosis (Chronic) High cholesterol (Chronic) Elevated LFTs (Chronic) Atrial fibrillation with RVR (Chronic) Chronic atrial fibrillation (Chronic) GERD (gastroesophageal reflux disease) (Chronic) Depression (Chronic) Hypertension (Chronic) You will use the following diet at home:: Cardiac, Fluid restricted (specify 2000 mls, 1500 mls) - 1500 cc daily. Your food should be the consistency of: Regular Discharge Activity: Return to Normal Activity Weight Bearing Status: Weight bearing as tolerated Call your doctor if you observe: Fever of 101 or Higher, Shortness of breath, Dizziness, Fainting spells, Chest pain, Increased palpitations (irregular heartbeat), Uncontrolled pain Instructions: Heart Failure: Warning Signs of a Flare-Up, Heart Failure: Tracking Your Weight, Heart Failure Allergies/Adverse Reactions: Allergies No Known Allergies Allergy (Verified 09/09/20 13:59) Medications to take at Discharge Arginine 500 mg PO DAILY 05/04/13 Fluticasone 0.05% [Flonase Nasal [place]] 1 spray NASAL DAILY 05/04/13 Guaifenesin [Mucinex] 400 mg PO BID 05/04/13 Lisinopril [Zestril] 40 mg PO BID 05/04/13 Omeprazole [Prilosec] 40 mg PO BID 05/04/13 Testosterone [Androgel] 75 gm TD DAILY 05/04/13 hydrOXYzine pamoate capsule [Vistaril pamoate capsule] 25 mg PO QHS PRN PRN 05/04/13 ALPRAZolam [Xanax] 0.25 mg PO BID PRN PRN 11/27/19 Sennosides/Docusate Sodium [Docusate Sodium-Sennosides Tab] 1 ea PO BID 11/27/19 Vitamin E 400 unit PO DAILY 11/27/19 Apixaban [Eliquis] 5 mg PO BID 01/24/20 Metoprolol Tartrate [Lopressor (beta alice)] 25 mg PO BID 01/24/20 Ascorbic Acid [C-1000] 1,000 mg PO DAILY@1200 03/14/20 Bupropion HCl [Wellbutrin Xl] 300 mg PO DAILY 03/14/20 Cholecalciferol (Vitamin D3) [Vitamin D3] 5,000 unit PO DAILY 03/14/20 Multivitamin with Minerals [Multiple Vitamin] 1 tab PO DAILY 03/14/20 Ubidecarenone [Co Q10] 200 mg PO DAILY 03/14/20 Furosemide [Lasix] 40 mg PO BID #90 tab 09/12/20 The following prescriptions were given: Furosemide [Lasix] 40 mg PO BID #90 tab Transmission Status: Pending to [facility] [[facility]] - Please follow up with your Primary Care Physician in: 1 week. Test Results: Test results from this visit will be discussed in further detail at your follow- up appointment, if applicable.
[2020-09-12] MEDS: APIXABAN 5 MG TABLET PO (08:59)
[2020-09-12] MEDS: Pantoprazole Sodium 40 MG Tablet PO (08:59)
[2020-09-12] MEDS: buPROPion (XL) 300 MG TABLET.XL PO (08:59)
[2020-09-12] MEDS: 0.9% Saline Lock 10 ML Syringe IV (08:59)
[2020-09-12] MEDS: Fluticasone 0.05% 1 SPRAY NASAL.SRY NASAL (08:59)
[2020-09-12] MEDS: guaiFENesin 10 ML UDC (200MG/10ML) 20 ML PO (08:59)
[2020-09-12 09:00] VITALS: BP 102/43; PULSE 75; RESP 18; TEMP 36.9; O2SAT 95
--- NOTE | 2020-09-12 10:03 | CASEMGMT ---
Addendum entered by Kia Tabares 09/12/20 10:22: SW checked back with patient and he did not know what agency he wanted. He said he will decide when he gets home. JOCELINE told him that he will need to call his primary care doctor to get this set up. Kia FOUNTAIN Original Note: Patient is up for discharge. SW spoke with patient and asked if he would like home health. SW explained he would need to be homebound which means he does not get out and about. He said he never goes out. Patient was provided a list of home health providers including quality and resource use data and consistent with the patient?s preferred geographic region, medical needs, and insurance network. Patient will look at the list. JOCELINE virtual assistant for advertisers CM will check back with patient. Kia FOUNTAIN
[2020-09-12 10:25] VITALS: BP 124/62; PULSE 70; RESP 18; TEMP 36.9; O2SAT 95
[2020-09-12 10:26] VITALS: BP 124/62; PULSE 70
[2020-09-12] MEDS: Metoprolol Tartrate 25 MG Tablet PO (10:26)
[2020-09-12] MEDS: Lisinopril 40 MG Tablet PO (10:26)
--- NOTE | 2020-09-12 11:29 | PHA.DC.MC ---
Pharmacy Service has performed discharge medication reconciliation and counseling for this patient. The patient was counseled on the following discharge medications and changes in medications for homegoing were reviewed. 1. LASIX - INCREASED PREVIOUS HOME DOSE The Reason for Use, instructions for use, and potential side effects were reviewed for all new medications. The patient's questions regarding all of their medications were answered. The patient was able to verbally demonstrate an understanding of their discharge medications. Home Medications Arginine 500 mg PO DAILY 05/04/13 Fluticasone 0.05% [Flonase Nasal [place]] 1 spray NASAL DAILY 05/04/13 Guaifenesin [Mucinex] 400 mg PO BID 05/04/13 Lisinopril [Zestril] 40 mg PO BID 05/04/13 Omeprazole [Prilosec] 40 mg PO BID 05/04/13 Testosterone [Androgel] 75 gm TD DAILY 05/04/13 hydrOXYzine pamoate capsule [Vistaril pamoate capsule] 25 mg PO QHS PRN PRN 05/04/13 ALPRAZolam [Xanax] 0.25 mg PO BID PRN PRN 11/27/19 Sennosides/Docusate Sodium [Docusate Sodium-Sennosides Tab] 1 ea PO BID 11/27/19 Vitamin E 400 unit PO DAILY 11/27/19 Apixaban [Eliquis] 5 mg PO BID 01/24/20 Metoprolol Tartrate [Lopressor (beta alice)] 25 mg PO BID 01/24/20 Ascorbic Acid [C-1000] 1,000 mg PO DAILY@1200 03/14/20 Bupropion HCl [Wellbutrin Xl] 300 mg PO DAILY 03/14/20 Cholecalciferol (Vitamin D3) [Vitamin D3] 5,000 unit PO DAILY 03/14/20 Multivitamin with Minerals [Multiple Vitamin] 1 tab PO DAILY 03/14/20 Ubidecarenone [Co Q10] 200 mg PO DAILY 03/14/20 Furosemide [Lasix] 40 mg PO BID #90 tab 09/12/20 The patient's discharge medication list was reviewed for discrepancies and discrepancies were resolved.
--- NOTE | 2020-09-12 12:05 | PCM.DC.SUM ---
Discharge Date and Diagnosis Date of Admission: 09/09/20 Date of Discharge: 09/12/20 - Primary Discharge Diagnosis Acute Problems: #1 acute on chronic diastolic CHF. #2 hypoxia, resolved. - Secondary Discharge Diagnosis Chronic Problems: Chronic Problems Congestive heart failure (Chronic) Hepatic steatosis (Chronic) Mild aortic stenosis (Chronic) High cholesterol (Chronic) Elevated LFTs (Chronic) Atrial fibrillation with RVR (Chronic) Chronic atrial fibrillation (Chronic) GERD (gastroesophageal reflux disease) (Chronic) Depression (Chronic) Hypertension (Chronic) Hospital Course and Treatment Imaging Results: Clinical Impression(s) from Imaging Studies Chest X-Ray 09/09/20 14:30 IMPRESSION: Mild degree of CHF with small right pleural effusion and bibasilar atelectasis. Blunting of the left costophrenic angle. Electronically Signed: Haroldo Arana MD at 15:01 EST , Service support , Operations: None Procedures: 2-D Echocardiogram, EKG Summary of Care Provided: Patient seen and examined on the day of discharge and appeared to be stable to be discharged home. Shortness of breath has been getting better every day, has been off oxygen. Yesterday, he ambulated and his pulse ox remained around 96% on room air with ambulation. Other vital signs are stable. The patient is a 75 year old M presented to the emergency room because of shortness of breath, orthopnea and chest pain and he was found to have acute on chronic diastolic CHF with preserved ejection fraction. His EKG showed no evidence of acute segment changes. Troponin was negative x1. Chest x-ray showed findings consistent with pulmonary vascular congestion and CHF. COVID-19 PCR was negative. Patient was admitted to PCU, started on IV Lasix for diuresis and he was continued on lisinopril and metoprolol. Initially, patient required oxygen of up to 2 L. With IV diuresis, symptoms improved and he was able to come off oxygen. 2D echocardiogram done and revealed ejection fraction of 65%, moderately enlarged left atrium, mildly enlarged right atrium, RVSP of 48. Ambulatory pulse oximeter performed and pulse ox remained around 96% on room air with ambulation. Patient did not qualify for home oxygen. Patient discharged home in a stable medical condition, discharged on Lasix 40 mg p.o. twice daily, continued on his previous medications without any changes, recommended follow-up with PCP in 1 week. - Physical Exam Vitals/I&O's: Vital Signs Temp Pulse Resp BP Pulse Ox 98.4 F 70 18 124/62 H 95 09/12/20 10:25 09/12/20 10:26 09/12/20 10:25 09/12/20 10:26 09/12/20 10:25 Oxygen Flow Rate (L/min) [ 0 AMBULATING on Room Air] Oxygen Flow Rate (L/min) [At 0 REST on Room Air] Oxygen Flow Rate (L/min) 2 Oxygen Delivery Method Room Air Weight: 261 lb 0.437 oz Body Mass Index (BMI) 38.5 Intake and Output for Last 24 Hours 09/10/20 09/11/20 09/12/20 23:59 23:59 23:59 Intake Total 950 / 1130 860 / 1100 360 / 360 Output Total 1280 / 1580 4425 / 4675 450 / 450 Balance -330 / -450 -3565 / -3575 -90 / -90 General: Alert, Oriented x3, Cooperative, No apparent distress HEENT: Atraumatic, PERRLA, EOMI, Normocephalic Oral: Moist Mucosa, No Gingival or Mucosal Lesions/ Ulcerations Neck: Supple, No JVD, Negative Carotid Bruits, Trachea Midline, Thyroid Normal Size and Texture Lungs: Clear to auscultation, No rhonchi, No wheeze, No rales, Diminished Cardiovascular: Regular rate, Regular Rhythm, Normal S1, Normal S2, PMI Normal Abdomen: Bowel Sounds Present, Soft, Non Tender, Non-Distended, No Hepato-splenomegaly, Obese Extremities: No clubbing, No cyanosis, Edema Skin: No rashes, No breakdown Lymphatic: No Cervical, Supraclavicular, or Inguinal Adenopathy Neurological: Cranial nerves II-XII grossly intact, Neuro grossly intact Psych/Mental Status: Normal Affect, Appropriate Laboratory Results 09/12/20 05:54: Sodium 136, Potassium 3.5, Chloride 98, Carbon Dioxide 33.0 H, Anion Gap 5, BUN 13, Creatinine 0.87, Estim Creat Clear Calc 78.08, Est GFR (MDRD) Af Amer 110, Est GFR (MDRD) Non-Af 91, BUN/Creatinine Ratio 14.9, Glucose 104, Calcium 8.7 Discharge Activity: Return to Normal Activity Weight Bearing Status: Weight bearing as tolerated Call your doctor if you observe: Fever of 101 or Higher, Shortness of breath, Dizziness, Fainting spells, Chest pain, Increased palpitations (irregular heartbeat), Uncontrolled pain Home Medications: Medications to take at Discharge Arginine 500 mg PO DAILY 05/04/13 Fluticasone 0.05% [Flonase Nasal [place]] 1 spray NASAL DAILY 05/04/13 Guaifenesin [Mucinex] 400 mg PO BID 05/04/13 Lisinopril [Zestril] 40 mg PO BID 05/04/13 Omeprazole [Prilosec] 40 mg PO BID 05/04/13 Testosterone [Androgel] 75 gm TD DAILY 05/04/13 hydrOXYzine pamoate capsule [Vistaril pamoate capsule] 25 mg PO QHS PRN PRN 05/04/13 ALPRAZolam [Xanax] 0.25 mg PO BID PRN PRN 11/27/19 Sennosides/Docusate Sodium [Docusate Sodium-Sennosides Tab] 1 ea PO BID 11/27/19 Vitamin E 400 unit PO DAILY 11/27/19 Apixaban [Eliquis] 5 mg PO BID 01/24/20 Metoprolol Tartrate [Lopressor (beta alice)] 25 mg PO BID 01/24/20 Ascorbic Acid [C-1000] 1,000 mg PO DAILY@1200 03/14/20 Bupropion HCl [Wellbutrin Xl] 300 mg PO DAILY 03/14/20 Cholecalciferol (Vitamin D3) [Vitamin D3] 5,000 unit PO DAILY 03/14/20 Multivitamin with Minerals [Multiple Vitamin] 1 tab PO DAILY 03/14/20 Ubidecarenone [Co Q10] 200 mg PO DAILY 03/14/20 Furosemide [Lasix] 40 mg PO BID #90 tab 09/12/20 Following Prescriptions Were Given to Patient: Furosemide [Lasix] 40 mg PO BID #90 tab Transmission Status: Received by [facility] Phys[facility] [Primary [facility] Provider] - Please follow up with your Primary Care Physician in: 1 week. Patient Instructions: Heart Failure: Warning Signs of a Flare-Up, Heart Failure: Tracking Your Weight, Heart Failure Disposition: Home Minutes spent on discharge:: 32 Patient Condition:: Stable Medical Necessity - Tobacco Use Smoking Status: Former smoker Tobacco Use: Cigarettes Meaningful Use Info Meaningful Use Diagnoses (Choose all that apply): CHF - CHF ANAY/ARB ordered at discharge?: Yes Documented LVEF (%): 65 Inpatient E&M: 97016 Disch Hosp
--- NOTE | 2020-09-13 14:06 | CASEMGMT ---
RN CM Discharge Follow-Up Phone Call. Lace: 12 Strata: 3 Discharge Date: 09/12/20 Adm Dx: CHF Exac. Attempted discharge f/u phone call. No answer. Non-identifying VM left for pt to return call to RN CM if he has any questions, concerns, or needs. Phone number to this RN CM provided. Vanessa SCHULTZ RN CM
== END 2020-09-12 11:55 | disposition home or self-care (01) | DRG 292 ==
LOC: ED 17:47 → PCU 18:19
PROVIDERS: Admitting Provider Family Medicine; Emergency Provider Emergency Medicine; Visit Provider Hospitalist
DX: I11.0 Hypertensive heart disease with heart failure (principal); I48.21 Permanent atrial fibrillation; I50.33 Acute on chronic diastolic (congestive) heart failure; I35.0 Nonrheumatic aortic (valve) stenosis; R09.02 Hypoxemia; K76.0 Fatty (change of) liver, not elsewhere classified; E78.00 Pure hypercholesterolemia, unspecified; K21.9 Gastro-esophageal reflux disease without esophagitis; F32.9 Major depressive disorder, single episode, unspecified; F41.9 Anxiety disorder, unspecified; Z23 Encounter for immunization; Z66 Do not resuscitate; Z79.01 Long term (current) use of anticoagulants; Z79.899 Other long term (current) drug therapy; Z87.891 Personal history of nicotine dependence
CPT/HCPCS: 36415; 71045; 80048; 83880; 84484; 85025; 87635; 93005; 93306; 94640; 97110; 97161; 97166; 97530; 97535; 97802; 99251; 99285; Q9957; A4216; C8929; G0463; J1940; U0002

== ENCOUNTER 2021-06-25 10:58 | Inpatient (IN) | payer OTHER, MEDICARE, SELFPAY ==
[2021-06-25] VITALS (10 sets, daily range): BP systolic 152–187; BP diastolic 71–99; PULSE 69–96; RESP 16–20; TEMP 36.3–37.1; O2SAT 94–99; BMI 37.3; BMI 39.5
--- NOTE | 2021-06-25 11:23 | RAD_ITS ---
STUDY: X-RAY CHEST REASON FOR EXAM: Male, 76 years old. SOB . Shortness of breath. TECHNIQUE: Single AP portable view of the chest. COMPARISON: None. FINDINGS: Small right pleural effusion with right basilar infiltrate and/or atelectasis. Underlying mass cannot be excluded. Increased markings are also seen in the right upper lobe as well as at the left lung base. Blunting of the left costophrenic angle. Normal size heart. Normal mediastinum and manuela. Normal visualized pulmonary arteries. Normal visualized aortic arch and descending thoracic aorta. There are diffuse degenerative changes of the visualized thoracic spine. Normal visualized ribs, clavicles, and shoulders. There is no demonstrated abnormality of the visualized soft tissue structures of the upper abdomen. RAD/Chest 1 View (Portable) IMPRESSION: Pleural parenchymal changes at the right lung base with possible mass. Patchy infiltrate in the right upper lobe and left lower lobe. Electronically Signed: Haroldo Arana MD at 12:35 EST , Service support ,
--- NOTE | 2021-06-25 11:23 | EKG12_ITS ---
Test Reason : CP Blood Pressure : / mmHG Vent. Rate : 083 BPM Atrial Rate : 081 BPM P-R Int : 000 ms QRS Dur : 106 ms QT Int : 446 ms P-R-T Axes : 000 069 031 degrees QTc Int : 524 ms Atrial fibrillation Nonspecific ST abnormality Abnormal ECG Confirmed by ADAM ESCUDERO, RUDY ([id number]), scientific editor DAT MCKINLEY ([id number]) on 06/30/2021 9:33:48 AM Referred By: FREDDY/SHARON Confirmed By:ELIZ MEDINA MD
--- NOTE | 2021-06-25 11:24 | EX.ED.DYSGE1 ---
HPI History of Present Illness Chief Complaint: Chest Pain Informant: patient and family Narrative Narrative: Patient has about a week of dyspnea symptoms. Patient states this is similar to congestive heart failure in the past. This is built up over the last week. He never sleeps flat. He always sleeps upright in a chair so that has not changed. He does not know if he has gained weight but does not think he has gained significant weight. He is still taking his Lasix and all his other meds including Eliquis. He has had cough but no sputum production. He does have some heaviness in his anterior chest that is also been there off and on for a week. He has swollen legs but they are really within the normal range for him. They are at the upper limit of normal but they are not markedly more. He states he has had several episodes of this and it is usually congestive heart failure. Patient [place] He does have walkers. However he states he can maybe get up to 30 feet now. He gets very dyspneic. He does have an O2 sat machine at home. He has gotten it down to as low as 76%. He states when this happened he switched it to several fingers and they all read the same. When he rested it came back up. But he also had some nausea, vomited a couple times without blood and has decreased appetite. He has had some subjective fevers and chills but has checked his temperature and has never been up. He has slight myalgias but states that is not uncommon. He has not had Covid vaccine. He has no known exposure to Covid. Laying flat definitely makes his symptoms worse. Nothing seems to make him better. [facility] Medical History (Updated 06/25/21 @ 14:[address] Monty Lainez MD) A-fib CHF (congestive heart failure) Depression GERD (gastroesophageal reflux disease) HLD (hyperlipidemia) Home Medications Omeprazole [Prilosec] 40 mg PO BID 05/04/13 [History Last Taken 09/09/20] arginine (L-arginine) 500 mg PO DAILY 05/04/13 [History Last Taken 4 Days Ago ~09/05/20] fluticasone propionate 1 spray NASAL DAILY 05/04/13 [History Last Taken 2 Days Ago ~09/07/20] guaifenesin [Mucus Relief ER] 400 mg PO BID 05/04/13 [History Last Taken 09/09/20] hydroxyzine pamoate 25 mg PO QHS PRN PRN 05/04/13 [History Last Taken 09/08/20] lisinopril 40 mg PO BID 05/04/13 [History Last Taken 09/09/20] testosterone [AndroGel] 75 g TRANSDERMAL DAILY 05/04/13 [History Last Taken 03/13/20] alprazolam 0.25 mg PO BID PRN PRN 11/27/19 [History Last Taken 03/13/20] sennosides-docusate sodium 1 ea PO BID 11/27/19 [History Last Taken 03/13/20] vitamin E 400 unit PO DAILY 11/27/19 [History Last Taken 4 Days Ago ~09/05/20] apixaban 5 mg PO BID 01/24/20 [History Last Taken 09/09/20] metoprolol tartrate 25 mg PO BID 01/24/20 [History Last Taken 09/09/20] Cholecalciferol (Vitamin D3) [Vitamin D3] 5,000 unit PO DAILY 03/14/20 [History Last Taken 09/08/20] ascorbic acid (vitamin C) 1,000 mg PO DAILY@1200 03/14/20 [History Last Taken 09/08/20] bupropion HCl 300 mg PO DAILY 03/14/20 [History Last Taken 09/09/20] coenzyme Q10 200 mg PO DAILY 03/14/20 [History Last Taken 09/09/20] multivitamin with minerals 1 tab PO DAILY 03/14/20 [History Last Taken 09/09/20] furosemide 40 mg PO BID #90 tab 09/12/20 [Rx Last Taken Unknown] Allergy/AdvReac Type Severity Reaction Status Date / Time No Known Allergies Allergy Verified 09/09/20 13:59 Social History Smoking Status: Former smoker ROS ROS ED Constitutional Constitutional ED: Reports subjective; Denies fever(s) Eyes Eyes: Denies blurry vision ENT ENT ED: Denies rhinorrhea or sore throat Cardiovascular Cardiovascular: Reports chest pain Respiratory/Chest Respiratory/Chest: Reports cough and dyspnea; Denies sputum Gastrointestinal Gastrointestinal: Reports constipation, nausea and vomiting; Denies abdominal pain, diarrhea or melena Genitourinary Genitourinary ED: Denies dysuria Musculoskeletal Musculoskeletal: Reports myalgias Integumentary Denies rash Neurologic Neurologic: Denies headache(s) or weakness Endocrine Endocrinology: Denies polydipsia or polyuria Allergic/Immunologic Allergic/Immunologic ED: Denies mouth swelling or urticaria EXAM Physical Exam Const Vital Signs: 06/25/21 10:59 06/25/21 11:01 06/25/21 11:50 Temperature 97.3 F L 97.3 F L Temperature Source Temporal Temporal Pulse Rate 74 74 Respiratory Rate 16 16 Respiratory Effort Normal Non-Labored Respiratory Pattern Normal Blood Pressure 185/99 H 185/99 H Blood Pressure Mean 127 127 Pulse Ox 95 95 Oxygen Delivery Method Room Air Room Air Oxygen Flow Rate (L/min) 06/25/21 14:43 Temperature 98.8 F Temperature Source Temporal Pulse Rate 72 Respiratory Rate 16 Respiratory Effort Respiratory Pattern Blood Pressure 107/96 H Blood Pressure Mean 99 Pulse Ox 99 Oxygen Delivery Method Nasal Cannula Oxygen Flow Rate (L/min) 2 Patient does have some increased work of breathing. He is alert oriented and not sleepy or lethargic. Positive well nourished, well developed and obese General Appearance ED: well developed; Negative for cyanotic Nutritional Appearance: obese HEENT Reports moist mucous membranes Eyes General Eye ED: Yes pale conjunctiva Neck no lymphadenopathy Neck Narrative: Possible mild JVD. Chest Wall inspection of chest normal Resp No clear to auscultation bilaterally Resp Narrative: Patient does have some basilar rales. Effort and Inspection: Negative for pain with movement Auscultation: rales; Negative for rhonchi or wheezes Cardio regular rate Rate: other Other Details: Heart is irregular but rate is controlled. He does have a history of atrial fibrillation. He also has a 2 out of 6 systolic murmur heard best at the right upper sternal border. GI normal to inspection, nondistended, normoactive bowel sounds and non-tender GI Narrative: Abdomen is distended but not tender. He does have a midline hernia that has evidently been there for 10 years. It is not tender. Palpation: soft Back/Spine no CVA tenderness Extremity Extremity Narrative: Bilateral +2 edema on chronic changes. No sign of cellulitis. Both he and his son state this is a relatively normal amount of swelling. General Extremety ED: Yes edema General Extremity: edema Neuro oriented x3 Sensorium / Orientation: alert Psych mental status grossly normal Skin no rashes or lesions noted and no wounds MDM MDM MDM Narrative Medical decision making narrative: Patient CBC is overall unremarkable. Electrolytes show no marked abnormalities. Troponin is negative. BNP is 558. Although this is not markedly high, it is actually quite high for him. It is higher than he has had with prior episodes. His x-ray was concerning for infiltrate versus mass and had multiple changes. For this reason I did do CT scan of his chest. There is no pulmonary embolus or mass. He does show significant effusions and atelectasis. I think this is likely significantly contributing to his symptoms. I think his ongoing CHF is likely produce these effusions. I think he would benefit from hospitalization and will not do well as an outpatient because of his hypoxia and worsening symptoms. He was given Lasix here. He will likely need diuresis in the hospital. There will be consideration of thoracentesis also. I did discuss the case with the hospitalist. We did walk the patient. His heart rate went from 84-115. His O2 sat went from 95-88 and that was in a short distance. Because of his symptoms he was put back in bed to avoid further hypoxia or worsening. Lab Data Labs: Laboratory Results - last 24 hr 06/25/21 06/25/21 06/25/21 11:40 11:40 11:40 WBC 5.8 RBC 4.47 L Hgb 14.5 Hct 44.1 MCV 98.7 H MCH 32.4 H MCHC 32.9 RDW Std Deviation 55.3 H RDW Coeff of Eduard 15.1 H Plt Count 143 L MPV 9.7 Immature Gran % (Auto) 0.200 Neut % (Auto) 69.2 Lymph % (Auto) 7.3 L [place] % (Auto) 21.4 H Eos % (Auto) 1.6 Baso % (Auto) 0.3 Absolute Neuts (auto) 4.0 Absolute Lymphs (auto) 0.42 L Nucleated RBC % 0 Differential Comment COMMENT Sodium 138 Potassium 3.6 Chloride 102 Carbon Dioxide 31.0 Anion Gap 5 BUN 7 Creatinine 0.84 Estim Creat Clear Calc 79.66 Est GFR (MDRD) Af Amer 116 Est GFR (MDRD) Non-Af 96 BUN/Creatinine Ratio 8.4 L Glucose 116 H Calcium 9.1 Troponin I High Sens 13 B-Natriuretic Peptide 558.1 H Radiography Diagnostic Testing: Clinical Impression(s) from Imaging Studies Chest X-Ray 06/25/21 11:23 IMPRESSION: Pleural parenchymal changes at the right lung base with possible mass. Patchy infiltrate in the right upper lobe and left lower lobe. Electronically Signed: Haroldo Arana MD at 12:35 EST , Service support , Chest CTA 06/25/21 13:01 IMPRESSION: Moderate size right pleural effusion with fluid in the right major fissure and volume loss in the right lower lobe. Electronically Signed: Haroldo Arana MD at 13:52 EST , Service support , EKG Initial EKG: Comments: EKG done for chest pain and dyspnea read by me shows atrial fibrillation with overall rate of 83. Diffuse nonspecific ST and T wave changes. There is some very trace lateral ST depression but is not consistent through each beat. No ST elevation. No ventricular ectopy. QRS duration is normal. QTc is long at [address] changes a very subtle change from August of this year. Discharge Plan Dx/Rx/DC Orders Clinical Impression: Congestive heart failure, Pleural effusion, Atelectasis, Hypoxia Disposition Disposition: Acute Care [facility]
[2021-06-25 11:57] LABS: Absolute Lymphocyte Count 0.42 X10^3/uL (0.83-4.51); Basophil# 0.02 X10^3/uL; Basophil% 0.3 % (0-1); Eosinophil# 0.09 X10^3/uL; Eosinophils% 1.6 % (0-5); Hematocrit 44.1 % (40-54); Hemoglobin 14.5 g/dL (13.0-16.5); Lymphocyte # 0.42 X10^3/ul (0.83-4.51); Lymphocyte % 7.3 % (19-41); Mean Corp Hgb Conc 32.9 g/dL (32-36); Mean Corpuscular Hgb 32.4 pg (27.0-32.0); Mean Corpuscular Volume 98.7 fL (80-94); Mean Platelet Vol. 9.7 fl (6.2-12.0); Monocyte# 1.23 X10^3/uL; Monocyte% 21.4 % (0-10); NRBC Flagged by Analyzer 0 % (0-5); Neutrophil # 3.99 X10^3/uL (2.7-7.7); Neutrophil % 69.2 % (47-70); POSITIVE DIFFERENTIAL YES; Platelet Count 143 K/mm3 (150-450); RBC Distribution Width CV 15.1 % (11.6-14.6); RBC Distribution Width SD 55.3 fl (35.1-43.9); Red Blood Count 4.47 M/mm3 (4.6-6.2); White Blood Count 5.8 K/mm3 (4.4-11.0)
[2021-06-25 12:00] LABS: Differential Indicated SCAN CRITERIA MET
[2021-06-25 12:12] LABS: Anion Gap 5 (5-15); BUN 7 mg/dL (7-18); BUN/Creat Ratio 8.4 RATIO (10-20); Calcium,Total 9.1 mg/dL (8.5-10.1); Chloride 102 mmol/L (98-107); Creatinine, Serum 0.84 mg/dL (0.70-1.30); EST Glomerular Filtration Rate 96 mL/min (>60); Est Glom Filt Rate - Afr Amer 116 mL/min (>60); Estimated Creatinine Clearance 79.66 ml/min; Glucose 116 mg/dL (74-106); Potassium 3.6 mmol/L (3.5-5.1); Sodium Level 138 mmol/L (136-145); Troponin-I HS 13 pg/mL (3.0-78.0)
[2021-06-25 12:44] LABS: BNP,B-Type NATRIURETIC PEPTIDE 558.1 pg/mL (0-100)
--- NOTE | 2021-06-25 13:01 | CT_ITS ---
STUDY: CTA CHEST REASON FOR EXAM: Male, 76 years old. Sob RADIATION DOSAGE (If Supplied By Facility): CTDIvol = ( 13.92 ) mGy, DLP = ( 462.07 ) mGycm TECHNIQUE: The examination was performed with the intravenous administration of IV 100ML ISOVUE 370. Post-processing of the angiographic images was performed, with multiplanar reformation and 3D reconstruction. Individualized dose optimization techniques were used for this CT. COMPARISON: Comparison is made with prior study dated 03/14/2020. FINDINGS: Normal enhancement of the main pulmonary artery and right and left pulmonary arteries. Normal enhancement of the bilateral peripheral pulmonary arteries. There is no demonstrated pulmonary embolism. 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 The transverse diameter of the ascending aorta measures 44 mm''s. This is unchanged. There is no demonstrated aortic dissection. There are calcifications of the coronary arteries. There is calcification of the mitral valve annulus. Normal mediastinum. Normal hilar regions. Normal visualized trachea and bronchi. Moderate size right pleural effusion. Small left pleural effusion. Small amount of fluid is seen in the right major fissure. There is collapse of the right lower lobe. Mild degree of atelectasis at the left lung base. Normal chest wall structures. There are degenerative changes of thoracic spine. Diffuse fatty infiltration of the liver. CT/CTA Chest W/WO Contrast IMPRESSION: Moderate size right pleural effusion with fluid in the right major fissure and volume loss in the right lower lobe. Electronically Signed: Haroldo Arana MD at 13:52 EST , Service support ,
--- NOTE | 2021-06-25 14:54 | ECHOCS_ITS ---
Reason For Study: CHF Procedure This was a 2D Doppler, Color Flow transthoracic echocardiogram. The study was technically difficult. Exam performed portable in patient room. Left Ventricle Normal LV size. The estimated ejection fraction is 65 %. Unable to assess diastolic dysfunction. No regional wall motion abnormalities noted. Right Ventricle Normal RV size. Normal systolic function. Atria The left atrium is mildly enlarged. The right atrium is mildly enlarged. No doppler evidence for ASD. Mitral Valve There is no mitral valve stenosis. No mitral valve insufficiency. Tricuspid Valve There is no tricuspid stenosis. Trivial tricuspid valve insufficiency. Pulmonary artery systolic pressure is 50 mmHg. Aortic Valve Moderate diffuse aortic valve thickening. Mild aortic stenosis. Mild (1+) aortic valve insufficiency. Pulmonic Valve There is no pulmonic valvular stenosis. Trivial pulmonic valve insufficiency. Great Vessels Normal aortic root. Pericardium/Pleural No pericardial effusion. Medication Diluted definity 3ml given slow IV push to enhance endocardial definition. MMode/2D Measurements & Calculations LVIDd: 4.4 cm IVSd: 1.1 cm LVOT diam: 2.0 cm LVIDs: 2.9 cm LVPWd: 1.1 cm RVDd: 3.6 cm FS: 34.4 % LVOT area: 3.1 cm2 Ao root diam: 3.4 cm LAV(MOD-bp): 65.9 ml LVAd ap4: 29.1 cm2 LAV(MOD-bp) Indexed: 28.2 ml/m2 LVLd ap4: 7.7 cm LAV(MOD-sp2): 63.9 ml EDV(MOD-sp4): 90.3 ml LAV(MOD-sp4): 66.1 ml EDV(sp4-el): 93.2 ml LVAs ap4: 14.7 cm2 LVLs ap4: 6.3 cm ESV(MOD-sp4): 28.3 ml ESV(sp4-el): 29.3 ml EF(MOD-sp4): 68.7 % EF(sp4-el): 68.6 % SV(MOD-sp4): 62.0 ml SV(sp4-el): 63.9 ml LA A4 area: 23.2 cm2 LA dimension(2D): 4.7 cm RA A4 area: 22.3 cm2 Doppler Measurements & Calculations MV E max cecilia: 126.8 cm/sec Ao V2 max: 264.5 cm/sec AI max cecilia: 404.3 cm/sec Ao max P.0 mmHg AI max P.4 mmHg Ao V2 mean: 202.3 cm/sec AI dec slope: 253.7 cm/sec2 Ao mean P.0 mmHg AI P1/2t: 466.8 msec Ao V2 VTI: 55.1 cm MICHEAL(I,D): 1.7 cm2 MICHEAL(V,D): 1.7 cm2 LV V1 max: 145.9 cm/sec SV(LVOT): 93.1 ml PA V2 max: 125.0 cm/sec LV V1 max P.5 mmHg LV V1 mean P.7 mmHg LV V1 mean: 101.7 cm/sec LV V1 VTI: 29.9 cm TR max cecilia: 336.2 cm/sec TR max P.2 mmHg ECHO/Echo Complete W/ Contrast Interpretation Summary The estimated ejection fraction is 65 %. Unable to assess diastolic dysfunction. The left atrium is mildly enlarged. The right atrium is mildly enlarged. Mild aortic stenosis. Mild (1+) aortic valve insufficiency. Ordering Physician: Jordi Daley Referring Physician: [facility] Performed By: Ann-Marie Vinson RDCS
[2021-06-25] MEDS: Furosemide 40 MG/4 ML Vial IV ×3 (15:02→22:35)
--- NOTE | 2021-06-25 15:06 | HP.PCM.HOS_ITS ---
HPI - General General Date of Admission: 06/25/21 Date of Service: 06/25/21 Chief Complaint: Shortness of breath HPI Narrative TANMAY GABRIEL, is a 76 M past medical history is again for congestive heart failure with preserved ejection fraction of 65 based on an echo obtained on 09/10/2020, paroxysmal A. fib who presents with shortness of breath. Patient symptoms have been ongoing for a week. His shortness of breath is brought on with minimal activity. He also did notice increasing swelling involving both lower extremity. He also did complain of chest pain. Presented to the emergency department due to worsening symptoms. His assessment was consistent with acute congestive heart failure. He also had CT of the chest obtained which demonstrated moderate right-sided effusion. Patient did receive Lasix and subsequently admitted to a monitored bed for further management [facility] Medical History A-fib CHF (congestive heart failure) Depression GERD (gastroesophageal reflux disease) HLD (hyperlipidemia) Home Medications arginine (L-arginine) 500 mg PO DAILY 05/04/13 [History Last Taken 4 Days Ago ~09/05/20] fluticasone propionate 1 spray NASAL DAILY 05/04/13 [History Last Taken 06/25/21] guaifenesin [Mucus Relief ER] 400 mg PO TID 05/04/13 [History Last Taken 06/25/21] hydroxyzine pamoate 25 mg PO QHS PRN PRN 05/04/13 [History Last Taken 06/24/21] lisinopril 40 mg PO BID 05/04/13 [History Last Taken 06/25/21] alprazolam 0.25 mg PO BID PRN PRN 11/27/19 [History Last Taken 06/22/21] sennosides-docusate sodium 1 ea PO DAILY 11/27/19 [History Last Taken 06/25/21] vitamin E 400 unit PO DAILY 11/27/19 [History Last Taken 06/24/21] apixaban 5 mg PO BID 01/24/20 [History Last Taken 06/25/21] ascorbic acid (vitamin C) 1,000 mg PO DAILY@1200 03/14/20 [History Last Taken 09/08/20] bupropion HCl 300 mg PO DAILY 03/14/20 [History Last Taken 06/21/21] coenzyme Q10 200 mg PO DAILY 03/14/20 [History Last Taken 06/24/21] multivitamin with minerals 1 tab PO DAILY 03/14/20 [History Last Taken 06/24/21] furosemide 40 mg PO BID #90 tab 09/12/20 [Rx Last Taken 06/24/21] cholecalciferol (vitamin D3) 125 mcg PO DAILY 06/25/21 [History Last Taken Unknown] omeprazole 40 mg PO BID 06/25/21 [History Last Taken 06/25/21] Allergy/AdvReac Type Severity Reaction Status Date / Time No Known Allergies Allergy Verified 09/09/20 13:59 Family History (Updated 06/25/21 @ 15:[address] Jordi Daley MD) Mother Heart disease Social History Smoking Status: Former smoker ROS ROS Narrative GENERAL: denies fever, chills, night sweats, HEENT: denies headache, sinus congestion, RESPIRATORY: shortness of breath, dyspnea on exertion CARDIAC: chest pain, orthopnea, GASTROINTESTINAL: denies abdominal pain, GENITOURINARY: denies dysuria, urgency, EXTREMITY: denies swelling MUSCULOSKELETAL: denies current joint pain NEUROLOGIC: denies focal numbness, HEMATOLOGIC: denies easy bruising INTEGUMENT: denies rashes PSYCHIATRIC: denies suicidal or homicidal ideation Vital Signs Vital Signs Vital Signs: 06/25/21 10:59 06/25/21 11:01 06/25/21 11:50 Temperature 97.3 F L 97.3 F L Temperature Source Temporal Temporal Pulse Rate 74 74 Respiratory Rate 16 16 Respiratory Effort Normal Non-Labored Respiratory Pattern Normal Blood Pressure 185/99 H 185/99 H Blood Pressure Mean 127 127 Pulse Ox 95 95 Oxygen Delivery Method Room Air Room Air Oxygen Flow Rate (L/min) 06/25/21 14:43 06/25/21 14:58 Temperature 98.8 F 98.8 F Temperature Source Temporal Temporal Pulse Rate 72 83 Respiratory Rate 16 17 Respiratory Effort Respiratory Pattern Blood Pressure 187/96 H 187/96 H Blood Pressure Mean 126 126 Pulse Ox 99 95 Oxygen Delivery Method Nasal Cannula Nasal Cannula Oxygen Flow Rate (L/min) 2 2 Weight Weight: 117.934 kg Body Mass Index (BMI) 37.3 Physical Exam Narrative GENERAL: Dyspneic at rest HEENT: Atraumatic; EYES; Anicteric, Normal Conjunctiva NECK; supple, normal thyroid, RESPIRATORY: Diminished to auscultation CARDIOVASCULAR: Regular S1 S2, GI: soft, normoactive bowel sounds, : No Renal angle tenderness; EXTREMITIES: Bipedal edema with stasis dermatitis MUSCULOSKELETAL: no muscle waisting NEURO: Awake; no lateralizing signs. SKIN: No Rash PSYCH; Flat affect Results Lab / Micro Data Result Diagrams: 06/25/21 11:40 06/25/21 11:40 Labs: Laboratory Results - last 24 hr 06/25/21 11:40: WBC 5.8, RBC 4.47 L, Hgb 14.5, Hct 44.1, MCV 98.7 H, MCH 32.4 H, MCHC 32.9, RDW Std Deviation 55.3 H, RDW Coeff of Eduard 15.1 H, Plt Count 143 L, MPV 9.7, Immature Gran % (Auto) 0.200, Neut % (Auto) 69.2, Lymph % (Auto) 7.3 L, [place] % (Auto) 21.4 H, Eos % (Auto) 1.6, Baso % (Auto) 0.3, Absolute Neuts (auto) 4.0, Absolute Lymphs (auto) 0.42 L, Nucleated RBC % 0, Differential Comment COMMENT 06/25/21 11:40: Sodium 138, Potassium 3.6, Chloride 102, Carbon Dioxide 31.0, Anion Gap 5, BUN 7, Creatinine 0.84, Estim Creat Clear Calc 79.66, Est GFR (MDRD) Af Amer 116, Est GFR (MDRD) Non-Af 96, BUN/Creatinine Ratio 8.4 L, Glucose 116 H, Calcium 9.1, Troponin I High Sens 13 06/25/21 11:40: B-Natriuretic Peptide 558.1 H Micro: Microbiology 06/25/21 11:45 Nasal Secretion SARS-CoV-2 Antigen (Rapid) - Final Radiology Impression Chest X-Ray 06/25/21 11:23 IMPRESSION: Pleural parenchymal changes at the right lung base with possible mass. Patchy infiltrate in the right upper lobe and left lower lobe. Electronically Signed: Haroldo Arana MD at 12:35 EST , Service support , Chest CTA 06/25/21 13:01 IMPRESSION: Moderate size right pleural effusion with fluid in the right major fissure and volume loss in the right lower lobe. Electronically Signed: Haroldo Arana MD at 13:52 EST , Service support , Assessment & Plan Assessment/Plan (1) Congestive heart failure: QUALIFIERS: Heart failure chronicity: acute on chronic PLAN: Patient is a 76-year-old gentleman presented with progressive shortness of breath 1. Acute on chronic congestive heart failure ?With preserved ejection fraction Echo obtained on 09/10/2020 demonstrated EF of 65%. Patient has been admitted to monitored bed currently being managed with fluid restriction, strict input and output, daily weight as well as IV Lasix. Repeat echo ordered for assessment 2. Right-sided pleural effusion ?Secondary to above plan is for patient to undergo therapeutic thoracocentesis in a.m. Patient is on apixaban which is currently being held 3. Paroxysmal A. fib ?Rate controlled on apixaban for stroke prevention which is currently being held in anticipation of patient's thoracocentesis 4. Hypertension - Blood pressure controlled, home medications continued with dose adjustment as needed 5. Depression with anxiety ?Patient is on Wellbutrin as well as alprazolam as needed 6. GERD ?Patient is on PPI 7. Class II obesity with BMI of 37.3 ?Weight loss advised 8. DVT prophylaxis ?Patient is on Eliquis with plans to resume following patient thoracocentesis Advance planning; did discuss with the patient and family regarding advanced directives as well as CODE STATUS. Did explain the various scenarios involved ( FULL CODE, DNR CCA, DNR CCA with no intubation, and DNR CC and what each meant) patient elected remain full code with CPR and intubation if needed. Order was placed. Time spent on discussion 18 minutes. Charges/Coding Visit Charges Inpatient E&M: 17684 Init Hosp L3 Procedures Hospitalists Procedures: 59006 Advncd Care Plan 30 Min
[2021-06-25 17:17] LABS: Troponin-I HS 12 pg/mL (3.0-78.0)
[2021-06-25 19:39] LABS: Troponin-I HS 15 pg/mL (3.0-78.0)
[2021-06-25] MEDS: Lisinopril 40 MG Tablet PO (21:10)
[2021-06-25] MEDS: Pantoprazole Sodium 40 MG Tablet PO (21:10)
[2021-06-25] MEDS: 0.9% Saline Lock 10 ML Syringe IV (22:38)
[2021-06-26] VITALS (11 sets, daily range): BP systolic 101–127; BP diastolic 63–80; PULSE 69–92; RESP 16–18; TEMP 36.6–36.8; O2SAT 94–100
[2021-06-26 00:47] LABS: Troponin-I HS 13 pg/mL (3.0-78.0)
--- NOTE | 2021-06-26 00:58 | PCS.PANDOC ---
PANDEMIC DOCUMENTATION INITIATED: Date: 03/10/2021 Time: 190
[2021-06-26] MEDS: Furosemide 40 MG/4 ML Vial IV ×3 (05:31→20:06)
[2021-06-26] MEDS: 0.9% Saline Lock 10 ML Syringe IV ×2 (05:32→20:09)
[2021-06-26 06:39] LABS: Absolute Lymphocyte Count 0.56 X10^3/uL (0.83-4.51); Absolute Neutrophil Count 4.2 X10^3/uL (2.0-7.7); Basophil# 0.03 X10^3/uL; Basophil% 0.5 % (0-1); Eosinophil# 0.13 X10^3/uL; Eosinophils% 2.1 % (0-5); Hematocrit 43.9 % (40-54); Hemoglobin 14.8 g/dL (13.0-16.5); Lymphocyte # 0.56 X10^3/ul (0.83-4.51); Lymphocyte % 8.9 % (19-41); Mean Corp Hgb Conc 33.7 g/dL (32-36); Mean Platelet Vol. 9.5 fl (6.2-12.0); Monocyte# 1.42 X10^3/uL; Monocyte% 22.5 % (0-10); NRBC Flagged by Analyzer 0 % (0-5); Neutrophil # 4.15 X10^3/uL (2.7-7.7); Neutrophil % 65.8 % (47-70); POSITIVE DIFFERENTIAL YES; Platelet Count 156 K/mm3 (150-450); RBC Distribution Width SD 54.4 fl (35.1-43.9); Red Blood Count 4.48 M/mm3 (4.6-6.2); White Blood Count 6.3 K/mm3 (4.4-11.0)
[2021-06-26 06:45] LABS: International Normalized Ratio 1.5; Prothrombin Time (Protime)PT. 17.3 SECONDS (11.7-14.9)
[2021-06-26 06:46] LABS: Partial Thromboplast Time 47.7 Seconds (24.1-36.2)
[2021-06-26 06:57] LABS: Differential Indicated SCAN CRITERIA MET
[2021-06-26 07:05] LABS: Anion Gap 9 (5-15); BUN 8 mg/dL (7-18); BUN/Creat Ratio 8.8 RATIO (10-20); Calcium,Total 8.9 mg/dL (8.5-10.1); Chloride 97 mmol/L (98-107); Creatinine, Serum 0.91 mg/dL (0.70-1.30); EST Glomerular Filtration Rate 87 mL/min (>60); Est Glom Filt Rate - Afr Amer 105 mL/min (>60); Estimated Creatinine Clearance 66.58 ml/min; Glucose 114 mg/dL (74-106); Magnesium 2.1 mg/dL (1.6-2.6); Potassium 2.9 mmol/L (3.5-5.1); Sodium Level 137 mmol/L (136-145)
--- NOTE | 2021-06-26 07:35 | PN.HOSP_ITS ---
Subjective Subjective Patient admitted with congestive heart failure as well as right-sided pleural effusion to monitored bed. Currently on Lasix. Still remains dyspneic at rest. Diagnostic data significant for potassium of 2.9 repletion initiated. Patient ordered ultrasound-guided thoracocentesis has been rescheduled for 06/27/2021 given the fact that patient did receive Eliquis the day prior Objective Data Objective Data Vital Signs: Vital Signs Temp Pulse Resp BP Pulse Ox 97.9 F 92 16 120/76 94 06/26/21 05:35 06/26/21 05:35 06/26/21 05:35 06/26/21 05:35 06/26/21 05:35 Oxygen Flow Rate (L/min) 2 Oxygen Delivery Method Nasal Cannula Weight: 114.577 kg Body Mass Index (BMI) 39.5 Intake & Output: Intake and Output for Last 24 Hours 06/24/21 06/25/21 06/26/21 23:59 23:59 23:59 Intake Total 400 / 400 300 / 300 Output Total 3300 / 3300 900 / 900 Balance -2900 / -2900 -600 / -600 Lab / Micro Data Result Diagrams: 06/26/21 06:22 06/26/21 06:22 Labs: Laboratory Results - last 24 hr 06/25/21 11:40: WBC 5.8, RBC 4.47 L, Hgb 14.5, Hct 44.1, MCV 98.7 H, MCH 32.4 H, MCHC 32.9, RDW Std Deviation 55.3 H, RDW Coeff of Eduard 15.1 H, Plt Count 143 L, MPV 9.7, Immature Gran % (Auto) 0.200, Neut % (Auto) 69.2, Lymph % (Auto) 7.3 L, [place] % (Auto) 21.4 H, Eos % (Auto) 1.6, Baso % (Auto) 0.3, Absolute Neuts (auto) 4.0, Absolute Lymphs (auto) 0.42 L, Nucleated RBC % 0, Differential Comment COMMENT 06/25/21 11:40: Sodium 138, Potassium 3.6, Chloride 102, Carbon Dioxide 31.0, Anion Gap 5, BUN 7, Creatinine 0.84, Estim Creat Clear Calc 79.66, Est GFR (MDRD) Af Amer 116, Est GFR (MDRD) Non-Af 96, BUN/Creatinine Ratio 8.4 L, Glucose 116 H, Calcium 9.1, Troponin I High Sens 13 06/25/21 11:40: B-Natriuretic Peptide 558.1 H 06/25/21 16:48: Troponin I High Sens 12 06/25/21 18:20: Troponin I High Sens 15 06/25/21 23:03: Troponin I High Sens 13 06/26/21 06:22: WBC 6.3, RBC 4.48 L, Hgb 14.8, Hct 43.9, MCV 98.0 H, MCH 33.0 H, MCHC 33.7, RDW Std Deviation 54.4 H, RDW Coeff of Eduard 15.0 H, Plt Count 156, MPV 9.5, Immature Gran % (Auto) 0.200, Neut % (Auto) 65.8, Lymph % (Auto) 8.9 L, [place] % (Auto) 22.5 H, Eos % (Auto) 2.1, Baso % (Auto) 0.5, Absolute Neuts (auto) 4.2, Absolute Lymphs (auto) 0.56 L, Nucleated RBC % 0 06/26/21 06:22: Sodium 137, Potassium 2.9 L, Chloride 97 L, Carbon Dioxide 31.0, Anion Gap 9, BUN 8, Creatinine 0.91, Estim Creat Clear Calc 66.58, Est GFR (MDRD) Af Amer 105, Est GFR (MDRD) Non-Af 87, BUN/Creatinine Ratio 8.8 L, Glucose 114 H, Calcium 8.9, Magnesium 2.1 06/26/21 06:22: PT 17.3 H, INR 1.5, APTT 47.7 H Micro: Microbiology 06/25/21 11:45 Nasal Secretion SARS-CoV-2 Antigen (Rapid) - Final Radiography Diagnostic Testing: Radiology Impression Chest X-Ray 06/25/21 11:23 IMPRESSION: Pleural parenchymal changes at the right lung base with possible mass. Patchy infiltrate in the right upper lobe and left lower lobe. Electronically Signed: Haroldo Arana MD at 12:35 EST , Service support , Chest CTA 06/25/21 13:01 IMPRESSION: Moderate size right pleural effusion with fluid in the right major fissure and volume loss in the right lower lobe. Electronically Signed: Haroldo Arana MD at 13:52 EST , Service support , Physical Exam Narrative GENERAL: Dyspneic at rest HEENT: Atraumatic; EYES; Anicteric, Normal Conjunctiva NECK; supple, normal thyroid, RESPIRATORY: Diminished to auscultation CARDIOVASCULAR: Regular S1 S2, GI: soft, normoactive bowel sounds, : No Renal angle tenderness; EXTREMITIES: Bipedal edema with stasis dermatitis MUSCULOSKELETAL: no muscle waisting NEURO: Awake; no lateralizing signs. SKIN: No Rash PSYCH; Flat affect Assessment & Plan Assessment/Plan (1) Congestive heart failure: QUALIFIERS: Heart failure chronicity: acute on chronic PLAN: Patient is a 76-year-old gentleman presented with progressive shortness of breath 1. Acute on chronic congestive heart failure ?With preserved ejection fraction Echo obtained on 09/10/2020 demonstrated EF of 65%. Patient has been admitted to monitored bed currently being managed with fluid restriction, strict input and output, daily weight as well as IV Lasix. Repeat echo ordered for assessment ?06/26/2021; remains dyspneic at rest and on Lasix. Echo ordered results pending 2. Right-sided pleural effusion ?Secondary to above plan is for patient to undergo therapeutic thoracocentesis in a.m. Patient is on apixaban which is currently being held ?06/26/2021; procedure scheduled for given the fact that patient did receive Eliquis the day prior 3. Paroxysmal A. fib ?Rate controlled on apixaban for stroke prevention which is currently being held in anticipation of patient's thoracocentesis 4. Hypertension - Blood pressure controlled, home medications continued with dose adjustment as needed 5. Depression with anxiety ?Patient is on Wellbutrin as well as alprazolam as needed 6. GERD ?Patient is on PPI 7. Class II obesity with BMI of 37.3 ?Weight loss advised 8. DVT prophylaxis ?Patient is on Eliquis with plans to resume following patient thoracocentesis 9. Hypokalemia -Corrected per protocol. Repeat labs ordered for monitoring Charges/Coding Visit Charges Inpatient E&M: 98922 Subs Hosp L3
[2021-06-26] MEDS: Potassium Chloride Oral Tablet 20 MEQ PO ×2 (09:30→16:13)
[2021-06-26] MEDS: Vitamin E 400 UNITS Capsule PO (09:30)
[2021-06-26] MEDS: Lisinopril 40 MG Tablet PO ×2 (09:30→21:18)
[2021-06-26] MEDS: buPROPion (XL) 300 MG TABLET.XL PO (09:30)
[2021-06-26] MEDS: Multivitamins,Ther W-Minerals Tablet 1 TABLET PO (09:30)
[2021-06-26] MEDS: Fluticasone 0.05% 1 SPRAY NASAL.SRY NASAL (09:30)
[2021-06-26] MEDS: Cholecalciferol (VIT D3) 25 MCG TABLET (1,000 UNITS) 125 MCG PO (09:31)
[2021-06-26] MEDS: Senna/Docusate Sodium 1 Tablet PO (09:31)
[2021-06-26] MEDS: Pantoprazole Sodium 40 MG Tablet PO ×2 (09:31→21:18)
[2021-06-26] MEDS: Potassium Chloride 10mEq/100mL 10 MEQ/100 ML IV.SOLN. 100 MEQ IV BOLUS ×4 (09:32→12:49)
[2021-06-26] MEDS: guaiFENesin 10 ML UDC (200MG/10ML) 20 ML PO (10:52)
--- NOTE | 2021-06-26 11:35 | CASEMGMT ---
SAUL VARGAS assessment: Face to Face with patient for initial transition planning/care coordination assessment. SAUL VARGAS introduced self and role at [facility], pt voices understanding and consents to assessment. Pt is sitting up in bed in no distress on 2L nc. Pt is A/Ox4 and answers all questions appropriately. Care providers, pharmacy, and demographics verified. Presentation: Pt c/o SOB for 4-5 days, also with CP Admitting dx: CHF PCP: [facility] Specialists: None Preferred Pharmacy: [facility] Insurance: [place]/[facility] A/B Prescription Benefit: [place] Living Will/HPOA: Pt has LW/HPOA and is aware that they are not on file at [facility]. Pt states his son, Torito Coles Jr, is HPOA. LNOK: Torito Coles Jr, son/HPOA Living Arrangements: Pt states lives alone in 1 story home with 2 steps in and states has been having difficulty caring for self at home. Pt is independent with ADL's. Transportation: Pt states drives self and states no transportation concerns. DME/HHC: Pt has the following DME: couple canes, walker x3, grab bars, shower chair, and power chair. Pt states that if he qualifies for home oxygen at discharge then he would like to have oxygen set up thru his [facility] A/B and states no preference for DME company. Pt states has had HHC in the past but has not been to SNF. Pt states some concerns with going home at discharge d/t increased weakness. Pt is retired. Pt states quit smoking 18 years ago and occasionally drinks ETOH. Pt does inquire about recent bills he has received from [facility] and this SAUL VARGAS placed call to [facility] PFS and per PFS, pt does not have any outstanding bills with [facility] at this time. Pt updated, voices understanding. Pt voices no further concerns/needs. CM to follow for any further discharge planning/needs. Advised pt to ask for CM if any further questions/concerns/needs arise, voices understanding. Pt Goal: Home Plan: Home [place] SAUL VARGAS
[2021-06-26] MEDS: Ascorbic Acid 500 MG Tablet 1000 MG PO (11:41)
--- NOTE | 2021-06-26 14:24 | CHAPLAIN ---
Type of Pastoral Visit _x__ Initial Visit ___ Follow-up Visit ___ On-call Visit ___ General Patient Visit ___ Spiritual Assessment ___ Family Conference ___ Bereavement ___ Rapid Response ___ Code Blue ___ Other (describe below) Pastoral Care Referral From _x__ Patient ___ Family ___ Nurse ___ Physician ___ Director Economic ___ Smasher Hand ___ Other (describe below) Sacrament/Intervention _x__ Active listening ___ Anointing ___ Pentecostalism ___ Bereavement ___ Communion _x__ Bozena exploration ___ _x__ Life review _x__ Prayer ___ Reconciliation ___ Sacrament of Sick _x__ Supportive presence ___ Wedding ___ Other (describe below) Pastoral Comments patient requested visit from this recoverer and states You are the first person I ask for when I am here
--- NOTE | 2021-06-26 15:38 | CASEMGMT ---
Social Work SW received referral that pt would benefit from [employer]als [employer] Whe[employer]. SW met with pt and introduced self and role. SW explained [facility] program and pt would like a referral made. Referral faxed to [facility] and pt aware that it takes a few days for the meals to start. SAM Ford
[2021-06-27] VITALS (13 sets, daily range): BP systolic 98–126; BP diastolic 35–92; PULSE 76–111; RESP 14–18; TEMP 36.4–37.1; O2SAT 84–100
--- NOTE | 2021-06-27 | FLU_PTH ---
PATIENT: TANMAY GABRIEL Sr. LOC: [facility] U#:[id number] AGE/SX: 76/M ROOM: [facility] RE06/25/[address]: Dr. Jordi Daley MD : 1945 BED: 1 DIS: 06/29/2021 SPEC #: [id number] RECD: 06/27/21 13:25 STATUS: KEVIN ROCHELLE #: [id number] VICKEY: 06/27/21 00:[address]: Jordi Daley DEPT: CYTOLOGY RECD BY: Mookie Richards ENTERED: 06/30/21 09:31 SP TYPE: Fluid OTHR DR: [facility] Tissues: THORACIC FLUID Procedures: Special Stain Group II Surgery Specimen Level IV Cytospin Fluid HEADER OPERATION: Ultrasound-guided thoracentesis PRE-OP DIAGNOSIS: Right pleural effusion TISSUE SUBMITTED: Thoracentesis fluid for cytology DIAGNOSIS CYTOLOGY Thoracentesis fluid for cytology (cytospin and cell block): Negative for malignant cells. See comment. SJ:brian 07/01/2021 COMMENT Clinical correlation and appropriate follow up are necessary. CYTOLOGY STUDY Slides are reviewed. CYTOLOGY GROSS Received is 90 ml of gold cloudy fluid labeled with the patient's name and and designated per the requisition as thoracentesis. Submitted for cytology preparation including cell block. / brian 06/30/2021 TC:5 CPT: 62087, 74002
[2021-06-27] MEDS: Furosemide 40 MG/4 ML Vial IV ×3 (05:04→20:37)
[2021-06-27 07:27] LABS: Absolute Lymphocyte Count 0.66 X10^3/uL (0.83-4.51); Absolute Neutrophil Count 2.6 X10^3/uL (2.0-7.7); Basophil# 0.03 X10^3/uL; Basophil% 0.6 % (0-1); Eosinophil# 0.17 X10^3/uL; Eosinophils% 3.7 % (0-5); Hematocrit 43.1 % (40-54); Hemoglobin 14.1 g/dL (13.0-16.5); Lymphocyte # 0.66 X10^3/ul (0.83-4.51); Lymphocyte % 14.3 % (19-41); Mean Corp Hgb Conc 32.7 g/dL (32-36); Mean Platelet Vol. 9.9 fl (6.2-12.0); Monocyte# 1.12 X10^3/uL; Monocyte% 24.2 % (0-10); NRBC Flagged by Analyzer 0 % (0-5); Neutrophil # 2.63 X10^3/uL (2.7-7.7); Neutrophil % 56.8 % (47-70); Platelet Count 174 K/mm3 (150-450); RBC Distribution Width CV 14.8 % (11.6-14.6); RBC Distribution Width SD 54.1 fl (35.1-43.9); White Blood Count 4.6 K/mm3 (4.4-11.0)
--- NOTE | 2021-06-27 08:00 | US_ITS ---
PROCEDURE: ULTRASOUND GUIDED THORACENTESIS. DATE: 06/27/2021.. INDICATION: Male, 76 years old. Right pleural effusion. PHYSICIAN: Haroldo Arana M.D. PROCEDURE: The risks, benefits, and alternatives to the procedure were explained to the patient. The specific risks of bleeding, infection, and pneumothorax requiring chest tube insertion were discussed and accepted. Written informed consent was obtained. Ultrasonographic evaluation of the right lower pleural space was carried out. An adequate pocket was identified. The patient was placed in the sitting, upright position. The overlying skin was prepped and draped in sterile fashion. 1% lidocaine was administered subcutaneously for local anesthesia. Under ultrasound guidance, a 5 Argentine thoracentesis needle/catheter system was advanced into the right posterior lower pleural fluid collection. Approximately 1150 mL of belen-colored fluid was drained. The catheter was removed, and a sterile dressing was applied. A specimen was collected and sent to the laboratory for analysis, as requested by the referring clinician. The patient tolerated the procedure well. A chest x-ray was ordered. US/Thoracentesis W US IMPRESSION: Ultrasound-guided right thoracentesis. Electronically Signed: Haroldo Arana MD at 15:17 EST , Service support ,
[2021-06-27 08:16] LABS: Anion Gap 8 (5-15); BUN 8 mg/dL (7-18); BUN/Creat Ratio 8.2 RATIO (10-20); Calcium,Total 9.1 mg/dL (8.5-10.1); Chloride 97 mmol/L (98-107); Creatinine, Serum 0.98 mg/dL (0.70-1.30); EST Glomerular Filtration Rate 80 mL/min (>60); Est Glom Filt Rate - Afr Amer 96 mL/min (>60); Estimated Creatinine Clearance 61.83 ml/min; Glucose 101 mg/dL (74-106); Potassium 3.3 mmol/L (3.5-5.1); Sodium Level 139 mmol/L (136-145)
[2021-06-27] MEDS: Fluticasone 0.05% 1 SPRAY NASAL.SRY NASAL (08:51)
[2021-06-27] MEDS: Cholecalciferol (VIT D3) 25 MCG TABLET (1,000 UNITS) 125 MCG PO (08:52)
[2021-06-27] MEDS: Vitamin E 400 UNITS Capsule PO (08:52)
[2021-06-27] MEDS: Multivitamins,Ther W-Minerals Tablet 1 TABLET PO (08:52)
[2021-06-27] MEDS: Senna/Docusate Sodium 1 Tablet PO (08:53)
[2021-06-27] MEDS: Pantoprazole Sodium 40 MG Tablet PO ×2 (08:53→20:38)
[2021-06-27] MEDS: Lisinopril 40 MG Tablet PO ×2 (08:54→20:38)
[2021-06-27] MEDS: buPROPion (XL) 300 MG TABLET.XL PO (08:54)
[2021-06-27] MEDS: Potassium Chloride Oral Tablet 20 MEQ PO ×2 (08:54→16:52)
[2021-06-27] MEDS: Ascorbic Acid 500 MG Tablet 1000 MG PO (11:37)
--- NOTE | 2021-06-27 13:01 | PCM.PN.HOSP ---
Subjective Subjective Patient seen. Scheduled to undergo ultrasound-guided thoracocentesis Objective Data Objective Data Vital Signs: Vital Signs Temp Pulse Resp BP Pulse Ox 98.8 F 91 18 111/61 92 06/27/21 08:12 06/27/21 08:12 06/27/21 08:12 06/27/21 08:12 06/27/21 11:00 Oxygen Flow Rate (L/min) [ 2 AMBULATING with Oxygen #1] Oxygen Flow Rate (L/min) [ 0 AMBULATING on Room Air] Oxygen Flow Rate (L/min) [At 0 REST on Room Air] Oxygen Flow Rate (L/min) 2 Oxygen Delivery Method Room Air Weight: 114.7 kg Body Mass Index (BMI) 39.5 Intake & Output: Intake and Output for Last 24 Hours 06/25/21 06/26/21 06/27/21 23:59 23:59 23:59 Intake Total 400 / 400 1700 / 1700 540 / 540 Output Total 3300 / 3300 3650 / 3650 875 / 875 Balance -2900 / -2900 -1950 / -1950 -335 / -335 Lab / Micro Data Result Diagrams: 06/27/21 06:50 06/27/21 06:50 Labs: Laboratory Results - last 24 hr 06/27/21 06:50: WBC 4.6, RBC 4.40 L, Hgb 14.1, Hct 43.1, MCV 98.0 H, MCH 32.0, MCHC 32.7, RDW Std Deviation 54.1 H, RDW Coeff of Eduard 14.8 H, Plt Count 174, MPV 9.9, Immature Gran % (Auto) 0.400, Neut % (Auto) 56.8, Lymph % (Auto) 14.3 L, [place] % (Auto) 24.2 H, Eos % (Auto) 3.7, Baso % (Auto) 0.6, Absolute Neuts (auto) 2.6, Absolute Lymphs (auto) 0.66 L, Nucleated RBC % 0 06/27/21 06:50: Sodium 139, Potassium 3.3 L, Chloride 97 L, Carbon Dioxide 34.0 H, Anion Gap 8, BUN 8, Creatinine 0.98, Estim Creat Clear Calc 61.83, Est GFR (MDRD) Af Amer 96, Est GFR (MDRD) Non-Af 80, BUN/Creatinine Ratio 8.2 L, Glucose 101, Calcium 9.1 Micro: Microbiology 06/25/21 11:45 Nasal Secretion SARS-CoV-2 Antigen (Rapid) - Final Physical Exam Narrative GENERAL: Dyspneic at rest HEENT: Atraumatic; EYES; Anicteric, Normal Conjunctiva NECK; supple, normal thyroid, RESPIRATORY: Diminished to auscultation CARDIOVASCULAR: Regular S1 S2, GI: soft, normoactive bowel sounds, : No Renal angle tenderness; EXTREMITIES: Bipedal edema with stasis dermatitis MUSCULOSKELETAL: no muscle waisting NEURO: Awake; no lateralizing signs. SKIN: No Rash PSYCH; Flat affect Assessment & Plan Assessment/Plan (1) Congestive heart failure: QUALIFIERS: Heart failure chronicity: acute on chronic PLAN: Patient is a 76-year-old gentleman presented with progressive shortness of breath 1. Acute on chronic congestive heart failure ?With preserved ejection fraction Echo obtained on 09/10/2020 demonstrated EF of 65%. Patient has been admitted to monitored bed currently being managed with fluid restriction, strict input and output, daily weight as well as IV Lasix. Repeat echo ordered for assessment ?06/26/2021; remains dyspneic at rest and on Lasix. Echo ordered results pending -06/27/2021; 20 echo demonstrated EF of 65% 2. Right-sided pleural effusion ?Secondary to above plan is for patient to undergo therapeutic thoracocentesis in a.m. Patient is on apixaban which is currently being held ?06/26/2021; procedure scheduled for given the fact that patient did receive Eliquis the day prior ?06/27/2021; patient scheduled to undergo ultrasound-guided thoracocentesis 3. Paroxysmal A. fib ?Rate controlled on apixaban for stroke prevention which is currently being held in anticipation of patient's thoracocentesis ?06/27/2021 do plan to restart Eliquis on 06/28/2021 4. Hypertension - Blood pressure controlled, home medications continued with dose adjustment as needed 5. Depression with anxiety ?Patient is on Wellbutrin as well as alprazolam as needed 6. GERD ?Patient is on PPI 7. Class II obesity with BMI of 37.3 ?Weight loss advised 8. DVT prophylaxis ?Patient is on Eliquis with plans to resume following patient thoracocentesis 9. Hypokalemia -Corrected per protocol. Repeat labs ordered for monitoring Charges/Coding Visit Charges Inpatient E&M: 17501 Subs Hosp L2
--- NOTE | 2021-06-27 13:07 | RAD_ITS ---
STUDY: X-RAY CHEST REASON FOR EXAM: Male, 76 years old. post thora TECHNIQUE: AP inspiration and expiration COMPARISON: 06/25/2021 FINDINGS: Small bilateral pleural effusions with mild right basilar consolidation.. Heart is mildly enlarged.. Normal mediastinum and manuela. Normal visualized pulmonary arteries. Mildly calcified aortic arch and descending thoracic aorta. Dorsal spine and shoulders demonstrate change. Normal visualized ribs and, clavicles. There is no demonstrated abnormality of the visualized soft tissue structures of the upper abdomen.Right pleural effusion has decreased in size since prior exam.. No evidence for pneumothorax RAD/Chest Insp/Exp 2 View IMPRESSION: Small bilateral pleural effusions and mild right basilar atelectasis.. Decreased size right of pleural effusion since prior exam without evidence of pneumothorax status post thoracentesis Electronically Signed: Matt Russell MD at 22:09 EST , Service support ,
--- NOTE | 2021-06-27 13:27 | CASEMGMT ---
This RN CM to room to discuss discharge plan with pt and pt is out of the dept for thoracentesis at this time. CM to follow. SStaten SAUL CM
[2021-06-27 13:45] LABS: Body Fluid Mononuclear WBC # 0.225 10^3/uL; Body Fluid Mononuclear WBC % 97.8 %; Body Fluid Polynuclear WBC # 0.005 10^3/uL; Body Fluid Polynuclear WBC % 2.2 %; Body Fluid Total Cells Counted 0.279 10^3/ul
--- NOTE | 2021-06-27 14:12 | CASEMGMT ---
Addendum entered by Camilla Fowler 06/27/21 15:42: Referral to [facility] for disease and med management. Ila HUGHES CM Original Note: Pt states did well with therapy today and declines need for HHC or OP therapy at this time. Green sheet left on chart for home oxygen qualification. Pt voices no further questions/concerns/needs. Ila HUGHES CM
[2021-06-27 14:31] LABS: Glucose, Body Fluid 120 mg/dL (40-70); LDH,Body Fluid 92 Units/l (Not Establ.); Protein, Body Fluid 2.7 g/dL (Not Establ.)
[2021-06-27 14:34] LABS: Appearance/Body Fluid CLEAR; Auto B Fluid Analyzer BKGD Ct COUNTS W/IN LIMITS (W/IN LIMITS); Color/Body Fluid YELLOW; Red Cell Count/Body Fluid 135 /mm3; Source- Body Fluid THORACENTESIS
[2021-06-27 14:39] LABS: Body Fluid QC Type(s) BF6Q; Lymphocytes 20 %; Macrophages 53 %; Monocytes 26 %; Plasma Cell/BodyFluid 1 %
--- NOTE | 2021-06-27 14:53 | NURSING ---
Student nurse MO Abdi initiated left lateral wrist 20g IV on 1 attempt. Blood return noted, flushed with 10ml NS. Loop extension applied. Tegaderm secure, clean, dry, intact. Patient tolerated without complaint. This instructor monitored insertion.
--- NOTE | 2021-06-27 14:55 | RAD_ITS ---
STUDY: X-RAY CHEST REASON FOR EXAM: Male, 76 years old. pain after thoracentesis TECHNIQUE: PA and lateral views of the chest. COMPARISON: 1:01 PM. FINDINGS: Small right pleural effusion, slightly increased compared to the prior study. The lung zhang are otherwise clear. Normal size heart. Normal mediastinum and manuela. Normal visualized pulmonary arteries. Normal visualized aortic arch and descending thoracic aorta. Normal visualized thoracic spine. Normal visualized ribs, clavicles, and shoulders. There is no demonstrated abnormality of the visualized soft tissue structures of the upper abdomen. RAD/Chest PA and Lateral IMPRESSION: Small right pleural effusion. Electronically Signed: Cyndie Crowder MD at 22:11 EST Tel , Service support ,
--- NOTE | 2021-06-27 14:56 | NURSING ---
Read and and reviewed SN Documentation.
[2021-06-27] MEDS: 0.9% Saline Lock 10 ML Syringe IV (20:41)
[2021-06-28] VITALS (16 sets, daily range): BP systolic 99–144; BP diastolic 53–71; PULSE 70–162; RESP 16–18; TEMP 36.6–36.9; O2SAT 87–100
[2021-06-28] MEDS: Furosemide 40 MG/4 ML Vial IV ×3 (05:20→20:41)
[2021-06-28] MEDS: 0.9% Saline Lock 10 ML Syringe IV ×3 (05:21→20:43)
[2021-06-28 07:21] LABS: Absolute Lymphocyte Count 0.62 X10^3/uL (0.83-4.51); Absolute Neutrophil Count 2.8 X10^3/uL (2.0-7.7); Basophil# 0.03 X10^3/uL; Basophil% 0.6 % (0-1); Eosinophil# 0.17 X10^3/uL; Eosinophils% 3.6 % (0-5); Hematocrit 42.6 % (40-54); Hemoglobin 14.1 g/dL (13.0-16.5); Lymphocyte # 0.62 X10^3/ul (0.83-4.51); Lymphocyte % 13.1 % (19-41); Mean Corp Hgb Conc 33.1 g/dL (32-36); Mean Corpuscular Volume 96.8 fL (80-94); Mean Platelet Vol. 10.2 fl (6.2-12.0); Monocyte# 1.04 X10^3/uL; NRBC Flagged by Analyzer 0 % (0-5); Neutrophil # 2.83 X10^3/uL (2.7-7.7); Neutrophil % 60.1 % (47-70); Platelet Count 176 K/mm3 (150-450); RBC Distribution Width CV 14.5 % (11.6-14.6); RBC Distribution Width SD 51.8 fl (35.1-43.9); White Blood Count 4.7 K/mm3 (4.4-11.0)
[2021-06-28 07:35] LABS: Anion Gap 7 (5-15); BUN 11 mg/dL (7-18); BUN/Creat Ratio 11.9 RATIO (10-20); Calcium,Total 9.1 mg/dL (8.5-10.1); Chloride 97 mmol/L (98-107); Creatinine, Serum 0.92 mg/dL (0.70-1.30); EST Glomerular Filtration Rate 85 mL/min (>60); Est Glom Filt Rate - Afr Amer 103 mL/min (>60); Estimated Creatinine Clearance 65.86 ml/min; Glucose 93 mg/dL (74-106); Potassium 3.3 mmol/L (3.5-5.1); Sodium Level 138 mmol/L (136-145)
--- NOTE | 2021-06-28 08:00 | DS.PCM_ITS ---
Providers Date of Admission: 06/25/21 Primary Care Physician: [facility] Reason For Visit: CHF Diagnosis Discharge Diagnosis (1) Congestive heart failure: Status: Chronic Code(s): I50.9 - Heart failure, unspecified Qualifiers: Heart failure chronicity: acute on chronic Medications at Discharge Home Medications arginine (L-arginine) 500 mg PO DAILY 05/04/13 fluticasone propionate 1 spray NASAL DAILY 05/04/13 guaifenesin [Mucus Relief ER] 400 mg PO TID 05/04/13 hydroxyzine pamoate 25 mg PO QHS PRN PRN 05/04/13 lisinopril 40 mg PO BID 05/04/13 alprazolam 0.25 mg PO BID PRN PRN 11/27/19 sennosides-docusate sodium 1 ea PO DAILY 11/27/19 vitamin E 400 unit PO DAILY 11/27/19 apixaban 5 mg PO BID 01/24/20 ascorbic acid (vitamin C) 1,000 mg PO DAILY@1200 03/14/20 bupropion HCl 300 mg PO DAILY 03/14/20 coenzyme Q10 200 mg PO DAILY 03/14/20 multivitamin with minerals 1 tab PO DAILY 03/14/20 cholecalciferol (vitamin D3) 125 mcg PO DAILY 06/25/21 omeprazole 40 mg PO BID 06/25/21 furosemide 60 mg PO BID #90 tab 06/28/21 potassium chloride [Klor-Con M20] 20 meq PO BIDCM #30 tab 06/28/21 Hospital Course Summary of Care Provided Minutes Spent on Discharge: 45 Hospital Course: Acute on chronic congestive heart failure ?With preserved ejection fraction Echo obtained on 09/10/2020 demonstrated EF of 65%. Patient has been admitted to monitored bed currently being managed with fluid restriction, strict input and output, daily weight as well as IV Lasix. Repeat echo ordered for assessment ?06/26/2021; remains dyspneic at rest and on Lasix. Echo ordered results pending -06/27/2021; 20 echo demonstrated EF of 65% 2. Right-sided pleural effusion ?Secondary to above plan is for patient to undergo therapeutic thoracocentesis in a.m. Patient is on apixaban which is currently being held ?06/26/2021; procedure scheduled for given the fact that patient did receive Eliquis the day prior ?06/27/2021; patient scheduled to undergo ultrasound-guided thoracocentesis ?Patient underwent thoracocentesis with 115 0 mL of belen-colored fluid drained 3. Paroxysmal A. fib ?Rate controlled on apixaban for stroke prevention which is currently being held in anticipation of patient's thoracocentesis ?06/27/2021 do plan to restart Eliquis on 06/28/2021 4. Hypertension - Blood pressure controlled, home medications continued with dose adjustment as needed 5. Depression with anxiety ?Patient is on Wellbutrin as well as alprazolam as needed 6. GERD ?Patient is on PPI 7. Class II obesity with BMI of 37.3 ?Weight loss advised 8. DVT prophylaxis ?Patient is on Eliquis with plans to resume following patient thoracocentesis 9. Hypokalemia -Corrected per protocol. Repeat labs ordered for monitoring 10. Acute hypoxic respiratory failure ?Secondary to CHF and right-sided pleural effusion Patient was placed on supplemental oxygen. He was assessed for home oxygen on discharge which he did qualify he will need portability since he is active both at home as well as in the community Physical Exam Narrative GENERAL: Dyspneic at rest HEENT: Atraumatic; EYES; Anicteric, Normal Conjunctiva NECK; supple, normal thyroid, RESPIRATORY: Diminished to auscultation CARDIOVASCULAR: Regular S1 S2, GI: soft, normoactive bowel sounds, : No Renal angle tenderness; EXTREMITIES: Bipedal edema with stasis dermatitis MUSCULOSKELETAL: no muscle waisting NEURO: Awake; no lateralizing signs. SKIN: No Rash PSYCH; Flat affect Weight / BMI Weight Weight: 109.8 kg Body Mass Index (BMI) 39.5 ABG / Lab / Microbiology Data Result Diagrams: 06/28/21 05:32 06/28/21 05:32 Laboratory: Laboratory Results - last 24 hr 06/25/21 13:00: Fluid Glucose 120 H, Fluid Total Protein 2.7, Fluid LDH 92 06/27/21 06:50: Sodium 139, Potassium 3.3 L, Chloride 97 L, Carbon Dioxide 34.0 H, Anion Gap 8, BUN 8, Creatinine 0.98, Estim Creat Clear Calc 61.83, Est GFR (MDRD) Af Amer 96, Est GFR (MDRD) Non-Af 80, BUN/Creatinine Ratio 8.2 L, Glucose 101, Calcium 9.1 06/27/21 13:00: Fluid Source THORACENTESIS, Fluid Color YELLOW, Fluid Appearance CLEAR, Fluid WBC 0.230, Fluid RBC 135, Fluid Tot Cell Count 0.279, Fld Polynuclear WBCs # 0.005, Fld Polynuclear WBCs % 2.2, Fluid Mononuclear WBCs 0.225, Fld Mononuclear WBCs % 97.8, Fluid Lymphocytes 20, Fluid Monocytes 26, Fluid Plasma Cells 1, Fluid Macrophages 53, Fl Pathologist Comment May follow, Fluid Comment 2 SEE COMMENT 06/28/21 05:32: WBC 4.7, RBC 4.40 L, Hgb 14.1, Hct 42.6, MCV 96.8 H, MCH 32.0, MCHC 33.1, RDW Std Deviation 51.8 H, RDW Coeff of Eduard 14.5, Plt Count 176, MPV 10.2, Immature Gran % (Auto) 0.600, Neut % (Auto) 60.1, Lymph % (Auto) 13.1 L, [place] % (Auto) 22.0 H, Eos % (Auto) 3.6, Baso % (Auto) 0.6, Absolute Neuts (auto) 2.8, Absolute Lymphs (auto) 0.62 L, Nucleated RBC % 0 06/28/21 05:32: Sodium 138, Potassium 3.3 L, Chloride 97 L, Carbon Dioxide 34.0 H, Anion Gap 7, BUN 11, Creatinine 0.92, Estim Creat Clear Calc 65.86, Est GFR (MDRD) Af Amer 103, Est GFR (MDRD) Non-Af 85, BUN/Creatinine Ratio 11.9, Glucose 93, Calcium 9.1 Microbiology: Microbiology 06/25/21 11:45 Nasal Secretion SARS-CoV-2 Antigen (Rapid) - Final Radiography Diagnostic Testing: Radiology Impression Thoracentesis Ultrasound 06/27/21 08:00 IMPRESSION: Ultrasound-guided right thoracentesis. Electronically Signed: Haroldo Arana MD at 15:17 EST , Service support , Chest X-Ray 06/27/21 13:07 IMPRESSION: Small bilateral pleural effusions and mild right basilar atelectasis.. Decreased size right of pleural effusion since prior exam without evidence of pneumothorax status post thoracentesis Electronically Signed: Matt Russell MD at 22:09 EST , Service support , Chest X-Ray 06/27/21 14:55 IMPRESSION: Small right pleural effusion. Electronically Signed: Cyndie Crowder MD at 22:11 EST Tel , Service support , D/C Instructions Discharge Diet: 8 Cup Fluid Restriction and 2000 mg Sodium Diet Discharge Activity: Return to Normal Activity Call your doctor if you observe: Fever of 101 or Higher, Shortness of breath, Fainting spells and Chest pain Meaningful Use Info Meaningful Use Diagnoses (Choose all that apply): CHF CHF ANAY/ARB ordered at discharge?: Yes Documented LVEF (%): 65 Discharge Plan Admission Admit Date/Time: 06/25/21 14:59 Attending Provider: Jordi Daley Primary Care Provider: [facility] Instructions Patient Instructions: Thoracentesis Dc Discharge Orders/Prescriptions Prescriptions: New potassium chloride [Klor-Con M20] 20 mEq Tablet,Er Particles/Crystals 20 meq PO BIDCM Qty: 30 RF: 0 Continued arginine (L-arginine) 500 MG tablet 500 mg PO DAILY RF: 0 lisinopril 40 MG tablet 40 mg PO BID RF: 0 fluticasone propionate 1 SPRAY spray,suspension 1 spray NASAL DAILY RF: 0 hydroxyzine pamoate 25 MG capsule 25 mg PO QHS PRN PRN (Reason: Sleep) RF: 0 guaifenesin [Mucus Relief ER] 600 MG tablet 400 mg PO TID RF: 0 sennosides-docusate sodium 1 EACH tablet 1 ea PO DAILY RF: 0 alprazolam 0.25 MG tablet 0.25 mg PO BID PRN PRN (Reason: Anxiety) RF: 0 vitamin E 400 UNIT capsule 400 unit PO DAILY RF: 0 apixaban 5 MG tablet 5 mg PO BID RF: 0 ascorbic acid (vitamin C) 1,000 MG tablet 1,000 mg PO DAILY@1200 RF: 0 multivitamin with minerals 1 EACH tablet 1 tab PO DAILY RF: 0 bupropion HCl 300 MG tablet extended release 24 hr 300 mg PO DAILY RF: 0 coenzyme Q10 200 MG capsule 200 mg PO DAILY RF: 0 omeprazole 40 mg Capsule,Delayed Release(Dr/Ec) 40 mg PO BID RF: 0 cholecalciferol (vitamin D3) 125 mcg (5,000 unit) Capsule 125 mcg PO DAILY RF: 0 Changed furosemide 40 MG tablet 60 mg PO BID Qty: 90 RF: 0 [facility]errals [facility] - Within 2 Weeks Disposition Disposition (needs filled in before D/C Order can be placed): Home, Self Care Charges/Coding Visit Charges Inpatient E&M: 92979 Disch Hosp
[2021-06-28] MEDS: Lisinopril 40 MG Tablet PO ×2 (08:38→20:41)
[2021-06-28] MEDS: Potassium Chloride Oral Tablet 20 MEQ PO ×2 (08:39→16:22)
[2021-06-28] MEDS: Vitamin E 400 UNITS Capsule PO (08:39)
[2021-06-28] MEDS: Pantoprazole Sodium 40 MG Tablet PO ×2 (08:39→20:41)
[2021-06-28] MEDS: Multivitamins,Ther W-Minerals Tablet 1 TABLET PO (08:39)
[2021-06-28] MEDS: buPROPion (XL) 300 MG TABLET.XL PO (08:39)
[2021-06-28] MEDS: Cholecalciferol (VIT D3) 25 MCG TABLET (1,000 UNITS) 125 MCG PO (08:39)
[2021-06-28] MEDS: Fluticasone 0.05% 1 SPRAY NASAL.SRY NASAL (08:39)
[2021-06-28] MEDS: Senna/Docusate Sodium 1 Tablet PO (08:39)
--- NOTE | 2021-06-28 11:21 | PN.HOSP_ITS ---
Subjective Subjective Plan was for patient to be discharged home today however he became tachycardic with heart rate going up to 150 with ambulation. Decision was made to observe patient for 1 more day. Consult was also placed to case management to assist with disposition regarding patient's severe physical deconditioning he will be d ischarged home with home health Objective Data Objective Data Vital Signs: Vital Signs Temp Pulse Resp BP Pulse Ox 98.1 F 97 16 99/53 L 94 06/28/21 08:25 06/28/21 09:48 06/28/21 08:25 06/28/21 08:25 06/28/21 10:38 Oxygen Flow Rate (L/min) [4] 2 Oxygen Flow Rate (L/min) [3] 2 Oxygen Flow Rate (L/min) [2] 2 Oxygen Flow Rate (L/min) [1 ( 2 Initial Baseline)] Oxygen Flow Rate (L/min) [At 2 REST with Oxygen] Oxygen Flow Rate (L/min) [ 2 AMBULATING with Oxygen #1] Oxygen Flow Rate (L/min) [ 0 AMBULATING on Room Air] Oxygen Flow Rate (L/min) [At 0 REST on Room Air] Oxygen Flow Rate (L/min) 2 Oxygen Delivery Method [4] Nasal Cannula Oxygen Delivery Method [3] Nasal Cannula Oxygen Delivery Method [2] Nasal Cannula Oxygen Delivery Method [1 ( Nasal Cannula Initial Baseline)] Oxygen Delivery Method Room Air Weight: 109.8 kg Body Mass Index (BMI) 39.5 Intake & Output: Intake and Output for Last 24 Hours 06/26/21 06/27/21 06/28/21 23:59 23:59 23:59 Intake Total 1700 / 1700 1020 / 1020 240 / 240 Output Total 3650 / 3650 2950 / 2950 1100 / 1100 Balance -1950 / -1950 -1930 / -1930 -860 / -860 Lab / Micro Data Result Diagrams: 06/28/21 05:32 06/28/21 05:32 Labs: Laboratory Results - last 24 hr 06/25/21 13:00: Fluid Glucose 120 H, Fluid Total Protein 2.7, Fluid LDH 92 06/27/21 13:00: Fluid Source THORACENTESIS, Fluid Color YELLOW, Fluid Appearance CLEAR, Fluid WBC 0.230, Fluid RBC 135, Fluid Tot Cell Count 0.279, Fld Polynuclear WBCs # 0.005, Fld Polynuclear WBCs % 2.2, Fluid Mononuclear WBCs 0. 225, Fld Mononuclear WBCs % 97.8, Fluid Lymphocytes 20, Fluid Monocytes 26, Fluid Plasma Cells 1, Fluid Macrophages 53, Fl Pathologist Comment May follow, Fluid Comment 2 SEE COMMENT 06/28/21 05:32: WBC 4.7, RBC 4.40 L, Hgb 14.1, Hct 42.6, MCV 96.8 H, MCH 32.0, MCHC 33.1, RDW Std Deviation 51.8 H, RDW Coeff of Eduard 14.5, Plt Count 176, MPV 10.2, Immature Gran % (Auto) 0.600, Neut % (Auto) 60.1, Lymph % (Auto) 13.1 L, [place] % (Auto) 22.0 H, Eos % (Auto) 3.6, Baso % (Auto) 0.6, Absolute Neuts (auto) 2.8, Absolute Lymphs (auto) 0.62 L, Nucleated RBC % 0 06/28/21 05:32: Sodium 138, Potassium 3.3 L, Chloride 97 L, Carbon Dioxide 34.0 H, Anion Gap 7, BUN 11, Creatinine 0.92, Estim Creat Clear Calc 65.86, Est GFR (MDRD) Af Amer 103, Est GFR (MDRD) Non-Af 85, BUN/Creatinine Ratio 11.9, Glucose 93, Calcium 9.1 Micro: Microbiology 06/25/21 11:45 Nasal Secretion SARS-CoV-2 Antigen (Rapid) - Final Radiography Diagnostic Testing: Radiology Impression Thoracentesis Ultrasound 06/27/21 08:00 IMPRESSION: Ultrasound-guided right thoracentesis. Electronically Signed: Haroldo Arana MD at 15:17 EST , Service support , Chest X-Ray 06/27/21 13:07 IMPRESSION: Small bilateral pleural effusions and mild right basilar atelectasis.. Decreased size right of pleural effusion since prior exam without evidence of pneumothorax status post thoracentesis Electronically Signed: Matt Russell MD at 22:09 EST , Service support , Chest X-Ray 06/27/21 14:55 IMPRESSION: Small right pleural effusion. Electronically Signed: Cyndie Crowder MD at 22:11 EST Tel , Service support , Physical Exam Narrative GENERAL: Dyspneic at rest HEENT: Atraumatic; EYES; Anicteric, Normal Conjunctiva NECK; supple, normal thyroid, RESPIRATORY: Diminished to auscultation CARDIOVASCULAR: Regular S1 S2, GI: soft, normoactive bowel sounds, : No Renal angle tenderness; EXTREMITIES: Bipedal edema with stasis dermatitis MUSCULOSKELETAL: no muscle waisting NEURO: Awake; no lateralizing signs. SKIN: No Rash PSYCH; Flat affect Assessment & Plan Assessment/Plan (1) Congestive heart failure: QUALIFIERS: Heart failure chronicity: acute on chronic PLAN: Patient is a 76-year-old gentleman presented with progressive shortness of breath 1. Acute on chronic congestive heart failure ?With preserved ejection fraction Echo obtained on 09/10/2020 demonstrated EF of 65%. Patient has been admitted to monitored bed currently being managed with fluid restriction, strict input and output, daily weight as well as IV Lasix. Repeat echo ordered for assessment ?06/26/2021; remains dyspneic at rest and on Lasix. Echo ordered results pending -06/27/2021; 20 echo demonstrated EF of 65% -06/28/2021; patient still remains dyspneic at rest 2. Right-sided pleural effusion ?Secondary to above plan is for patient to undergo therapeutic thoracocentesis in a.m. Patient is on apixaban which is currently being held ?06/26/2021; procedure scheduled for given the fact that patient did receive Eliquis the day prior ?06/27/2021; patient scheduled to undergo ultrasound-guided thoracocentesis ?06/28/2021; thoracocentesis performed the day prior 1150ml of belen-colored fluid was drained 3. Paroxysmal A. fib ?Rate controlled on apixaban for stroke prevention which is currently being held in anticipation of patient's thoracocentesis ?06/27/2021 do plan to restart Eliquis on 06/28/2021 -Patient went into A. fib with RVR with ambulation 4. Hypertension - Blood pressure controlled, home medications continued with dose adjustment as needed 5. Depression with anxiety ?Patient is on Wellbutrin as well as alprazolam as needed 6. GERD ?Patient is on PPI 7. Class II obesity with BMI of 37.3 ?Weight loss advised 8. DVT prophylaxis ?Patient is on Eliquis with plans to resume following patient thoracocentesis 9. Hypokalemia -Corrected per protocol. Repeat labs ordered for monitoring 10. Physical deconditioning - Requested for PT OT eval and social studies department chair to assist with discharge planning Charges/Coding Visit Charges Inpatient E&M: 27854 Subs Hosp L2
--- NOTE | 2021-06-28 11:38 | CASEMGMT ---
RN CM NOTE: Pt informed this RN CM he does not feel comfortable going home after having episode this AM of elevated HR, CP, and SOB. Dr Daley made aware and states will cancel his discharge. Pt also informed this RN CM that he now would like [facility]. Pt was provided with list of C providers including quality and resource use data and consistent with the patient's preferred geographic region, medical needs, and insurance network. The pt's preferred provider is [facility]. Pt states he does not feel he needs an aide, but would be agreeable to SN and therapy. Order placed for C. TC to [facility] referral line and VM left re: referral. Msg stated pt may be medically ready for d/c on Wednesday and asked if someone could f/u w/pt on Wednesday re: if able to accept. Msg also left w/Nj HUGHES CM, re: need for f/u re: [facility] on Wednesday. Vanessa SCHULTZ RN CM
[2021-06-28] MEDS: Ascorbic Acid 500 MG Tablet 1000 MG PO (12:55)
[2021-06-28] MEDS: APIXABAN 5 MG TABLET PO (20:41)
[2021-06-29 02:26] VITALS: BP 130/66; PULSE 85; RESP 16; TEMP 36.6; O2SAT 100
[2021-06-29 03:00] VITALS: PULSE 83
[2021-06-29 05:30] VITALS: BP 120/69; PULSE 104; RESP 18; TEMP 36.4; O2SAT 98
[2021-06-29] MEDS: Furosemide 40 MG/4 ML Vial IV (06:05)
[2021-06-29 06:46] LABS: Absolute Lymphocyte Count 0.68 X10^3/uL (0.83-4.51); Absolute Neutrophil Count 2.8 X10^3/uL (2.0-7.7); Basophil# 0.03 X10^3/uL; Basophil% 0.6 % (0-1); Eosinophil# 0.21 X10^3/uL; Eosinophils% 4.4 % (0-5); Hematocrit 43.9 % (40-54); Hemoglobin 14.5 g/dL (13.0-16.5); Lymphocyte # 0.68 X10^3/ul (0.83-4.51); Lymphocyte % 14.3 % (19-41); Mean Corpuscular Hgb 32.2 pg (27.0-32.0); Mean Corpuscular Volume 97.3 fL (80-94); Mean Platelet Vol. 10.2 fl (6.2-12.0); Monocyte# 0.99 X10^3/uL; Monocyte% 20.8 % (0-10); NRBC Flagged by Analyzer 0 % (0-5); Neutrophil # 2.83 X10^3/uL (2.7-7.7); Neutrophil % 59.5 % (47-70); Platelet Count 182 K/mm3 (150-450); RBC Distribution Width CV 14.6 % (11.6-14.6); Red Blood Count 4.51 M/mm3 (4.6-6.2); White Blood Count 4.8 K/mm3 (4.4-11.0)
[2021-06-29 07:00] VITALS: PULSE 100
[2021-06-29 07:12] LABS: Anion Gap 8 (5-15); BUN 13 mg/dL (7-18); BUN/Creat Ratio 14.1 RATIO (10-20); Chloride 97 mmol/L (98-107); Creatinine, Serum 0.92 mg/dL (0.70-1.30); EST Glomerular Filtration Rate 85 mL/min (>60); Est Glom Filt Rate - Afr Amer 103 mL/min (>60); Estimated Creatinine Clearance 65.86 ml/min; Glucose 92 mg/dL (74-106); Potassium 3.6 mmol/L (3.5-5.1); Sodium Level 136 mmol/L (136-145)
[2021-06-29 07:16] VITALS: O2SAT 98
[2021-06-29 09:25] VITALS: BP 102/49; PULSE 89; RESP 16; TEMP 36.7; O2SAT 97
[2021-06-29] MEDS: Pantoprazole Sodium 40 MG Tablet PO (09:26)
[2021-06-29] MEDS: Cholecalciferol (VIT D3) 25 MCG TABLET (1,000 UNITS) 125 MCG PO (09:26)
[2021-06-29] MEDS: Vitamin E 400 UNITS Capsule PO (09:26)
[2021-06-29] MEDS: buPROPion (XL) 300 MG TABLET.XL PO (09:26)
[2021-06-29] MEDS: Potassium Chloride Oral Tablet 20 MEQ PO (09:26)
[2021-06-29] MEDS: Senna/Docusate Sodium 1 Tablet PO (09:26)
[2021-06-29] MEDS: Lisinopril 40 MG Tablet PO (09:26)
[2021-06-29] MEDS: Multivitamins,Ther W-Minerals Tablet 1 TABLET PO (09:26)
[2021-06-29] MEDS: APIXABAN 5 MG TABLET PO (09:26)
[2021-06-29] MEDS: Fluticasone 0.05% 1 SPRAY NASAL.SRY NASAL (09:27)
[2021-06-29] MEDS: Ascorbic Acid 500 MG Tablet 1000 MG PO (13:12)
[2021-07-01 09:04] LABS: Pathologist Comment/Body Fluid Reviewed
--- NOTE | 2021-07-01 15:20 | CASEMGMT ---
SAUL VARGAS NOTE: Per Holly @ [facility], they are able to accept pt w/SOC today. Vanessa SCHULTZ RN, CM
== END 2021-06-29 14:19 | disposition home or self-care (01) | DRG 291 ==
LOC: ED 14:57 → PCU 15:51
PROVIDERS: Admitting Provider Internal Medicine; Emergency Provider Emergency Medicine; Visit Provider Internal Medicine
DX: I11.0 Hypertensive heart disease with heart failure (principal); I50.33 Acute on chronic diastolic (congestive) heart failure; J96.01 Acute respiratory failure with hypoxia; J90 Pleural effusion, not elsewhere classified; E87.6 Hypokalemia; I48.0 Paroxysmal atrial fibrillation; Z20.822 Contact with and (suspected) exposure to COVID-19; E78.5 Hyperlipidemia, unspecified; K21.9 Gastro-esophageal reflux disease without esophagitis; F32.A Depression, unspecified; F41.9 Anxiety disorder, unspecified; E66.9 Obesity, unspecified; Z68.39 Body mass index [BMI] 39.0-39.9, adult; Z79.899 Other long term (current) drug therapy; Z79.01 Long term (current) use of anticoagulants; Z87.891 Personal history of nicotine dependence
CPT/HCPCS: 32555; 36415; 71045; 71046; 71275; 80048; 82945; 83615; 83735; 83880; 84157; 84484; 85025; 85610; 85730; 87426; 88108; 88305; 88313; 89050; 93005; 93306; 97162; 97166; 97530; 97802; 99285; J7030; Q9957; Q9967; A4216; C8929; J1940

== ENCOUNTER 2021-09-12 14:19 | Outpatient (CLI) | payer MEDICARE, SELFPAY ==
[2021-09-12 15:35] LABS: Anion Gap 7 (5-15); BUN 24 mg/dL (7-18); BUN/Creat Ratio 24.5 RATIO (10-20); Chloride 101 mmol/L (98-107); Creatinine, Serum 0.98 mg/dL (0.70-1.30); EST Glomerular Filtration Rate 79 mL/min (>60); Est Glom Filt Rate - Afr Amer 96 mL/min (>60); Glucose 103 mg/dL (74-106); Magnesium 2.2 mg/dL (1.6-2.6); Potassium 4.3 mmol/L (3.5-5.1); Sodium Level 139 mmol/L (136-145)
== END 2021-09-12 23:59 | disposition home or self-care (01) ==
PROVIDERS: Referring Provider Nurse Practitioner Gerontology; Visit Provider Nurse Practitioner Gerontology
DX: I50.9 Heart failure, unspecified (principal)
CPT/HCPCS: 36415; 80048; 83735

== ENCOUNTER 2021-10-09 10:15 | Emergency (ER) | payer OTHER, SELFPAY ==
[2021-10-09] VITALS (7 sets, daily range): BP systolic 100–119; BP diastolic 59–95; PULSE 70–77; RESP 18–24; TEMP 36.6; O2SAT 92–99; BMI 40.8
--- NOTE | 2021-10-09 10:47 | ED.VIS.CHEST ---
HPI History of Present Illness Chief Complaint: Chest Pain Informant: patient Onset/Context/Timing Onset: Days Activity at onset: gradual Timing: Intermittent Quality: Positive for Pressure Location: Substernal Worsened By: Nothing Relieved By: Nothing Associated Symptoms: Positive for Nausea, Dyspnea, Lightheadedness and Acid Reflux; Negative for Vomiting, Diaphoresis, Cough, Fever and Palpitations Narrative Narrative: Patient presents with chest pain that has been intermittent for the past few days. Patient states he has a history of congestive heart failure and pleural effusions. Patient states this feels similar to the episode he had in June where he was admitted and had a thoracentesis performed. Patient states he has gained approximately 9 pounds in the last 2-1/2 weeks and 5 pounds in the last 3 to 4 days. 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 Patient states he has pressure type pain in the substernal area that comes and goes. Patient states nothing makes it better nothing makes it worse. Patient admits to some shortness of breath that is worse with any activity. Patient admits to nausea but denies any vomiting. Patient admits to some lightheadedness. CVD Risk Factors: Positive for Hypertension and Hypercholesterolemia; Negative for Diabetes, Family History 1' </=55 and Smoking PE Risk Factors: Negative for Recent Travel/Surgery, Recent Immobilization, Prior DVT or PE, Cancer and OCP + Smoking + >/=35 PFSH PFSH Medical History A-fib CHF (congestive heart failure) Depression GERD (gastroesophageal reflux disease) HLD (hyperlipidemia) Home Medications fluticasone propionate 1 spray NASAL DAILY 05/04/13 [History Last Taken 10/09/21] guaifenesin [Mucus Relief ER] 400 mg PO TID 05/04/13 [History Last Taken 10/09/21] hydroxyzine pamoate 25 mg PO QHS PRN PRN 05/04/13 [History Last Taken 06/24/21] lisinopril 40 mg PO BID 05/04/13 [History Last Taken 10/09/21] alprazolam 0.25 mg PO BID PRN PRN 11/27/19 [History Last Taken 10/09/21] sennosides-docusate sodium 1 ea PO DAILY 11/27/19 [History Last Taken 10/09/21] vitamin E 400 unit PO DAILY 11/27/19 [History Last Taken 10/09/21] apixaban 5 mg PO BID 01/24/20 [History Last Taken 10/09/21] ascorbic acid (vitamin C) 1,000 mg PO DAILY@1200 03/14/20 [History Last Taken 10/09/21] bupropion HCl 300 mg PO DAILY 03/14/20 [History Last Taken 10/09/21] coenzyme Q10 200 mg PO DAILY 03/14/20 [History Last Taken 10/09/21] multivitamin with minerals 1 tab PO DAILY 03/14/20 [History Last Taken 10/09/21] cholecalciferol (vitamin D3) 125 mcg PO DAILY 06/25/21 [History Last Taken 10/09/21] omeprazole 40 mg PO BID 06/25/21 [History Last Taken 10/09/21] furosemide 60 mg PO BID #90 tab 06/28/21 [Rx Last Taken 10/08/21] potassium chloride [Klor-Con M20] 20 meq PO BIDCM #30 tab 06/28/21 [Rx Last Taken 10/09/21] metoprolol tartrate 25 mg tablet 25 mg PO BID 09/12/21 [History Last Taken 10/09/21] vitamins A,C,G-dvcx-shewhx 7,160 unit-113 mg-100 unit tablet 2 tab PO BID 09/12/21 [History Last Taken 10/09/21] furosemide [Lasix] 20 mg PO BID #20 tab 10/09/21 [Rx Last Taken Unknown] Allergy/AdvReac Type Severity Reaction Status Date / Time No Known Allergies Allergy Verified 09/12/21 13:38 Family History Mother Heart disease Social History Smoking Status: Former smoker ROS ROS ED Constitutional Constitutional ED: Denies chills or fever(s) Eyes Eyes: Reports blurry vision; Denies diplopia ENT ENT ED: Reports rhinorrhea; Denies sore throat Cardiovascular Cardiovascular: Reports chest pain; Denies palpitations Respiratory/Chest Respiratory/Chest: Reports dyspnea; Denies cough Gastrointestinal Gastrointestinal: Reports nausea; Denies abdominal pain or vomiting Genitourinary Genitourinary ED: Denies dysuria or hematuria Musculoskeletal Musculoskeletal: Reports back pain; Denies neck pain Integumentary Denies abscess or rash Neurologic Neurologic: Denies headache(s) or weakness Allergic/Immunologic Allergic/Immunologic ED: Denies mouth swelling or urticaria EXAM Physical Exam Const Vital Signs: 10/09/21 10:16 10/09/21 10:26 10/09/21 11:04 Temperature 97.9 F Temperature Source Temporal Pulse Rate 71 Respiratory Rate 24 H Blood Pressure 117/95 H Blood Pressure Mean 102 Pulse Ox 92 94 Oxygen Delivery Method Room Air Nasal Cannula Oxygen Flow Rate (L/min) 2 10/09/21 11:07 10/09/21 12:20 10/09/21 12:22 Temperature Temperature Source Pulse Rate 75 72 70 Respiratory Rate 18 18 Blood Pressure 117/59 L 119/64 113/75 Blood Pressure Mean 78 87 Pulse Ox 99 98 Oxygen Delivery Method Nasal Cannula Nasal Cannula Oxygen Flow Rate (L/min) 2 2 10/09/21 12:25 10/09/21 12:31 Temperature Temperature Source Pulse Rate 77 73 Respiratory Rate Blood Pressure 113/75 100/70 Blood Pressure Mean 80 Pulse Ox Oxygen Delivery Method Oxygen Flow Rate (L/min) Positive well nourished, well developed and obese General Appearance ED: well developed and NAD Nutritional Appearance: obese HEENT normocephalic and atraumatic Eyes PERRL and EOMs intact bilaterally Neck supple and no JVD Chest Wall palpation of chest normal Resp normal respiratory effort Effort and Inspection: Negative for respiratory distress Auscultation: diminished lung sounds right lower Cardio regular rate Rhythm: abnormal rhythm irregularly irregular GI normal to inspection, nondistended, normoactive bowel sounds, soft to palpation, non-tender and non-distended Extremity normal to inspection General Extremety ED: Negative for edema or tenderness General Extremity: Negative for edema Neuro oriented x3, CN's II-XII intact bilaterally and no sensory deficits noted Sensorium / Orientation: awake and alert Motor Exam: strength 5/5 throughout Psych mental status grossly normal Heart Score History: Moderately Suspicious ECG: Normal Age: >/= 65 years Risk Factors: 1 or 2 Risk Factors Troponin: </= Normal Limit Score: 4 MDM MDM MDM Narrative Medical decision making narrative: Patient was given aspirin here. Patient was given sublingual nitroglycerin. EKG was obtained. On my interpretation, it showed atrial fibrillation with a rate of 70. QRS interval and QTc intervals were normal. [place] was normal. There are no acute ST or T wave changes. Portable chest x-ray was obtained. There is 1 view. On my interpretation, there is a mild to moderate right pleural effusion. There is no acute infiltrate. There is some atelectasis noted. Bony thorax is normal. There is no cardiomegaly. CBC was within normal limits. Basic metabolic profile was essentially within normal limits. Initial high-sensitivity troponin was normal at 12. B-natriuretic peptide was 213. Patient states he did get some improvement of his chest pain with his nitroglycerin. Patient states he developed a headache after this. Patient states he still feels short of breath. Patient is on Eliquis. Patient has no PE risk factors. Case was discussed with the hospitalist. He recommended giving the patient 80 mg of Lasix IV here and increasing his Lasix to 80 mg twice daily at home. If the 2-hour repeat troponin is normal he feels the patient is safe for discharge and follow-up with his primary care physician as an outpatient. 2-hour repeat high-sensitivity troponin was normal at 12. Patient had some urine output after Lasix. Patient is able to sit up. Oxygen saturation is 96% on his normal oxygen. Patient was instructed to follow-up with his primary care physician in 5 to 7 days. Patient and family understood and were agreeable with the plan. All questions were answered. Lab Data Labs: Laboratory Results - last 24 hr 10/09/21 10/09/21 10/09/21 10:20 10:20 10:20 WBC 4.8 RBC 4.26 L Hgb 14.8 Hct 43.2 MCV 101.4 H MCH 34.7 H MCHC 34.3 RDW Std Deviation 55.8 H RDW Coeff of Eduard 14.8 H Plt Count 112 L MPV 9.9 Immature Gran % (Auto) 0.400 Neut % (Auto) 63.6 Lymph % (Auto) 11.9 L Orange % (Auto) 19.5 H Eos % (Auto) 4.2 Baso % (Auto) 0.4 Absolute Neuts (auto) 3.1 Absolute Lymphs (auto) 0.57 L Nucleated RBC % 0 Differential Comment SCANNED Sodium 138 Potassium 4.3 Chloride 99 Carbon Dioxide 33.0 H Anion Gap 6 BUN 16 Creatinine 0.94 Estim Creat Clear Calc 64.46 Est GFR (MDRD) Af Amer 100 Est GFR (MDRD) Non-Af 83 BUN/Creatinine Ratio 17.0 Glucose 119 H Calcium 9.4 Troponin I High Sens 12 B-Natriuretic Peptide 213.0 H 10/09/21 12:35 WBC RBC Hgb Hct MCV MCH MCHC RDW Std Deviation RDW Coeff of Eduard Plt Count MPV Immature Gran % (Auto) Neut % (Auto) Lymph % (Auto) Orange % (Auto) Eos % (Auto) Baso % (Auto) Absolute Neuts (auto) Absolute Lymphs (auto) Nucleated RBC % Differential Comment Sodium Potassium Chloride Carbon Dioxide Anion Gap BUN Creatinine Estim Creat Clear Calc Est GFR (MDRD) Af Amer Est GFR (MDRD) Non-Af BUN/Creatinine Ratio Glucose Calcium Troponin I High Sens 12 B-Natriuretic Peptide Radiography Diagnostic Testing: Clinical Impression(s) from Imaging Studies Chest X-Ray 10/09/21 10:54 IMPRESSION: Small to moderate right pleural effusion with overlying atelectasis which is slightly increased in size when compared with the prior exam. Electronically Signed: Mathew Estrada MD at 11:16 EDT , EKG Initial EKG: Attestation: I personally reviewed and interpreted this EKG as follows: Interpretation: No Acute Injury Pattern and Atrial Fibrillation (70) Prior EKG tracings: available for review Prior: Unchanged (06/25/2021) Discharge Plan Triage Chief Complaint: Chest Pain ED Provider: Bob Shea Dx/Rx/DC Orders Clinical Impression: Pleural effusion on right Instructions: ED Pleural Effusion Prescriptions: New furosemide [Lasix] 20 mg tablet 20 mg PO BID Qty: 20 RF: 0 No Action vitamins A,C,M-bfjo-qerdfv 7,160 unit- 113 mg-100 unit tablet 2 tab PO BID RF: 0 metoprolol tartrate 25 mg tablet 25 mg PO BID RF: 0 lisinopril 40 MG tablet 40 mg PO BID RF: 0 fluticasone propionate 1 SPRAY spray,suspension 1 spray NASAL DAILY RF: 0 hydroxyzine pamoate 25 MG capsule 25 mg PO QHS PRN PRN (Reason: Sleep) RF: 0 guaifenesin [Mucus Relief ER] 600 MG tablet 400 mg PO TID RF: 0 sennosides-docusate sodium 1 EACH tablet 1 ea PO DAILY RF: 0 alprazolam 0.25 MG tablet 0.25 mg PO BID PRN PRN (Reason: Anxiety) RF: 0 vitamin E 400 UNIT capsule 400 unit PO DAILY RF: 0 apixaban 5 MG tablet 5 mg PO BID RF: 0 ascorbic acid (vitamin C) 1,000 MG tablet 1,000 mg PO DAILY@1200 RF: 0 multivitamin with minerals 1 EACH tablet 1 tab PO DAILY RF: 0 bupropion HCl 300 MG tablet extended release 24 hr 300 mg PO DAILY RF: 0 coenzyme Q10 200 MG capsule 200 mg PO DAILY RF: 0 omeprazole 40 mg Capsule,Delayed Release(Dr/Ec) 40 mg PO BID RF: 0 cholecalciferol (vitamin D3) 125 mcg (5,000 unit) Capsule 125 mcg PO DAILY RF: 0 furosemide 40 MG tablet 60 mg PO BID Qty: 90 RF: 0 potassium chloride [Klor-Con M20] 20 mEq Tablet,Er Particles/Crystals 20 meq PO BIDCM Qty: 30 RF: 0 Primary Care Provider: [facility] Referrals: [facility] [Primary Care Provider] - 3-5 Days Activity Restrictions/Additional Instructions: Increase your Lasix to 80 mg twice daily. Disposition Disposition: Home, Self Care
--- NOTE | 2021-10-09 10:52 | EKG12_ITS ---
Test Reason : CP Blood Pressure : / mmHG Vent. Rate : 070 BPM Atrial Rate : 060 BPM P-R Int : 000 ms QRS Dur : 106 ms QT Int : 440 ms P-R-T Axes : 000 070 036 degrees QTc Int : 475 ms Atrial fibrillation Abnormal ECG When compared with ECG of 25-JUN-2021 11:08, Nonspecific T wave abnormality no longer evident in Anterior leads QT has shortened Confirmed by MARTITA ESCUDERO, EMILY ([id number]), editor publications DAT MCKINLEY ([id number]) on 10/14/2021 10:44:57 AM Referred By: YAA/NIMCO Confirmed By:EMILY ANDERS MD
--- NOTE | 2021-10-09 10:54 | RAD_ITS ---
STUDY: X-RAY CHEST REASON FOR EXAM: Male, 76 years old. Chest pain TECHNIQUE: Frontal view of the chest COMPARISON: 06/27/21 FINDINGS: There is a [id number] right pleural effusion with overlying atelectasis which is slightly increased in size when compared with the prior exam. The left lung is clear. There is no pneumothorax. The heart is stable in size. The visualized osseous structures are within normal limits. RAD/Chest 1 View (Portable) IMPRESSION: Small to moderate right pleural effusion with overlying atelectasis which is slightly increased in size when compared with the prior exam. Electronically Signed: Mathew Estrada MD at 11:16 EDT ,
[2021-10-09] MEDS: Aspirin 81 MG TAB.CHEW 324 MG PO (11:01)
[2021-10-09 11:12] LABS: Absolute Lymphocyte Count 0.57 X10^3/uL (0.83-4.51); Absolute Neutrophil Count 3.1 X10^3/uL (2.0-7.7); Basophil# 0.02 X10^3/uL; Basophil% 0.4 % (0-1); Eosinophils% 4.2 % (0-5); Hematocrit 43.2 % (40-54); Hemoglobin 14.8 g/dL (13.0-16.5); Lymphocyte # 0.57 X10^3/ul (0.83-4.51); Lymphocyte % 11.9 % (19-41); Mean Corp Hgb Conc 34.3 g/dL (32-36); Mean Corpuscular Hgb 34.7 pg (27.0-32.0); Mean Corpuscular Volume 101.4 fL (80-94); Mean Platelet Vol. 9.9 fl (6.2-12.0); Monocyte# 0.94 X10^3/uL; Monocyte% 19.5 % (0-10); NRBC Flagged by Analyzer 0 % (0-5); Neutrophil # 3.06 X10^3/uL (2.7-7.7); Neutrophil % 63.6 % (47-70); POSITIVE DIFFERENTIAL YES; Platelet Count 112 K/mm3 (150-450); RBC Distribution Width CV 14.8 % (11.6-14.6); RBC Distribution Width SD 55.8 fl (35.1-43.9); Red Blood Count 4.26 M/mm3 (4.6-6.2); White Blood Count 4.8 K/mm3 (4.4-11.0)
[2021-10-09 11:13] LABS: Differential Indicated SCAN CRITERIA MET
[2021-10-09 11:21] LABS: Anion Gap 6 (5-15); BUN 16 mg/dL (7-18); Calcium,Total 9.4 mg/dL (8.5-10.1); Chloride 99 mmol/L (98-107); Creatinine, Serum 0.94 mg/dL (0.70-1.30); EST Glomerular Filtration Rate 83 mL/min (>60); Est Glom Filt Rate - Afr Amer 100 mL/min (>60); Estimated Creatinine Clearance 64.46 ml/min; Glucose 119 mg/dL (74-106); Potassium 4.3 mmol/L (3.5-5.1); Sodium Level 138 mmol/L (136-145); Troponin-I HS 12 pg/mL (3.0-78.0)
[2021-10-09 11:42] LABS: Differential Comment SCANNED
[2021-10-09] MEDS: Nitroglycerin SL (ED/IMG/CATH) 0.4 MG TABLET SL ×2 (12:20→12:25)
[2021-10-09 13:01] LABS: Troponin-I HS 12 pg/mL (3.0-78.0)
[2021-10-09] MEDS: Furosemide 100 MG/10 ML Vial 80 MG IV (13:10)
== END 2021-10-09 14:55 | disposition home or self-care (01) ==
PROVIDERS: Emergency Provider Emergency Medicine; Visit Provider Emergency Medicine
DX: J90 Pleural effusion, not elsewhere classified (principal); I11.0 Hypertensive heart disease with heart failure; I50.9 Heart failure, unspecified; I48.91 Unspecified atrial fibrillation; E78.00 Pure hypercholesterolemia, unspecified; K21.9 Gastro-esophageal reflux disease without esophagitis; E66.9 Obesity, unspecified; Z79.01 Long term (current) use of anticoagulants; Z79.899 Other long term (current) drug therapy; Z87.891 Personal history of nicotine dependence
CPT/HCPCS: 71045; 80048; 83880; 84484; 85025; 93005; 96374; 99285; A4216; J1940

== ENCOUNTER → 2022-02-20 | Outpatient (CLI) | payer MEDICARE, SELFPAY ==
[2022-02-20 15:14] LABS: Anion Gap 5 (5-15); BNP,B-Type NATRIURETIC PEPTIDE 185.3 pg/mL (0-100); BUN 15 mg/dL (7-18); BUN/Creat Ratio 15.7 RATIO (10-20); Calcium,Total 8.9 mg/dL (8.5-10.1); Chloride 106 mmol/L (98-107); Creatinine, Serum 0.95 mg/dL (0.70-1.30); EST Glomerular Filtration Rate 82 mL/min (>60); Est Glom Filt Rate - Afr Amer 99 mL/min (>60); Glucose 90 mg/dL (74-106); Potassium 4.6 mmol/L (3.5-5.1); Sodium Level 139 mmol/L (136-145)
== END | disposition home or self-care (01) ==
PROVIDERS: Visit Provider Nurse Practitioner Gerontology
DX: R06.09 Other forms of dyspnea (principal)
CPT/HCPCS: 36415; 80048; 83880

== ENCOUNTER → 2022-06-26 | Outpatient (CLI) | payer MEDICARE, SELFPAY ==
--- NOTE | 2022-06-26 13:43 | RAD_ITS ---
INDICATION: SOB EXAMINATION: Frontal and lateral views of the chest. COMPARISON: Chest x-ray from October 09, 2021. FINDINGS: Frontal and lateral views of the chest were obtained. The cardiac silhouette is not enlarged. A moderate right pleural effusion is increased in size since prior exam. Associated atelectasis is at the right lung base with possible superimposed airspace disease. No pneumothorax. RAD/Chest PA and Lateral IMPRESSION: Moderate right pleural effusion with associated atelectasis. Superimposed infection or aspiration not excluded. Electronically Signed: Pj Barrett MD at 6:02 EST ,
== END | disposition home or self-care (01) ==
LOC: RAD 13:42
PROVIDERS: Referring Provider Physician Assistant Medical; Visit Provider Physician Assistant Medical
DX: R06.09 Other forms of dyspnea (principal)
CPT/HCPCS: 71046

== ENCOUNTER 2022-06-30 13:33 | Emergency (ER) | payer OTHER, SELFPAY ==
[2022-06-30] VITALS (7 sets, daily range): BP systolic 124–125; BP diastolic 64; PULSE 72–83; RESP 15–18; TEMP 37.3; O2SAT 93–98; BMI 38.7
--- NOTE | 2022-06-30 14:15 | EKG12_ITS ---
Test Reason : CP Blood Pressure : / mmHG Vent. Rate : 075 BPM Atrial Rate : 000 BPM P-R Int : 000 ms QRS Dur : 104 ms QT Int : 440 ms P-R-T Axes : 000 082 031 degrees QTc Int : 491 ms Atrial fibrillation Incomplete right bundle branch block Prolonged QT Abnormal ECG Confirmed by NAGA ESCUDERO, PALAK ([id number]), sports editor DAT MCKINLEY ([id number]) on 07/02/2022 9:37:45 AM Referred By: Confirmed By:PALAK NIELSON MD
--- NOTE | 2022-06-30 14:16 | RAD_ITS ---
STUDY: X-RAY CHEST REASON FOR EXAM: Male, 77 years old. Sob TECHNIQUE: PA and lateral views of the chest. COMPARISON: Comparison is made with prior study dated 06/26/2020. FINDINGS: EKG electrodes are seen. Stable left pleural effusion with left basilar infiltration and/or atelectasis. Normal size heart. Normal mediastinum and manuela. Normal visualized pulmonary arteries. There is atherosclerotic calcification of the aortic arch with tortuosity. Normal visualized thoracic spine. Normal visualized ribs, clavicles, and shoulders. There is no demonstrated abnormality of the visualized soft tissue structures of the upper abdomen. RAD/Chest PA and Lateral IMPRESSION: Stable pleural parenchymal changes at the right lung base. Electronically Signed: Haroldo Arana MD at 14:59 EST ,
[2022-06-30 14:28] LABS: Absolute Lymphocyte Count 0.73 X10^3/uL (0.83-4.51); Absolute Neutrophil Count 3.8 X10^3/uL (2.0-7.7); Basophil# 0.02 X10^3/uL; Basophil% 0.4 % (0-1); Eosinophil# 0.13 X10^3/uL; Eosinophils% 2.4 % (0-5); Hematocrit 42.5 % (40-54); Hemoglobin 13.8 g/dL (13.0-16.5); Lymphocyte # 0.73 X10^3/ul (0.83-4.51); Lymphocyte % 13.4 % (19-41); Mean Corp Hgb Conc 32.5 g/dL (32-36); Mean Corpuscular Hgb 30.5 pg (27.0-32.0); Mean Platelet Vol. 9.7 fl (6.2-12.0); Monocyte% 12.9 % (0-10); NRBC Flagged by Analyzer 0 % (0-5); Neutrophil # 3.83 X10^3/uL (2.7-7.7); Neutrophil % 70.5 % (47-70); Platelet Count 220 K/mm3 (150-450); RBC Distribution Width CV 15.2 % (11.6-14.6); Red Blood Count 4.52 M/mm3 (4.6-6.2); White Blood Count 5.4 K/mm3 (4.4-11.0)
[2022-06-30 14:42] LABS: BNP,B-Type NATRIURETIC PEPTIDE 162.1 pg/mL (0-100)
[2022-06-30 14:45] LABS: Anion Gap 4 (5-15); BUN 11 mg/dL (7-18); BUN/Creat Ratio 10.4 RATIO (10-20); Calcium,Total 9.1 mg/dL (8.5-10.1); Chloride 101 mmol/L (98-107); Creatinine, Serum 1.06 mg/dL (0.70-1.30); EST Glomerular Filtration Rate 72 mL/min (>60); Est Glom Filt Rate - Afr Amer 88 mL/min (>60); Glucose 91 mg/dL (74-106); Potassium 4.3 mmol/L (3.5-5.1); Sodium Level 137 mmol/L (136-145); Troponin-I HS (w/2H Reflex) 11 pg/mL (3.0-78.0)
--- NOTE | 2022-06-30 15:28 | ED.VIS.DYS ---
HPI History of Present Illness Chief Complaint: Shortness of Breath Informant: patient and spouse/S.O. Narrative Narrative: Patient is a 77 year old male with history of hypertension, chronic atrial fibrillation on Eliquis, aortic stenosis and CHF as well as pleural effusions requiring thoracentesis in the past is presenting for shortness of breath and thoracentesis. Patient states he had a follow-up appointment with his cardiology office on Wednesday (06/26). He was told he needs to hold his Eliquis and come in for thoracentesis. Patient states he has not had his Eliquis in 24 hours. He not had any medications today because he was told to hold his medicines. He is been having worsening shortness of breath, cough and dyspnea on exertion for the past few weeks. He does have some swelling of his legs but denies any testicular/scrotal edema. Over the weekend had pressure in the left side of his chest he continues to have a chest heaviness. Patient states last time he had thoracentesis they took a liter of fluid off. [facility] he needs to come in to the hospital. Patient has home oxygen that he tries not to wear during the day. [facility] Medical History A-fib CHF (congestive heart failure) Depression GERD (gastroesophageal reflux disease) HLD (hyperlipidemia) Home Medications fluticasone propionate 50 mcg/actuation nasal spray,suspension 1 spray DAILY nasal spray 05/04/13 [History Last Taken 10/09/21] guaifenesin 600 mg tablet, extended release 12 hr (Mucus Relief ER) 400 mg PO TID cough 05/04/13 [History Last Taken 10/09/21] hydroxyzine pamoate 25 mg capsule 25 mg PO QHS PRN PRN Sleep 05/04/13 [History Last Taken 06/24/21] lisinopril 40 mg tablet 40 mg PO BID blood pressure 05/04/13 [History Last Taken 10/09/21] alprazolam 0.25 mg tablet 0.25 mg PO BID PRN PRN Anxiety 11/27/19 [History Last Taken 10/09/21] sennosides 8.6 mg-docusate sodium 50 mg tablet 1 ea PO DAILY constipation 11/27/19 [History Last Taken 10/09/21] vitamin E 268 mg (400 unit) capsule 400 unit PO DAILY supplement 11/27/19 [History Last Taken 10/09/21] apixaban 5 mg tablet 5 mg PO BID anticoagulant 01/24/20 [History Last Taken 10/09/21] ascorbic acid (vitamin C) 1,000 mg tablet 1,000 mg PO DAILY@1200 SUPPLEMENT 03/14/20 [History Last Taken 10/09/21] bupropion HCl 300 mg 24 hr tablet, extended release 300 mg PO DAILY ANXIETY 03/14/20 [History Last Taken 10/09/21] coenzyme Q10 200 mg capsule 200 mg PO DAILY SUPPLEMENT 03/14/20 [History Last Taken 10/09/21] multivitamin with minerals 1 tab PO DAILY SUPPLEMENT 03/14/20 [History Last Taken 10/09/21] cholecalciferol (vitamin D3) 125 mcg (5,000 unit) capsule 125 mcg PO DAILY SUPPLEMENT 06/25/21 [History Last Taken 10/09/21] omeprazole 40 mg capsule,delayed release 40 mg PO BID GERD 06/25/21 [History Last Taken 10/09/21] potassium chloride 20 mEq tablet,extended release(part/cryst) (Klor-Con M) 20 meq PO BIDCM #30 tabs 06/28/21 [Rx Last Taken 10/09/21] metoprolol tartrate 25 mg tablet 25 mg PO BID 09/12/21 [History Last Taken 10/09/21] vitamins A,C,W-efwt-qrhhtx 2,148 mcg-113 mg-45 mg-17.4 mg tablet 2 tab PO BID 09/12/21 [History Last Taken 10/09/21] furosemide 20 mg tablet (Lasix) 60 mg PO BID 06/26/22 [History Last Taken Unknown] Allergy/AdvReac Type Severity Reaction Status Date / Time No Known Allergies Allergy Verified 06/30/22 13:34 Family History Mother Heart disease Social History Smoking Status: Former smoker ROS ROS ED Constitutional Constitutional ED: Denies chills or fever(s) Eyes Eyes: Denies change in vision ENT ENT ED: Denies rhinorrhea or sore throat Cardiovascular Cardiovascular: Reports chest pain; Denies palpitations Respiratory/Chest Respiratory/Chest: Reports cough, dyspnea and dyspnea on exertion; Denies sputum Gastrointestinal Gastrointestinal: Denies abdominal pain, nausea or vomiting Musculoskeletal Musculoskeletal: Denies arthralgias or myalgias Integumentary Denies rash Neurologic Neurologic: Denies headache(s) or weakness Psychiatric Psychiatric: Denies anxiety Hematologic/Lymphatic Hematologic/Lymphatic: Reports easy bleeding and easy bruising EXAM Physical Exam Const Vital Signs: 06/30/22 13:34 06/30/22 13:52 06/30/22 13:56 Temperature 99.1 F Temperature Source Temporal Pulse Rate 73 Respiratory Rate 15 Respiratory Effort Short of Breath Respiratory Depth Normal Respiratory Pattern Normal Blood Pressure 124/64 H Blood Pressure Mean 84 Pulse Ox 98 94 Oxygen Delivery Method Room Air Room Air Nasal Cannula Oxygen Flow Rate (L/min) 2 06/30/22 14:19 06/30/22 15:36 06/30/22 17:00 Temperature Temperature Source Pulse Rate 72 83 Respiratory Rate 18 15 Respiratory Effort Respiratory Depth Respiratory Pattern Blood Pressure Blood Pressure Mean Pulse Ox 98 98 96 Oxygen Delivery Method Nasal Cannula Nasal Cannula Nasal Cannula Oxygen Flow Rate (L/min) 2 2 Positive well nourished and well developed General Appearance ED: well developed and NAD HEENT Reports moist mucous membranes atraumatic Eyes PERRL and EOMs intact bilaterally Neck supple and no JVD Resp normal respiratory effort Auscultation: diminished lung sounds right lower; Negative for wheezes Cardio regular rate and regular rhythm Cardio Narrative: + murmur GI non-tender and non-distended Auscultation: normoactive bowel sounds Back/Spine no CVA tenderness Extremity Extremity Narrative: 1+ General Extremety ED: Yes edema; Negative for tenderness General Extremity: edema Neuro oriented x3 Neuro Narrative: No focal deficits appreciated Motor Exam: Negative for general weakness Psych mental status grossly normal Skin no wounds Rashes: no rashes MDM MDM MDM Narrative Medical decision making narrative: Patient's evaluated for shortness of breath and concern for needing a thoracentesis. Patient was under the instructions that he was supposed to come into the ER for evaluation for thoracentesis from his cardiology office. I spoke to his cardiology PA, Della Arroyo, who states that the patient does not need to be admitted for this. She will work on scheduling an outpatient thoracentesis for later in the week. Confirmed that the patient should take all of his medicines except for his Eliquis. Cardiac work-up here is stable. No signs of ACS, decompensated fluid overload or indications for admission. Patient counseled that he will be discharged home with outpatient follow-up for thoracentesis. He has home oxygen to wear. Patient and son are in agreement with this plan. Patient is charged home in stable condition. Lab Data Attestation: I reviewed the patient's lab results. Labs: Laboratory Results - last 24 hr 06/30/22 06/30/22 06/30/22 13:50 13:50 13:50 WBC 5.4 RBC 4.52 L Hgb 13.8 Hct 42.5 MCV 94.0 MCH 30.5 MCHC 32.5 RDW Std Deviation 52.0 H RDW Coeff of Eduard 15.2 H Plt Count 220 MPV 9.7 Immature Gran % (Auto) 0.400 Neut % (Auto) 70.5 H Lymph % (Auto) 13.4 L [place] % (Auto) 12.9 H Eos % (Auto) 2.4 Baso % (Auto) 0.4 Absolute Neuts (auto) 3.8 Absolute Lymphs (auto) 0.73 L Nucleated RBC % 0 Sodium 137 Potassium 4.3 Chloride 101 Carbon Dioxide 32.0 Anion Gap 4 L BUN 11 Creatinine 1.06 Estim Creat Clear Calc 56.30 Est GFR (MDRD) Af Amer 88 Est GFR (MDRD) Non-Af 72 BUN/Creatinine Ratio 10.4 Glucose 91 Calcium 9.1 Troponin I High Sens 11 B-Natriuretic Peptide 162.1 H 06/30/22 16:39 WBC RBC Hgb Hct MCV MCH MCHC RDW Std Deviation RDW Coeff of Eduard Plt Count MPV Immature Gran % (Auto) Neut % (Auto) Lymph % (Auto) [place] % (Auto) Eos % (Auto) Baso % (Auto) Absolute Neuts (auto) Absolute Lymphs (auto) Nucleated RBC % Sodium Potassium Chloride Carbon Dioxide Anion Gap BUN Creatinine Estim Creat Clear Calc Est GFR (MDRD) Af Amer Est GFR (MDRD) Non-Af BUN/Creatinine Ratio Glucose Calcium Troponin I High Sens 10 B-Natriuretic Peptide Radiography Chest X-Ray - ED: 2 View, Read by ED Physician, Read by Radiologist and Right Effusion Diagnostic Testing: Clinical Impression(s) from Imaging Studies Chest X-Ray 06/30/22 14:16 IMPRESSION: Stable pleural parenchymal changes at the right lung base. Electronically Signed: Haroldo Arana MD at 14:59 EST , Rhythm Strip Rhythm Strip: A-fib Rate: 75 Ectopy: None EKG Initial EKG: Attestation: I personally reviewed and interpreted this EKG as follows: Interpretation: Atrial Fibrillation Comments: Atrial fibrillation at a rate of 75 bpm Normal axis Normal QRS Prolonged QTC at 491 Right bundle branch block Normal ST segments Discharge Plan Triage Chief Complaint: Shortness of Breath ED Provider: Jordana Souza Dx/Rx/DC Orders Clinical Impression: Pleural effusion, right, NATHAN (dyspnea on exertion) Instructions: ED Pleural Effusion Prescriptions: No Action vitamins A,C,C-opmc-psszxk 7,160 unit- 113 mg-100 unit tablet 2 tab PO BID Rx Instructions: administer with AM and PM meals metoprolol tartrate 25 mg tablet 25 mg PO BID furosemide [Lasix] 20 mg tablet 60 mg PO BID lisinopril 40 MG tablet 40 mg PO BID fluticasone propionate 1 SPRAY spray,suspension 1 spray NASAL DAILY hydroxyzine pamoate 25 MG capsule 25 mg PO QHS PRN PRN (Reason: Sleep) guaifenesin [Mucus Relief ER] 600 MG tablet 400 mg PO TID sennosides-docusate sodium 1 EACH tablet 1 ea PO DAILY alprazolam 0.25 MG tablet 0.25 mg PO BID PRN PRN (Reason: Anxiety) vitamin E 400 UNIT capsule 400 unit PO DAILY apixaban 5 MG tablet 5 mg PO BID ascorbic acid (vitamin C) 1,000 MG tablet 1,000 mg PO DAILY@1200 multivitamin with minerals 1 EACH tablet 1 tab PO DAILY bupropion HCl 300 MG tablet extended release 24 hr 300 mg PO DAILY Label Comments: PT STATED STOPPED TAKING ABOUT 4 DAYS AGO. coenzyme Q10 200 MG capsule 200 mg PO DAILY omeprazole 40 mg Capsule,Delayed Release(Dr/Ec) 40 mg PO BID cholecalciferol (vitamin D3) 125 mcg (5,000 unit) Capsule 125 mcg PO DAILY potassium chloride [Klor-Con M20] 20 mEq Tablet,Er Particles/Crystals 20 meq PO BIDCM Qty: 30 0RF [facility] Provider[facility] - Activity Restrictions/Additional Instructions: Follow-up for outpatient thoracentesis as scheduled. Take all of your medicines except for your Eliquis. You will be contacted tomorrow or the following day with the appointment time for your thoracentesis. Wear your home oxygen as prescribed. Call your cardiology office if you have further questions or have us on-call for you. Disposition Disposition: Home, Self Care
[2022-06-30 16:24] LABS: Reflex Troponin-HS? (from REC) Y
[2022-06-30 17:06] LABS: Troponin-I HS 10 pg/mL (3.0-78.0)
== END 2022-06-30 17:31 | disposition home or self-care (01) ==
PROVIDERS: Emergency Provider Emergency Medicine; Visit Provider Emergency Medicine
DX: R06.02 Shortness of breath (principal); I11.0 Hypertensive heart disease with heart failure; I50.9 Heart failure, unspecified; E78.5 Hyperlipidemia, unspecified; Z87.891 Personal history of nicotine dependence; J90 Pleural effusion, not elsewhere classified
CPT/HCPCS: 71046; 80048; 83880; 84484; 85025; 93005; 99285; A4216

== ENCOUNTER → 2022-07-03 | Outpatient (CLI) | payer MEDICARE, SELFPAY ==
--- NOTE | 2022-07-03 13:18 | US_ITS ---
PROCEDURE: ULTRASOUND GUIDED THORACENTESIS. DATE: 07/03/2022. INDICATION: Male, 77 years old. Right pleural effusion PHYSICIAN: Haroldo Arana M.D. PROCEDURE: The risks, benefits, and alternatives to the procedure were explained to the patient. The specific risks of bleeding, infection, and pneumothorax requiring chest tube insertion were discussed and accepted. Written informed consent was obtained. Ultrasonographic evaluation of the right lower pleural space was carried out. An adequate pocket was identified. The patient was placed in the sitting, upright position. The overlying skin was prepped and draped in sterile fashion. 1% lidocaine was administered subcutaneously for local anesthesia. Under ultrasound guidance, a 5 [place] thoracentesis needle/catheter system was advanced into the right posterior lower pleural fluid collection. Approximately 1450 mL of belen-colored fluid was drained. The catheter was removed, and a sterile dressing was applied. The patient tolerated the procedure well. A chest x-ray was ordered. US/Thoracentesis W US IMPRESSION: Ultrasound-guided right thoracentesis. Electronically Signed: Haroldo Arana MD at 14:31 EST ,
[2022-07-03 13:36] VITALS: BP 117/33; BP 129/67; BP 135/59; PULSE 67; PULSE 73; PULSE 77; RESP 20; RESP 22; TEMP 36.6; O2SAT 96; O2SAT 99
[2022-07-03] MEDS: Lidocaine 1% (20 ml mdv) 20 ML Vial INFILT (13:44)
--- NOTE | 2022-07-03 13:55 | RAD_ITS ---
STUDY: X-RAY CHEST REASON FOR EXAM: Male, 77 years old. Post thora TECHNIQUE: AP inspiration and expiration views. COMPARISON: Comparison is made with prior examination dated 06/30/2022. FINDINGS: The patient is status post right thoracentesis. There is no evidence of pneumothorax. Mild residual pleural-parenchymal changes persist at the right lung base. RAD/Chest Insp/Exp 2 View IMPRESSION: Status post right thoracentesis. No evidence of pneumothorax. Mild residual pleural-parenchymal changes at the right lung base. Electronically Signed: Haroldo Arana MD at 14:55 EST ,
--- NOTE | 2022-07-03 14:13 | NURSING ---
Patient c/o rt sided chest pain 04/04 after chest xray cleared by DR. VALIENTE. Pt taken to [facility] bay for observation. Son brought back to sit with patient. Patient wish to remain seated in WC. Order for acetaminophen for pain, 03/04.
[2022-07-03 14:37] VITALS: BP 130/59; PULSE 88; RESP 24; O2SAT 94
--- NOTE | 2022-07-03 14:38 | NURSING ---
Patient continues to sit in wheelchair in holding bay with son at side. Pt has begun with forceful productive cough of clear sputum. Patient wants to hold on acetaminophen at this time due to frequent coughing. Lung sounds with increasing crackles on rt side into base where lungs were previously nearly completely diminished.
--- NOTE | 2022-07-03 14:50 | NURSING ---
Della Arroyo informed of patient's cough and vital signs. Agreement that likely secondary to volume of fluid removed and lung reexpansion.Audible secretions in upper airway, as patient continues to cough up clear sputum.
--- NOTE | 2022-07-03 15:22 | NURSING ---
Mike, LIFE ADVISOR, at bedside to evaluate patient. Also agrees that patient would not benefit from breathing treatment but pickle device could help. Patient given device and demonstrated use with teach back method. Della Wesley aware.
[2022-07-03 15:35] VITALS: BP 131/60; PULSE 95; RESP 20; O2SAT 94
--- NOTE | 2022-07-03 15:35 | NURSING ---
Patient states he feels well enough to go home. Patient is aware to continue to use PEP therapy and to return to ED if CP/SOB develops. Patient wheeled to elevator with son.
== END | disposition home or self-care (01) ==
LOC: US 13:16
PROVIDERS: Referring Provider Physician Assistant Medical; Visit Provider Physician Assistant Medical
DX: J90 Pleural effusion, not elsewhere classified (principal)
CPT/HCPCS: 32555; 71046

== ENCOUNTER → 2022-07-13 | Outpatient (CLI) | payer MEDICARE, SELFPAY ==
--- NOTE | 2022-07-13 12:34 | ECHOD_ITS ---
Reason For Study: MURMUR Procedure This was a 2D Doppler, Color Flow transthoracic echocardiogram. The study was technically difficult. Contrast injection was performed. Exam performed in department. Left Ventricle Based upon the 2D echocardiographic and contrast enhanced images obtained there appears to be grossly normal left ventricular size, wall motion, and systolic function. The estimated ejection fraction is 55 %. Diastolic function is indeterminate. Right Ventricle Normal RV size. Normal systolic function. Atria The left atrium is moderately enlarged. The right atrium is moderately enlarged. No doppler evidence for ASD. Mitral Valve There is moderate mitral annular calcification. Extension of the mitral annular calcification on the base of the posterior mitral valve leaflet. Mild (1+) mitral valve insufficiency. Tricuspid Valve Normal tricuspid valve. Moderate (2+) tricuspid valve insufficiency. Right ventricular systolic pressure estimated to be 58 mmHg. Aortic Valve Trisinus/trileaflet aortic valve. Mild diffuse aortic valve thickening. Moderate focal aortic valve calcification. Aortic valve sclerosis/mild aortic valve stenosis. Pulmonic Valve The pulmonic valve is not well visualized. Trivial pulmonic valve insufficiency. Great Vessels The aortic root is not well visualized. Pericardium/Pleural No pericardial effusion. Medication 22 gauge I.V. with prn adaptor inserted into right arm. Diluted definity 2ml given slow IV push to enhance endocardial definition. MMode/2D Measurements & Calculations LVOT diam: 2.0 cm LAV(MOD-sp4): 135.7 ml LVAd ap4: 25.2 cm2 LVOT area: 3.1 cm2 LVLd ap4: 8.2 cm EDV(MOD-sp4): 63.9 ml EDV(sp4-el): 65.3 ml LVAs ap4: 13.0 cm2 LVLs ap4: 6.5 cm ESV(MOD-sp4): 23.4 ml ESV(sp4-el): 22.1 ml EF(MOD-sp4): 63.3 % EF(sp4-el): 66.2 % SV(MOD-sp4): 40.4 ml SV(sp4-el): 43.2 ml LA A4 area: 35.3 cm2 LA dimension(2D): 5.7 cm RA A4 area: 32.1 cm2 Doppler Measurements & Calculations Med Peak E' Isaac: 128.8 cm/sec Ao V2 max: 200.2 cm/sec LV V1 max: 149.3 cm/sec Ao max P.2 mmHg LV V1 max P.9 mmHg Ao V2 mean: 146.2 cm/sec LV V1 mean P.1 mmHg Ao mean P.6 mmHg LV V1 mean: 106.8 cm/sec Ao V2 VTI: 48.1 cm LV V1 VTI: 31.9 cm AV (velocity ratio): 0.66 MICHEAL(I,D): 2.1 cm2 MICHEAL(V,D): 2.3 cm2 MR max isaac: 558.8 cm/sec SV(LVOT): 100.1 ml PA V2 max: 99.5 cm/sec MR max P.9 mmHg PA V2 mean: 63.4 cm/sec TR max isaac: 371.9 cm/sec TR max P.3 mmHg ECHO/Echo Complete Interpretation Summary The study was technically difficult. Contrast injection was performed. Based upon the 2D echocardiographic and contrast enhanced images obtained there appears to be grossly normal left ventricular size, wall motion, and systolic function. The estimated ejection fraction is 55 %. The left atrium is moderately enlarged. The right atrium is moderately enlarged. There is moderate mitral annular calcification. Extension of the mitral annular calcification on the base of the posterior mitr al valve leaflet. Mild (1+) mitral valve insufficiency. Moderate (2+) tricuspid valve insufficiency. Aortic valve sclerosis/mild aortic valve stenosis. Trivial pulmonic valve insufficiency. The aortic root is not well visualized. Right ventricular systolic pressure estimated to be 58 mmHg compatible with pul monary hypertension. Diastolic function is indeterminate. Ordering Physician: Della Arroyo Referring Physician: Della Arroyo Performed By: Shae Young RCS
== END | disposition home or self-care (01) ==
LOC: CVS 12:34
PROVIDERS: Referring Provider Physician Assistant Medical; Visit Provider Physician Assistant Medical
DX: I35.0 Nonrheumatic aortic (valve) stenosis (principal)
CPT/HCPCS: 93306; Q9957; A4216

== ENCOUNTER 2022-09-07 16:59 | Emergency (ER) | payer OTHER, SELFPAY ==
[2022-09-07 16:59] VITALS: BP 121/62; PULSE 71; RESP 19; TEMP 36.6; O2SAT 92; BMI 37.8
[2022-09-07 17:12] VITALS: BP 133/66; PULSE 74; RESP 20; O2SAT 99
--- NOTE | 2022-09-07 17:12 | EKG12_ITS ---
Test Reason : SOB Blood Pressure : / mmHG Vent. Rate : 074 BPM Atrial Rate : 000 BPM P-R Int : 000 ms QRS Dur : 116 ms QT Int : 426 ms P-R-T Axes : 000 061 024 degrees QTc Int : 472 ms Atrial fibrillation with premature ventricular or aberrantly conducted complexes Low voltage QRS (Limb Leads) Abnormal ECG Confirmed by NAGA ESCUDERO, PALAK ([id number]), legal editor DAT MCKINLEY ([id number]) on 09/08/2022 10:22:33 AM Referred By: Confirmed By:PALAK NIELSON MD
[2022-09-07 17:13] VITALS: O2SAT 98
[2022-09-07 17:24] LABS: Absolute Lymphocyte Count 0.49 X10^3/uL (0.83-4.51); Absolute Neutrophil Count 3.6 X10^3/uL (2.0-7.7); Basophil# 0.02 X10^3/uL; Basophil% 0.4 % (0-1); Eosinophil# 0.07 X10^3/uL; Eosinophils% 1.3 % (0-5); Hemoglobin 12.6 g/dL (13.0-16.5); Lymphocyte # 0.49 X10^3/ul (0.83-4.51); Lymphocyte % 9.3 % (19-41); Mean Corp Hgb Conc 31.5 g/dL (32-36); Mean Corpuscular Hgb 30.5 pg (27.0-32.0); Mean Corpuscular Volume 96.9 fL (80-94); Mean Platelet Vol. 9.2 fl (6.2-12.0); Monocyte# 1.09 X10^3/uL; Monocyte% 20.6 % (0-10); NRBC Flagged by Analyzer 0 % (0-5); POSITIVE DIFFERENTIAL YES; Platelet Count 160 K/mm3 (150-450); RBC Distribution Width SD 60.8 fl (35.1-43.9); Red Blood Count 4.13 M/mm3 (4.6-6.2); White Blood Count 5.3 K/mm3 (4.4-11.0)
[2022-09-07 17:25] LABS: Differential Indicated SCAN CRITERIA MET
[2022-09-07 17:40] LABS: Anion Gap 5 (5-15); BUN 16 mg/dL (7-18); BUN/Creat Ratio 15.8 RATIO (10-20); Calcium,Total 8.8 mg/dL (8.5-10.1); Chloride 101 mmol/L (98-107); Creatinine, Serum 1.01 mg/dL (0.70-1.30); EST Glomerular Filtration Rate 77 mL/min (>60); Est Glom Filt Rate - Afr Amer 93 mL/min (>60); Estimated Creatinine Clearance 63.19 ml/min; Glucose 127 mg/dL (74-106); Potassium 4.8 mmol/L (3.5-5.1); Sodium Level 137 mmol/L (136-145); Troponin-I HS 9 pg/mL (3.0-78.0)
--- NOTE | 2022-09-07 17:45 | RAD_ITS ---
EXAM: XR CHEST, 1 VIEW CLINICAL INDICATION: chest pain TECHNIQUE: Frontal view of the chest. This report was created using [employer] report generation technology. COMPARISON: 07.03.22 FINDINGS: LUNGS AND PLEURAL SPACES: Right pleural effusion. No pneumothorax. HEART: Unremarkable. Cardiac silhouette not enlarged. MEDIASTINUM: Central airways and mediastinal contour are unremarkable. BONES/JOINTS: Unremarkable. SOFT TISSUES: Unremarkable. RAD/Chest 1 View (Portable) IMPRESSION: Right pleural effusion. Electronically Signed: Christiano Castañeda MD at 18:32 EST ,
[2022-09-07 17:48] LABS: Differential Comment SCANNED
[2022-09-07 19:00] VITALS: BP 128/69; PULSE 87; RESP 18; O2SAT 99
--- NOTE | 2022-09-07 19:11 | ED.VIS.DYS ---
HPI History of Present Illness Chief Complaint: Shortness of Breath Narrative Narrative: 77-year-old male with dyspnea. He states he has had this before. He has a history of CHF, recurrent pleural effusion on the right. Patient states he has been gaining weight and has more edema. He also feels as if his effusion might have returned. His last thoracentesis was in June. He states prior to that it took about a year to come back. He has oxygen at home. He does not normally have to wear oxygen but he does have oxygen set up as needed and currently states he has been using 2 L for about 2 weeks. He states his symptoms however have only been going on for a week. No chest pain. [facility] Medical History A-fib CHF (congestive heart failure) Depression GERD (gastroesophageal reflux disease) HLD (hyperlipidemia) Home Medications fluticasone propionate 50 mcg/actuation nasal spray,suspension 1 spray DAILY nasal spray 05/04/13 [History Last Taken 10/09/21] guaifenesin 600 mg tablet, extended release 12 hr (Mucus Relief ER) 400 mg PO TID cough 05/04/13 [History Last Taken 10/09/21] hydroxyzine pamoate 25 mg capsule 25 mg PO QHS PRN PRN Sleep 05/04/13 [History Last Taken 06/24/21] lisinopril 40 mg tablet 40 mg PO BID blood pressure 05/04/13 [History Last Taken 10/09/21] alprazolam 0.25 mg tablet 0.25 mg PO BID PRN PRN Anxiety 11/27/19 [History Last Taken 10/09/21] sennosides 8.6 mg-docusate sodium 50 mg tablet 1 ea PO DAILY constipation 11/27/19 [History Last Taken 10/09/21] vitamin E 268 mg (400 unit) capsule 400 unit PO DAILY supplement 11/27/19 [History Last Taken 10/09/21] apixaban 5 mg tablet 5 mg PO BID anticoagulant 01/24/20 [History Last Taken 10/09/21] ascorbic acid (vitamin C) 1,000 mg tablet 1,000 mg PO DAILY@1200 SUPPLEMENT 03/14/20 [History Last Taken 10/09/21] bupropion HCl 300 mg 24 hr tablet, extended release 300 mg PO DAILY ANXIETY 03/14/20 [History Last Taken 10/09/21] coenzyme Q10 200 mg capsule 200 mg PO DAILY SUPPLEMENT 03/14/20 [History Last Taken 10/09/21] multivitamin with minerals 1 tab PO DAILY SUPPLEMENT 03/14/20 [History Last Taken 10/09/21] cholecalciferol (vitamin D3) 125 mcg (5,000 unit) capsule 125 mcg PO DAILY SUPPLEMENT 06/25/21 [History Last Taken 10/09/21] omeprazole 40 mg capsule,delayed release 40 mg PO BID GERD 06/25/21 [History Last Taken 10/09/21] potassium chloride 20 mEq tablet,extended release(part/cryst) (Klor-Con M) 20 meq PO BIDCM #30 tabs 06/28/21 [Rx Last Taken 10/09/21] metoprolol tartrate 25 mg tablet 25 mg PO BID 09/12/21 [History Last Taken 10/09/21] vitamins A,C,C-lcmp-qdzyxc 2,148 mcg-113 mg-45 mg-17.4 mg tablet 2 tab PO BID 09/12/21 [History Last Taken 10/09/21] furosemide 20 mg tablet (Lasix) 60 mg PO BID 06/26/22 [History Last Taken Unknown] Allergy/AdvReac Type Severity Reaction Status Date / Time No Known Allergies Allergy Verified 09/07/22 17:02 Family History Mother Heart disease Social History Smoking Status: Former smoker ROS ROS ED Constitutional Constitutional ED: Denies chills, fever(s) or sweats Eyes Eyes: Denies blurry vision or change in vision ENT ENT ED: Denies ear pain or sore throat Cardiovascular Cardiovascular: Denies chest pain, palpitations or racing heartbeat Respiratory/Chest Respiratory/Chest: Reports cough, dyspnea and dyspnea on exertion; Denies sputum Gastrointestinal Gastrointestinal: Denies abdominal pain, constipation, diarrhea, nausea or vomiting Genitourinary Genitourinary ED: Denies dysuria, hematuria or urinary frequency Musculoskeletal Musculoskeletal: Denies arthralgias, myalgias or neck pain Integumentary Denies abscess, Abrasions or rash Neurologic Neurologic: Denies headache(s), paresthesias or weakness Psychiatric Psychiatric: Denies anxiety, depression, suicidal ideation or suicidal thoughts Endocrine Endocrinology: Denies polydipsia or polyuria EXAM Physical Exam Const Vital Signs: 09/07/22 16:59 09/07/22 17:12 09/07/22 17:13 Temperature 98 F Temperature Source Temporal Pulse Rate 71 74 Respiratory Rate 19 H 20 H Blood Pressure 121/62 H 133/66 H Blood Pressure Mean 81 88 Pulse Ox 92 99 98 Oxygen Delivery Method Room Air Room Air Room Air 09/07/22 19:00 Temperature Temperature Source Pulse Rate 87 Respiratory Rate 18 Blood Pressure 128/69 H Blood Pressure Mean 88 Pulse Ox 99 Oxygen Delivery Method Room Air Positive well nourished General Appearance ED: NAD; Negative for pallor HEENT Reports moist mucous membranes atraumatic Eyes PERRL and EOMs intact bilaterally Resp normal respiratory effort and clear to auscultation bilaterally Auscultation: Negative for rales, rhonchi or wheezes Cardio regular rate and regular rhythm GI non-tender Extremity normal to inspection Neuro oriented x3 and CN's II-XII intact bilaterally Sensorium / Orientation: alert Motor Exam: strength 5/5 throughout Psych mental status grossly normal Skin no wounds and skin turgor normal General Skin Exam: Negative for jaundice or pallor MDM MDM MDM Narrative Medical decision making narrative: Patient presenting with shortness of breath. Differential at this point includes CHF, recurrent pleural effusion, ACS, pneumonia, viral sources although the patient is not having any fevers or coughs that are significant. I did obtain an EKG to assess for dysrhythmia and on my interpretation it shows atrial fibrillation at 74 bpm without sign of ischemic change. Patient has chronic A-fib. It is rate controlled. He is on Eliquis so I have little suspicion for PE. He is not complaining of chest pain either. CBC to assess white blood cell count, hemoglobin, differential. White blood count is normal. Hemoglobin is also within normal limits. Platelet count 160. MOVIE CRITIC to assess renal function and electrolytes. Renal function electrolytes are normal. High-sensitivity phone is 9. BNP 233. Chest x-ray on my interpretation shows a right pleural effusion. Was discussed with Dr. Harris. Last time he was here he was sent home for outpatient care and had a thoracentesis as an outpatient. Dr. Harris felt he could handle this as an outpatient as well. The patient is not hypoxic and he has home oxygen set up as needed. Patient is to hold his Eliquis and Dr. Harris will obtain an outpatient thoracentesis. He is to call the office tomorrow. Impression: 1. Recurrent pleural effusion 2. Dyspnea Lab Data Attestation: I reviewed the patient's lab results. Labs: Laboratory Results - last 24 hr 09/07/22 09/07/22 09/07/22 17:15 17:15 17:15 WBC 5.3 RBC 4.13 L Hgb 12.6 L Hct 40.0 MCV 96.9 H MCH 30.5 MCHC 31.5 L RDW Std Deviation 60.8 H RDW Coeff of Eduard 17.0 H Plt Count 160 MPV 9.2 Immature Gran % (Auto) 0.400 Neut % (Auto) 68.0 Lymph % (Auto) 9.3 L Warren % (Auto) 20.6 H Eos % (Auto) 1.3 Baso % (Auto) 0.4 Absolute Neuts (auto) 3.6 Absolute Lymphs (auto) 0.49 L Nucleated RBC % 0 Differential Comment SCANNED Sodium 137 Potassium 4.8 Chloride 101 Carbon Dioxide 31.0 Anion Gap 5 BUN 16 Creatinine 1.01 Estim Creat Clear Calc 63.19 Est GFR (MDRD) Af Amer 93 Est GFR (MDRD) Non-Af 77 BUN/Creatinine Ratio 15.8 Glucose 127 H Calcium 8.8 Troponin I High Sens 9 B-Natriuretic Peptide 233.0 H Radiography Diagnostic Testing: Clinical Impression(s) from Imaging Studies Chest X-Ray 09/07/22 17:45 IMPRESSION: Right pleural effusion. Electronically Signed: Christiano Castañeda MD at 18:32 EST Reading Location ID and State: [facility] / [place] , Service support , Discharge Plan Triage Chief Complaint: Shortness of Breath ED Provider: Ruben Felipe Dx/Rx/DC Orders Instructions: ED Pleural Effusion Prescriptions: No Action vitamins A,C,D-ruqn-cyqfkf 7,160 unit- 113 mg-100 unit tablet 2 tab PO BID Rx Instructions: administer with AM and PM meals metoprolol tartrate 25 mg tablet 25 mg PO BID furosemide [Lasix] 20 mg tablet 60 mg PO BID lisinopril 40 MG tablet 40 mg PO BID fluticasone propionate 1 SPRAY spray,suspension 1 spray NASAL DAILY hydroxyzine pamoate 25 MG capsule 25 mg PO QHS PRN PRN (Reason: Sleep) guaifenesin [Mucus Relief ER] 600 MG tablet 400 mg PO TID sennosides-docusate sodium 1 EACH tablet 1 ea PO DAILY alprazolam 0.25 MG tablet 0.25 mg PO BID PRN PRN (Reason: Anxiety) vitamin E 400 UNIT capsule 400 unit PO DAILY apixaban 5 MG tablet 5 mg PO BID ascorbic acid (vitamin C) 1,000 MG tablet 1,000 mg PO DAILY@1200 multivitamin with minerals 1 EACH tablet 1 tab PO DAILY bupropion HCl 300 MG tablet extended release 24 hr 300 mg PO DAILY Label Comments: PT STATED STOPPED TAKING ABOUT 4 DAYS AGO. coenzyme Q10 200 MG capsule 200 mg PO DAILY omeprazole 40 mg Capsule,Delayed Release(Dr/Ec) 40 mg PO BID cholecalciferol (vitamin D3) 125 mcg (5,000 unit) Capsule 125 mcg PO DAILY potassium chloride [Klor-Con M20] 20 mEq Tablet,Er Particles/Crystals 20 meq PO BIDCM Qty: 30 0RF [facility] Referrals: Solomon Lord MD [Med Staff - Active Staff] - [facility] soon as [facility] [Primary Care Provider] - Disposition Disposition: Home, Self Care
[2022-09-07 19:51] VITALS: O2SAT 98
[2022-09-07 20:23] VITALS: BP 106/66
== END 2022-09-07 20:25 | disposition home or self-care (01) ==
PROVIDERS: Emergency Provider Student in an Organized Health Care Education/Training Program; Visit Provider Student in an Organized Health Care Education/Training Program
DX: J90 Pleural effusion, not elsewhere classified (principal); I50.9 Heart failure, unspecified; R06.00 Dyspnea, unspecified; Z87.891 Personal history of nicotine dependence
CPT/HCPCS: 71045; 80048; 83880; 84484; 85025; 93005; 99284; A4216

== ENCOUNTER → 2022-09-11 | Outpatient (CLI) | payer MEDICARE, SELFPAY ==
--- NOTE | 2022-09-11 07:16 | US_ITS ---
PROCEDURE: ULTRASOUND GUIDED THORACENTESIS. DATE: 2022. INDICATION: Male, 77 years old. Right pleural effusion. PHYSICIAN: Haroldo Arana M.D. PROCEDURE: The risks, benefits, and alternatives to the procedure were explained to the patient. The specific risks of bleeding, infection, and pneumothorax requiring chest tube insertion were discussed and accepted. Written informed consent was obtained. Ultrasonographic evaluation of the right lower pleural space was carried out. An adequate pocket was identified. The patient was placed in the sitting, upright position. The overlying skin was prepped and draped in sterile fashion. 1% lidocaine was administered subcutaneously for local anesthesia. Under ultrasound guidance, a 5 Egyptian thoracentesis needle/catheter system was advanced into the right posterior lower pleural fluid collection. Approximately 1450 mL of belen-colored fluid was drained. The catheter was removed, and a sterile dressing was applied. The patient tolerated the procedure well. A chest x-ray was ordered. US/Thoracentesis W US IMPRESSION: Ultrasound-guided right thoracentesis. Electronically Signed: Haroldo Arana MD at 8:57 EST ,
[2022-09-11 08:09] VITALS: BP 121/60; BP 133/57; BP 135/61; PULSE 71; PULSE 72; PULSE 83; RESP 18; RESP 20; TEMP 37.1; O2SAT 92; O2SAT 95; O2SAT 96
--- NOTE | 2022-09-11 08:25 | RAD_ITS ---
STUDY: X-RAY CHEST REASON FOR EXAM: Male, 77 years old. POST THORA TECHNIQUE: AP inspiration and expiration views COMPARISON: Comparison is made with prior study dated 09/07/2022. FINDINGS: The patient is status post right thoracentesis. There is no evidence of pneumothorax. RAD/Chest Insp/Exp 2 View IMPRESSION: Status post right thoracentesis. No evidence of pneumothorax. Electronically Signed: Haroldo Arana MD at 8:46 EST ,
[2022-09-11] MEDS: Lidocaine 2% (20 ml mdv) 20 ML Vial INFILT (08:45)
== END | disposition home or self-care (01) ==
PROVIDERS: Referring Provider Physician Assistant Medical; Visit Provider Physician Assistant Medical
DX: J90 Pleural effusion, not elsewhere classified (principal); I48.20 Chronic atrial fibrillation, unspecified; I10 Essential (primary) hypertension; E78.5 Hyperlipidemia, unspecified
CPT/HCPCS: 32555; 71046

== ENCOUNTER → 2022-10-28 | Outpatient (CLI) | payer MEDICARE, SELFPAY ==
--- NOTE | 2022-10-28 13:50 | RAD_ITS ---
STUDY: X-RAY CHEST REASON FOR EXAM: Male, 77 years old. SOB TECHNIQUE: PA and lateral views of the chest. X-ray COMPARISON: September 11, 2022 FINDINGS: There is a persistent hazy groundglass appearance of the right midlung zone blunting of the right costophrenic angle. There is no demonstrated pleural abnormality. Normal size heart. Normal mediastinum and manuela. Normal visualized pulmonary arteries. There is atherosclerotic calcification of the aortic arch with tortuosity. Normal visualized thoracic spine. Normal visualized ribs, clavicles, and shoulders. There is no demonstrated abnormality of the visualized soft tissue structures of the upper abdomen. RAD/Chest PA and Lateral IMPRESSION: Findings suspicious for persistent moderate volume right effusion. Electronically Signed: Billie Mckenzie MD at 5:19 EDT ,
[2022-10-28 15:51] LABS: Anion Gap 7 (5-15); BUN 19 mg/dL (7-18); BUN/Creat Ratio 15.6 RATIO (10-20); Calcium,Total 9.5 mg/dL (8.5-10.1); Chloride 96 mmol/L (98-107); Creatinine, Serum 1.22 mg/dL (0.70-1.30); EST Glomerular Filtration Rate 62 mL/min (>60); Est Glom Filt Rate - Afr Amer 74 mL/min (>60); Glucose 113 mg/dL (74-106); Potassium 3.9 mmol/L (3.5-5.1); Sodium Level 134 mmol/L (136-145)
== END | disposition home or self-care (01) ==
PROVIDERS: Referring Provider Physician Assistant Medical; Visit Provider Physician Assistant Medical
DX: J90 Pleural effusion, not elsewhere classified (principal)
CPT/HCPCS: 36415; 71046; 80048

== ENCOUNTER 2022-11-09 07:32 | Outpatient (CLI) | payer MEDICARE, SELFPAY ==
--- NOTE | 2022-11-09 | FLU_PTH ---
PATIENT: TANMAY GABRIEL Sr. LOC: [facility]#:[id number] AGE/SX: 77/M ROOM: RE11/09/[address]: LIZ Acosta : 1945 BED: DIS: 11/09/2022 SPEC #: [id number] RECD: 11/09/22 11:35 STATUS: KEVIN ROCHELLE #: [id number] VICKEY: 11/09/22 00:[address]: Della Arroyo DEPT: CYTOLOGY RECD BY: Mookie Richards ENTERED: 11/09/22 11:35 SP TYPE: Fluid OTHR DR: [facility] Tissues: THORACIC FLUID Procedures: Special Stain Group II Surgery Specimen Level IV Cytospin Fluid HEADER OPERATION: Thoracentesis - right PRE-OP DIAGNOSIS: Right pleural effusion TISSUE SUBMITTED: Thoracentesis fluid for cytology DIAGNOSIS CYTOLOGY Thoracentesis fluid for cytology (cytospin and cell block): Polytypic lymphocytes present. See comment. AM:brian 11/10/2022 COMMENT Immunohistochemistry ([id number]) supports the above diagnosis. There is no evidence of lymphoproliferative disorder. Clinical correlation is suggested. CYTOLOGY STUDY Slides are reviewed. CYTOLOGY GROSS Received is 90 ml of red cloudy fluid labeled with the patient's name and and designated per the requisition as thoracentesis. Submitted for cytology preparation including cell block. / brian 11/09/2022 TC:5 CPT: 24777
--- NOTE | 2022-11-09 | IMM_PTH ---
PATIENT: TANMAY GABRIEL Sr. LOC: [facility]#:[id number] AGE/SX: 77/M ROOM: RE11/09/[address]: LIZ Acosta : 1945 BED: DIS: 11/09/2022 SPEC #: [id number] RECD: 11/10/22 11:47 STATUS: KEVIN REQ #: [id number] VICKEY: 11/09/22 00:[address]: Della Arroyo DEPT: IMMUNOHISTOCHEMISTRY RECD BY: Nai Amato ENTERED: 11/10/22 11:49 SP TYPE: IMMUNO OTHR DR: [facility] Tissues: THORACIC FLUID Procedures: BCL-2 (add) Rolly Ret (add) CD138 (add) CD20 (add) CD3 (add) CD45 (add) CD5 (add) CD79A (add) KI-67 (add) P53 (add) Pankeratin (initial) PHYSICIAN & INSTITUTION [address] [address] SPECIMEN INFORMATION: Tissue Source: Thoracentesis fluid Clinical Info: Right pleural effusion Specimen Number: [id number] CPT code: 99928, 31849 x10 METHODOLOGY: Deparaffinized sections of prefer/formalin-fixed tissue or PAP/DQ stained slides are incubated with monoclonal/polyclonal antibodies/oligonucleotide probes. Localization is made via biotin free immunoperoxidase method. Appropriate controls are performed and reacted as expected. Results on target cell population are indicated in the following table: RESULTS: ANTIBODY / CLONE RESULT AE1-3 (AE1/AE3/PCK26) negative CD3 (PS1) positive CD5 (SP10) positive CD20 (L26) negative CD45 (RP2/18) positive CD79a (11E3) positive, small population of lymphocytes CD138 (B-A38) negative BCL-2 (bcl-2/100/D5) positive, small population of lymphocytes CALRET (polyclonal) negative P53 (DO-7) negative Ki-67 (30-9) negative These tests were developed and their performance characteristics determined by [facility]. They may not have been cleared or approved by the U.S. Food and Drug Administration. The FDA has determined that such clearance or approval is not necessary. The above immunohistochemical/dualISH markers are ordered and reviewed by the Pathologist. INTERPRETATION: Thoracentesis fluid (cell block): Polytypic (benign) lymphoid cell population. AM:brian 11/11/2022
--- NOTE | 2022-11-09 07:34 | US_ITS ---
PROCEDURE: ULTRASOUND GUIDED THORACENTESIS. DATE: November 09, 2022.. INDICATION: Male, 77 years old. Right pleural effusion. PHYSICIAN: Haroldo Arana M.D. PROCEDURE: The risks, benefits, and alternatives to the procedure were explained to the patient. The specific risks of bleeding, infection, and pneumothorax requiring chest tube insertion were discussed and accepted. Written informed consent was obtained. Ultrasonographic evaluation of the right lower pleural space was carried out. An adequate pocket was identified. The patient was placed in the sitting, upright position. The overlying skin was prepped and draped in sterile fashion. 1% lidocaine was administered subcutaneously for local anesthesia. Under ultrasound guidance, a 5 Bahamian thoracentesis needle/catheter system was advanced into the right posterior lower pleural fluid collection. Approximately 1270 mL of belen-colored fluid was drained. The catheter was removed, and a sterile dressing was applied. A specimen was collected and sent to the laboratory for analysis, as requested by the referring clinician. The patient tolerated the procedure well. A chest x-ray was ordered. US/Thoracentesis W US IMPRESSION: Ultrasound-guided right thoracentesis. Electronically Signed: Haroldo Arana MD at 8:52 EDT ,
[2022-11-09 08:15] VITALS: BP 116/45; BP 118/43; BP 120/46; PULSE 65; PULSE 69; RESP 18; RESP 20; O2SAT 100; O2SAT 98
[2022-11-09] MEDS: Lidocaine 2% (20 ml mdv) 20 ML Vial INFILT (08:17)
--- NOTE | 2022-11-09 08:30 | RAD_ITS ---
STUDY: X-RAY CHEST REASON FOR EXAM: Male, 77 years old. Pneumothorax -- immediately post thoracentesis TECHNIQUE: AP inspiration and expiration views. COMPARISON: Comparison is made with prior study dated October 28, 2022. FINDINGS: The patient is status post right thoracentesis. No evidence of pneumothorax. RAD/Chest Insp/Exp 2 View IMPRESSION: No evidence of pneumothorax on the post right thoracentesis images. Electronically Signed: Haroldo Arana MD at 8:50 EDT ,
[2022-11-09 08:49] LABS: Cytology, Body Fluid / CSF SEE PATHOLOGY REPORT
[2022-11-09 09:31] LABS: Body Fluid Mononuclear WBC # 1.558 10^3/uL; Body Fluid Mononuclear WBC % 99.2 %; Body Fluid Polynuclear WBC # 0.013 10^3/uL; Body Fluid Polynuclear WBC % 0.8 %; Body Fluid Total Cells Counted 1.591 10^3/ul; Red Cell Count/Body Fluid 0.003 10^6/ul; White Blood Count/Body Fluid 1.571 10^3/uL
[2022-11-09 09:33] LABS: LDH,Body Fluid 111 Units/l (Not Establ.); Protein, Body Fluid 3.6 g/dL (Not Establ.)
[2022-11-09 11:20] LABS: Auto B Fluid Analyzer BKGD Ct COUNTS W/IN LIMITS (W/IN LIMITS); Lymphocytes 89 %; Macrophages 7 %; Monocytes 2 %; Neutrophil (Segs) 2 %
[2022-11-09 11:21] LABS: Appearance/Body Fluid CLEAR; Color/Body Fluid YELLOW; Source- Body Fluid THORACENTESIS
[2022-11-09 11:23] LABS: Body Fluid QC Type(s) BF1Q
[2022-11-12 09:35] LABS: Pathologist Comment/Body Fluid Reviewed
== END 2022-11-09 23:59 | disposition home or self-care (01) ==
PROVIDERS: Referring Provider Physician Assistant Medical; Visit Provider Physician Assistant Medical
DX: J90 Pleural effusion, not elsewhere classified (principal); R06.09 Other forms of dyspnea
CPT/HCPCS: 32555; 71046; 83615; 84157; 87070; 87075; 87205; 88108; 88305; 88313; 88341; 88342; 89050

== ENCOUNTER → 2023-01-20 | Outpatient (CLI) | payer MEDICARE, SELFPAY ==
[2023-01-20 12:05] LABS: Anion Gap 4 (5-15); BUN 18 mg/dL (7-18); BUN/Creat Ratio 15.1 RATIO (10-20); Calcium,Total 9.4 mg/dL (8.5-10.1); Chloride 98 mmol/L (98-107); Creatinine, Serum 1.19 mg/dL (0.70-1.30); EST Glomerular Filtration Rate 63 mL/min (>60); Est Glom Filt Rate - Afr Amer 77 mL/min (>60); Glucose 102 mg/dL (74-106); Potassium 5.1 mmol/L (3.5-5.1); Sodium Level 132 mmol/L (136-145)
== END | disposition home or self-care (01) ==
LOC: LAB 10:53
PROVIDERS: Referring Provider Physician Assistant Medical; Visit Provider Physician Assistant Medical
DX: J90 Pleural effusion, not elsewhere classified (principal)
CPT/HCPCS: 36415; 80048

== ENCOUNTER 2023-01-22 12:46 | Observation (INO) | payer OTHER, SELFPAY ==
[2023-01-22 12:47] VITALS: BP 91/45; PULSE 65; RESP 16; TEMP 36.4; O2SAT 98
--- NOTE | 2023-01-22 13:04 | EKG12_ITS ---
Test Reason : SOB Blood Pressure : / mmHG Vent. Rate : 062 BPM Atrial Rate : 000 BPM P-R Int : 000 ms QRS Dur : 104 ms QT Int : 432 ms P-R-T Axes : 000 064 042 degrees QTc Int : 438 ms Atrial fibrillation Abnormal ECG Confirmed by MARTITA ESCUDERO, EMILY ([id number]), book or script editor DAT MCKINLEY ([id number]) on 01/25/2023 12:45:27 PM Referred By: Confirmed By:EMILY ANDERS MD
--- NOTE | 2023-01-22 13:07 | ED.VIS.DYS ---
HPI History of Present Illness Chief Complaint: Shortness of Breath Informant: patient Narrative Narrative: Patient sent to the ED for evaluation after speaking with his cardiology team, Della. History of CHF and chronic A-fib on Eliquis. He is on Lasix 40 mg twice a day, spironolactone daily. No missed doses. He chronically sleeps on a recliner. States feels like his heart failure. Denies cough. Denies chest pains. Stated blood work done yesterday. Cardiology checks and 1 daily. Today due to borderline blood pressure sent to the ED. He states he has had multiple thoracentesis in the past the last time was in October. States it was done as an outpatient. Does not wear any home oxygen. He denies any worsening leg swelling. [facility] Medical History A-fib CHF (congestive heart failure) Depression GERD (gastroesophageal reflux disease) HLD (hyperlipidemia) Recurrent right pleural effusion Home Medications fluticasone propionate 50 mcg/actuation nasal spray,suspension 1 spray DAILY nasal spray 05/04/13 [History Last Taken 01/21/23] guaifenesin 600 mg tablet, extended release 12 hr (Mucus Relief ER) 400 mg PO TID cough 05/04/13 [History Last Taken 01/22/23] lisinopril 40 mg tablet 40 mg PO 1XD blood pressure 05/04/13 [History Last Taken 10/09/21] sennosides 8.6 mg-docusate sodium 50 mg tablet 1 ea PO DAILY PRN Constipation 11/27/19 [History Last Taken 01/22/23] vitamin E 268 mg (400 unit) capsule 400 unit PO DAILY supplement 11/27/19 [History Last Taken 01/22/23] apixaban 5 mg tablet 5 mg PO BID anticoagulant 01/24/20 [History Last Taken 01/22/23] ascorbic acid (vitamin C) 1,000 mg tablet 1,000 mg PO DAILY@1200 SUPPLEMENT 03/14/20 [History Last Taken 01/22/23] bupropion HCl 300 mg 24 hr tablet, extended release 300 mg PO DAILY ANXIETY 03/14/20 [History Last Taken 01/22/23] coenzyme Q10 200 mg capsule 200 mg PO DAILY SUPPLEMENT 03/14/20 [History Last Taken 01/22/23] multivitamin with minerals 1 tab PO DAILY SUPPLEMENT 03/14/20 [History Last Taken 10/09/21] cholecalciferol (vitamin D3) 125 mcg (5,000 unit) capsule 125 mcg PO DAILY SUPPLEMENT 06/25/21 [History Last Taken 01/22/23] omeprazole 40 mg capsule,delayed release 40 mg PO BID GERD 06/25/21 [History Last Taken 01/22/23] potassium chloride 20 mEq tablet,extended release(part/cryst) (Klor-Con M) 20 meq PO BIDCM #30 tabs 06/28/21 [Rx Last Taken 01/22/23] metoprolol tartrate 25 mg tablet 25 mg PO BID 09/12/21 [History Last Taken 01/22/23] vitamins A,C,A-xkos-ixzhry 2,148 mcg-113 mg-45 mg-17.4 mg tablet 2 tab PO BID 09/12/21 [History Last Taken 01/22/23] furosemide 20 mg tablet (Lasix) See Rx Instructions PO BID 10/29/22 [History Last Taken 01/22/23] spironolactone 25 mg tablet 25 mg PO DAILY #30 tabs 11/11/22 [Rx Last Taken 01/22/23] Allergy/AdvReac Type Severity Reaction Status Date / Time No Known Allergies Allergy Verified 01/22/23 12:49 Family History Mother Heart disease Social History Smoking Status: Former smoker ROS ROS ED Constitutional Constitutional ED: Denies chills, fever(s) or sweats Eyes Eyes: Denies change in vision ENT ENT ED: Denies dysphagia or sore throat Cardiovascular Cardiovascular: Denies chest pain, leg edema, palpitations or racing heartbeat Respiratory/Chest Respiratory/Chest: Reports dyspnea; Denies cough or dyspnea on exertion Gastrointestinal Gastrointestinal: Denies abdominal pain, diarrhea, nausea or vomiting Genitourinary Genitourinary ED: Denies dysuria, hematuria or urinary frequency Musculoskeletal Musculoskeletal: Denies back pain, extremity pain or neck pain Integumentary Denies rash or wounds Neurologic Neurologic: Denies headache(s), paresthesias or weakness EXAM Physical Exam Const Vital Signs: 01/22/23 12:47 01/22/23 12:48 01/22/23 13:02 Temperature 97.5 F L Temperature Source Temporal Pulse Rate 65 Respiratory Rate 16 Respiratory Effort Short of Breath Short of Breath Labored Respiratory Depth Normal Respiratory Pattern Normal Blood Pressure 91/45 L Blood Pressure Mean 60 Pulse Ox 98 Oxygen Delivery Method Room Air Room Air Room Air 01/22/23 14:22 Temperature Temperature Source Pulse Rate 65 Respiratory Rate 20 H Respiratory Effort Respiratory Depth Respiratory Pattern Blood Pressure 106/54 L Blood Pressure Mean 71 Pulse Ox Oxygen Delivery Method Positive well nourished and well developed General Appearance ED: well developed and NAD HEENT Reports moist mucous membranes normocephalic and atraumatic Eyes PERRL, EOMs intact bilaterally and conjunctivae normal General Eye ED: Yes normal appearance of both eyes Neck no lymphadenopathy and supple General: Negative for tenderness Chest Wall Chest: Negative for tenderness Resp normal respiratory effort and normal air movement Resp Narrative: No blunting of sounds, breath sounds heard down to the lower lobes. Effort and Inspection: symmetric chest movement; Negative for respiratory distress Cardio regular rate, regular rhythm and no murmurs Peripheral Pulses: pulses 2+ throughout GI normal to inspection, nondistended, normoactive bowel sounds and non-tender Palpation: Negative for guarding or rebound tenderness present Back/Spine no CVA tenderness and no thoracic nor lumbar tenderness Extremity normal to inspection Extremity Narrative: Minimal bilateral lower extremity edema. General Extremety ED: Yes edema; Negative for tenderness General Extremity: edema Neuro oriented x3 and no sensory deficits noted Sensorium / Orientation: awake and alert Skin no rashes or lesions noted and no wounds MDM MDM MDM Narrative Medical decision making narrative: Interventions / MDM: Differential diagnosis: CHF, dyspnea, atrial fibrillation Diagnosis considered but do not suspect: Pulmonary embolism however he is on Eliquis and no missed doses. No pneumonia symptoms. My EKG interpretation: Rate controlled A-fib 62, no ST or T wave changes. Imaging independently reviewed and interpreted by myself: 2 view chest x-ray: Right pleural effusion also read by radiology. External documents reviewed: Echocardiogram June 2022 EF 55% preserved ejection fraction unable to determine of diastolic dysfunction per report. Test considered but not ordered:N/A ED course: Patient unable to be on room air blood pressure arrival 91/45. History of CHF minimal leg edema. Chronic recliner therefore unable to tell me if any orthopnea. Work-up initiated. Chest x-ray recurrent pleural effusion. BNP 206. Creatinine 1.2. Sodium 131. Hemoglobin 12.1. Re-evaluation: Patient placed on 2 L from nursing with ambulatory, is down to 93%, however he had increasing shortness of breath with walking. Discussion he wears 2 L oxygen at night but he has been wearing more throughout the day of the last 2 weeks. With his blood pressure in the 90s difficult to increase diuresis. I discussed with hospitalist Dr. Aguero who evaluated patient in the ED, patient admitted to PCU for further management. Disposition discussed with patient/family/significant other: Patient Case discussed with consulting clinician: Hospitalist This note was generated with [employer] dictation software. It may contain incorrect words, spelling, and punctuation that were not noted in checking the note before signing. Lab Data Labs: Laboratory Results - last 24 hr 01/22/23 13:00 WBC 7.3 RBC 3.79 L Hgb 12.1 L Hct 37.6 L MCV 99.2 H MCH 31.9 MCHC 32.2 RDW Std Deviation 50.8 H RDW Coeff of Eduard 13.9 Plt Count 247 MPV 9.0 Immature Gran % (Auto) 1.100 H Neut % (Auto) 75.6 H Lymph % (Auto) 7.2 L [place] % (Auto) 14.3 H Eos % (Auto) 1.4 Baso % (Auto) 0.4 Absolute Neuts (auto) 5.5 Absolute Lymphs (auto) 0.52 L Nucleated RBC % 0 PT 15.8 H INR 1.3 APTT 38.7 H Sodium 131 L Potassium 4.5 Chloride 95 L Carbon Dioxide 28.0 Anion Gap 8 BUN 20 H Creatinine 1.20 Est GFR (MDRD) Af Amer 76 Est GFR (MDRD) Non-Af 63 BUN/Creatinine Ratio 16.7 Glucose 99 Calcium 9.3 Troponin I High Sens 6 B-Natriuretic Peptide 206.2 H Radiography Diagnostic Testing: Clinical Impression(s) from Imaging Studies Chest X-Ray 01/22/23 13:16 IMPRESSION: Interval increase in the right pleural effusion with right basilar atelectasis. Electronically Signed: Haroldo Arana MD at 13:40 EDT , Discharge Plan Triage Chief Complaint: Shortness of Breath ED Provider: Sumit Ibarra Dx/Rx/DC Orders Clinical Impression: Recurrent right pleural effusion, NATHAN (dyspnea on exertion), Atrial fibrillation, chronic, (HFpEF) heart failure with preserved ejection fraction, Hyponatremia Prescriptions: No Action vitamins A,C,W-vziv-qdrhet 7,160 unit- 113 mg-100 unit tablet 2 tab PO BID Rx Instructions: administer with AM and PM meals metoprolol tartrate 25 mg tablet 25 mg PO BID Patient Comments: PT STATED DELLA ARROYO'S OFFICE CALLED HIM THIS MORNING AFTER HE'D TAKEN TODAY'S DOSE AND TOLD HIM TO STOP TAKING THIS MED lisinopril 40 MG tablet 40 mg PO 1XD Rx Instructions: Decreased to once a day per Della Arroyo PA 12/23/22 via backline fluticasone propionate 1 SPRAY spray,suspension 1 spray NASAL DAILY guaifenesin [Mucus Relief ER] 600 MG tablet 400 mg PO TID sennosides-docusate sodium 1 EACH tablet 1 ea PO DAILY PRN (Reason: Constipation) vitamin E 400 UNIT capsule 400 unit PO DAILY apixaban 5 MG tablet 5 mg PO BID ascorbic acid (vitamin C) 1,000 MG tablet 1,000 mg PO DAILY@1200 multivitamin with minerals 1 EACH tablet 1 tab PO DAILY bupropion HCl 300 MG tablet extended release 24 hr 300 mg PO DAILY Patient Comments: PT STATED STOPPED TAKING ABOUT 4 DAYS AGO. coenzyme Q10 200 MG capsule 200 mg PO DAILY omeprazole 40 mg Capsule,Delayed Release(Dr/Ec) 40 mg PO BID cholecalciferol (vitamin D3) 125 mcg (5,000 unit) Capsule 125 mcg PO DAILY potassium chloride [Klor-Con M20] 20 mEq Tablet,Er Particles/Crystals 20 meq PO BIDCM Qty: 30 0RF furosemide [Lasix] 20 mg tablet See Rx Instructions PO BID Rx Instructions: 80 mg in the AM and 40 mg 4-6 hours later spironolactone 25 mg tablet 25 mg PO DAILY Qty: 30 11RF [facility]: [facility] Provider] - Disposition Disposition: Acute Care Hospital [facility] [place] [facility]
--- NOTE | 2023-01-22 13:16 | RAD_ITS ---
STUDY: X-RAY CHEST REASON FOR EXAM: Male, 77 years old. History of CHF. Increasing shortness of breath. TECHNIQUE: PA and lateral views of the chest. COMPARISON: Comparison is made with prior study October 28, 2022. FINDINGS: EKG electrodes are seen. Decreasing right pleural effusion with right basilar atelectasis. There is no demonstrated pleural abnormality. Calcification of the mitral valve annulus. Normal mediastinum and manuela. Normal visualized pulmonary arteries. There is atherosclerotic tortuosity of the aortic arch and descending thoracic aorta. There are diffuse degenerative changes of the visualized thoracic spine. Normal visualized ribs, clavicles, and shoulders. There is no demonstrated abnormality of the visualized soft tissue structures of the upper abdomen. RAD/Chest PA and Lateral IMPRESSION: Interval increase in the right pleural effusion with right basilar atelectasis. Electronically Signed: Haroldo Arana MD at 13:40 EDT ,
[2023-01-22 13:17] LABS: Absolute Lymphocyte Count 0.52 X10^3/uL (0.83-4.51); Absolute Neutrophil Count 5.5 X10^3/uL (2.0-7.7); Basophil# 0.03 X10^3/uL; Basophil% 0.4 % (0-1); Eosinophils% 1.4 % (0-5); Hematocrit 37.6 % (40-54); Hemoglobin 12.1 g/dL (13.0-16.5); Lymphocyte # 0.52 X10^3/ul (0.83-4.51); Lymphocyte % 7.2 % (19-41); Mean Corp Hgb Conc 32.2 g/dL (32-36); Mean Corpuscular Hgb 31.9 pg (27.0-32.0); Mean Corpuscular Volume 99.2 fL (80-94); Monocyte# 1.04 X10^3/uL; Monocyte% 14.3 % (0-10); NRBC Flagged by Analyzer 0 % (0-5); Neutrophil # 5.49 X10^3/uL (2.7-7.7); Neutrophil % 75.6 % (47-70); POSITIVE DIFFERENTIAL YES; Platelet Count 247 K/mm3 (150-450); RBC Distribution Width CV 13.9 % (11.6-14.6); RBC Distribution Width SD 50.8 fl (35.1-43.9); Red Blood Count 3.79 M/mm3 (4.6-6.2); White Blood Count 7.3 K/mm3 (4.4-11.0)
[2023-01-22 13:19] LABS: Differential Indicated SCAN CRITERIA MET
[2023-01-22 13:27] LABS: International Normalized Ratio 1.3; Prothrombin Time (Protime)PT. 15.8 SECONDS (11.7-14.9)
[2023-01-22 13:29] LABS: Partial Thromboplast Time 38.7 Seconds (24.1-36.2)
[2023-01-22 13:35] LABS: Anion Gap 8 (5-15); BUN 20 mg/dL (7-18); BUN/Creat Ratio 16.7 RATIO (10-20); Calcium,Total 9.3 mg/dL (8.5-10.1); Chloride 95 mmol/L (98-107); EST Glomerular Filtration Rate 63 mL/min (>60); Est Glom Filt Rate - Afr Amer 76 mL/min (>60); Glucose 99 mg/dL (74-106); Potassium 4.5 mmol/L (3.5-5.1); Sodium Level 131 mmol/L (136-145); Troponin-I HS 6 pg/mL (3.0-78.0)
[2023-01-22 13:52] LABS: BNP,B-Type NATRIURETIC PEPTIDE 206.2 pg/mL (0-100)
[2023-01-22 14:22] VITALS: BP 106/54; PULSE 65; RESP 20; O2SAT 100
[2023-01-22 14:28] VITALS: BMI 34.3
--- NOTE | 2023-01-22 15:33 | NURSING ---
DR REYNA REECE
--- NOTE | 2023-01-22 16:02 | PCM.HP.STD ---
[facility] - General General Date of Service: 01/22/23 Chief Complaint: short of breath HPI Narrative TANMAY GABRIEL, is a 77 M who presents with progressive shortness of breath. Patient describes been getting more short of breath over the past few days. Patient did have oxygen which she did use only at night but has been instructed to use it during the day. He has a history of CHF and they have increased his furosemide to 80 mg twice a day but also continuing his other medications, including spironolactone, lisinopril and metoprolol. Patient's blood pressure was noted to be low and he was instructed to stop his metoprolol. Patient was instructed come to the emergency room. In the emergency room, patient was 98% on room air, chest x-ray showed a right-sided pleural effusion. Patient received no treatment in the emergency room. The ER contacted the hospital service for admission. [facility] Medical History A-fib CHF (congestive heart failure) Depression GERD (gastroesophageal reflux disease) HLD (hyperlipidemia) Recurrent right pleural effusion Home Medications fluticasone propionate 50 mcg/actuation nasal spray,suspension 1 spray DAILY nasal spray 05/04/13 [History Last Taken 01/21/23] guaifenesin 600 mg tablet, extended release 12 hr (Mucus Relief ER) 400 mg PO TID cough 05/04/13 [History Last Taken 01/22/23] lisinopril 40 mg tablet 40 mg PO 1XD blood pressure 05/04/13 [History Last Taken 10/09/21] sennosides 8.6 mg-docusate sodium 50 mg tablet 1 ea PO DAILY PRN Constipation 11/27/19 [History Last Taken 01/22/23] vitamin E 268 mg (400 unit) capsule 400 unit PO DAILY supplement 11/27/19 [History Last Taken 01/22/23] apixaban 5 mg tablet 5 mg PO BID anticoagulant 01/24/20 [History Last Taken 01/22/23] ascorbic acid (vitamin C) 1,000 mg tablet 1,000 mg PO DAILY@1200 SUPPLEMENT 03/14/20 [History Last Taken 01/22/23] bupropion HCl 300 mg 24 hr tablet, extended release 300 mg PO DAILY ANXIETY 03/14/20 [History Last Taken 01/22/23] coenzyme Q10 200 mg capsule 200 mg PO DAILY SUPPLEMENT 03/14/20 [History Last Taken 01/22/23] multivitamin with minerals 1 tab PO DAILY SUPPLEMENT 03/14/20 [History Last Taken 10/09/21] cholecalciferol (vitamin D3) 125 mcg (5,000 unit) capsule 125 mcg PO DAILY SUPPLEMENT 06/25/21 [History Last Taken 01/22/23] omeprazole 40 mg capsule,delayed release 40 mg PO BID GERD 06/25/21 [History Last Taken 01/22/23] potassium chloride 20 mEq tablet,extended release(part/cryst) (Klor-Con M) 20 meq PO BIDCM #30 tabs 06/28/21 [Rx Last Taken 01/22/23] metoprolol tartrate 25 mg tablet 25 mg PO BID 09/12/21 [History Last Taken 01/22/23] vitamins A,C,I-isox-tndepk 2,148 mcg-113 mg-45 mg-17.4 mg tablet 2 tab PO BID 09/12/21 [History Last Taken 01/22/23] furosemide 20 mg tablet (Lasix) See Rx Instructions PO BID 10/29/22 [History Last Taken 01/22/23] spironolactone 25 mg tablet 25 mg PO DAILY #30 tabs 11/11/22 [Rx Last Taken 01/22/23] Allergy/AdvReac Type Severity Reaction Status Date / Time No Known Allergies Allergy Verified 01/22/23 12:49 Family History Mother Heart disease Social History Smoking Status: Former smoker ROS ROS Narrative No lower extremity edema. All review of systems were negative except as mentioned above in the history of present illness and the other review of systems. Vital Signs Vital Signs Vital Signs: 01/22/23 12:47 01/22/23 12:48 01/22/23 13:02 Temperature 36.4 C L Temperature Source Temporal Pulse Rate 65 Respiratory Rate 16 Respiratory Effort Short of Breath Short of Breath Labored Respiratory Depth Normal Respiratory Pattern Normal Blood Pressure 91/45 L Blood Pressure Mean 60 Pulse Ox 98 Oxygen Delivery Method Room Air Room Air Room Air 01/22/23 14:22 Temperature Temperature Source Pulse Rate 65 Respiratory Rate 20 H Respiratory Effort Respiratory Depth Respiratory Pattern Blood Pressure 106/54 L Blood Pressure Mean 71 Pulse Ox Oxygen Delivery Method Weight Weight: 105.6 kg Body Mass Index (BMI) 34.3 Physical Exam Const alert and no apparent distress HEENT normocephalic and head/scalp atraumatic Resp normal respiratory effort and no retractions Cardio regular rate, regular rhythm, S1 normal heart sound and S2 normal heart sound GI normal to inspection, nondistended, normoactive bowel sounds, soft to palpation, non-tender and non-distended Extremity normal to inspection Results Lab / Micro Data 01/22/23 13:00 01/22/23 13:00 Labs: Laboratory Results - last 24 hr 01/22/23 13:00: WBC 7.3, RBC 3.79 L, Hgb 12.1 L, Hct 37.6 L, MCV 99.2 H, MCH 31.9, MCHC 32.2, RDW Std Deviation 50.8 H, RDW Coeff of Eduard 13.9, Plt Count 247, MPV 9.0, Immature Gran % (Auto) 1.100 H, Neut % (Auto) 75.6 H, Lymph % (Auto) 7.2 L, [place] % (Auto) 14.3 H, Eos % (Auto) 1.4, Baso % (Auto) 0.4, Absolute Neuts (auto) 5.5, Absolute Lymphs (auto) 0.52 L, Nucleated RBC % 0, PT 15.8 H, INR 1.3, APTT 38.7 H, Sodium 131 L, Potassium 4.5, Chloride 95 L, Carbon Dioxide 28.0, Anion Gap 8, BUN 20 H, Creatinine 1.20, Est GFR (MDRD) Af Amer 76, Est GFR (MDRD) Non-Af 63, BUN/Creatinine Ratio 16.7, Glucose 99, Calcium 9.3, Troponin I High Sens 6, B-Natriuretic Peptide 206.2 H Radiology Impression Chest X-Ray 01/22/23 13:16 IMPRESSION: Interval increase in the right pleural effusion with right basilar atelectasis. Electronically Signed: Haroldo Arana MD at 13:40 EDT , Assessment & Plan Assessment/Plan (1) Recurrent right pleural effusion: PLAN: Patient has previously had a right-sided thoracentesis back in October. Patient is on furosemide and spironolactone. His furosemide has been recently increased. Patient has had pleural fluid protein and LDH performed, however there is no serum of those laboratories. (2) NATHAN (dyspnea on exertion): PLAN: Patient was dyspneic but does have oxygen at home and has been using it at home. I was informed that the patient was ambulated and did not drop his oxygen though he was noted to be tachypneic. On room air. Check an ambulatory pulse ox in the morning. (3) Hypotension: QUALIFIERS: Hypotension type: hypotension due to drug Qualified Code(s): I95.2 - Hypotension due to drugs PLAN: I suspect due to his medications, appears he was taking 40 mg of lisinopril. They will be held in addition to his metoprolol for now. Also hold off on his diuretics. Given his pleural effusion, can hold off on any additional fluids unless it becomes necessary. PLAN: Plan Chronic conditions atrial fibrillation: Currently in A-fib, rate controlled. Continue with apixaban for now. Would hold that prior to a thoracentesis. Metoprolol to be held for now. GERD: Continue PPI Depression: Continue with bupropion Hyperlipidemia VTE prophylaxis: Not indicated as patient is already anticoagulated. CODE STATUS: Addressed with patient. Patient wished to be full code. Disposition: Discussed with the patient that he is being brought in under observation status. Patient to be observed overnight to monitor his blood pressure as well as his oxygen level. Did explain to the patient that this may potentially result in a higher co-pay after discharge. I did have ER social work look into this and they were not able to give me from number as to what that could potentially be but that he would be billed afterwards. Is unclear if his [facility] coverage would cover this. He expressed understanding that that may potentially to a higher co-pay and is okay with staying here rather than [facility]. Patient also understands that if he does state that he would not have a thoracentesis until the earliest being Wednesday. Charges/Coding Visit Charges Inpatient E&M: 29360 Init Hosp L2
[2023-01-22 16:04] VITALS: BP 94/48; PULSE 72; RESP 16; TEMP 36.4; O2SAT 98
--- NOTE | 2023-01-22 16:10 | NURSING ---
PCU OBS REYNA RECURRRENT RIGHT PLEURAL EFFUSION
--- NOTE | 2023-01-22 16:16 | CM.ED ---
Social Work SW was notified by RN that patient was having trouble with portable tanks at home and not using oxygen when leaving his home. SW spoke with patient who said he has 4 small portable tanks that are not working. Pt reports he has a large tank and concentrator that works. ED had no available portable tanks, however; patient to now be admitted and SW can follow up for discharge planning. Violeta Harden KAIAKO KOHANGA REO, STUDIO CAMERA OPERATOR
[2023-01-22 16:35] VITALS: BP 96/61; PULSE 72; RESP 20; TEMP 36.8; O2SAT 99
[2023-01-22 16:55] VITALS: BMI 32.2
[2023-01-22] MEDS: Potassium Chloride Oral Tablet 20 MEQ PO (19:16)
[2023-01-22 20:00] VITALS: BP 99/60; PULSE 76; RESP 18; TEMP 35.7; O2SAT 100
[2023-01-22] MEDS: Pantoprazole Sodium 40 MG Tablet PO (21:43)
[2023-01-22] MEDS: guaiFENesin 10 ML UDC (200MG/10ML) 20 ML PO (21:43)
[2023-01-22] MEDS: Acetaminophen 325 MG Tablet 650 MG PO (21:43)
[2023-01-22 23:17] VITALS: BP 105/58; PULSE 74; RESP 16; TEMP 35.9; O2SAT 100
[2023-01-23] MEDS: Acetaminophen 325 MG Tablet 650 MG PO ×3 (03:43→19:39)
[2023-01-23 05:33] VITALS: BMI 32.3
[2023-01-23 06:00] VITALS: BP 101/60; PULSE 74; RESP 16; TEMP 35.7; O2SAT 100
[2023-01-23] MEDS: guaiFENesin 10 ML UDC (200MG/10ML) 20 ML PO ×3 (06:33→21:38)
[2023-01-23 07:11] VITALS: O2SAT 98
[2023-01-23 07:18] LABS: Anion Gap 7 (5-15); BUN 22 mg/dL (7-18); BUN/Creat Ratio 20.6 RATIO (10-20); Chloride 97 mmol/L (98-107); Creatinine, Serum 1.07 mg/dL (0.70-1.30); EST Glomerular Filtration Rate 72 mL/min (>60); Est Glom Filt Rate - Afr Amer 87 mL/min (>60); Estimated Creatinine Clearance 61.59 ml/min; Glucose 108 mg/dL (74-106); Potassium 4.3 mmol/L (3.5-5.1); Sodium Level 132 mmol/L (136-145)
--- NOTE | 2023-01-23 08:13 | PN.HOSP_ITS ---
Reason for Visit Reason for Visit: Diagnoses Hypotension due to drugs (01/22/23) Pleural effusion, not elsewhere classified (01/22/23) Other forms of dyspnea (01/22/23) Subjective Subjective urinating frequently. still with NATHAN. Objective Data Objective Data Vital Signs: Vital Signs Temp Pulse Resp BP Pulse Ox O2 Del Method O2 Flow Rate 35.7 C L 74 16 101/60 98 Nasal Cannula 3 01/23/23 06:00 01/23/23 06:00 01/23/23 06:00 01/23/23 06:00 01/23/23 07:11 01/23/23 07:11 01/23/23 07:11 Oxygen Flow Rate (L/min) 3 Oxygen Delivery Method Nasal Cannula Weight: 102.2 kg Body Mass Index (BMI) 32.3 Intake & Output: Intake and Output for Last 24 Hours 01/21/23 01/22/23 01/23/23 23:59 23:59 23:59 Intake Total 250 / 250 20 / 20 Output Total 100 / 100 500 / 500 Balance 150 / 150 -480 / -480 Lab / Micro Data 01/22/23 13:00 01/23/23 05:21 Labs: Laboratory Results - last 24 hr 01/22/23 13:00: WBC 7.3, RBC 3.79 L, Hgb 12.1 L, Hct 37.6 L, MCV 99.2 H, MCH 31.9, MCHC 32.2, RDW Std Deviation 50.8 H, RDW Coeff of Eduard 13.9, Plt Count 247, MPV 9.0, Immature Gran % (Auto) 1.100 H, Neut % (Auto) 75.6 H, Lymph % (Auto) 7.2 L, [place] % (Auto) 14.3 H, Eos % (Auto) 1.4, Baso % (Auto) 0.4, Absolute Neuts (auto) 5.5, Absolute Lymphs (auto) 0.52 L, Nucleated RBC % 0, PT 15.8 H, INR 1.3, APTT 38.7 H, Sodium 131 L, Potassium 4.5, Chloride 95 L, Carbon Dioxide 28.0, Anion Gap 8, BUN 20 H, Creatinine 1.20, Est GFR (MDRD) Af Amer 76, Est GFR (MDRD) Non-Af 63, BUN/Creatinine Ratio 16.7, Glucose 99, Calcium 9.3, Troponin I High Sens 6, B-Natriuretic Peptide 206.2 H 01/23/23 05:21: Sodium 132 L, Potassium 4.3, Chloride 97 L, Carbon Dioxide 28.0, Anion Gap 7, BUN 22 H, Creatinine 1.07, Estim Creat Clear Calc 61.59, Est GFR (MDRD) Af Amer 87, Est GFR (MDRD) Non-Af 72, BUN/Creatinine Ratio 20.6 H, Glucose 108 H, Calcium 9.0 Radiography Diagnostic Testing: Radiology Impression Chest X-Ray 01/22/23 13:16 IMPRESSION: Interval increase in the right pleural effusion with right basilar atelectasis. Electronically Signed: Haroldo Arana MD at 13:40 EDT , Physical Exam Const alert and no apparent distress Resp normal respiratory effort, no retractions, no use of accessory muscles and clear to auscultation bilaterally Cardio regular rate, regular rhythm, S1 normal heart sound and S2 normal heart sound GI normal to inspection, nondistended, normoactive bowel sounds, soft to palpation, non-tender and non-distended Extremity normal to inspection Assessment & Plan Assessment/Plan (1) Recurrent right pleural effusion: PLAN: Patient has previously had a right-sided thoracentesis back in October. Patient is on furosemide and spironolactone. His furosemide has been recently increased. Patient has had pleural fluid protein and LDH performed, however there is no serum of those laboratories. Plan for thoracentesis on 01/25. Add furosemide back. (2) NATHAN (dyspnea on exertion): PLAN: Patient was dyspneic but does have oxygen at home and has been using it at home. I was informed that the patient was ambulated and did not drop his oxygen though he was noted to be tachypneic. On room air. Check an ambulatory pulse ox in the morning. (3) Hypotension: QUALIFIERS: Hypotension type: hypotension due to drug Qualified Code(s): I95.2 - Hypotension due to drugs PLAN: I suspect due to his medications, appears he was taking 40 mg of lisinopril. They will be held in addition to his metoprolol for now. Also hold off on his diuretics. Given his pleural effusion, can hold off on any additional fluids unless it becomes necessary. PLAN: Plan Chronic conditions * atrial fibrillation: Currently in A-fib, rate controlled. Continue with apixaban for now. Would hold that prior to a thoracentesis. Metoprolol to be held for now. * GERD: Continue PPI * Depression: Continue with bupropion * Hyperlipidemia VTE prophylaxis: Not indicated as patient is already anticoagulated. CODE STATUS: Addressed with patient. Patient wished to be full code. Charges/Coding Visit Charges Inpatient E&M: 46396 Subs Hosp L2
[2023-01-23 09:10] VITALS: BP 102/45; PULSE 80; RESP 16; TEMP 36.6; O2SAT 97
[2023-01-23] MEDS: Potassium Chloride Oral Tablet 20 MEQ PO ×2 (09:38→17:04)
[2023-01-23] MEDS: Fluticasone 0.05% 1 SPRAY NASAL.SRY NASAL (09:38)
[2023-01-23] MEDS: Pantoprazole Sodium 40 MG Tablet PO ×2 (09:39→21:39)
[2023-01-23] MEDS: Ascorbic Acid 500 MG Tablet 1000 MG PO (09:40)
[2023-01-23] MEDS: buPROPion (XL) 300 MG TABLET.XL PO (09:40)
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
--- NOTE | 2023-01-23 10:55 | CASEMGMT ---
SAUL VARGAS: RICKS form reviewed with pt. Form signed, original placed in the chart and copy provided to pt. Luca Flores RN CM
--- NOTE | 2023-01-23 11:22 | CASEMGMT ---
Social Work SW introduced self and role to patient. SW completed SDOH assessment with patient. Pt denies any concerns but does have interest in home delivered meals. SW provided resources regarding meal delivery. Violeta Harden [employer], [employer]
[2023-01-23] MEDS: Furosemide 40 MG Tablet PO ×2 (12:23→17:05)
[2023-01-23 15:25] VITALS: BP 100/59; PULSE 89; RESP 16; TEMP 36.4; O2SAT 100
[2023-01-23 19:38] VITALS: BP 116/60; PULSE 99; RESP 16; TEMP 35.9; O2SAT 99
[2023-01-24] VITALS (9 sets, daily range): BP systolic 112–131; BP diastolic 58–76; PULSE 74–84; RESP 16–17; TEMP 35.8–36.9; O2SAT 96–100; BMI 32.5
[2023-01-24] MEDS: Acetaminophen 325 MG Tablet 650 MG PO ×2 (07:03→21:01)
[2023-01-24] MEDS: guaiFENesin 10 ML UDC (200MG/10ML) 20 ML PO ×3 (07:03→21:01)
[2023-01-24 07:24] LABS: Anion Gap 7 (5-15); BUN 17 mg/dL (7-18); BUN/Creat Ratio 15.6 RATIO (10-20); Calcium,Total 9.4 mg/dL (8.5-10.1); Chloride 97 mmol/L (98-107); Creatinine, Serum 1.09 mg/dL (0.70-1.30); EST Glomerular Filtration Rate 70 mL/min (>60); Est Glom Filt Rate - Afr Amer 85 mL/min (>60); Estimated Creatinine Clearance 60.46 ml/min; Glucose 124 mg/dL (74-106); Sodium Level 131 mmol/L (136-145)
--- NOTE | 2023-01-24 08:00 | PN.HOSP_ITS ---
Reason for Visit Reason for Visit: Diagnoses Hypotension due to drugs (01/22/23) Pleural effusion, not elsewhere classified (01/22/23) Other forms of dyspnea (01/22/23) Subjective Subjective Feels better. Objective Data Objective Data Vital Signs: Vital Signs Temp Pulse Resp BP Pulse Ox O2 Del Method O2 Flow Rate 35.8 C L 81 16 131/64 H 100 Nasal Cannula 2 01/24/23 07:04 01/24/23 07:04 01/24/23 07:04 01/24/23 07:04 01/24/23 07:04 01/24/23 07:04 01/24/23 07:04 Oxygen Flow Rate (L/min) 2 Oxygen Delivery Method Nasal Cannula Weight: 102.7 kg Body Mass Index (BMI) 32.5 Intake & Output: Intake and Output for Last 24 Hours 01/22/23 01/23/23 01/24/23 23:59 23:59 23:59 Intake Total 250 / 250 20 / 240 240 / 240 Output Total 100 / 100 800 / 800 500 / 500 Balance 150 / 150 -780 / -560 -260 / -260 Lab / Micro Data 01/22/23 13:00 01/24/23 05:50 Labs: Laboratory Results - last 24 hr 01/24/23 05:50: Sodium 131 L, Potassium 4.0, Chloride 97 L, Carbon Dioxide 27.0, Anion Gap 7, BUN 17, Creatinine 1.09, Estim Creat Clear Calc 60.46, Est GFR (MDRD) Af Amer 85, Est GFR (MDRD) Non-Af 70, BUN/Creatinine Ratio 15.6, Glucose 124 H, Calcium 9.4 Physical Exam Const alert and no apparent distress HEENT head/scalp atraumatic Resp normal respiratory effort Resp Narrative: diminished in RLL w DTP Cardio regular rate, regular rhythm, S1 normal heart sound and S2 normal heart sound Assessment & Plan Assessment/Plan (1) Recurrent right pleural effusion: PLAN: Patient has previously had a right-sided thoracentesis back in October. Patient is on furosemide and spironolactone. His furosemide has been recently increased. Patient has had pleural fluid protein and LDH performed, however there is no serum of those laboratories. Plan for thoracentesis on 01/25. Check pleural fluid LDH, protein, Cx, cell count and cytology. Serum LDH 139. Check serum protein. Continue furosemide. Resume spironolactone. Hold K as I am restarting spironolactone and K+ is 4 today. (2) NATHAN (dyspnea on exertion): PLAN: Patient was dyspneic but does have oxygen at home and has been using it at home. I was informed that the patient was ambulated and did not drop his oxygen though he was noted to be tachypneic. On room air. Check an ambulatory pulse ox in the morning. (3) Hypotension: QUALIFIERS: Hypotension type: hypotension due to drug Qualified Code(s): I95.2 - Hypotension due to drugs PLAN: Improved I suspect due to his medications, appears he was taking 40 mg of lisinopril. Continue to hold lisinopril Resume metoprolol tartrate 25 BID, w hold parameters. Given his pleural effusion, can hold off on any additional fluids unless it becomes necessary. PLAN: Plan Chronic conditions * atrial fibrillation: Currently in A-fib, rate controlled. Hold apixaban for a thoracentesis. Metoprolol to be held for now. * GERD: Continue PPI * Depression: Continue with bupropion * Hyperlipidemia VTE prophylaxis: Not indicated as patient is already anticoagulated. CODE STATUS: Addressed with patient. Patient wished to be full code. Charges/Coding Visit Charges Inpatient E&M: 20852 Subs Hosp L2
--- NOTE | 2023-01-24 08:01 | US_ITS ---
PROCEDURE: ULTRASOUND GUIDED THORACENTESIS. DATE: January 25, 2023. INDICATION: Male, 77 years old. Right pleural effusion. PHYSICIAN: Haroldo Arana M.D. PROCEDURE: The risks, benefits, and alternatives to the procedure were explained to the patient. The specific risks of bleeding, infection, and pneumothorax requiring chest tube insertion were discussed and accepted. Written informed consent was obtained. Ultrasonographic evaluation of the right lower pleural space was carried out. An adequate pocket was identified. The patient was placed in the sitting, upright position. The overlying skin was prepped and draped in sterile fashion. 1% lidocaine was administered subcutaneously for local anesthesia. Under ultrasound guidance, a 5 [place] thoracentesis needle/catheter system was advanced into the right posterior lower pleural fluid collection. Approximately 390 mL of belen-colored fluid was drained. The catheter was removed, and a sterile dressing was applied. A specimen was collected and sent to the laboratory for analysis, as requested by the referring clinician. The patient tolerated the procedure well. A chest x-ray was ordered. US/Thoracentesis W US IMPRESSION: Ultrasound-guided right thoracentesis. Electronically Signed: Haroldo Arana MD at 13:58 EDT ,
[2023-01-24 08:26] LABS: ALB/GLOB Ratio 0.6 RATIO (0.9-2.4); Globulin 4.3 g/dL (2.2-4.2); LDH 139 U/L (87-241)
[2023-01-24] MEDS: Fluticasone 0.05% 1 SPRAY NASAL.SRY NASAL (09:14)
[2023-01-24] MEDS: Pantoprazole Sodium 40 MG Tablet PO ×2 (09:14→21:01)
[2023-01-24] MEDS: Spironolactone 25 MG Tablet PO (09:14)
[2023-01-24] MEDS: 0.9% Saline Lock 10 ML Syringe IV (09:15)
[2023-01-24] MEDS: Ascorbic Acid 500 MG Tablet 1000 MG PO (09:15)
[2023-01-24] MEDS: buPROPion (XL) 300 MG TABLET.XL PO (09:15)
[2023-01-24] MEDS: Metoprolol Tartrate 25 MG Tablet PO ×2 (11:00→21:00)
[2023-01-25] VITALS (9 sets, daily range): BP systolic 96–118; BP diastolic 48–89; PULSE 63–77; RESP 14–18; TEMP 36.5–36.7; O2SAT 98–100; BMI 32.5
--- NOTE | 2023-01-25 | FLU_PTH ---
PATIENT: TANMAY GABRIEL Sr. LOC: [facility] U#:[id number] AGE/SX: 77/M ROOM: [facility] RE01/22/[address]: Dr. Jaleel Lea MD : 1945 BED: 1 DIS: 01/26/2023 SPEC #: [id number] RECD: 01/25/23 13:46 STATUS: KEVIN ROCHELLE #: [id number] VICKEY: 01/25/23 00:[address]: Jaleel Lea DEPT: CYTOLOGY RECD BY: Jyothi Delarosa ENTERED: 01/27/23 12:08 SP TYPE: Fluid OTHR DR: Dr. Bob Aguero, [facility] Tissues: THORACIC FLUID Procedures: Special Stain Group II Surgery Specimen Level IV Cytospin Fluid HEADER OPERATION: Ultrasound-guided thoracentesis right PRE-OP DIAGNOSIS: Right pleural effusion TISSUE SUBMITTED: Thoracentesis fluid for cytology DIAGNOSIS CYTOLOGY Thoracentesis fluid for cytology (cytospin and cell block): Negative for malignant cells. AM:brian 01/28/2023 CYTOLOGY STUDY Slides are reviewed. CYTOLOGY GROSS Received is 90 ml of belen cloudy fluid labeled with the patient's name and and designated per the requisition as thoracentesis. Submitted for cytology preparation including cell block. / brian 01/27/2023 TC:5 CPT: 80661, 62242
[2023-01-25 05:22] LABS: Absolute Lymphocyte Count 0.52 X10^3/uL (0.83-4.51); Absolute Neutrophil Count 5.2 X10^3/uL (2.0-7.7); Basophil# 0.04 X10^3/uL; Basophil% 0.6 % (0-1); Eosinophil# 0.19 X10^3/uL; Eosinophils% 2.6 % (0-5); Hematocrit 36.7 % (40-54); Hemoglobin 11.9 g/dL (13.0-16.5); Lymphocyte # 0.52 X10^3/ul (0.83-4.51); Lymphocyte % 7.2 % (19-41); Mean Corp Hgb Conc 32.4 g/dL (32-36); Mean Corpuscular Hgb 31.9 pg (27.0-32.0); Mean Corpuscular Volume 98.4 fL (80-94); Mean Platelet Vol. 8.9 fl (6.2-12.0); Monocyte# 1.19 X10^3/uL; Monocyte% 16.4 % (0-10); NRBC Flagged by Analyzer 0 % (0-5); Neutrophil # 5.22 X10^3/uL (2.7-7.7); Neutrophil % 71.8 % (47-70); POSITIVE DIFFERENTIAL YES; Platelet Count 230 K/mm3 (150-450); RBC Distribution Width CV 13.9 % (11.6-14.6); RBC Distribution Width SD 50.2 fl (35.1-43.9); Red Blood Count 3.73 M/mm3 (4.6-6.2); White Blood Count 7.3 K/mm3 (4.4-11.0)
[2023-01-25 05:31] LABS: International Normalized Ratio 1.1; Prothrombin Time (Protime)PT. 14.2 SECONDS (11.7-14.9)
[2023-01-25 05:49] LABS: ALB/GLOB Ratio 0.6 RATIO (0.9-2.4); AST(SGOT) 20 U/L (15-37); Alanine Aminotransfer ALT/SGPT 17 U/L (16-61); Alkaline Phosphatase 164 U/L (45-117); Anion Gap 7 (5-15); BUN 14 mg/dL (7-18); BUN/Creat Ratio 11.5 RATIO (10-20); Calcium,Total 9.2 mg/dL (8.5-10.1); Chloride 98 mmol/L (98-107); Creatinine, Serum 1.22 mg/dL (0.70-1.30); EST Glomerular Filtration Rate 61 mL/min (>60); Est Glom Filt Rate - Afr Amer 74 mL/min (>60); Estimated Creatinine Clearance 54.02 ml/min; Globulin 4.7 g/dL (2.2-4.2); Glucose 103 mg/dL (74-106); Potassium 4.2 mmol/L (3.5-5.1); Protein, Total 7.7 g/dL (6.4-8.2); Sodium Level 131 mmol/L (136-145)
[2023-01-25 06:02] LABS: Differential Indicated SCAN CRITERIA MET
[2023-01-25] MEDS: guaiFENesin 10 ML UDC (200MG/10ML) 20 ML PO ×3 (06:04→21:07)
[2023-01-25 06:06] LABS: Differential Comment SCANNED; Toxic Granulation 1+
[2023-01-25] MEDS: Pantoprazole Sodium 40 MG Tablet PO ×2 (08:56→21:07)
[2023-01-25] MEDS: Fluticasone 0.05% 1 SPRAY NASAL.SRY NASAL (08:56)
[2023-01-25] MEDS: buPROPion (XL) 300 MG TABLET.XL PO (08:57)
[2023-01-25] MEDS: Ascorbic Acid 500 MG Tablet 1000 MG PO (08:57)
--- NOTE | 2023-01-25 10:59 | PN.HOSP_ITS ---
Subjective Subjective Doing well, no issues overnight Objective Data Objective Data Vital Signs: Vital Signs Temp Pulse Resp BP Pulse Ox O2 Del Method O2 Flow Rate 97.9 F 63 16 96/63 98 Nasal Cannula 2 01/25/23 08:30 01/25/23 08:30 01/25/23 08:30 01/25/23 08:53 01/25/23 08:30 01/25/23 08:30 01/25/23 08:30 Oxygen Flow Rate (L/min) 2 Oxygen Delivery Method Nasal Cannula Weight: 227 lb 1.218 oz Body Mass Index (BMI) 32.5 Intake & Output: Intake and Output for Last 24 Hours 01/24/23 01/25/23 01/26/23 03:59 03:59 03:59 Intake Total 240 / 240 870 / 870 Output Total 700 / 700 200 / 200 100 / 100 Balance -460 / -460 670 / 670 -100 / -100 Lab / Micro Data 01/25/23 04:46 01/25/23 04:46 Labs: Laboratory Results - last 24 hr 01/24/23 05:50: Cortisol 15.80 01/25/23 04:46: WBC 7.3, RBC 3.73 L, Hgb 11.9 L, Hct 36.7 L, MCV 98.4 H, MCH 31.9, MCHC 32.4, RDW Std Deviation 50.2 H, RDW Coeff of Eduard 13.9, Plt Count 230, MPV 8.9, Immature Gran % (Auto) 1.400 H, Neut % (Auto) 71.8 H, Lymph % (Auto) 7.2 L, [place] % (Auto) 16.4 H, Eos % (Auto) 2.6, Baso % (Auto) 0.6, Absolute Neuts (auto) 5.2, Absolute Lymphs (auto) 0.52 L, Nucleated RBC % 0, Differential Comment SCANNED, Toxic Granulation 1+, PT 14.2, INR 1.1, Sodium 131 L, Potassium 4.2, Chloride 98, Carbon Dioxide 26.0, Anion Gap 7, BUN 14, Creatinine 1.22, Estim Creat Clear Calc 54.02, Est GFR (MDRD) Af Amer 74, Est GFR (MDRD) Non-Af 61, BUN/Creatinine Ratio 11.5, Glucose 103, Calcium 9.2, Total Bilirubin 0.70, AST 20, ALT 17, Alkaline Phosphatase 164 H, Total Protein 7.7, Albumin 3.0 L, Globulin 4.7 H, Albumin/Globulin Ratio 0.6 L Physical Exam Narrative General: Alert, Oriented x3, Cooperative, No apparent distress HEENT: Atraumatic, PERRLA, EOMI, Normocephalic Oral: Moist Mucosa Neck: Supple, No JVD Lungs: Diminished right base greater than left, Normal air movement, No rhonchi, No wheeze, No rales Cardiovascular: Regular rate, Regular Rhythm, Normal S1, Normal S2, No murmurs Abdomen: Soft, Non Tender, Non-Distended, No Hepato-splenomegaly Extremities: No edema, Capillary Refill Less than 3 Seconds Skin: No rashes, No breakdown Musculoskeletal: No Tenderness to Palpation of Joints or Extremities Neurological: Cranial nerves II-XII grossly intact, Motor Exam 5/5 strength throughout, Sensory exam intact to light touch and pain Psych/Mental Status: Normal Affect, Appropriate Assessment & Plan Assessment/Plan (1) Recurrent right pleural effusion: PLAN: Patient has previously had a right-sided thoracentesis back in October. Patient is on furosemide and spironolactone. His furosemide has been recently increased. Patient has had pleural fluid protein and LDH performed, however there is no serum of those laboratories. Plan for thoracentesis on 01/25. Check pleural fluid LDH, protein, Cx, cell count and cytology. Serum LDH 139. Check serum protein. Continue furosemide. Resume spironolactone. Hold K as I am restarting spironolactone and K+ is 4 today. 01/25/2023: Doing well plan for thoracentesis today (2) NATHAN (dyspnea on exertion): PLAN: Patient was dyspneic but does have oxygen at home and has been using it at home. I was informed that the patient was ambulated and did not drop his oxygen though he was noted to be tachypneic. On room air. Check an ambulatory pulse ox in the morning. (3) Hypotension: QUALIFIERS: Hypotension type: hypotension due to drug Qualified Code(s): I95.2 - Hypotension due to drugs PLAN: Improved I suspect due to his medications, appears he was taking 40 mg of lisinopril. Continue to hold lisinopril Resume metoprolol tartrate 25 BID, w hold parameters. Given his pleural effusion, can hold off on any additional fluids unless it becomes necessary. PLAN: Plan Chronic conditions * atrial fibrillation: Currently in A-fib, rate controlled. Hold apixaban for a thoracentesis. We will restart his Eliquis tonight after thoracentesis. Metoprolol to be held for now. * GERD: Continue PPI * Depression: Continue with bupropion * Hyperlipidemia DVT: Eliquis Charges/Coding Visit Charges Inpatient E&M: 19063 Subs Hosp L2
[2023-01-25] MEDS: 0.9% Saline Lock 10 ML Syringe IV (11:18)
--- NOTE | 2023-01-25 12:45 | NURSING ---
1245: Report called to procedural radiology nurse.
[2023-01-25] MEDS: Lidocaine 2% (20 ml mdv) 20 ML Vial INFILT (13:19)
--- NOTE | 2023-01-25 13:30 | RAD_ITS ---
STUDY: X-RAY CHEST REASON FOR EXAM: Male, 77 years old. Post thora TECHNIQUE: AP inspiration and expiration views. COMPARISON: Comparison is made with prior examination dated January 22, 2023. FINDINGS: The patient is status post right thoracentesis. No evidence of pneumothorax. Mild residual pleural-parenchymal changes are seen. RAD/Chest Insp/Exp 2 View IMPRESSION: Status post right thoracentesis. No evidence of pneumothorax. Mild residual pleural-parenchymal changes are seen. Electronically Signed: Haroldo Arana MD at 14:39 EDT ,
[2023-01-25 13:53] LABS: Cytology, Body Fluid / CSF SEE PATHOLOGY REPORT
[2023-01-25 14:11] LABS: Body Fluid Mononuclear WBC # 0.601 10^3/uL; Body Fluid Mononuclear WBC % 98.7 %; Body Fluid Polynuclear WBC # 0.008 10^3/uL; Body Fluid Polynuclear WBC % 1.3 %; Body Fluid Total Cells Counted 0.612 10^3/ul; Red Cell Count/Body Fluid 0.005 10^6/ul; White Blood Count/Body Fluid 0.609 10^3/uL
[2023-01-25 14:14] LABS: Appearance/Body Fluid SL CLDY; Auto B Fluid Analyzer BKGD Ct COUNTS W/IN LIMITS (W/IN LIMITS); Color/Body Fluid YELLOW; Source- Body Fluid THORACENTESIS
[2023-01-25] MEDS: Acetaminophen 325 MG Tablet 650 MG PO (14:20)
[2023-01-25 14:35] LABS: Lymphocytes 97 %; Macrophages 1 %; Monocytes 1 %; Neutrophil (Segs) 1 %
[2023-01-25 14:43] LABS: Body Fluid QC Type(s) BF1Q
[2023-01-25 14:44] LABS: Glucose, Body Fluid 61 mg/dL (40-70); LDH,Body Fluid 181 Units/l (Not Establ.); Protein, Body Fluid 3.7 g/dL (Not Establ.)
[2023-01-25] MEDS: Metoprolol Tartrate 25 MG Tablet PO (21:07)
[2023-01-26 03:30] VITALS: BP 110/61; PULSE 68; RESP 18; TEMP 36.9; O2SAT 99
[2023-01-26 05:18] VITALS: BMI 32.5
[2023-01-26] MEDS: guaiFENesin 10 ML UDC (200MG/10ML) 20 ML PO (06:10)
[2023-01-26 06:12] VITALS: O2SAT 96
[2023-01-26 07:53] VITALS: O2SAT 98
[2023-01-26 08:38] VITALS: O2SAT 96
--- NOTE | 2023-01-26 09:19 | PCM.DC ---
Discharge Instructions Diet Discharge Diet: Low fat / Low cholesterol and 6 Cup Fluid Restriction Activity Discharge Activity: Return to Normal Activity Dressing / Incision Call your doctor if you observe: Fever of 101 or Higher, Shortness of breath, Dizziness, Fainting spells, Swelling in the ankles, Chest pain and Increased palpitations (irregular heartbeat) Follow Up Care Test Results: Test results from this visit will be discussed in further detail at your follow-up appointment, if applicable. Discharge Plan Admission Admit Date/Time: 01/22/23 15:58 Attending Provider: Jaleel Lea Primary Care Provider: [place] [place] Consulting Providers: Bob Aguero Instructions Additional Instructions / Restrictions: Follow-up with your primary care physician in 3 to 5 days to monitor your blood pressure as well as your kidney function Discharge Orders/Prescriptions Prescriptions: Continued vitamins A,C,X-ntit-mveetz 7,160 unit- 113 mg-100 unit tablet 2 tab PO BID Rx Instructions: administer with AM and PM meals metoprolol tartrate 25 mg tablet 25 mg PO BID Patient Comments: PT STATED JOZEF JUNG'S OFFICE CALLED HIM THIS MORNING AFTER HE'D TAKEN TODAY'S DOSE AND TOLD HIM TO STOP TAKING THIS MED fluticasone propionate 1 SPRAY spray,suspension 1 spray NASAL DAILY guaifenesin [Mucus Relief ER] 600 MG tablet 400 mg PO TID sennosides-docusate sodium 1 EACH tablet 1 ea PO DAILY PRN (Reason: Constipation) vitamin E 400 UNIT capsule 400 unit PO DAILY apixaban 5 MG tablet 5 mg PO BID ascorbic acid (vitamin C) 1,000 MG tablet 1,000 mg PO DAILY@1200 multivitamin with minerals 1 EACH tablet 1 tab PO DAILY bupropion HCl 300 MG tablet extended release 24 hr 300 mg PO DAILY Patient Comments: PT STATED STOPPED TAKING ABOUT 4 DAYS AGO. coenzyme Q10 200 MG capsule 200 mg PO DAILY omeprazole 40 mg Capsule,Delayed Release(Dr/Ec) 40 mg PO BID cholecalciferol (vitamin D3) 125 mcg (5,000 unit) Capsule 125 mcg PO DAILY potassium chloride [Klor-Con M20] 20 mEq Tablet,Er Particles/Crystals 20 meq PO BIDCM Qty: 30 0RF furosemide [Lasix] 20 mg tablet See Rx Instructions PO BID Rx Instructions: 80 mg in the AM and 40 mg 4-6 hours later spironolactone 25 mg tablet 25 mg PO DAILY Qty: 30 11RF Changed lisinopril 40 MG tablet 20 mg PO 1XD 30 Days Qty: 0 0RF Rx Instructions: Decreased to once a day per Jozef HILL 12/23/22 via backline Referrals / [facility] [[facility] - Disposition Disposition (needs filled in before D/C Order can be placed): Home, Self Care
[2023-01-26 09:40] VITALS: BP 102/58; PULSE 82; RESP 16; TEMP 36.8; O2SAT 97
[2023-01-26] MEDS: Fluticasone 0.05% 1 SPRAY NASAL.SRY NASAL (09:45)
[2023-01-26 09:46] VITALS: BP 102/58; PULSE 82
[2023-01-26] MEDS: Metoprolol Tartrate 25 MG Tablet PO (09:46)
[2023-01-26] MEDS: Spironolactone 25 MG Tablet PO (09:46)
[2023-01-26] MEDS: Pantoprazole Sodium 40 MG Tablet PO (09:46)
[2023-01-26] MEDS: Acetaminophen 325 MG Tablet 650 MG PO (09:46)
[2023-01-26] MEDS: buPROPion (XL) 300 MG TABLET.XL PO (09:46)
--- NOTE | 2023-01-26 12:28 | DS.PCM_ITS ---
Providers Date of Admission: 01/22/23 Primary Care Physician: [facility] Reason For Visit: PLEURAL EFFUSION Diagnosis Discharge Diagnosis (1) Recurrent right pleural effusion: Status: Acute Code(s): J90 - Pleural effusion, not elsewhere classified (2) NATHAN (dyspnea on exertion): Status: Acute Code(s): R06.09 - Other forms of dyspnea (3) Hypotension: Status: Acute Code(s): I95.9 - Hypotension, unspecified Qualifiers: Hypotension type: hypotension due to drug Qualified Code(s): I95.2 - Hypotension due to drugs Medications at Discharge Home Medications fluticasone propionate 50 mcg/actuation nasal spray,suspension 1 spray DAILY nasal spray 05/04/13 guaifenesin 600 mg tablet, extended release 12 hr (Mucus Relief ER) 400 mg PO TID cough 05/04/13 sennosides 8.6 mg-docusate sodium 50 mg tablet 1 ea PO DAILY PRN Constipation 11/27/19 vitamin E 268 mg (400 unit) capsule 400 unit PO DAILY supplement 11/27/19 apixaban 5 mg tablet 5 mg PO BID anticoagulant 01/24/20 ascorbic acid (vitamin C) 1,000 mg tablet 1,000 mg PO DAILY@1200 SUPPLEMENT 03/14/20 bupropion HCl 300 mg 24 hr tablet, extended release 300 mg PO DAILY ANXIETY 03/14/20 coenzyme Q10 200 mg capsule 200 mg PO DAILY SUPPLEMENT 03/14/20 multivitamin with minerals 1 tab PO DAILY SUPPLEMENT 03/14/20 cholecalciferol (vitamin D3) 125 mcg (5,000 unit) capsule 125 mcg PO DAILY SUPPLEMENT 06/25/21 omeprazole 40 mg capsule,delayed release 40 mg PO BID GERD 06/25/21 potassium chloride 20 mEq tablet,extended release(part/cryst) (Klor-Con M) 20 meq PO BIDCM supplement #30 tabs 06/28/21 metoprolol tartrate 25 mg tablet 25 mg PO BID heart 09/12/21 vitamins A,C,V-jpda-oxedfa 2,148 mcg-113 mg-45 mg-17.4 mg tablet 2 tab PO BID suplement 09/12/21 furosemide 20 mg tablet (Lasix) See Rx Instructions PO BID diuretic 10/29/22 spironolactone 25 mg tablet 25 mg PO DAILY diuretic #30 tabs 11/11/22 lisinopril 40 mg tablet 20 mg (1/2 x 40 mg) PO 1XD blood pressure 30 days #0 tabs 01/26/23 Hospital Course Operations None Procedures Thoracentesis Summary of Care Provided Minutes Spent on Discharge: 36 Hospital Course: Per HPI: TANMAY GABRIEL, is a 77 M who presents with progressive shortness of breath. Patient describes been getting more short of breath over the past few days. Patient did have oxygen which she did use only at night but has been instructed to use it during the day. He has a history of CHF and they have increased his furosemide to 80 mg twice a day but also continuing his other medications, including spironolactone, lisinopril and metoprolol. Patient's blood pressure was noted to be low and he was instructed to stop his metoprolol. Patient was instructed come to the emergency room. In the emergency room, patient was 98% on room air, chest x-ray showed a right-sided pleural effusion. Patient received no treatment in the emergency room. The ER contacted the hospital service for admission. Hospital Course: 1. Recurrent pleural effusion?77-year-old male presented to the hospital with increased shortness of breath. He has had recurrent progressively enlarging pleural effusions that needed to be drained. He did have lab work this time on both the pleural fluid and serum however it was distorted secondary to his Aldactone and his Lasix. It is likely transudative secondary to his history of heart failure. He is feeling much better today after thoracentesis and he did not need oxygen with ambulation or at rest. I do recommend that he follow-up with his PCP as an outpatient and potentially have a way to get thoracenteses done on an outpatient basis so as to not need repeated hospitalizations. Can milind soaresume his home blood pressure medications, I did decrease his lisinopril from 40 mg daily to 20 mg daily given his hypotension while here. He will need to follow-up as an outpatient with cardiology as well continued monitoring. I discussed with him the plan for discharge today he expressed understanding of the risk benefits of going home and would like to go home today. 2. Hypertension, A-fib, chronic diastolic congestive heart failure, hyperlipidemia, aortic stenosis are all chronic medical conditions which complicate his care. His home medications were continued where appropriate Physical Exam Narrative General: Alert, Oriented x3, Cooperative, No apparent distress HEENT: Atraumatic, PERRLA, EOMI, Normocephalic Oral: Moist Mucosa Neck: Supple, No JVD Lungs: Diminished, Normal air movement, No rhonchi, No wheeze, No rales Cardiovascular: Regular rate, Regular Rhythm, Normal S1, Normal S2, murmurs Abdomen: Soft, Non Tender, Non-Distended, No Hepato-splenomegaly Extremities: No edema, Capillary Refill Less than 3 Seconds Skin: No rashes, No breakdown Musculoskeletal: No Tenderness to Palpation of Joints or Extremities Neurological: Cranial nerves II-XII grossly intact, Motor Exam 5/5 strength throughout, Sensory exam intact to light touch and pain Psych/Mental Status: Normal Affect, Appropriate Weight / BMI Weight Weight: 226 lb 13.69 oz Body Mass Index (BMI) 32.5 ABG / Lab / Microbiology Data 01/25/23 04:46 01/25/23 04:46 Laboratory: Laboratory Results - last 24 hr 01/24/23 : Fluid Glucose 61, Fluid Total Protein 3.7, Fluid LDH 181 01/25/23 : Fluid Source THORACENTESIS, Fluid Color YELLOW, Fluid Appearance SL CLDY, Fluid WBC 0.609, Fluid RBC 0.005, Fluid Tot Cell Count 0.612, Fld Polynuclear WBCs # 0.008, Fld Polynuclear WBCs % 1.3, Fluid Mononuclear WBCs 0.601, Fld Mononuclear WBCs % 98.7, Fluid Neutrophils 1, Fluid Lymphocytes 97, Fluid Monocytes 1, Fluid Macrophages 1, Fl Pathologist Comment May follow, Fluid Comment 2 SEE COMMENT Microbiology: Microbiology 01/25/23 Unknown Fluid - Pleural (Lung) Gram Stain - Final 01/25/23 Unknown Fluid - Pleural (Lung) Body Fluid Culture - Preliminary No growth-Final to follow Radiography Diagnostic Testing: Radiology Impression Thoracentesis Ultrasound 01/24/23 08:01 IMPRESSION: Ultrasound-guided right thoracentesis. Electronically Signed: Haroldo Arana MD at 13:58 EDT , Chest X-Ray 01/25/23 13:30 IMPRESSION: Status post right thoracentesis. No evidence of pneumothorax. Mild residual pleural-parenchymal changes are seen. Electronically Signed: Haroldo Arana MD at 14:39 EDT , D/C Instructions Discharge Diet: Low fat / Low cholesterol and 6 Cup Fluid Restriction Call your doctor if you observe: Fever of 101 or Higher, Shortness of breath, Dizziness, Fainting spells, Swelling in the ankles, Chest pain and Increased palpitations (irregular heartbeat) Meaningful Use Info Meaningful Use Diagnoses (Choose all that apply): None applicable Discharge Plan Admission Admit Date/Time: 01/22/23 15:58 Attending Provider: Jaelel Lea Primary Care Provider: [facility],[place] Consulting Providers: Bob Aguero Instructions Additional Instructions / Restrictions: Follow-up with your primary care physician in 3 to 5 days to monitor your blood pressure as well as your kidney function Discharge Orders/Prescriptions Prescriptions: Continued vitamins A,C,T-vhps-mooend 7,160 unit- 113 mg-100 unit tablet 2 tab PO BID Rx Instructions: administer with AM and PM meals metoprolol tartrate 25 mg tablet 25 mg PO BID Patient Comments: PT STATED DELLA JUNG'S OFFICE CALLED HIM THIS MORNING AFTER HE'D TAKEN TODAY'S DOSE AND TOLD HIM TO STOP TAKING THIS MED fluticasone propionate 1 SPRAY spray,suspension 1 spray NASAL DAILY guaifenesin [Mucus Relief ER] 600 MG tablet 400 mg PO TID sennosides-docusate sodium 1 EACH tablet 1 ea PO DAILY PRN (Reason: Constipation) vitamin E 400 UNIT capsule 400 unit PO DAILY apixaban 5 MG tablet 5 mg PO BID ascorbic acid (vitamin C) 1,000 MG tablet 1,000 mg PO DAILY@1200 multivitamin with minerals 1 EACH tablet 1 tab PO DAILY bupropion HCl 300 MG tablet extended release 24 hr 300 mg PO DAILY Patient Comments: PT STATED STOPPED TAKING ABOUT 4 DAYS AGO. coenzyme Q10 200 MG capsule 200 mg PO DAILY omeprazole 40 mg Capsule,Delayed Release(Dr/Ec) 40 mg PO BID cholecalciferol (vitamin D3) 125 mcg (5,000 unit) Capsule 125 mcg PO DAILY potassium chloride [Klor-Con M20] 20 mEq Tablet,Er Particles/Crystals 20 meq PO BIDCM Qty: 30 0RF furosemide [Lasix] 20 mg tablet See Rx Instructions PO BID Rx Instructions: 80 mg in the AM and 40 mg 4-6 hours later spironolactone 25 mg tablet 25 mg PO DAILY Qty: 30 11RF Changed lisinopril 40 MG tablet 20 mg PO 1XD 30 Days Qty: 0 0RF Rx Instructions: Decreased to once a day per Della HILL 12/23/22 via backline Referrals / [facility] - Disposition Disposition (needs filled in before D/C Order can be placed): Home, Self Care Charges/Coding Visit Charges Inpatient E&M: 52703 Disch Hosp >30min
[2023-01-29 09:45] LABS: Pathologist Comment/Body Fluid Reviewed
== END 2023-01-26 09:23 | disposition home or self-care (01) ==
LOC: ED 16:08 → PCU 16:38
PROVIDERS: Emergency Provider Emergency Medicine; Visit Provider Family Medicine
DX: I11.0 Hypertensive heart disease with heart failure (principal); I50.32 Chronic diastolic (congestive) heart failure; I48.20 Chronic atrial fibrillation, unspecified; Z79.01 Long term (current) use of anticoagulants; E78.5 Hyperlipidemia, unspecified; I95.2 Hypotension due to drugs; E87.1 Hypo-osmolality and hyponatremia; Z87.891 Personal history of nicotine dependence; J91.8 Pleural effusion in other conditions classified elsewhere; Z79.899 Other long term (current) drug therapy; K21.9 Gastro-esophageal reflux disease without esophagitis; R94.31 Abnormal electrocardiogram [ECG] [EKG]
CPT/HCPCS: 32555; 36415; 71046; 80048; 80053; 82533; 82945; 83615; 83880; 84156; 84157; 84484; 85025; 85610; 85730; 87070; 87075; 87205; 88108; 88305; 88313; 89050; 93005; 99221; 99285; A4216; G0378

== ENCOUNTER → 2023-02-03 | Outpatient (CLI) | payer MEDICARE, SELFPAY ==
--- NOTE | 2023-02-03 12:11 | RAD_ITS ---
STUDY: X-RAY CHEST REASON FOR EXAM: Male, 77 years old. NATHAN TECHNIQUE: PA and lateral COMPARISON: January 25, 2023 FINDINGS: Moderate size right-sided pleural effusion with consolidation of the right lower lobe. Normal size heart. Normal mediastinum and manuela. Normal visualized pulmonary arteries. Tortuous mildly calcified aortic arch and descending thoracic aorta. Dorsal spine demonstrates degenerative changes. Normal visualized ribs, clavicles, and shoulders. There is no demonstrated abnormality of the visualized soft tissue structures of the upper abdomen. No significant change since prior study RAD/Chest PA and Lateral IMPRESSION: Residual moderate size right pleural effusion and consolidation of the right lower lobe. Electronically Signed: Matt Russell MD at 17:14 EDT ,
[2023-02-03 13:12] LABS: Anion Gap 6 (5-15); BUN 19 mg/dL (7-18); BUN/Creat Ratio 15.1 RATIO (10-20); Calcium,Total 9.1 mg/dL (8.5-10.1); Chloride 99 mmol/L (98-107); Creatinine, Serum 1.26 mg/dL (0.70-1.30); EST Glomerular Filtration Rate 59 mL/min (>60); Est Glom Filt Rate - Afr Amer 72 mL/min (>60); Glucose 103 mg/dL (74-106); Potassium 4.5 mmol/L (3.5-5.1); Sodium Level 132 mmol/L (136-145)
== END | disposition home or self-care (01) ==
LOC: RAD 12:10
PROVIDERS: Referring Provider Physician Assistant Medical; Visit Provider Physician Assistant Medical
DX: J90 Pleural effusion, not elsewhere classified (principal); I50.9 Heart failure, unspecified; R06.09 Other forms of dyspnea
CPT/HCPCS: 36415; 71046; 80048

== ENCOUNTER 2023-03-28 19:44 | Emergency (ER) | payer OTHER, SELFPAY ==
[2023-03-28 19:45] VITALS: BP 128/67; PULSE 73; RESP 18; TEMP 36.6; O2SAT 95
--- NOTE | 2023-03-28 20:04 | ED.VIS.FALL ---
HPI HPI - Fall History of Present Illness Chief Complaint: Fall Narrative Narrative: 77-year-old male past medical history of atrial fibrillation on Eliquis, presents with his son status post fall in his kitchen a few days ago. He states 3 to 4 days ago he had a mechanical fall when he turned when he was holding some balls and fell. He complains of right-sided rib pain and anterior chest pain. He also has right hip pain. He is able to make it back and forth to his recliner. He usually sleeps upright as he wears 2 L of oxygen at all times for CHF. He states that he is being worked up for recurrent pleural effusion as well, on the right. He has had to have drainage of his right pleural effusion in the past and states that his metal stamper is working him up for the cause of this. He presents mainly because of the right-sided rib pain to anterior chest wall pain, and his right hip pain. He denies other injuries. No hitting h of his head or loss of consciousness. No neck pain. [facility] Medical History A-fib Arthritis CHF (congestive heart failure) Depression Former smoker GERD (gastroesophageal reflux disease) HLD (hyperlipidemia) On home oxygen therapy Recurrent right pleural effusion Schizophrenia Home Medications fluticasone propionate 50 mcg/actuation nasal spray,suspension 1 spray DAILY nasal spray 05/04/13 [History Last Taken 01/21/23] guaifenesin 600 mg tablet, extended release 12 hr (Mucus Relief ER) 400 mg PO TID cough 05/04/13 [History Last Taken 01/22/23] sennosides 8.6 mg-docusate sodium 50 mg tablet 1 ea PO DAILY PRN Constipation 11/27/19 [History Last Taken 01/22/23] vitamin E 268 mg (400 unit) capsule 400 unit PO DAILY supplement 11/27/19 [History Last Taken 01/22/23] apixaban 5 mg tablet 5 mg PO BID anticoagulant 01/24/20 [History Last Taken 01/22/23] ascorbic acid (vitamin C) 1,000 mg tablet 1,000 mg PO DAILY@1200 SUPPLEMENT 03/14/20 [History Last Taken 01/22/23] bupropion HCl 300 mg 24 hr tablet, extended release 300 mg PO DAILY ANXIETY 03/14/20 [History Last Taken 01/22/23] coenzyme Q10 200 mg capsule 200 mg PO DAILY SUPPLEMENT 03/14/20 [History Last Taken 01/22/23] multivitamin with minerals 1 tab PO DAILY SUPPLEMENT 03/14/20 [History Last Taken 10/09/21] cholecalciferol (vitamin D3) 125 mcg (5,000 unit) capsule 125 mcg PO DAILY SUPPLEMENT 06/25/21 [History Last Taken 01/22/23] omeprazole 40 mg capsule,delayed release 40 mg PO BID GERD 06/25/21 [History Last Taken 01/22/23] potassium chloride 20 mEq tablet,extended release(part/cryst) (Klor-Con M) 20 meq PO BIDCM supplement #30 tabs 06/28/21 [Rx Last Taken 01/22/23] metoprolol tartrate 25 mg tablet 25 mg PO BID heart 09/12/21 [History Last Taken 01/22/23] vitamins A,C,S-icsd-fmsbkp 2,148 mcg-113 mg-45 mg-17.4 mg tablet 2 tab PO BID suplement 09/12/21 [History Last Taken 01/22/23] spironolactone 25 mg tablet 25 mg PO DAILY diuretic #30 tabs 11/11/22 [Rx Last Taken 01/22/23] furosemide 20 mg tablet (Lasix) See Rx Instructions PO BID diuretic 02/03/23 [History Last Taken Unknown] alprazolam 0.25 mg tablet 0.25 mg PO BID 02/12/23 [History Last Taken Unknown] Allergy/AdvReac Type Severity Reaction Status Date / Time No Known Allergies Allergy Verified 03/28/23 19:47 Family History Mother Heart disease Social History Smoking Status: Former smoker ROS ROS ED ROS Narrative Constitutional: No fever, no chills. HEENT: No sore throat. No neck pain. No loss of vision. No rhinorrhea. Cardiovascular: Right lateral to anterior rib pain/chest pain. No palpitations. No pedal edema. Respiratory: No cough, no shortness of breath. Abdominal: No abdominal pain. No nausea. No vomiting. Genitourinary: No dysuria. No hematuria. Musculoskeletal: No myalgias. Right hip pain worse with movement. Neurologic: No headaches. No dizziness. No lightheadedness. Skin: No rash. No change in color. Psychiatric: No depression. No anxiety. EXAM Physical Exam Narrative Exam Narrative: Afebrile. Vital signs noted. HEENT: Normocephalic. Atraumatic. PERRL, EOMI. Neck soft and supple. No point tenderness or step off. Cardiovascular: Regular rate and rhythm. No rubs, or gallops appreciated. Mild tenderness to palpation right anterior to lateral ribs, no crepitance. Respiratory: No tachypnea. Lungs clear to auscultation bilaterally. Gastrointestinal: Abdomen soft, nontender, with normoactive bowel sounds. No rebound or guarding. Neurological: Awake. Alert. Nonfocal, nonlateralizing. Skin: No rash. Normal color. No pallor. Musculoskeletal: No pedal edema. Full range of motion extremities. Pelvis stable. Full range of motion including flexion extension of right hip and flexion extension of right knee. Palpable dorsalis pedis pulse. No pain with logrolling of right femur. Const Vital Signs: 03/28/23 19:45 03/28/23 19:44 Temperature 97.9 F Temperature Source Temporal Pulse Rate 73 Respiratory Rate 18 Respiratory Effort Normal Non-Labored Respiratory Depth Normal Respiratory Pattern Normal Blood Pressure 128/67 H Blood Pressure Mean 87 Pulse Ox 95 Oxygen Delivery Method Room Air Room Air MDM MDM MDM Narrative Medical decision making narrative: In the differential diagnosis is occult hip fracture, but his pelvis is stable and on physical exam he does not have exquisite pain that would indicate displaced fracture. He has been ambulating. For rib contusion versus rib fracture, right rib x-rays along with PA chest will be obtained to also look for pleural effusion. I do not think he has a pneumothorax as his pulse ox is 95% on his 2 L of oxygen per nasal cannula. I do not feel CT of the brain is indicated even though he is on Eliquis he did not strike his head and he is awake, alert, and oriented x3. I have very low suspicion for intracranial hemorrhage. I do not feel laboratory work is indicated because he is at his baseline. I do feel that he needs to be evaluated for his musculoskeletal pain from his mechanical fall. I reviewed and interpreted his hip/pelvis x-ray in 3 views see no evidence of an acute fracture. I reviewed the radiology report which confirms my independent interpretation. I also reviewed his ribs with chest x-ray in 3 views and interpreted them independently and see no evidence of an acute fracture or pneumothorax. He does have a right pleural effusion, and in comparison to previous x-rays it appears unchanged. I reviewed the radiology report which confirms the stability of the pleural effusion and my independent interpretation. At this point in time, I offered him analgesia in the form of Tylenol which usually takes but he states he needs applesauce with this and would like to take his analgesics at home. I do not feel he requires observation or admission as his pleural effusion appears stable. He will follow-up with his metal stamper as needed. He was instructed to take deep breaths while awake. Return instructions to the emergency department were reviewed. Patient and his son are comfortable with the plan. Disposition is discharged home in stable condition. History & Record Review Discussion w/independent historian: Patient and Family Additional record(s) reviewed:: Prior ED visit Radiography Diagnostic Testing: Clinical Impression(s) from Imaging Studies Hip/Pelvis X-Ray 03/28/23 20:10 IMPRESSION: No acute findings in the pelvis or right hip. Electronically Signed: Christiano Castañeda MD at 20:30 EDT , Ribs w/Chest X-Ray 03/28/23 20:10 IMPRESSION: Right pleural effusion is stable in size. Electronically Signed: Christiano Castañeda MD at 20:30 EDT , Discharge Plan Triage Chief Complaint: Fall ED Provider: Vishnu Xiao Dx/Rx/DC Orders Clinical Impression: Contusion of rib on right side, Pleural effusion on right, Fall, Contusion of hip, right Instructions: ED Chest Wall Contusion, ED Mechanical Fall, ED Hip Contusion, ED Pleural Effusion Prescriptions: No Action vitamins A,C,U-fzow-felxsi 7,160 unit- 113 mg-100 unit tablet 2 tab PO BID Rx Instructions: administer with AM and PM meals metoprolol tartrate 25 mg tablet 25 mg PO BID Patient Comments: PT STATED JOZEF HAYONNELL'S OFFICE CALLED HIM THIS MORNING AFTER HE'D TAKEN TODAY'S DOSE AND TOLD HIM TO STOP TAKING THIS MED furosemide [Lasix] 20 mg tablet See Rx Instructions PO BID Patient Comments: 80 mg in AM 40 mg in afternoon Rx Instructions: 80 mg AM, 40 mg afternoon. fluticasone propionate 1 SPRAY spray,suspension 1 spray NASAL DAILY guaifenesin [Mucus Relief ER] 600 MG tablet 400 mg PO TID sennosides-docusate sodium 1 EACH tablet 1 ea PO DAILY PRN (Reason: Constipation) vitamin E 400 UNIT capsule 400 unit PO DAILY apixaban 5 MG tablet 5 mg PO BID ascorbic acid (vitamin C) 1,000 MG tablet 1,000 mg PO DAILY@1200 multivitamin with minerals 1 EACH tablet 1 tab PO DAILY bupropion HCl 300 MG tablet extended release 24 hr 300 mg PO DAILY Patient Comments: PT STATED STOPPED TAKING ABOUT 4 DAYS AGO. coenzyme Q10 200 MG capsule 200 mg PO DAILY omeprazole 40 mg Capsule,Delayed Release(Dr/Ec) 40 mg PO BID cholecalciferol (vitamin D3) 125 mcg (5,000 unit) Capsule 125 mcg PO DAILY potassium chloride [Klor-Con M20] 20 mEq Tablet,Er Particles/Crystals 20 meq PO BIDCM Qty: 30 0RF alprazolam 0.25 mg tablet 0.25 mg PO BID Patient Comments: PRN spironolactone 25 mg tablet 25 mg PO DAILY Qty: 30 11RF [facility] [Primary Care Provider] - Activity Restrictions/Additional Instructions: Follow-up with your metal stamper as soon as possible. Take Tylenol 650 mg every 6 hours as needed for pain. Return with fever, increased difficulty breathing, new or worsening symptoms. Continue your previous medications. Disposition Disposition: Home, Self Care
--- NOTE | 2023-03-28 20:10 | RAD_ITS ---
EXAM: XR RIGHT RIBS AND AP CHEST, 3 OR MORE VIEWS CLINICAL INDICATION: trauma, pain TECHNIQUE: Frontal and oblique views of the right ribs and frontal view of the chest. COMPARISON: 02.03.23 FINDINGS: LUNGS AND PLEURAL SPACES: Right pleural effusion is stable in size. No pneumothorax. HEART: Unremarkable. Cardiac silhouette not enlarged. MEDIASTINUM: Central airways and mediastinal contour are unremarkable. BONES/JOINTS: Unremarkable. No evidence of displaced rib fractures. RAD/Ribs Uni Min 3V w/PA Chest IMPRESSION: Right pleural effusion is stable in size. Electronically Signed: Christiano Castañeda MD at 20:30 EDT ,
--- NOTE | 2023-03-28 20:10 | RAD_ITS ---
EXAM: XR RIGHT HIP WITH PELVIS WHEN PERFORMED, 2 OR 3 VIEWS CLINICAL INDICATION: Trauma, Pain TECHNIQUE: Two or three views of the right hip with pelvis when performed. COMPARISON: No relevant prior studies available. FINDINGS: BONES/JOINTS: There are degenerative changes as noted above. No displaced fracture. No destructive or sclerotic lesions. Note that overlapping bowel shadows may however obscure fine detail. Sacroiliac joint is unremarkable. No widening of the pubic symphysis. SOFT TISSUES: Unremarkable. No soft tissue swelling or gas. VASCULATURE: Vascular calcifications. RAD/HIP, UNI W/ Pelvis 2-3 Views IMPRESSION: No acute findings in the pelvis or right hip. Electronically Signed: Christiano Castañeda MD at 20:30 EDT ,
== END 2023-03-28 21:26 | disposition home or self-care (01) ==
PROVIDERS: Emergency Provider Emergency Medicine; Visit Provider Emergency Medicine
DX: S20.211A Contusion of right front wall of thorax, initial encounter (principal); I48.91 Unspecified atrial fibrillation; J90 Pleural effusion, not elsewhere classified; S70.01XA Contusion of right hip, initial encounter; Z79.01 Long term (current) use of anticoagulants; W19.XXXA Unspecified fall, initial encounter; Z87.891 Personal history of nicotine dependence; Z99.81 Dependence on supplemental oxygen
CPT/HCPCS: 71101; 73502; 99282

== ENCOUNTER 2023-05-21 07:44 | Outpatient (CLI) | payer MEDICARE, SELFPAY ==
--- NOTE | 2023-05-21 | FLU_PTH ---
PATIENT: TANMAY GABRIEL Sr. LOC: [facility] U#:[id number] AGE/SX: 77/M ROOM: RE05/21/[address]: LIZ Acosta : 1945 BED: DIS: 05/21/2023 SPEC #: [id number] RECD: 05/21/23 09:58 STATUS: KEVIN REVernon #: [id number] VICKEY: 05/21/23 00:[address]: Della Arroyo DEPT: CYTOLOGY RECD BY: Jyothi Delarosa ENTERED: 05/21/23 11:20 SP TYPE: Fluid OTHR DR: [facility] Tissues: Pleural fluid, NOS Procedures: Special Stain Group II Surgery Specimen Level IV Cytospin Fluid HEADER OPERATION: Ultrasound-guided thoracentesis, right PRE-OP DIAGNOSIS: Right pleural effusion TISSUE SUBMITTED: Thoracentesis fluid for cytology DIAGNOSIS CYTOLOGY Thoracentesis fluid for cytology (cytospin and cell block): Negative for malignant cells. See comment. SJ:brian 05/24/2023 COMMENT Clinical correlation and appropriate follow up are necessary. Please make reference to previous specimen ([id number]), thoracentesis fluid with diagnosis of negative for malignant cells. CYTOLOGY STUDY Slides are reviewed. CYTOLOGY GROSS Received is 75 ml of belen cloudy fluid labeled with the patient's name and and designated per the requisition as thoracentesis. Submitted for cytology preparation including cell block. / brian 05/21/2023 TC:5 CPT: 06935, 07219
--- NOTE | 2023-05-21 07:53 | US_ITS ---
PROCEDURE: ULTRASOUND GUIDED THORACENTESIS. DATE: May 21, 2023.. INDICATION: Male, 77 years old. Right pleural effusion PHYSICIAN: Haroldo Arana M.D. PROCEDURE: The risks, benefits, and alternatives to the procedure were explained to the patient. The specific risks of bleeding, infection, and pneumothorax requiring chest tube insertion were discussed and accepted. Written informed consent was obtained. Ultrasonographic evaluation of the 2 lower pleural space was carried out. An adequate pocket was identified. The patient was placed in the sitting, upright position. The overlying skin was prepped and draped in sterile fashion. 1% lidocaine was administered subcutaneously for local anesthesia. Under ultrasound guidance, a 5 [place]an thoracentesis needle/catheter system was advanced into the right posterior lower pleural fluid collection. Approximately 200 mL of belen-colored fluid was drained. The catheter was removed, and a sterile dressing was applied. A specimen was collected and sent to the laboratory for analysis, as requested by the referring clinician. The patient tolerated the procedure well. A chest x-ray was ordered. US/Thoracentesis W US IMPRESSION: Ultrasound-guided right thoracentesis. Electronically Signed: Haroldo Arana MD at 8:23 EDT ,
--- NOTE | 2023-05-21 07:53 | ECHOCS_ITS ---
Reason For Study: PE Procedure This was a 2D Doppler, Color Flow transthoracic echocardiogram. Technically difficult study. Unable to perform LV/RV Strain due to needed use of Definity. Exam performed in department. Left Ventricle Normal LV size. Moderate concentric left ventricular hypertrophy. Left ventricular systolic function is normal. The left ventricular ejection fraction is 55 %. No regional wall motion abnormalities noted. Right Ventricle Normal RV size. Normal systolic function. Atria The left atrium is moderately enlarged. The right atrium is moderately enlarged. Mitral Valve Normal mitral valve. Tricuspid Valve Normal tricuspid valve. Aortic Valve Trisinus/trileaflet aortic valve. Mild focal aortic valve calcification. Peak aortic valve gradient 27 mmHg. Mean aortic valve gradient 14 mmHg. Mild (1+) aortic valve insufficiency. Pulmonic Valve Normal pulmonic valve. Great Vessels Normal aortic root. The pulmonary artery is normal size. Inferior vena cava collapse with respiration. Pericardium/Pleural No pericardial effusion. Medication 22 gauge I.V. with prn adaptor inserted into right arm. Diluted definity 3ml given slow IV push to enhance endocardial definition. MMode/2D Measurements & Calculations LVIDd: 3.8 cm IVSd: 1.5 cm LVOT diam: 2.2 cm LVIDs: 2.9 cm LVPWd: 1.4 cm RVDd: 4.2 cm FS: 24.1 % LVOT area: 3.8 cm2 Ao root diam: 3.9 cm LAV(MOD-bp): 106.0 ml LA A4 area: 30.4 cm2 LA dimension: 5.2 cm LAV(MOD-bp) Indexed: 49.2 ml/m2 LAV(MOD-sp2): 117.2 ml LAV(MOD-sp4): 95.6 ml TAPSE: 1.4 cm RA A4 area: 33.1 cm2 Time Measurements MV dec time: 0.18 sec Doppler Measurements & Calculations MV E max cecilia: 127.8 cm/sec MV V2 max: 129.2 cm/sec Ao V2 max: 255.0 cm/sec MV max P.7 mmHg Ao max P.3 mmHg MV V2 mean: 61.5 cm/sec Ao V2 mean: 176.4 cm/sec MV mean P.0 mmHg Ao mean P.4 mmHg MV V2 VTI: 29.9 cm Ao V2 VTI: 58.7 cm AV (velocity ratio): 0.51 MVA(VTI): 3.9 cm2 MICHEAL(I,D): 2.0 cm2 MICHEAL(V,D): 2.0 cm2 AI max cecilia: 331.6 cm/sec LV V1 max: 132.1 cm/sec MR max cecilia: 510.1 cm/sec AI max P.0 mmHg LV V1 max P.0 mmHg MR max P.1 mmHg AI dec slope: 154.6 cm/sec2 LV V1 mean P.6 mmHg MR mean cecilia: 432.4 cm/sec AI P1/2t: 628.2 msec LV V1 mean: 87.9 cm/sec MR mean P.1 mmHg LV V1 VTI: 30.2 cm MR VTI: 196.2 cm SV(LVOT): 115.5 ml PA V2 max: 79.4 cm/sec TR max cecilia: 340.1 cm/sec TR max P.3 mmHg ECHO/Echo Complete W/ Contrast Interpretation Summary Normal LV size. Moderate concentric left ventricular hypertrophy. Left ventricular systolic function is normal. The left ventricular ejection fraction is 55 %. Mean aortic valve gradient 14 mmHg. Mild (1+) aortic valve insufficiency. Contrast injection was performed. Ordering Physician: Della Arroyo Referring Physician: Tito Tsai Performed By: Osei Hartman RCS
[2023-05-21 12:08] LABS: Glucose, Body Fluid 68 mg/dL (40-70); LDH,Body Fluid 95 Units/L (Not Establ.); Protein, Body Fluid 2.5 g/dL (Not Establ.)
[2023-05-22 12:08] LABS: Albumin, Body Fluid 1.4 g/dL (Not Estab.)
== END 2023-05-21 23:59 | disposition home or self-care (01) ==
PROVIDERS: Referring Provider Physician Assistant Medical; Visit Provider Physician Assistant Medical
DX: I27.0 Primary pulmonary hypertension (principal); I50.9 Heart failure, unspecified; I48.20 Chronic atrial fibrillation, unspecified; J91.8 Pleural effusion in other conditions classified elsewhere; I35.0 Nonrheumatic aortic (valve) stenosis
CPT/HCPCS: 32555; 71046; 82042; 82945; 83615; 84157; 87015; 87116; 87206; 88108; 88305; 88313; 93306; Q9957; A4216; C8929

== ENCOUNTER → 2023-09-02 | Outpatient (CLI) | payer MEDICARE, SELFPAY ==
--- NOTE | 2023-09-02 13:31 | RAD_ITS ---
INDICATION: Shortness of breath, cough EXAMINATION/TECHNIQUE: X-RAY - XR Chest 2 Views COMPARISON: Prior study dated: 05/21/2023 FINDINGS: LINES/DEVICES: None. LUNGS: Hazy right lower lung infiltrate. Moderate right pleural effusion. Blunting of the left costophrenic angle. MEDIASTINUM AND CARDIOVASCULAR STRUCTURES: Stable cardiomediastinal silhouette. BONES AND SOFT TISSUES: Degenerative changes of the thoracic spine. RAD/Chest PA and Lateral IMPRESSION: 1. Hazy right lower lung infiltrate could be due to pneumonia. 2. Small bilateral pleural effusions larger on the right side. Electronically Signed: Neno Bravo MD at 14:57 EST ,
== END | disposition home or self-care (01) ==
LOC: MTRAD 13:28
PROVIDERS: Referring Provider Internal Medicine Pulmonary Disease; Visit Provider Internal Medicine Pulmonary Disease
DX: R06.02 Shortness of breath (principal); R05.9 Cough, unspecified
CPT/HCPCS: 71046

== ENCOUNTER → 2023-09-13 | Outpatient (CLI) | payer MEDICARE, SELFPAY ==
[2023-09-13 14:39] LABS: Absolute Lymphocyte Count 0.45 X10^3/uL (0.83-4.51); Basophil# 0.03 X10^3/uL; Basophil% 0.4 % (0-1); Eosinophils% 2.9 % (0-5); Hematocrit 43.1 % (40-54); Hemoglobin 13.2 g/dL (13.0-16.5); Lymphocyte # 0.45 X10^3/ul (0.83-4.51); Lymphocyte % 6.4 % (19-41); Mean Corp Hgb Conc 30.6 g/dL (32-36); Mean Corpuscular Hgb 29.5 pg (27.0-32.0); Mean Corpuscular Volume 96.2 fL (80-94); Mean Platelet Vol. 9.9 fl (6.2-12.0); Monocyte# 1.26 X10^3/uL; NRBC Flagged by Analyzer 0 % (0-5); Neutrophil # 5.02 X10^3/uL (2.7-7.7); Neutrophil % 71.7 % (47-70); POSITIVE DIFFERENTIAL YES; Platelet Count 261 K/mm3 (150-450); RBC Distribution Width CV 14.8 % (11.6-14.6); RBC Distribution Width SD 52.9 fl (35.1-43.9); Red Blood Count 4.48 M/mm3 (4.6-6.2)
== END | disposition home or self-care (01) ==
LOC: LAB 13:32
PROVIDERS: Referring Provider Physician Assistant Medical; Visit Provider Physician Assistant Medical
DX: K76.0 Fatty (change of) liver, not elsewhere classified (principal)
CPT/HCPCS: 36415; 85025

== ENCOUNTER 2023-09-21 13:08 | Emergency (ER) | payer OTHER, SELFPAY ==
[2023-09-21 13:10] VITALS: BP 107/62; PULSE 84; RESP 18; TEMP 37; O2SAT 98
--- NOTE | 2023-09-21 13:37 | ED.VIS.LOWEX ---
HPI History of Present Illness HPI Narrative: Patient presents with pain and swelling to his right foot that has been getting progressively worse over the past week. Patient states he accidentally hit his right foot on a motorized cart 1 week ago. Patient states the pain was improving but over the past couple days it started getting worse. Patient noted some redness to his foot. Patient describes the pain as aching. Patient states it is worse with any pressure to his foot including his socks and shoes. Patient admits to some tingling into his toes but denies any weakness. Patient denies any fevers or chills. Chief Complaint: Lower Extremity Injury Informant: patient Occured/Mechanism Mechanism/Context: Yes blunt trauma Onset/Context/Timing Onset: Weeks (1) Context: Gradual Onset Timing: Continuous Quality of Pain: Aching Location: Right foot Worsened by: Pressure Relieved by: Nothing Associated Symptoms Associated Symptoms: Positive for Parasthesia; Negative for Weakness or Loss of Funtion PFSH PFSH Medical History A-fib Arthritis CHF (congestive heart failure) Depression NATHAN (dyspnea on exertion) Former smoker GERD (gastroesophageal reflux disease) HLD (hyperlipidemia) On home oxygen therapy Recurrent right pleural effusion Schizophrenia Home Medications fluticasone propionate 50 mcg/actuation nasal spray,suspension 1 spray DAILY nasal spray 05/04/13 [History Last Taken 01/21/23] guaifenesin 600 mg tablet, extended release 12 hr (Mucus Relief ER) 400 mg PO TID cough 05/04/13 [History Last Taken 01/22/23] sennosides 8.6 mg-docusate sodium 50 mg tablet 1 ea PO DAILY PRN Constipation 11/27/19 [History Last Taken 01/22/23] vitamin E 268 mg (400 unit) capsule 400 unit PO DAILY supplement 11/27/19 [History Last Taken 01/22/23] apixaban 5 mg tablet 5 mg PO BID anticoagulant 01/24/20 [History Last Taken 01/22/23] ascorbic acid (vitamin C) 1,000 mg tablet 1,000 mg PO DAILY@1200 SUPPLEMENT 03/14/20 [History Last Taken 01/22/23] bupropion HCl 300 mg 24 hr tablet, extended release 300 mg PO DAILY ANXIETY 03/14/20 [History Last Taken 01/22/23] coenzyme Q10 200 mg capsule 200 mg PO DAILY SUPPLEMENT 03/14/20 [History Last Taken 01/22/23] multivitamin with minerals 1 tab PO DAILY SUPPLEMENT 03/14/20 [History Last Taken 10/09/21] cholecalciferol (vitamin D3) 125 mcg (5,000 unit) capsule 125 mcg PO DAILY SUPPLEMENT 06/25/21 [History Last Taken 01/22/23] omeprazole 40 mg capsule,delayed release 40 mg PO BID GERD 06/25/21 [History Last Taken 01/22/23] potassium chloride 20 mEq tablet,extended release(part/cryst) (Klor-Con M) 20 meq PO BIDCM supplement #30 tabs 06/28/21 [Rx Last Taken 01/22/23] vitamins A,C,W-luop-fxsfhp 2,148 mcg-113 mg-45 mg-17.4 mg tablet 2 tab PO BID suplement 09/12/21 [History Last Taken 01/22/23] spironolactone 25 mg tablet 25 mg PO DAILY diuretic #30 tabs 11/11/22 [Rx Last Taken 01/22/23] alprazolam 0.25 mg tablet 0.25 mg PO BID 02/12/23 [History Last Taken Unknown] vitamins A,C,R-zrbo-tyedqt 4,296 mcg-226 mg-90 mg capsule (PreserVision AREDS) 1 cap PO BID 04/30/23 [History Last Taken Unknown] metoprolol tartrate 25 mg tablet 25 mg PO BID Pt awaiting [facility], he ran out. #60 tabs 07/08/23 [Rx Last Taken Unknown] furosemide 40 mg tablet 40 mg PO DAILY 09/13/23 [History Last Taken Unknown] cephalexin 500 mg capsule 500 mg PO Q6 #40 CAPSULES 09/21/23 [Rx Last Taken Unknown] Allergy/AdvReac Type Severity Reaction Status Date / Time No Known Allergies Allergy Verified 09/21/23 13:10 Family History Mother Heart disease Surgical History (Updated 09/21/23 @ 14:[address] Bob Shea, ) History of thoracentesis Social History Smoking Status: Former smoker ROS ROS ED Constitutional Constitutional ED: Denies chills or fever(s) Eyes Eyes: Denies blurry vision or change in vision ENT ENT ED: Denies rhinorrhea or sore throat Cardiovascular Cardiovascular: Denies chest pain or palpitations Respiratory/Chest Respiratory/Chest: Reports cough; Denies dyspnea Gastrointestinal Gastrointestinal: Denies nausea or vomiting Genitourinary Genitourinary ED: Denies dysuria or hematuria Musculoskeletal Musculoskeletal: Reports back pain; Denies neck pain Integumentary Denies abscess or rash Neurologic Neurologic: Reports headache(s); Denies weakness Allergic/Immunologic Allergic/Immunologic ED: Denies mouth swelling or urticaria EXAM Physical Exam Const Vital Signs: 09/21/23 13:10 Temperature 98.6 F Temperature Source Temporal Pulse Rate 84 Respiratory Rate 18 Blood Pressure 107/62 Blood Pressure Mean 77 Pulse Ox 98 Oxygen Delivery Method Room Air Positive well nourished and well developed General Appearance ED: well developed and NAD HEENT Reports moist mucous membranes Neck full ROM and supple Extremity Extremity Narrative: There is tenderness and mild warmth over the distal second, third, and fourth metatarsals. There is some mild erythema. Range of motion was limited in all motions of the digit secondary to pain. Sensation was intact to light touch in all digits. Capillary refill was less than 2 seconds in all digits. There is no calf tenderness noted. Pedal pulses are equal bilaterally. Neuro oriented x3, CN's II-XII intact bilaterally, moves all extremities and no sensory deficits noted Sensorium / Orientation: alert Motor Exam: strength 5/5 throughout Psych mental status grossly normal MDM MDM MDM Narrative Medical decision making narrative: Differential diagnosis includes cellulitis, occult fracture, osteomyelitis, and contusion. X-rays of the right foot will be obtained to assess for osteomyelitis and occult fracture. Sed rate and CRP will be obtained to assess for acute phase reactants. Blood cultures will be obtained to assess for sepsis. Patient had outpatient CBC, BMP, PT with INR, and PTT earlier today. These will not need to be repeated. Lab Data Lab results narrative: Outpatient CBC was reviewed. There is a mild anemia with a hemoglobin of 12.9. Outpatient basic metabolic profile was reviewed and was within normal limits. Outpatient PT with INR and PTT were reviewed. Pro time was 18.7, INR is 1.6, and PTT was 46. Sed rate was reviewed and was slightly elevated at 26. CRP was reviewed and was elevated at 34.9. Labs: Laboratory Results - last 24 hr 09/21/23 13:45 ESR 26 H C-React Prot Ext Range 34.90 H Radiography Diagnostic Testing: Clinical Impression(s) from Imaging Studies Foot X-Ray 09/21/23 13:50 IMPRESSION: Dorsal soft tissue swelling. Degenerative changes of the first metatarsophalangeal joint. Plantar spur. Electronically Signed: Haroldo Arana MD at 14:03 EST , X-rays of the right foot were obtained. There are 3 views. On my independent interpretation, there is some soft tissue swelling noted. There are some degenerative changes noted. There is no acute fracture noted. Radiologist also interpreted the x-rays and agrees. Treatment and Re-Evaluation Narrative: Patient was given a dose of Ancef here. Patient was advised of his findings. I do not feel the patient requires hospitalization for IV antibiotics at this time. Patient was given prescription for Keflex. Patient was instructed to follow-up with his primary care physician in 5 to 7 days. Patient was also given referral for podiatry. Patient was instructed return if worse in any way. Patient understood and was agreeable with plan. All questions were answered. Discharge Plan Triage Chief Complaint: Lower Extremity Injury ED Provider: Bob Shea Dx/Rx/DC Orders Clinical Impression: Cellulitis of right foot, Hypertension Instructions: ED Cellulitis Prescriptions: New cephalexin [cephalexin] 500 mg capsule 500 mg PO Q6 Qty: 40 0RF No Action vitamins A,C,Z-yfgh-jxzibo 7,160 unit- 113 mg-100 unit tablet 2 tab PO BID Rx Instructions: administer with AM and PM meals furosemide 40 mg tablet 40 mg PO DAILY fluticasone propionate 1 SPRAY spray,suspension 1 spray NASAL DAILY guaifenesin [Mucus Relief ER] 600 MG tablet 400 mg PO TID sennosides-docusate sodium 1 EACH tablet 1 ea PO DAILY PRN (Reason: Constipation) vitamin E 400 UNIT capsule 400 unit PO DAILY apixaban 5 MG tablet 5 mg PO BID ascorbic acid (vitamin C) 1,000 MG tablet 1,000 mg PO DAILY@1200 multivitamin with minerals 1 EACH tablet 1 tab PO DAILY bupropion HCl 300 MG tablet extended release 24 hr 300 mg PO DAILY Patient Comments: PT STATED STOPPED TAKING ABOUT 4 DAYS AGO. coenzyme Q10 200 MG capsule 200 mg PO DAILY omeprazole 40 mg Capsule,Delayed Release(Dr/Ec) 40 mg PO BID cholecalciferol (vitamin D3) 125 mcg (5,000 unit) Capsule 125 mcg PO DAILY potassium chloride [Klor-Con M20] 20 mEq Tablet,Er Particles/Crystals 20 meq PO BIDCM Qty: 30 0RF alprazolam 0.25 mg tablet 0.25 mg PO BID Patient Comments: PRN PreserVision AREDS 4,296 mcg-226 mg-90 mg capsule 1 cap PO BID spironolactone 25 mg tablet 25 mg PO DAILY Qty: 30 11RF metoprolol tartrate 25 mg tablet 25 mg PO BID Qty: 60 0RF Primary Care Provider: [facility] Referrals: Matt Cowan DPM [Med Staff - Active Staff] - 5-7 Days [facility] [Primary [facility] - 5-7 Days Disposition Disposition: Home, Self Care
--- NOTE | 2023-09-21 13:50 | RAD_ITS ---
STUDY: X-RAY - RIGHT FOOT CLINICAL: Male, 78 years old. Pain following recent injury. TECHNIQUE: 3 view(s) of the foot. COMPARISON: None. FINDINGS: There is a plantar calcaneal spur. Normal visualized subtalar, talonavicular, calcaneocuboid, tarsal and tarsometatarsal articulations. Normal metatarsi. There is degenerative arthrosis of the metatarsophalangeal joint of the hallux . Normal tibial and fibular sesamoid bones. Normal interphalangeal joint of the great toe. Normal phalanges of the great toe. Normal second through fifth metatarsophalangeal joints. Normal interphalangeal joints and phalanges of the lesser toes. Dorsal soft tissue swelling. RAD/Foot min 3 Views IMPRESSION: Dorsal soft tissue swelling. Degenerative changes of the first metatarsophalangeal joint. Plantar spur. Electronically Signed: Haroldo Arana MD at 14:03 EST ,
[2023-09-21 14:04] LABS: Erythrocyte Sedimentation Rate 26 mm/hr (0-20)
[2023-09-21] MEDS: Cefazolin 1 GM/50 ML BAG IV (14:23)
[2023-09-21 14:24] VITALS: BMI 29.9
[2023-09-21 15:00] VITALS: BP 138/68; PULSE 82; RESP 18; TEMP 36.8; O2SAT 98
== END 2023-09-21 15:01 | disposition home or self-care (01) ==
PROVIDERS: Emergency Provider Emergency Medicine; Visit Provider Emergency Medicine
DX: L03.115 Cellulitis of right lower limb (principal); I50.9 Heart failure, unspecified; I11.0 Hypertensive heart disease with heart failure; I48.91 Unspecified atrial fibrillation; Z99.81 Dependence on supplemental oxygen; Z79.01 Long term (current) use of anticoagulants; Z79.899 Other long term (current) drug therapy; Z87.891 Personal history of nicotine dependence
CPT/HCPCS: 73630; 85652; 86140; 87040; 96365; 99284; A4216

== ENCOUNTER 2023-10-25 07:34 | Day surgery (SDC) | payer OTHER, MEDICARE, SELFPAY ==
[2023-09-21 13:18] LABS: Absolute Lymphocyte Count 0.52 X10^3/uL (0.83-4.51); Basophil# 0.02 X10^3/uL; Basophil% 0.4 % (0-1); Eosinophil# 0.14 X10^3/uL; Eosinophils% 2.5 % (0-5); Hemoglobin 12.9 g/dL (13.0-16.5); Lymphocyte # 0.52 X10^3/ul (0.83-4.51); Lymphocyte % 9.2 % (19-41); Mean Corp Hgb Conc 32.3 g/dL (32-36); Mean Corpuscular Hgb 30.7 pg (27.0-32.0); Mean Corpuscular Volume 95.2 fL (80-94); Mean Platelet Vol. 9.1 fl (6.2-12.0); Monocyte# 0.88 X10^3/uL; Monocyte% 15.6 % (0-10); NRBC Flagged by Analyzer 0 % (0-5); Neutrophil # 4.03 X10^3/uL (2.7-7.7); Neutrophil % 71.4 % (47-70); POSITIVE DIFFERENTIAL YES; Platelet Count 217 K/mm3 (150-450); RBC Distribution Width CV 15.3 % (11.6-14.6); RBC Distribution Width SD 52.4 fl (35.1-43.9); White Blood Count 5.6 K/mm3 (4.4-11.0)
[2023-09-21 13:30] LABS: International Normalized Ratio 1.6; Prothrombin Time (Protime)PT. 18.7 SECONDS (11.7-14.9)
[2023-09-21 13:50] LABS: Anion Gap 5 (5-15); BUN 11 mg/dL (7-18); BUN/Creat Ratio 9.3 RATIO (10-20); Calcium,Total 9.3 mg/dL (8.5-10.1); Chloride 103 mmol/L (98-107); Creatinine, Serum 1.18 mg/dL (0.70-1.30); EST Glomerular Filtration Rate 64 mL/min (>60); Est Glom Filt Rate - Afr Amer 77 mL/min (>60); Glucose 90 mg/dL (74-106); Potassium 4.8 mmol/L (3.5-5.1); Sodium Level 137 mmol/L (136-145)
--- NOTE | 2023-10-15 12:25 | HP.PCM_ITS ---
History and Physical Date of Admission: 10/25/23 Torito Coles is a 77-year-old male with a history of atrial fibrillation, aortic stenosis, congestive heart failure, and hyperlipidemia. He presented to [facility] emergency room on 06/25/2021 for dyspnea, and congestive heart failure symptoms. Patients symptoms had been ongoing for a week. His shortness of breath was brought on with minimal activity, increased bilateral lower extremity edema. A Chest CT was obtained, and demonstrated moderate right-sided effusion. He underwent a thoracocentesis with 1150 mL of fluid was drained. He was discharged on 60mg Lasix BID. He has previously followed with the [facility], but was referred to our office due to him living alone and unable to drive, and needing a local cardiology for titrating his medications. He was last seen in the office on 06/26/2022, there was concerns with his DC physician that felt like he had fluid on his lungs . Pt has noted that he was more SOB. He noted to have a moderate right pleural effusion. He underwent an u/s guided thoracentesis. There was approx 1450mL drained. He was seen in the ER on 09/07/2022 for increase SOB. CXR demonstrated recurrence of pleural effusion. He was not taking his diuretics as he was instructed to. He underwent an ultrasound-guided thoracentesis on 09/11/2022 where he had 1450 mL of belen- colored fluid removed moved from his right lung. He did require a thoracentesis again on 11/09/22 with a removal of 1270 mL, and again on 01/24/23when he was hospitalized and had a removal of 390mL. He has since established with [facility]. His last Thoracentesis was 04/2023. With his recurring pleural effusion did refer to Dr. Tsai. Dr. Tsai is being referred to CT surgery at [facility] for VATS talc pleurodeses. He goes to the DC physician on 05/17. He would like an echo and a right heart cath. He is concerned about primary pulmonary hypertension. Patient had right heart cath done at [facility]. Pulmonary pressure was 60 with wedge of 26. His EF is 55. Dr. Tsai would like a left heart cath to measure his left ventricular and diastolic pressure. If this is normal then he will go ahead and treat for pulmonary hypertension. Pt notes that he felt like increasing his lasix for a week helped with his weight but he can not tell me if it helped with his breathing. He does not have any chest pain. He sleeps in a chair, this is not new. He does not have any swelling. He does not feel his heart racing. He does have some lightheadedness. He was scheduled to undergo a LHC. This was postponed d/t cellulitis. He is here today to pursue this. Const Const: Positive for fatigue, weakness and weight loss; Negative for headache(s), frequent falls or excessive sweating Eyes Eyes: Negative for loss of peripheral vision, transient loss of vision, blurry vision, change in vision or double vision ENT ENT: Positive for balance problems; Negative for headache(s), dizziness, tinnitus or Nosebleed/epistaxis Cardio Chest Pain: No Palpitations: No Edema: None Muscle aches with walking: None Resp Respiratory: Positive for SOB with activity; Negative for SOB at rest, SOB orthopnea\SOB lying down or Cough GI GI: Positive for bloating; Negative nausea, vomiting, heartburn, vomiting blood/hematemesis, bright, red blood in stools or black,tarry stools : Negative for hematuria Musc Musc: Positive for muscle aches/ myalgia, muscle weakness and balance problems; Negative for joint pain Skin Skin: Negative rash or wounds Neuro Neuro: Positive for weakness; Negative for dizziness, lightheadedness, near syncope, syncope, orthostatic symptoms, frequent falls, headache(s), confusion, memory loss, restless legs, blurry vision or double vision Levi Hematologic/Lymphatic: Negative for easy bleeding or easy bruising Endo Endo: Positive for fatigue; Negative for cold intolerance, heat intolerance or excessive sweating Psych Psych: Negative for anxiety or depression Allergy Allergy/Immunology: Negative for rash Cardiology Exam Const Appearance: cooperative, comfortable, no acute distress and well developed Nutritional Appearance: thin Orientation: alert, awake and oriented x3 Head Head: normal to inspection Ears: hearing grossly normal bilaterally Nose: external nose normal Face and Sinus: face symmetric Mouth: oral mucosae normal, lip normal and moist mucous membranes Eyes General: appearance normal, both eyes and all related structures Eyelids: eyelids normal Conjunctivae: conjunctivae normal Pupils: PERRL EOM: EOM intact bilaterally Neck Neck: normal visual inspection and trachea midline; Negative no JVD Carotids: Negative bruit Chest Chest inspection: normal inspection of the chest Auscultation: Bilateral: Diminished Lung Sounds and Right: Diminished Base Cardio Palpation: normal PMI Rate: regular rate Rhythm: regular rhythm Heart sounds: S1 normal and S2 normal; Negative rub, gallop or murmur GI GI: soft, no hepatosplenomegaly and bowel sounds present Neuro General: patient alert, patient awake, patient oriented x3 and CN's II-XI intact bilaterally Extremities Pulses: Normal: Right Posterior Tibial Pulse, Left Posterior Tibial Pulse, Right Radial Pulse and Left Radial Pulse Lower Extremity Edema: None: Bilateral Psych Psychological: normal affect Assessment & Plan Assessment/Plan (1) Recurrent right pleural effusion: (2) Chronic atrial fibrillation: (3) NATHAN (dyspnea on exertion): (4) Pulmonary hypertension: PLAN: Plan With patient's continued shortness of breath would like to obtain a left heart catheterization to assure that this is not cardiac prior to treating him for his pulmonary hypertension.
[2023-10-22 08:22] VITALS: BMI 30.4
[2023-10-25 07:49] LABS: Absolute Lymphocyte Count 0.44 X10^3/uL (0.83-4.51); Absolute Neutrophil Count 3.5 X10^3/uL (2.0-7.7); Basophil# 0.02 X10^3/uL; Basophil% 0.4 % (0-1); Eosinophil# 0.13 X10^3/uL; Eosinophils% 2.5 % (0-5); Hematocrit 39.7 % (40-54); Hemoglobin 12.5 g/dL (13.0-16.5); Lymphocyte # 0.44 X10^3/ul (0.83-4.51); Lymphocyte % 8.5 % (19-41); Mean Corp Hgb Conc 31.5 g/dL (32-36); Mean Corpuscular Hgb 30.3 pg (27.0-32.0); Mean Corpuscular Volume 96.1 fL (80-94); Mean Platelet Vol. 8.9 fl (6.2-12.0); Monocyte# 1.08 X10^3/uL; Monocyte% 20.9 % (0-10); NRBC Flagged by Analyzer 0 % (0-5); Neutrophil # 3.46 X10^3/uL (2.7-7.7); Neutrophil % 66.9 % (47-70); POSITIVE DIFFERENTIAL YES; Platelet Count 148 K/mm3 (150-450); RBC Distribution Width CV 16.4 % (11.6-14.6); RBC Distribution Width SD 58.2 fl (35.1-43.9); Red Blood Count 4.13 M/mm3 (4.6-6.2); White Blood Count 5.2 K/mm3 (4.4-11.0)
[2023-10-25 08:00] LABS: International Normalized Ratio 1.1; Prothrombin Time (Protime)PT. 14.6 SECONDS (11.7-14.9)
[2023-10-25 08:01] LABS: Partial Thromboplast Time 39.3 Seconds (24.1-36.2)
[2023-10-25 08:08] LABS: Anion Gap 5 (5-15); BUN 12 mg/dL (7-18); BUN/Creat Ratio 11.5 RATIO (10-20); Calcium,Total 9.2 mg/dL (8.5-10.1); Chloride 104 mmol/L (98-107); Creatinine, Serum 1.04 mg/dL (0.70-1.30); EST Glomerular Filtration Rate 74 mL/min (>60); Est Glom Filt Rate - Afr Amer 89 mL/min (>60); Estimated Creatinine Clearance 70.31 ml/min; Glucose 106 mg/dL (74-106); Potassium 4.4 mmol/L (3.5-5.1); Sodium Level 137 mmol/L (136-145)
--- NOTE | 2023-10-25 10:15 | ECHOCS_ITS ---
Reason For Study: AORTIC STENOSIS Procedure This was a 2D Doppler, Color Flow transthoracic echocardiogram. The study was technically difficult. Contrast injection was performed. Exam performed portable in patient room. Left Ventricle Normal LV size. Left ventricular systolic function is normal. The estimated ejection fraction is 65 %. No regional wall motion abnormalities noted. Right Ventricle Normal RV size. Normal systolic function. Atria The left atrium is mildly enlarged. Normal right atrium. Mitral Valve There is mild mitral annular calcification. Tricuspid Valve Normal tricuspid valve. Mild (1+) tricuspid valve insufficiency. Pulmonary artery systolic pressure is 30 mmHg. Aortic Valve Trisinus/trileaflet aortic valve. Moderate focal aortic valve calcification. Peak aortic valve gradient 26 mmHg. Mean aortic valve gradient 15 mmHg. Mild aortic stenosis. Pulmonic Valve The pulmonic valve is not well visualized. Great Vessels Mild to moderately dilated aortic root. The pulmonary artery is normal size. and partially collapses. Pericardium/Pleural No pericardial effusion. Medication Diluted definity 2ml given slow IV push to enhance endocardial definition. MMode/2D Measurements & Calculations LVIDd: 3.9 cm IVSd: 1.2 cm LVOT diam: 2.2 cm LVIDs: 2.7 cm LVPWd: 1.3 cm RVDd: 4.3 cm FS: 31.0 % LVOT area: 4.0 cm2 Ao root diam: 3.9 cm LAV(MOD-bp): 75.9 ml LVAd ap4: 27.7 cm2 LAV(MOD-bp) Indexed: 35.5 ml/m2 LVLd ap4: 8.1 cm LAV(MOD-sp2): 83.7 ml EDV(MOD-sp4): 80.5 ml LAV(MOD-sp4): 64.8 ml EDV(sp4-el): 80.6 ml LVAs ap4: 13.2 cm2 LVLs ap4: 6.9 cm ESV(MOD-sp4): 22.1 ml ESV(sp4-el): 21.3 ml EF(MOD-sp4): 72.6 % EF(sp4-el): 73.6 % LVAd ap2: 25.8 cm2 SV(MOD-sp4): 58.4 ml SV(MOD-sp2): 45.1 ml LVLd ap2: 7.9 cm EDV(MOD-sp2): 68.2 ml EDV(sp2-el): 71.7 ml LVAs ap2: 13.8 cm2 LVLs ap2: 6.8 cm ESV(MOD-sp2): 23.1 ml ESV(sp2-el): 23.7 ml EF(MOD-sp2): 66.1 % SV(sp4-el): 59.3 ml LA dimension(2D): 4.7 cm LA A4 area: 24.5 cm2 RA A4 area: 19.6 cm2 TAPSE: 0.92 cm Time Measurements MV dec time: 0.20 sec Doppler Measurements & Calculations MV E max isaac: 122.3 cm/sec Lat Peak E' Isaac: 9.6 cm/sec Med Peak E' Siaac: 7.2 cm/sec E/E' lat: 12.7 E/E' med: 16.9 Ao V2 max: 257.1 cm/sec LV V1 max: 155.6 cm/sec SV(LVOT): 133.2 ml Ao max P.6 mmHg LV V1 max P.7 mmHg Ao V2 mean: 182.0 cm/sec LV V1 mean P.3 mmHg Ao mean P.0 mmHg LV V1 mean: 121.4 cm/sec Ao V2 VTI: 50.2 cm LV V1 VTI: 33.7 cm AV (velocity ratio): 0.67 MICHEAL(I,D): 2.7 cm2 MICHEAL(V,D): 2.4 cm2 TR max isaac: 242.7 cm/sec TR max P.6 mmHg ECHO/Echo Complete W/ Contrast Interpretation Summary Normal LV size. Left ventricular systolic function is normal. The estimated ejection fraction is 65 %. Moderate focal aortic valve calcification. Mean aortic valve gradient 15 mmHg. Mild aortic stenosis. Compared to the previous the above valve area and gradient is essentially uncha nged. Ordering Physician: Oj Harris Referring Physician: Oj Harris MD Performed By: Es Wahl RDCS
--- NOTE | 2023-11-01 12:52 | CL.D_ITS ---
Patient Name: TANMAY GABRIEL Study Date: 10/25/2023 Performing: Oj Harris MD Ht: 70 inches 177.8 cm : 1945 Wt: 212 lbs 96.16 kg Age: 78 Gender: male BSA: 2.14 PROCEDURE(S) PERFORMED DC02-(60255)LHC/COR DC11-([id number])AO ROOT ANGIO WITH HEART CATH CLINICAL PROFILE AND INDICATIONS Indications: Other Heart Failure: None Stress/Imaging Stress/Image Study Performed: No CAD Presentations: Other: Shortness of breath CONCLUSIONS Normal LV size, wall motion,and systolic function Mild to moderate diffuse coronary disease with no evidence of high-grade stenosis RECOMMENDATIONS Medical therapy DESCRIPTION OF PROCEDURE The patient arrived to the procedure lab. The risks and benefits of the procedure as well as a full description of our services here and current unavailability of surgical backup were fully explained to the patient and/or their significant other prior to the catheterization. The Timeout was completed, verifying the correct patient and procedure. The patient's procedural site was prepped and draped in the usual fashion. Local anesthetic was given subcutaneously to right radial region with Lidocaine 2%. Using a modified Seldinger technique, arterial access was obtained via the right radial artery, a 6Fr sheath was inserted. Right Coronary Artery selective angiography was then performed in multiple views using a 5 Fr. 4.0 Harrison catheter. Left Coronary Artery selective angiography was performed in multiple views using a 5 Fr. 4.0 Harrison catheter.The arterial sheath was pulled and a TR Band was applied for hemostasis 10 of air CORONARY ANGIOGRAPHY DOMINANCE: Right Dominant LEFT HEART ASSESSMENT Left Ventricular Ejection Fraction: by Echo 55 % Normal LV wall motion Normal Left Ventricular systolic function LEFT MAIN: Mild calcification LEFT ANTERIOR DESCENDING ARTERY: Mild calcification noted of the left anterior descending artery with areas of stenosis in the proximal to mid segment of 50 to 60% and mild diffuse distal disease. CIRCUMFLEX ARTERY: Mild luminal irregularities less than 30% RAMUS: Mild luminal irregularities less than 30% RIGHT CORONARY ARTERY: Calcified vessel with at least 3 different areas of 50% stenosis noted VALVE FINDINGS: Mitral Valve Calcification Moderate Aortic Valve Stenosis - mild COMPLICATIONS No Complications PROCEDURE MEDICATIONS Versed 1 mg IV Fentanyl 50 mcg IV Oxygen: 2 L/min via nasal cannula Aspirin (325mg) 1 Tabs PO @ 10/25/2023 08:05:04 Heparin given IA 10/25/2023 09:02:29 Verapamil 2.5mg, Ntg 100mcgs, 3000 units of Heparin given IA 10/25/2023 09:02:29 SUMMARY OF HEMODYNAMIC DATA Time AIR REST ECG 08:02:32 AO 113/70 (89) SA 09:05:32 Signed By Oj Harris MD On 11/01/2023 12:52:03 Oj Harris MD
== END 2023-10-25 11:50 | disposition home or self-care (01) ==
PROVIDERS: Physician Assistant Medical; Referring Provider Internal Medicine Cardiovascular Disease; Visit Provider Internal Medicine Cardiovascular Disease
DX: I25.10 Atherosclerotic heart disease of native coronary artery without angina pectoris (principal); I27.20 Pulmonary hypertension, unspecified; I48.20 Chronic atrial fibrillation, unspecified; R06.02 Shortness of breath; J90 Pleural effusion, not elsewhere classified; R06.09 Other forms of dyspnea; Z79.01 Long term (current) use of anticoagulants; Z79.899 Other long term (current) drug therapy; I35.0 Nonrheumatic aortic (valve) stenosis
CPT/HCPCS: 36415; 80048; 85025; 85610; 85730; 93306; 93454; 93567; 99152; 99153; J7040; Q9957; Q9967; A4216; C1769; C1894; C8929

== ENCOUNTER → 2023-11-09 | Outpatient (CLI) | payer OTHER, MEDICARE, SELFPAY ==
--- NOTE | 2023-11-09 12:56 | RAD_ITS ---
HISTORY: Pulmonary hypertension. TECHNIQUE: XR Chest 2 Views. COMPARISON: 09/02/2023. FINDINGS: CARDIOMEDIASTINAL BORDERS: Cardiac silhouette and mediastinal contour unchanged with mild cardiomegaly and calcification of the aortic knob. LUNGS: Persistent hazy opacity of the right lower lobe. PLEURA: Moderate right pleural effusion again seen. OSSEOUS STRUCTURES: Degenerative change. RAD/Chest PA and Lateral IMPRESSION: No significant interval change in moderate right pleural effusion with right lower lobe opacity, which may represent atelectasis or pneumonia. Electronically Signed: Tere Paulson MD at 10:39 EDT ,
[2023-11-09 16:06] LABS: BNP,B-Type NATRIURETIC PEPTIDE 277.3 pg/mL (0-100)
== END | disposition home or self-care (01) ==
LOC: MTLAB 12:55
PROVIDERS: Referring Provider Internal Medicine Pulmonary Disease; Visit Provider Internal Medicine Pulmonary Disease
DX: I27.20 Pulmonary hypertension, unspecified (principal)
CPT/HCPCS: 36415; 71046; 83880

== ENCOUNTER 2024-08-16 13:18 | Emergency (ER) | payer OTHER, SELFPAY ==
[2024-08-16] VITALS (18 sets, daily range): BP systolic 99–148; BP diastolic 43–96; PULSE 65–96; RESP 16–25; TEMP 35.3–36.7; O2SAT 97–100; BMI 28.9
--- NOTE | 2024-08-16 13:57 | RAD_ITS ---
INDICATION: Shortness of breath EXAMINATION/TECHNIQUE: X-RAY - XR Chest 2 Views COMPARISON: November 09, 2023 FINDINGS: LINES/DEVICES: None. LUNGS: There is a moderate-sized right pleural effusion. No pneumothorax. MEDIASTINUM AND CARDIOVASCULAR STRUCTURES: Cardiac silhouette not enlarged. There is right hilar fullness. BONES AND SOFT TISSUES: Unremarkable. RAD/Chest PA and Lateral IMPRESSION: Moderate-sized right pleural effusion, cannot exclude associated consolidation and/or a neoplastic process, recommend chest CT with contrast for further evaluation. Right hilar fullness, cannot exclude lymphadenopathy and/or mass, again recommend a chest CT with contrast for further evaluation. Electronically Signed: Marietta Cardenas MD at 15:00 EST ,
--- NOTE | 2024-08-16 14:53 | CT_ITS ---
EXAM: CT CHEST WITH INTRAVENOUS CONTRAST CLINICAL INDICATION: sob, recurrent right pleural effusion TECHNIQUE: Helically acquired images were obtained of the chest with intravenous contrast. CTDIvol = ( 18.02 ) mGy, DLP = ( 1049.24 ) mGycm This CT exam was performed using one or more of the following dose reduction techniques: automated exposure control, adjustment of the mA and/or kV according to patient size, and/or use of iterative reconstruction technique. CONTRAST: IV 100mL Isovue-300 COMPARISON: No relevant prior studies available. FINDINGS: LUNGS AND PLEURAL SPACES: Small to moderate size right pleural effusion with nodular thickening of the pleural rind concerning for empyema. Airspace disease at the right lower lobe. Consider rounded atelectasis although aspiration/pneumonia is not excluded. No mass. HEART: Cardiomegaly. No pericardial effusion. MEDIASTINUM: Reactive mediastinal/right hilar prominent lymph nodes. Esophagus is unremarkable. No hiatal hernia. THYROID: Unremarkable. No thyroid lesions. BONES/JOINTS: Moderate anterior wedge compression fracture of the T2 and T3 vertebral bodies. Mild anterior wedge pressure fracture of the T1 vertebral body. These are age-indeterminate but presumably not acute assuming no recent trauma. Degenerative changes of the spine. No suspicious lytic or blastic abnormality. SOFT TISSUES: Gynecomastia bilaterally. VASCULATURE: Dilated central pulmonary arteries are compatible with pulmonary hypertension. Ascending thoracic aorta measures up to 4.5 cm. No obvious central pulmonary embolism although this study was not performed with the pulmonary embolism protocol. No PE. No aortic dissection. CT/Chest WITH Contrast IMPRESSION: 1. Small to moderate size right pleural effusion with nodular thickening of the pleural rind concerning for empyema. Adjacent airspace disease may represent atelectasis versus aspiration/pneumonia. 2. No PE. 3. Ascending thoracic aorta measures up to 4.5 cm. 4. Age indeterminate but presumably nonacute compression fractures of the T1-T3 vertebral bodies. Electronically Signed: Grant Huynh MD at 17:02 EST ,
--- NOTE | 2024-08-16 14:54 | EKG12_ITS ---
Test Reason : Blood Pressure : */* mmHG Vent. Rate : 64 BPM Atrial Rate : * BPM P-R Int : * ms QRS Dur : 114 ms QT Int : 448 ms P-R-T Axes : * 65 25 degrees QTcB Int : 462 ms Atrial fibrillation Incomplete right bundle branch block Abnormal ECG Confirmed by ADAM ESCUDERO, RUDY ([id number]), development editor MIKAL DEAL ([id number]) on 08/22/2024 7:08:38 AM Referred By: Jordana Souza Confirmed By: RUDY MEDINA MD
--- NOTE | 2024-08-16 15:19 | EX.ED.DYSGE1 ---
HPI History of Present Illness Chief Complaint: Shortness of Breath Informant: patient Narrative Narrative: Patient is a 79-year-old male with history of CHF, recurrent right pleural effusion (do not he has not had a thoracentesis in the past year), hypertension, hyperlipidemia, chronic atrial fibrillation on Eliquis and metoprolol and recent cellulitis of the right foot (treated with doxycycline and finished this 5 days ago) presenting with worsening shortness of breath for the past 2 weeks as well as difficulty swallowing/foreign body sensation in his throat. States that he feels like there something swollen or a foreign body on the right side of his larynx. Feeling over the bedside notes that he has had some voice changes and his voice is more gravelly. He states he is only drinking about a third of the water that he normally would drink his nightly been able to eat because of difficulty swallowing. He states if he tries to swallow to when she feels that he is going to throw up. He denies any aspiration event or swallowing any food that got stuck. He also feels that he has been more short of breath intermittently for the past 2 weeks. Feels that he needs to cough but states is too painful to cough. Denies any fever or chills. Denies any other URI symptoms. Wears 2 L of oxygen at baseline. Denies any new swelling of his legs. States he has Lasix prescribed as needed but he has not needed it in some time and his weights actually been down overall. [facility] No other complaints or concerns at this time. [facility] Medical History Schizophrenia Arthritis Former smoker On home oxygen therapy Recurrent right pleural effusion NATHAN (dyspnea on exertion) A-fib GERD (gastroesophageal reflux disease) Depression HLD (hyperlipidemia) CHF (congestive heart failure) Home Medications ?Medication ?Instructions ?Recorded ?Last Taken ?Type fluticasone propionate 50 1 spray DAILY nasal spray 05/04/13 01/21/23 History mcg/actuation nasal spray,suspension guaifenesin 600 mg tablet, 400 mg PO TID cough 05/04/13 01/22/23 History extended release 12 hr (Mucus Relief ER) sennosides 8.6 mg-docusate sodium 1 ea PO DAILY PRN Constipation 11/27/19 01/22/23 History 50 mg tablet vitamin E 268 mg (400 unit) capsule 400 unit PO DAILY supplement 11/27/19 01/22/23 History apixaban 5 mg tablet 5 mg PO BID anticoagulant 01/24/20 10/22/23 History ascorbic acid (vitamin C) 1,000 mg 1,000 mg PO DAILY@1200 SUPPLEMENT 03/14/20 01/22/23 History tablet bupropion HCl 300 mg 24 hr tablet, 300 mg PO DAILY ANXIETY 03/14/20 01/22/23 History extended release coenzyme Q10 200 mg capsule 200 mg PO DAILY SUPPLEMENT 03/14/20 01/22/23 History multivitamin with minerals 1 tab PO DAILY SUPPLEMENT 03/14/20 10/09/21 History cholecalciferol (vitamin D3) 125 125 mcg PO DAILY SUPPLEMENT 06/25/21 01/22/23 History mcg (5,000 unit) capsule omeprazole 40 mg capsule,delayed 40 mg PO BID GERD 06/25/21 01/22/23 History release potassium chloride 20 mEq 20 meq PO BIDCM supplement #30 tabs 06/28/21 01/22/23 Rx tablet,extended release(part/cryst) (Klor-Con M) spironolactone 25 mg tablet 25 mg PO DAILY diuretic #30 tabs 11/11/22 01/22/23 Rx alprazolam 0.25 mg tablet 0.25 mg PO BID 02/12/23 Unknown History vitamins A,C,E-fmzj-qpdbld 4,296 1 cap PO BID 04/30/23 Unknown History mcg-226 mg-90 mg capsule (PreserVision AREDS) metoprolol tartrate 25 mg tablet 25 mg PO BID Pt awaiting Mail 07/08/23 Unknown Rx [facility], he ran [facility]. #60 tabs furosemide 40 mg tablet 40 mg PO DAILY 09/13/23 Unknown History sildenafil (pulm.hypertension) 20 20 mg PO TID 12/03/23 Unknown History mg tablet amoxicillin 875 mg-potassium 875 mg PO Q12H #14 TABLETS 08/16/24 Unknown Rx clavulanate 125 mg tablet dexamethasone 6 mg tablet 6 mg PO DAILY #5 tabs 08/16/24 Unknown Rx oxycodone 5 mg/5 mL oral solution 5 mg (5 mL) PO Q6H PRN pain 3 days 08/16/24 Unknown Rx #60 mL Allergy/AdvReac Type Severity Reaction Status Date / Time cephalexin (From Keflex) Allergy Mild Itching Verified 02/28/24 11:42 Family History Mother Heart disease Surgical History History of thoracentesis Social History Smoking Status: Former smoker ROS ROS ED Constitutional Constitutional ED: Denies chills or fever(s) ENT ENT ED: Reports sore throat; Denies ear pain or rhinorrhea Cardiovascular Cardiovascular: Denies chest pain, orthopnea or palpitations Respiratory/Chest Respiratory/Chest: Reports cough and dyspnea; Denies orthopnea or sputum Gastrointestinal Gastrointestinal: Denies abdominal pain, nausea or vomiting Musculoskeletal Musculoskeletal: Reports other Details: Reports bilateral foot pain ; Denies arthralgias or myalgias Integumentary Denies rash Neurologic Neurologic: Denies headache(s) Hematologic/Lymphatic Hematologic/Lymphatic: Reports easy bleeding, easy bruising and other Details: On Eliquis EXAM Physical Exam Const Vital Signs: 08/16/24 13:19 08/16/24 13:20 08/16/24 13:52 Temperature 95.5 F L Temperature Source Temporal Pulse Rate 96 72 Respiratory Rate 20 H 18 Respiratory Effort Normal Non-Labored Respiratory Depth Normal Respiratory Pattern Normal Blood Pressure 148/75 H Blood Pressure Mean 99 Pulse Ox 97 99 Oxygen Delivery Method Room Air Room Air Oxygen Flow Rate (L/min) 08/16/24 15:56 08/16/24 15:56 08/16/24 16:00 Temperature Temperature Source Pulse Rate 75 71 67 Respiratory Rate 18 16 23 H Respiratory Effort Respiratory Depth Respiratory Pattern Blood Pressure 123/65 H 109/55 L Blood Pressure Mean 84 73 Pulse Ox 97 100 100 Oxygen Delivery Method Nasal Cannula Oxygen Flow Rate (L/min) 2 08/16/24 16:15 08/16/24 16:30 08/16/24 16:45 Temperature Temperature Source Pulse Rate 65 72 72 Respiratory Rate 20 H 17 17 Respiratory Effort Respiratory Depth Respiratory Pattern Blood Pressure 99/50 L 101/43 L 116/71 Blood Pressure Mean 62 61 79 Pulse Ox 100 100 100 Oxygen Delivery Method Oxygen Flow Rate (L/min) 08/16/24 17:00 08/16/24 17:15 08/16/24 17:30 Temperature Temperature Source Pulse Rate 74 68 Respiratory Rate 19 H 21 H Respiratory Effort Respiratory Depth Respiratory Pattern Blood Pressure 123/58 H 115/96 H 125/64 H Blood Pressure Mean 78 103 73 Pulse Ox 100 Oxygen Delivery Method Oxygen Flow Rate (L/min) 08/16/24 17:45 08/16/24 18:00 08/16/24 18:15 Temperature Temperature Source Pulse Rate 74 Respiratory Rate 17 Respiratory Effort Respiratory Depth Respiratory Pattern Blood Pressure 114/50 L 124/59 H 130/63 H Blood Pressure Mean 70 77 81 Pulse Ox 100 Oxygen Delivery Method Oxygen Flow Rate (L/min) 08/16/24 18:30 08/16/24 18:45 08/16/24 18:58 Temperature 98.0 F Temperature Source Pulse Rate 83 83 70 Respiratory Rate 20 H 19 H 18 Respiratory Effort Respiratory Depth Respiratory Pattern Blood Pressure 115/62 120/73 120/73 Blood Pressure Mean 78 88 88 Pulse Ox 98 97 100 Oxygen Delivery Method Oxygen Flow Rate (L/min) 08/16/24 19:00 08/16/24 19:15 Temperature Temperature Source Pulse Rate 85 75 Respiratory Rate 25 H 25 H Respiratory Effort Respiratory Depth Respiratory Pattern Blood Pressure 117/86 H 121/73 H Blood Pressure Mean 96 83 Pulse Ox 100 Oxygen Delivery Method Oxygen Flow Rate (L/min) HEENT Reports moist mucous membranes HEENT Narrative: Normal-appearing oropharynx. No mass appreciated. Uvula is midline. No tonsillar exudate or erythema/swelling appreciated. No trismus. No hot potato voice. Eyes PERRL General Eye ED: Negative for scleral icterus Neck no lymphadenopathy, supple and no JVD Chest Wall inspection of chest normal Resp normal respiratory effort Auscultation: diminished lung sounds right lower; Negative for rhonchi or wheezes Cardio regular rate Rhythm: abnormal rhythm irregularly irregular GI normal to inspection, nondistended, normoactive bowel sounds and non-tender Extremity normal to inspection Extremity Narrative: Some mild chronic appearing pretibial edema. 2+ radial DP pulses present. Neuro oriented x3 Sensorium / Orientation: alert Motor Exam: Negative for general weakness Psych mental status grossly normal Skin no rashes or lesions noted and no wounds MDM MDM MDM Narrative Medical decision making narrative: Patient is evaluated for about 2 weeks of some intermittent worsening shortness of breath as well as right-sided neck pain and odynophagia. He points to about the level of his Gustavo's apple where he has a sensation. He has had decreased oral intake because of the symptoms. In addition he also notes he is at increased foot pain (right more than left) since stopping a course of doxycycline. Differential includes laryngeal mass, malignancy, recurrent pleural effusion, abscess, viral syndrome, pneumonia. Physical exam not consistent with cellulitis. He has good distal pulses so low suspicion for acute vascular insufficiency of the lower extremities. Chest x-ray reviewed by myself as well as radiology shows moderate-sized right pleural effusion but also read as cannot exclude consolidation or neoplastic process recommend CT with contrast for further evaluation. There is also some right hilar fullness. CT with IV contrast of the soft tissue neck to further evaluate evaluate for his pain/foreign body sensation in his neck as well as CT of the chest with IV contrast is ordered. Lab work largely normal. Has a mild anemia with a hemoglobin Yandel 0.9. BNP mildly elevated to 28.7. He is on his baseline oxygen. CT of the chest shows small to moderate right pleural effusion with nodular thickening of the pleural rind concerning for empyema. Adjacent airspace disease may represent atelectasis versus aspiration/pneumonia. No PE appreciated. CT soft tissue neck shows asymmetry of the soft tissues of the aerodigestive tract below the level of the epiglottis at the level of the thyroid cartilage and recommend follow-up with ENT. There is also chronic appearing compression fracture of T1-T3 which is not associated the patient's complaint today. 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 I was not able to get a hold of him however patient is on his baseline O2 and does not have an acute leukocytosis. I feel that this can be managed outpatient. I did speak with ENT on-call, Dr. Sanchez. He reviewed the patient's images. Question of there could also be an associated epiglottitis. He recommends in addition to Decadron and pain control outpatient follow-up to rule out mass/malignancy and adding in Augmentin. Patient is agreeable. Patient is able to tolerate p.o. in the emergency room and as he does not have an MARY or other acute abnormalities consistent with malnutrition or dehydration I feel that he can be discharged home. He is given a dose of Ativan in the emergency room for which he takes at baseline for his anxiety. Patient finally will be given a short course of pain medication for severe symptoms. Counseled on the risk of sedation, constipation and confusion with pain medication. Son is at the bedside who is agreeable with this plan of care. Patient return precautions. Discharged home in stable condition. Lab Data Attestation: I reviewed the patient's lab results. Labs: Laboratory Results - last 24 hr 08/16/24 15:13 WBC 5.9 RBC 3.82 L Hgb 11.9 L Hct 36.8 L MCV 96.3 H MCH 31.2 MCHC 32.3 RDW Std Deviation 52.5 H RDW Coeff of Eduard 14.9 H Plt Count 210 MPV 8.7 Immature Gran % (Auto) 0.800 Neut % (Auto) 72.4 H Lymph % (Auto) 5.4 L [place] % (Auto) 19.4 H Eos % (Auto) 1.7 Baso % (Auto) 0.3 Absolute Neuts (auto) 4.3 Absolute Lymphs (auto) 0.32 L Nucleated RBC % 0 Sodium 135 L Potassium 4.1 Chloride 99 Carbon Dioxide 30.0 Anion Gap 6 BUN 11 Creatinine 0.82 Est GFR (MDRD) Af Amer 117 Est GFR (MDRD) Non-Af 97 BUN/Creatinine Ratio 13.4 Glucose 104 Calcium 9.1 B-Natriuretic Peptide 228.7 H Radiography Chest X-Ray - ED: 2 View, Read by ED Physician and Right Effusion Diagnostic Testing: Clinical Impression(s) from Imaging Studies Chest X-Ray 08/16/24 13:57 IMPRESSION: Moderate-sized right pleural effusion, cannot exclude associated consolidation and/or a neoplastic process, recommend chest CT with contrast for further evaluation. Right hilar fullness, cannot exclude lymphadenopathy and/or mass, again recommend a chest CT with contrast for further evaluation. Electronically Signed: Marietta Cardenas MD at 15:00 EST , Chest CT 08/16/24 14:53 IMPRESSION: 1. Small to moderate size right pleural effusion with nodular thickening of the pleural rind concerning for empyema. Adjacent airspace disease may represent atelectasis versus aspiration/pneumonia. 2. No PE. 3. Ascending thoracic aorta measures up to 4.5 cm. 4. Age indeterminate but presumably nonacute compression fractures of the T1-T3 vertebral bodies. Electronically Signed: Grant Huynh MD at 17:02 EST , Soft Tissue Neck CT 08/16/24 15:22 IMPRESSION: 1. Asymmetry of the soft tissues of the aerodigestive tract below level of the epiglottis, at the level of the thyroid cartilage. Suggest follow-up with ENT. 2. Age indeterminate incompletely imaged fractures of the T1-T3 vertebral bodies. Correlate for any recent trauma to exclude acute/subacute fracture. Electronically Signed: Grant Huynh MD at 17:14 EST Reading Location ID and State: [employer] / [place] Tel , Service support , ADDENDUM: 08/16/24 1734 IMPRESSION: 1. Asymmetry of the soft tissues of the aerodigestive tract below level of the epiglottis, at the level of the thyroid cartilage. Suggest follow-up with ENT. 2. Age indeterminate incompletely imaged fractures of the T1-T3 vertebral bodies. Correlate for any recent trauma to exclude acute/subacute fracture. N.B. : Jordana Souza DO, confirmed on 08/16/2024 17:27:45 (ET) that the healthcare facility has received the radiology report. Electronically Signed: Grant Huynh MD at 17:14 EST , Rhythm Strip Rhythm Strip: A-fib Rate: 64 Ectopy: None EKG Initial EKG: Attestation: I personally reviewed and interpreted this EKG as follows: Interpretation: Atrial Fibrillation Comments: Atrial fibrillation at a rate of 64 bpm Normal axis Incomplete right bundle branch block Normal ST segment Management Discussion w/another healthcare provider: [employer] Discharge Plan Triage Chief Complaint: Shortness of Breath ED Provider: Jordana Souza Dx/Rx/DC Orders Clinical Impression: Odynophagia, Recurrent pleural effusion on right, Abnormal CT scan, neck Instructions: ED Pleural Effusion, ED Dysphagia (Adult) Prescriptions: New dexamethasone 6 mg tablet 6 mg PO DAILY Qty: 5 0RF amoxicillin-pot clavulanate 875-125 mg tablet 875 mg PO Q12H Qty: 14 0RF oxycodone 5 mg/5 mL solution 5 mg PO Q6H PRN (Reason: pain) 3 Days Qty: 60 0RF No Action furosemide 40 mg tablet 40 mg PO DAILY fluticasone propionate 1 SPRAY spray,suspension 1 spray NASAL DAILY guaifenesin [Mucus Relief ER] 600 MG tablet 400 mg PO TID sennosides-docusate sodium 1 EACH tablet 1 ea PO DAILY PRN (Reason: Constipation) vitamin E 400 UNIT capsule 400 unit PO DAILY apixaban 5 MG tablet 5 mg PO BID ascorbic acid (vitamin C) 1,000 MG tablet 1,000 mg PO DAILY@1200 multivitamin with minerals 1 EACH tablet 1 tab PO DAILY bupropion HCl 300 MG tablet extended release 24 hr 300 mg PO DAILY Patient Comments: PT STATED STOPPED TAKING ABOUT 4 DAYS AGO. coenzyme Q10 200 MG capsule 200 mg PO DAILY omeprazole 40 mg Capsule,Delayed Release(Dr/Ec) 40 mg PO BID cholecalciferol (vitamin D3) 125 mcg (5,000 unit) Capsule 125 mcg PO DAILY potassium chloride [Klor-Con M20] 20 mEq Tablet,Er Particles/Crystals 20 meq PO BIDCM Qty: 30 0RF alprazolam 0.25 mg tablet 0.25 mg PO BID Patient Comments: PRN PreserVision AREDS 4,296 mcg-226 mg-90 mg capsule 1 cap PO BID sildenafil (pulm.hypertension) 20 mg tablet 20 mg PO TID Rx Instructions: administer doses at least 4-6 hours apart spironolactone 25 mg tablet 25 mg PO DAILY Qty: 30 11RF metoprolol tartrate 25 mg tablet 25 mg PO BID Qty: 60 0RF [facility] Referrals: Saeed Stout MD [Med Staff - Active Staff] - As soon as possible Tito Tsai MD [Med Staff - Active Staff] - 1 Week [facility] [Primary Care Provider] - Activity Restrictions/Additional Instructions: Your CT of your neck showed some swelling in the area of your pain. This could be infection versus a possible malignancy/mass. Please follow-up closely with your nose and throat, Dr. Sanchez. Call the office tomorrow to make an appointment. In the meantime you been started on steroids, antibiotics and pain medicine to try to help with your symptoms. In addition the CT of your chest did show continued fluid and loculation of the right lung. Please follow-up outpatient with your school photographs detailer for further management of this. If you start to have increased O2 requirements feel your breathing is worsening please return to the emergency room. Print Language: Korean Disposition Disposition: Home, Self Care
--- NOTE | 2024-08-16 15:22 | CT_ITS ---
ACR Level 3 findings have been noted. An addendum which confirms receipt of the report will follow. EXAM: CT NECK WITH INTRAVENOUS CONTRAST CLINICAL INDICATION: odynophagia- right TECHNIQUE: Helically acquired images were obtained of the neck with intravenous contrast. CTDIvol = ( 18.02 ) mGy, DLP = ( 1049.24 ) mGycm This CT exam was performed using one or more of the following dose reduction techniques: automated exposure control, adjustment of the mA and/or kV according to patient size, and/or use of iterative reconstruction technique. CONTRAST: IV 100mL Isovue-300 COMPARISON: No relevant prior studies available. FINDINGS: BRAIN AND EXTRA-AXIAL SPACES: Diffuse parenchymal atrophy and chronic ischemic small vessel matter disease. NASOPHARYNX: Unremarkable. SUPRAHYOID NECK: Unremarkable. Oropharynx, oral cavity, parapharyngeal space and retropharyngeal space are unremarkable. INFRAHYOID NECK: See below. SUBMANDIBULAR/PAROTID GLANDS: Severe atrophy of the left submandibular gland. Glands are normal in size. THYROID: See below. BONES/JOINTS: Age indeterminate incompletely imaged fractures of the T1-T3 vertebral bodies. Correlate for any recent trauma to exclude acute/subacute fracture. Degenerative changes of the spine at multiple levels. Nuchal ligamentous ossification at the C5 level. No acute or healing fracture or malalignment. SOFT TISSUES: Asymmetry of the soft tissues of the aerodigestive tract below level of the epiglottis, at the level of the thyroid cartilage. Suggest follow-up with ENT. VASCULATURE: Carotid siphon atherosclerotic calculus but no significant stenosis. No significant stenosis, thrombosis, aneurysm or dissection although there are scattered atherosclerotic calcifications. LYMPH NODES: Unremarkable. No lymphadenopathy. LUNG APICES: Unremarkable as visualized. CT/Soft Tissue Neck WITH Contrast IMPRESSION: 1. Asymmetry of the soft tissues of the aerodigestive tract below level of the epiglottis, at the level of the thyroid cartilage. Suggest follow-up with ENT. 2. Age indeterminate incompletely imaged fractures of the T1-T3 vertebral bodies. Correlate for any recent trauma to exclude acute/subacute fracture. Electronically Signed: Grant Huynh MD at 17:14 EST ,
[2024-08-16 15:25] LABS: Absolute Lymphocyte Count 0.32 X10^3/uL (0.83-4.51); Absolute Neutrophil Count 4.3 X10^3/uL (2.0-7.7); Basophil# 0.02 X10^3/uL; Basophil% 0.3 % (0-1); Eosinophils% 1.7 % (0-5); Hematocrit 36.8 % (40-54); Hemoglobin 11.9 g/dL (13.0-16.5); Lymphocyte # 0.32 X10^3/ul (0.83-4.51); Lymphocyte % 5.4 % (19-41); Mean Corp Hgb Conc 32.3 g/dL (32-36); Mean Corpuscular Hgb 31.2 pg (27.0-32.0); Mean Corpuscular Volume 96.3 fL (80-94); Mean Platelet Vol. 8.7 fl (6.2-12.0); Monocyte# 1.15 X10^3/uL; Monocyte% 19.4 % (0-10); NRBC Flagged by Analyzer 0 % (0-5); Neutrophil % 72.4 % (47-70); POSITIVE DIFFERENTIAL YES; Platelet Count 210 K/mm3 (150-450); RBC Distribution Width CV 14.9 % (11.6-14.6); RBC Distribution Width SD 52.5 fl (35.1-43.9); Red Blood Count 3.82 M/mm3 (4.6-6.2); White Blood Count 5.9 K/mm3 (4.4-11.0)
[2024-08-16 15:41] LABS: Anion Gap 6 (5-15); BUN 11 mg/dL (7-18); BUN/Creat Ratio 13.4 RATIO (10-20); Calcium,Total 9.1 mg/dL (8.5-10.1); Chloride 99 mmol/L (98-107); Creatinine, Serum 0.82 mg/dL (0.70-1.30); EST Glomerular Filtration Rate 97 mL/min (>60); Est Glom Filt Rate - Afr Amer 117 mL/min (>60); Glucose 104 mg/dL (74-106); Potassium 4.1 mmol/L (3.5-5.1); Sodium Level 135 mmol/L (136-145)
[2024-08-16 15:58] LABS: BNP,B-Type NATRIURETIC PEPTIDE 228.7 pg/mL (0-100)
[2024-08-16] MEDS: dexAMETHasone 10 MG/ML Vial IV (18:53)
[2024-08-16] MEDS: Acetaminophen 650 MG/20 ML UDC 500 MG PO (18:54)
[2024-08-16] MEDS: Lorazepam 2 MG/ML WCH Syringe 0.5 MG IV (18:56)
[2024-08-16] MEDS: Amox/Clavulanate 875 MG Tablet PO (19:29)
== END 2024-08-16 19:46 | disposition home or self-care (01) ==
PROVIDERS: Emergency Provider Emergency Medicine; Referring Provider Emergency Medicine; Visit Provider Emergency Medicine
DX: R13.10 Dysphagia, unspecified (principal); F20.9 Schizophrenia, unspecified; I50.9 Heart failure, unspecified; I48.20 Chronic atrial fibrillation, unspecified; J90 Pleural effusion, not elsewhere classified; Z87.891 Personal history of nicotine dependence; Z79.01 Long term (current) use of anticoagulants
CPT/HCPCS: 70491; 71046; 71260; 80048; 83880; 85025; 87631; 93005; 96374; 96375; 99285; Q9967; A4216

== ENCOUNTER → 2024-09-25 | Outpatient (CLI) | payer OTHER, MEDICARE, SELFPAY ==
[2024-09-25 23:04] LABS: Pro- Brain NATRIURETIC PEPTIDE 2406 pg/mL (<=1800)
== END | disposition home or self-care (01) ==
PROVIDERS: Referring Provider Internal Medicine Pulmonary Disease; Visit Provider Internal Medicine Pulmonary Disease
DX: J44.9 Chronic obstructive pulmonary disease, unspecified (principal); I27.0 Primary pulmonary hypertension; J91.8 Pleural effusion in other conditions classified elsewhere
CPT/HCPCS: 36415; 83880

== ENCOUNTER → 2025-06-04 | Outpatient (CLI) | payer MEDICARE, SELFPAY ==
[2025-06-04 12:21] LABS: Anion Gap 13 (5-15); BUN 15 mg/dL (4-19); BUN/Creat Ratio 17.1 RATIO (10-20); Calcium,Total 9.2 mg/dL (7.6-11.0); Carbon Dioxide 24.9 mmol/L (21.0-32.0); Chloride 96 mmol/L (98-108); Glucose 101 mg/dL (70-99); Potassium 4.5 mmol/L (3.3-5.1)
[2025-06-04 12:25] LABS: Pro- Brain NATRIURETIC PEPTIDE 3528 pg/mL (<=1800)
== END | disposition home or self-care (01) ==
LOC: LAB 08:11
PROVIDERS: Visit Provider Physician Assistant Medical
DX: I50.9 Heart failure, unspecified (principal); I48.20 Chronic atrial fibrillation, unspecified
CPT/HCPCS: 36415; 80048; 83880